=== PATIENT | male | born 1945 | race Caucasian/White ===

== ENCOUNTER → 2019-03-09 10:59 | Outpatient (BNVA) | payer MEDICARE, OTHER, SELFPAY | PROVIDERS: Family Provider Nurse Practitioner Family; PCP Nurse Practitioner Family; Visit Provider Orthopaedic Surgery | DX: M17.12 Unilateral primary osteoarthritis, left knee (principal) | CPT/HCPCS: 73560; 73565 ==

== ENCOUNTER → 2019-03-24 08:28 | Outpatient (BNVA) | payer MEDICARE, OTHER, SELFPAY | PROVIDERS: Family Provider Nurse Practitioner Family; Visit Provider Internal Medicine Cardiovascular Disease | DX: I25.10 Atherosclerotic heart disease of native coronary artery without angina pectoris (principal); I10 Essential (primary) hypertension; Z95.0 Presence of cardiac pacemaker; E78.5 Hyperlipidemia, unspecified; E78.2 Mixed hyperlipidemia | CPT/HCPCS: 80053; 80061; 85025 ==

== ENCOUNTER 2019-04-30 07:52 | Outpatient (CLI) | payer MEDICARE, OTHER, SELFPAY ==
--- NOTE | 2019-04-30 08:15 | CT_ITS ---
WS: [id number] CT scan of the neck. Additional two-dimensional coronal and sagittal reconstruction was performed. Clinical Data: MIXED CONDUCTIVE AND SENSORINEURAL HEARING LOSS, BILAT Comparison: CT cervical spine, 08/29/2015. DLP: 3299.[address] scans at [facility] use at least one of these dose optimization techniques: automat ed exposure control; mA and/or kV adjustment per patient size (includes targeted exams where dose is matched to clinical indication); or iterative reconstruction. Findings: No lymphadenopathy is noted. The salivary glands are unremarkable. There is no prevertebral soft tiss ue swelling. The larynx is symmetric. The thyroid gland shows normal enhancement. The floor of the mo uth and parapharyngeal spaces are normal. The oral cavity is unremarkable. The carotid arteries bifurcate normally. The cervical spine shows mild osteoarthritic change with sylvia cification of the anterior longitudinal ligament at C4-C5.. The lung apices show no abnormalities. Th e pacemaker wires can be seen entering from the left subclavian vein and entering into the superior v domenic cava. The portions of the intracranial circulation which are seen demonstrate no abnormalities. N o erosion of the skull or skull base is seen. There is partial obliteration of the left mastoid regio n. The right mastoid region is normal. The external auditory canals and internal auditory canals show no abnormalities. CT/CT neck w con* [id number] Impression: 1. 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 2. Internal and external auditory canals show no abnormalities.
[2019-04-30] MEDS: iodixanol 320 mg/mL 100mL Btl IV (08:47)
== END 2019-04-30 07:53 | disposition home or self-care (01) ==
LOC: RADWPI 07:57
PROVIDERS: Visit Provider Specialist
DX: H90.6 Mixed conductive and sensorineural hearing loss, bilateral (principal)
CPT/HCPCS: 70491; Q9967

== ENCOUNTER → 2019-07-07 11:51 | Outpatient (BNVA) | payer MEDICARE, OTHER, SELFPAY | PROVIDERS: PCP Family Medicine; Visit Provider Family Medicine | DX: E78.2 Mixed hyperlipidemia (principal); M1A.9XX0 Chronic gout, unspecified, without tophus (tophi); I10 Essential (primary) hypertension | CPT/HCPCS: 80053; 80061; 84550; 85025 ==

== ENCOUNTER → 2019-09-09 09:30 | Outpatient (BNVA) | payer MEDICARE, OTHER, SELFPAY | PROVIDERS: PCP Family Medicine; Visit Provider Family Medicine | DX: M1A.9XX0 Chronic gout, unspecified, without tophus (tophi) (principal) | CPT/HCPCS: 84550 ==

== ENCOUNTER → 2019-11-22 13:15 | Outpatient (BNVA) | payer MEDICARE, OTHER, SELFPAY | PROVIDERS: PCP Family Medicine; Visit Provider Nurse Practitioner Family | DX: Z11.59 Encounter for screening for other viral diseases (principal) | CPT/HCPCS: 87635 ==

== ENCOUNTER 2019-12-01 14:44 | Emergency (ER) | payer MEDICARE, OTHER, SELFPAY ==
[2019-12-01 14:47] VITALS: BP 142/81; PULSE 68; RESP 18; TEMP 36.4; O2SAT 96; BMI 35.6
--- NOTE | 2019-12-01 14:51 | ECG_ITS ---
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 Measurements Intervals [place] Rate: 60 P: 138 GA: 193 QRS: -61 QRSD: 170 T: 135 QT: 432 QTc: 432 Interpretive Statements ELECTRONIC ATRIAL PACEMAKER ELECTRONIC VENTRICULAR PACEMAKER ABNORMAL RHYTHM ECG Compared to ECG 12/28/2018 22:35:15 No significant changes Electronically Signed On 12-01-2019 21:46:51 CDT by Leatha Saldivar M.D. [id number]
--- NOTE | 2019-12-01 15:33 | ECG_ITS ---
[facility] Test Date: 2019-12-01 Pat Name: Miky Hoffman Department: Room: Gender: Male Automatic Chief: : 1945 Requested By: Saul Francisco Order Number: [id number] Irineo MD: Leatha Saldivar M.D. Measurements Intervals [place] Rate: 61 P: 136 NE: 179 QRS: -58 QRSD: 190 T: 136 QT: 439 QTc: 443 Interpretive Statements ELECTRONIC ATRIAL PACEMAKER ELECTRONIC VENTRICULAR PACEMAKER ABNORMAL RHYTHM ECG Compared to ECG 12/28/2018 22:35:15 No significant changes Electronically Signed On 12-01-2019 21:45:24 CDT by Leatha Saldivar M.D. [id number]
--- NOTE | 2019-12-01 15:33 | XRR_ITS ---
PROCEDURE INFORMATION: Exam: XR Chest, 1 View Exam date and time: 12/01/2019 3:57 PM Age: 74 years old Clinical indication: Dyspnea TECHNIQUE: Imaging protocol: XR of the chest Views: 1 view. COMPARISON: CR Chest 1 [place] [id number] 12/28/2018 9:06 PM FINDINGS: Lungs: Unremarkable. No consolidation. Pleural space: Unremarkable. No pleural effusion. No pneumothorax. Heart/Mediastinum: Unremarkable. No cardiomegaly. Bones/joints: Unremarkable. Cardiac pacemaker left anterior chest XR/XR chest 1V portable [id number] IMPRESSION: No acute findings. Cardiac pacemaker left anterior chest
[2019-12-01 15:37] VITALS: BP 122/85; PULSE 60; RESP 18; O2SAT 95
--- NOTE | 2019-12-01 15:42 | ED_ITS ---
Documented by User: Saul Roman DO 12/06/19 13:26 HPI - Chest Pain General: Chief Complaint: Chest Pain Stated Complaint: cp Time Seen by Provider: 12/01/19 15:28 History of Present Illness: HPI narrative: 74-year-old male comes into the emergency room complaining of chest pain and heaviness that began this morning around 10 or 11 AM. Patient reports it radiates into his shoulders and back. He denies any nausea or vomiting he has had some shortness of breath with that he is not noticed anything that exacerbates it or relieves it. He is not having any chest pain now. Patient has a known history of coronary disease previously had PTCA with stents also has a pacemaker. MD complaint: chest heaviness and chest discomfort Pertinent past history: coronary artery disease Onset (ago): hour(s) Timing of current episode: episodic and now resolved Onset: during rest Pain location: left chest Pain radiation: back, left shoulder and right shoulder Severity: moderate Quality: tightness and heaviness Relieving factors: nothing Exacerbating factors: nothing Associated symptoms: Deny abdominal pain, dyspnea, fever(s), nausea or vomiting Review of Systems Const: Denies: fever(s), chills, body aches, change in appetite, fatigue or malaise ENMT: Denies: throat pain, ear or mastoid pain, nasal discharge or nasal congestion Card: Denies: chest pain, edema, dyspnea on exertion or orthopnea Resp: Denies: dyspnea, productive cough or non-productive cough GI: Denies: abdominal pain, nausea, vomiting, hematemesis, coffee ground emesis, diarrhea, constipation, bloating, hematochezia or melena : Denies: flank pain, dysuria, urinary frequency or urinary urgency Skin/Breast: Denies: rash or pruritus PFSH ED PFSH: Medical History (Updated 12/04/19 @ 00:01 by ) Abdominal pain Arteriosclerotic heart disease Atherosclerosis of coronary artery of [place] heart without angina pectoris Blindness of left eye 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 arthritis Cholecystectomy planned Chronic gout Chronic kidney disease, stage 2 (mild) Chronic neck pain Diverticulosis Elevated blood sugar Essential (primary) hypertension Gastro-esophageal reflux disease without esophagitis Hearing loss of both ears Heart murmur Hemorrhoids, internal Hepatomegaly History of colon polyps History of medication noncompliance Hyperuricemia Metatarsalgia of both feet Mixed hyperlipidemia Patel's neuroma of left foot Neuropathy Nicotine dependence, cigarettes, uncomplicated Osteopenia Pacemaker Unspecified osteoarthritis, unspecified site Surgical History (Updated 12/03/19 @ 17:09 by Js Mabry MD) H/O hernia repair History of ankle surgery History of permanent cardiac pacemaker placement For symptomatic bradycardia, 02/25 S/P cardiac catheterization On 07/30/2017 he underwent coronary angiography and was found to have 20% distal left main, minimal intimal irregularities in the LAD, patent stented segment of the first high OM branch patent stent segment of the PDA of the RCA and mild disease in the distal RCA with an EF of 50% and slightly elevated LVEDP of 16 mmHg Status post cholecystectomy Family History Brother CAD (coronary artery disease) Myocardial infarct Cancer Mother Myocardial infarct Father Cancer FROM LUNG CANCER Daughter Cancer Social History (Updated 12/02/19 @ 23:30 by Lino Wren MD) Smoking and tobacco status: former smoker Alcohol intake: current Lives independently: Yes Household members: spouse Marital status: Current occupational status: retired Physical Exam Const: COMMON NORMALS: no acute distress GENERAL APPEARANCE: cooperative and comfortable ORIENTATION/CONSCIOUSNESS: Yes awake, Yes oriented to person, Yes oriented to place and Yes oriented to time HENMT: COMMON NORMALS: normocephalic, atraumatic and external ears normal HEAD & SCALP: normocephalic and atraumatic EXTERNAL EAR: Yes external ears normal Neck/C-Spine: COMMON NORMALS: no JVD Resp: COMMON NORMALS: normal respiratory effort, No retractions, No use of accessory muscles and clear to auscultation bilaterally AUSCULTATION: clear to auscultation bilaterally Cardio: COMMON NORMALS: no JVD, regular rate, regular rhythm and No murmurs present (Cardio) RATE: regular rate RHYTHM: regular rhythm GI: COMMON NORMALS: Soft to palpation and No hepatosplenomegaly present AUSCULTATION: Yes normoactive bowel sounds PALPATION: Yes Soft to palpation, No Tenderness to palpation present (GI), No Guarding due to palpation present (GI) and Yes No hepatosplenomegaly present Extremity: COMMON NORMALS: normal to inspection, capillary refill normal, no clubbing, cyanosis or edema, no calf tenderness and no pedal edema Neuro: SENSORIUM/ORIENTATION: Yes oriented to person, Yes oriented to place and Yes oriented to time Course Vital Signs: Vital signs: Vital Signs Temperature 97.6 F 12/01/19 14:47 Pulse Rate 60 12/01/19 19:27 Respiratory Rate 17 12/01/19 19:27 Blood Pressure 136/87 12/01/19 19:27 Pulse Oximetry 94 12/01/19 19:27 MDM - Chest Pain MDM Narrative: Medical decision making narrative: Turned over to Dr. Jin at change of shift. Lab Data: Labs: Lab Results 12/01/19 12/01/19 12/01/19 Range/Units 15:30 15:30 15:30 WBC 5.8 (4.0-10.0) 10^3/ uL RBC 4.22 (4.1-5.3) 10^6/u L Hgb 13.9 (11.7-16.6) g/dL Hct 42.8 (42.0-52.0) % MCV 101.4 H (80-94) fL MCH 32.9 (28.0-34.0) pg MCHC 32.5 (30.0-36.0) g/dL RDW 11.9 L (12.1-15.1) % Plt Count 172 (130-400) 10^3/c mm MPV 9.5 (7.4-10.4) fL Neut % (Auto) 57.9 % Lymph % (Auto) 30.2 % Piatt % (Auto) 9.0 % Eos % (Auto) 2.1 % Baso % (Auto) 0.5 % Neut # (Auto) 3.36 (1.8-7.7) 10^3/u L Lymph # (Auto) 1.8 (0.8-4.8) 10^3/u L Piatt # (Auto) 0.5 (0.2-0.9) 10^3/u L Eos # (Auto) 0.1 (0.0-0.8) 10^3/u L Baso # (Auto) 0.0 (0.0-0.1) 10^3/u L Nucleated RBC % (a uto) 0 % Nucleated RBCs # 0.0 /100WBC Sodium 139 (136-145) mmol/L Potassium 4.7 (3.5-5.1) mmol/L Chloride 102 (98-107) mmol/L Carbon Dioxide 27 (22-29) mmol/L Anion Gap 14.7 (5-19) BUN 17 (8-23) mg/dL Creatinine 1.3 H (0.7-1.2) mg/dL GFR Calculation Not Reportable Glucose 111 (65-115) mg/dL Calculated Osmolal ity 290 (285-295) mOsm/k g Calcium 10.1 (8.5-10.5) mg/dL Total Bilirubin 0.3 (0.15-1.2) mg/dL AST 51 H (0-40) U/L ALT 79 H (0-41) U/L Alkaline Phosphata se 71 (40-130) IU/L Troponin T Baselin e 9 (0-15) ng/L Troponin T 120 Min [place] (0-15) ng/L Delta Troponin T (0-10) ABS# Total Protein 7.0 (6.6-8.7) g/dL Albumin 4.5 (3.5-5.2) g/dL Globulin 2.5 (1.3-4.6) g/dL 12/01/19 Range/Units 17:39 WBC (4.0-10.0) 10^3/ uL RBC (4.1-5.3) 10^6/u L Hgb (11.7-16.6) g/dL Hct (42.0-52.0) % MCV (80-94) fL MCH (28.0-34.0) pg MCHC (30.0-36.0) g/dL RDW (12.1-15.1) % Plt Count (130-400) 10^3/c mm MPV (7.4-10.4) fL Neut % (Auto) % Lymph % (Auto) % Piatt % (Auto) % Eos % (Auto) % Baso % (Auto) % Neut # (Auto) (1.8-7.7) 10^3/u L Lymph # (Auto) (0.8-4.8) 10^3/u L Piatt # (Auto) (0.2-0.9) 10^3/u L Eos # (Auto) (0.0-0.8) 10^3/u L Baso # (Auto) (0.0-0.1) 10^3/u L Nucleated RBC % (a uto) % Nucleated RBCs # /100WBC Sodium (136-145) mmol/L Potassium (3.5-5.1) mmol/L Chloride (98-107) mmol/L Carbon Dioxide (22-29) mmol/L Anion Gap (5-19) BUN (8-23) mg/dL Creatinine (0.7-1.2) mg/dL GFR Calculation Glucose (65-115) mg/dL Calculated Osmolal ity (285-295) mOsm/k g Calcium (8.5-10.5) mg/dL Total Bilirubin (0.15-1.2) mg/dL AST (0-40) U/L ALT (0-41) U/L Alkaline Phosphata se (40-130) IU/L Troponin T Baselin e (0-15) ng/L Troponin T 120 Min [place] 8 (0-15) ng/L Delta Troponin T -1 L (0-10) ABS# Total Protein (6.6-8.7) g/dL Albumin (3.5-5.2) g/dL Globulin (1.3-4.6) g/dL Discharge Plan Discharge Patient Disposition: Home Clinical Impression: Chest pain Condition: Stable Prescriptions: No Action calcium phosphate-vitamin D3 [Citracal-D3 Gummies] 250 mg calcium- 500 unit tablet,chewable PO BID RF: 0 tramadol 50 mg tablet 50 mg PO Q6H PRNRF: 0 cyanocobalamin (vitamin B-12) 1,000 mcg capsule 1,000 mcg PO ONCE RF: 0 aspirin 81 mg tablet,delayed release (DR/EC) 81 mg PO ONCE RF: 0 multivitamin Tablet 1 tab PO QAM RF: 0 omega-3 fatty acids-vitamin E 1,000 mg capsule 1,000 mg PO DAILY RF: 0 atorvastatin 40 mg tablet 40 mg PO DAILY Qty: 30 RF: 5 clopidogrel 75 mg tablet 75 mg PO DAILY Qty: 30 RF: 4 carvedilol [Coreg] 12.5 mg tablet 12.5 mg PO BID Qty: 60 RF: 5 febuxostat [Uloric] 40 mg tablet 40 mg PO DAILY Qty: 30 RF: 3 nitroglycerin [Nitro-Time] 2.5 mg capsule, extended release 2.5 mg PO BID Qty: 180 RF: 0 tamsulosin [Flomax] 0.4 mg capsule 0.4 mg PO DAILY Qty: 30 RF: 5 colchicine 0.6 mg tablet 0.6 mg PO DAILY Qty: 30 RF: 2 omeprazole 20 mg capsule,delayed release(DR/EC) See Rx Instructions .ROUTE .COMPLEX Qty: 90 RF: 0 cyclobenzaprine 10 mg Tablet 10 mg PO TID PRN (Reason: Muscle Spasms) 15 Days Qty: 30 RF: 0 amlodipine 10 mg Tablet 10 mg PO DAILY 30 Days Qty: 30 RF: 0 Lyrica 25 mg Capsule 25 mg PO BID 30 Days Qty: 60 RF: 0 tramadol 50 mg tablet 25 mg PO Q8H PRN (Reason: pain) 7 Days Qty: 7 RF: 0 Nitrostat 0.4 mg tablet, sublingual 0.4 mg SUBLINGUAL Q5M PRN (Reason: chest pain) 3 Days Qty: 3 RF: 0 Discharge Orders: Discharge Order (Routine); Ordered 12/01/19 Ordered By: Shamar Jin Referrals: Lauren Chin MD [Primary Care Provider] - Discharge Diet: Advance as tolerated Discharge Activity: Resume usual activity Patient Instructions: Chest Pain (ED) Discharge Date/Time: 12/01/19 19:28 Coding Level of Care Code ED Dental Technician Instructor for Chg Fwd Exam Detailed Documented by User: Shamar Jin MD 12/01/19 19:07 HPI - Chest Pain General: Chief Complaint: Chest Pain Stated Complaint: cp Time Seen by Provider: 12/01/19 15:28 PFSH ED PFSH: Medical History (Updated 12/04/19 @ 00:01 by ) Abdominal pain Arteriosclerotic heart disease Atherosclerosis of coronary artery of [place] heart without angina pectoris Blindness of left eye 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 arthritis Cholecystectomy planned Chronic gout Chronic kidney disease, stage 2 (mild) Chronic neck pain Diverticulosis Elevated blood sugar Essential (primary) hypertension Gastro-esophageal reflux disease without esophagitis Hearing loss of both ears Heart murmur Hemorrhoids, internal Hepatomegaly History of colon polyps History of medication noncompliance Hyperuricemia Metatarsalgia of both feet Mixed hyperlipidemia Patel's neuroma of left foot Neuropathy Nicotine dependence, cigarettes, uncomplicated Osteopenia Pacemaker Unspecified osteoarthritis, unspecified site Surgical History (Updated 12/03/19 @ 17:09 by Js Mabry MD) H/O hernia repair History of ankle surgery History of permanent cardiac pacemaker placement For symptomatic bradycardia, 02/25 S/P cardiac catheterization On 07/30/2017 he underwent coronary angiography and was found to have 20% distal left main, minimal intimal irregularities in the LAD, patent stented segment of the first high OM branch patent stent segment of the PDA of the RCA and mild disease in the distal RCA with an EF of 50% and slightly elevated LVEDP of 16 mmHg Status post cholecystectomy Family History Brother CAD (coronary artery disease) Myocardial infarct Cancer Mother Myocardial infarct Father Cancer FROM LUNG CANCER Daughter Cancer Social History (Updated 12/02/19 @ 23:30 by Lino Wren MD) Smoking and tobacco status: former smoker Alcohol intake: current Lives independently: Yes Household members: spouse Marital status: Current occupational status: retired Course Vital Signs: Vital signs: Vital Signs Temperature 97.6 F 12/01/19 14:47 Pulse Rate 60 12/01/19 19:27 Respiratory Rate 17 12/01/19 19:27 Blood Pressure 136/87 12/01/19 19:27 Pulse Oximetry 94 12/01/19 19:27 MDM - Chest Pain MDM Narrative: Medical decision making narrative: Patient presents here with chest pain. Patient's been pain-free here and I took him over from Dr. Silva. Patient's initial and repeat troponins are negative. I went and spoke to patient and did discuss admission he states he feels improved would like to go home. Feel he is stable for discharge informed he needs to set up a stress test outpatient he is return if he has any more pain. He understands agrees to plan. Lab Data: Labs: Lab Results 12/01/19 12/01/19 12/01/19 Range/Units 15:30 15:30 15:30 WBC 5.8 (4.0-10.0) 10^3/ uL RBC 4.22 (4.1-5.3) 10^6/u L Hgb 13.9 (11.7-16.6) g/dL Hct 42.8 (42.0-52.0) % MCV 101.4 H (80-94) fL MCH 32.9 (28.0-34.0) pg MCHC 32.5 (30.0-36.0) g/dL RDW 11.9 L (12.1-15.1) % Plt Count 172 (130-400) 10^3/c mm MPV 9.5 (7.4-10.4) fL Neut % (Auto) 57.9 % Lymph % (Auto) 30.2 % Piatt % (Auto) 9.0 % Eos % (Auto) 2.1 % Baso % (Auto) 0.5 % Neut # (Auto) 3.36 (1.8-7.7) 10^3/u L Lymph # (Auto) 1.8 (0.8-4.8) 10^3/u L Piatt # (Auto) 0.5 (0.2-0.9) 10^3/u L Eos # (Auto) 0.1 (0.0-0.8) 10^3/u L Baso # (Auto) 0.0 (0.0-0.1) 10^3/u L Nucleated RBC % (a uto) 0 % Nucleated RBCs # 0.0 /100WBC Sodium 139 (136-145) mmol/L Potassium 4.7 (3.5-5.1) mmol/L Chloride 102 (98-107) mmol/L Carbon Dioxide 27 (22-29) mmol/L Anion Gap 14.7 (5-19) BUN 17 (8-23) mg/dL Creatinine 1.3 H (0.7-1.2) mg/dL GFR Calculation Not Reportable Glucose 111 (65-115) mg/dL Calculated Osmolal ity 290 (285-295) mOsm/k g Calcium 10.1 (8.5-10.5) mg/dL Total Bilirubin 0.3 (0.15-1.2) mg/dL AST 51 H (0-40) U/L ALT 79 H (0-41) U/L Alkaline Phosphata se 71 (40-130) IU/L Troponin T Baselin e 9 (0-15) ng/L Troponin T 120 Min [place] (0-15) ng/L Delta Troponin T (0-10) ABS# Total Protein 7.0 (6.6-8.7) g/dL Albumin 4.5 (3.5-5.2) g/dL Globulin 2.5 (1.3-4.6) g/dL 12/01/19 Range/Units 17:39 WBC (4.0-10.0) 10^3/ uL RBC (4.1-5.3) 10^6/u L Hgb (11.7-16.6) g/dL Hct (42.0-52.0) % MCV (80-94) fL MCH (28.0-34.0) pg MCHC (30.0-36.0) g/dL RDW (12.1-15.1) % Plt Count (130-400) 10^3/c mm MPV (7.4-10.4) fL Neut % (Auto) % Lymph % (Auto) % Piatt % (Auto) % Eos % (Auto) % Baso % (Auto) % Neut # (Auto) (1.8-7.7) 10^3/u L Lymph # (Auto) (0.8-4.8) 10^3/u L Piatt # (Auto) (0.2-0.9) 10^3/u L Eos # (Auto) (0.0-0.8) 10^3/u L Baso # (Auto) (0.0-0.1) 10^3/u L Nucleated RBC % (a uto) % Nucleated RBCs # /100WBC Sodium (136-145) mmol/L Potassium (3.5-5.1) mmol/L Chloride (98-107) mmol/L Carbon Dioxide (22-29) mmol/L Anion Gap (5-19) BUN (8-23) mg/dL Creatinine (0.7-1.2) mg/dL GFR Calculation Glucose (65-115) mg/dL Calculated Osmolal ity (285-295) mOsm/k g Calcium (8.5-10.5) mg/dL Total Bilirubin (0.15-1.2) mg/dL AST (0-40) U/L ALT (0-41) U/L Alkaline Phosphata se (40-130) IU/L Troponin T Baselin e (0-15) ng/L Troponin T 120 Min [place] 8 (0-15) ng/L Delta Troponin T -1 L (0-10) ABS# Total Protein (6.6-8.7) g/dL Albumin (3.5-5.2) g/dL Globulin (1.3-4.6) g/dL Imaging Data^: CXR: Attestation: I personally reviewed and interpreted this imaging study as follows: Radiologist's impression: [address] [address] XRay Report Signed Patient: Miky Hoffman Unit #: [id number] : 1945 Age/Sex: 74 / M ADM Date: 12/01/19 Loc: ER Room/Bed: Attending Dr: Ordering Provider/Ordering MD: Saul Roman DO Date of Service: 12/01/19 Procedure(s): XR chest 1V portable [id number] Accession Number(s): [id number] Report Number: [id number] PROCEDURE INFORMATION: Exam: XR Chest, 1 View Exam date and time: 12/01/2019 3:57 PM Age: 74 years old Clinical indication: Dyspnea TECHNIQUE: Imaging protocol: XR of the chest Views: 1 view. COMPARISON: CR Chest 1 [place] [id number] 12/28/2018 9:06 PM FINDINGS: Lungs: Unremarkable. No consolidation. Pleural space: Unremarkable. No pleural effusion. No pneumothorax. Heart/Mediastinum: Unremarkable. No cardiomegaly. Bones/joints: Unremarkable. Cardiac pacemaker left anterior chest XR/XR chest 1V portable [id number] IMPRESSION: No acute findings. Cardiac pacemaker left anterior chest EKG Data^: EKG 1: Attestation: I personally reviewed and interpreted this EKG as follows: EKG interpretation date: 12/01/19 EKG interpretation time: 15:57 Interpretation: paced hr [address] or t wave abnormalities qrs 170 qtc 432 EKG 2: Attestation: I personally reviewed and interpreted this EKG as follows: EKG interpretation date: 12/01/19 EKG interpretation time: 18:22 Interpretation: paced rhythm hr [address] or t wave abnormlaites qrs 191 qtc 455 Discharge Plan Discharge Patient Disposition: Home Clinical Impression: Chest pain Condition: Stable Prescriptions: No Action calcium phosphate-vitamin D3 [Citracal-D3 Gummies] 250 mg calcium- 500 unit tablet,chewable PO BID RF: 0 tramadol 50 mg tablet 50 mg PO Q6H PRNRF: 0 cyanocobalamin (vitamin B-12) 1,000 mcg capsule 1,000 mcg PO ONCE RF: 0 aspirin 81 mg tablet,delayed release (DR/EC) 81 mg PO ONCE RF: 0 multivitamin Tablet 1 tab PO QAM RF: 0 omega-3 fatty acids-vitamin E 1,000 mg capsule 1,000 mg PO DAILY RF: 0 atorvastatin 40 mg tablet 40 mg PO DAILY Qty: 30 RF: 5 clopidogrel 75 mg tablet 75 mg PO DAILY Qty: 30 RF: 4 carvedilol [Coreg] 12.5 mg tablet 12.5 mg PO BID Qty: 60 RF: 5 febuxostat [Uloric] 40 mg tablet 40 mg PO DAILY Qty: 30 RF: 3 nitroglycerin [Nitro-Time] 2.5 mg capsule, extended release 2.5 mg PO BID Qty: 180 RF: 0 tamsulosin [Flomax] 0.4 mg capsule 0.4 mg PO DAILY Qty: 30 RF: 5 colchicine 0.6 mg tablet 0.6 mg PO DAILY Qty: 30 RF: 2 omeprazole 20 mg capsule,delayed release(DR/EC) See Rx Instructions .ROUTE .COMPLEX Qty: 90 RF: 0 cyclobenzaprine 10 mg Tablet 10 mg PO TID PRN (Reason: Muscle Spasms) 15 Days Qty: 30 RF: 0 amlodipine 10 mg Tablet 10 mg PO DAILY 30 Days Qty: 30 RF: 0 Lyrica 25 mg Capsule 25 mg PO BID 30 Days Qty: 60 RF: 0 tramadol 50 mg tablet 25 mg PO Q8H PRN (Reason: pain) 7 Days Qty: 7 RF: 0 Nitrostat 0.4 mg tablet, sublingual 0.4 mg SUBLINGUAL Q5M PRN (Reason: chest pain) 3 Days Qty: 3 RF: 0 Discharge Orders: Discharge Order (Routine); Ordered 12/01/19 Ordered By: Shamar Jin Referrals: Lauren Chin MD [Primary Care Provider] - Discharge Diet: Advance as tolerated Discharge Activity: Resume usual activity Patient Instructions: Chest Pain (ED) Discharge Date/Time: 12/01/19 19:28 Coding Level of Care Code ED Dental Technician Instructor for Chg Fwd Exam Detailed
[2019-12-01 15:47] LABS: Basophils % 0.5 %; Eosinophils # 0.1 10^3/uL (0.0-0.8); Eosinophils % 2.1 %; Hematocrit 42.8 % (42.0-52.0); Hemoglobin 13.9 g/dL (11.7-16.6); Lymphocytes # 1.8 10^3/uL (0.8-4.8); Lymphocytes % 30.2 %; Mean Corpuscular HGB Conc 32.5 g/dL (30.0-36.0); Mean Corpuscular Hemoglobin 32.9 pg (28.0-34.0); Mean Corpuscular Volume 101.4 fL (80-94); Mean Platelet Volume 9.5 fL (7.4-10.4); Monocytes # 0.5 10^3/uL (0.2-0.9); Neutrophils # 3.36 10^3/uL (1.8-7.7); Neutrophils % 57.9 %; Nucleated Red Blood Cells % 0 %; Platelet Count 172 10^3/cmm (130-400); Red Blood Count 4.22 10^6/uL (4.1-5.3); Red Cell Distribution Width 11.9 % (12.1-15.1); White Blood Count 5.8 10^3/uL (4.0-10.0)
[2019-12-01 16:09] LABS: Alanine Aminotransferase 79 U/L (0-41); Albumin Level 4.5 g/dL (3.5-5.2); Alkaline Phosphatase 71 IU/L (40-130); Anion Gap 14.7 (5-19); Aspartate Amino Transferase 51 U/L (0-40); Blood Urea Nitrogen 17 mg/dL (8-23); Calcium 10.1 mg/dL (8.5-10.5); Carbon Dioxide 27 mmol/L (22-29); Chloride 102 mmol/L (98-107); Globulin 2.5 g/dL (1.3-4.6); Glucose 111 mg/dL (65-115); Osmolality Calculated 290 mOsm/kg (285-295); Potassium 4.7 mmol/L (3.5-5.1); Sodium 139 mmol/L (136-145); Total Bilirubin 0.3 mg/dL (0.15-1.2)
[2019-12-01 16:12] LABS: Troponin(5th) Baseline 9 ng/L (0-15)
[2019-12-01 17:11] VITALS: PULSE 60; RESP 13; O2SAT 94
--- NOTE | 2019-12-01 17:33 | ECG_ITS ---
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 Measurements Intervals [place] Rate: 61 P: 110 NV: 175 QRS: -60 QRSD: 191 T: 127 QT: 453 QTc: 457 Interpretive Statements ELECTRONIC ATRIAL PACEMAKER ELECTRONIC VENTRICULAR PACEMAKER Compared to ECG 12/01/2019 15:57:13 No significant changes Electronically Signed On 12-02-2019 18:34:03 CDT by Joon Gao M.D. [id number] f
--- NOTE | 2019-12-01 19:13 | PC.NURSE ---
REPORT RECEIVED FROM TICO VELARDE AND CARE TRANSFERRED TO TICO [facility]IL
[2019-12-01 19:18] LABS: Troponin 5 2HR 8 ng/L (0-15); Troponin 5 2HR Delta -1 ABS# (0-10)
[2019-12-01 19:25] VITALS: BP 139/85; PULSE 61; RESP 18; O2SAT 94
[2019-12-01 19:27] VITALS: BP 136/87; PULSE 60; RESP 17; O2SAT 94
== END 2019-12-01 19:28 | disposition home or self-care (01) ==
PROVIDERS: Family Medicine; Emergency Provider Emergency Medicine; PCP Family Medicine
DX: R07.9 Chest pain, unspecified (principal); Z79.82 Long term (current) use of aspirin; Z79.02 Long term (current) use of antithrombotics/antiplatelets; I12.9 Hypertensive chronic kidney disease with stage 1 through stage 4 chronic kidney disease, or unspecified chronic kidney disease; N18.2 Chronic kidney disease, stage 2 (mild); E78.2 Mixed hyperlipidemia; Z95.0 Presence of cardiac pacemaker; Z87.891 Personal history of nicotine dependence
CPT/HCPCS: 12345; 36415; 71045; 80053; 84484; 85025; 93005; 99284

== ENCOUNTER 2019-12-02 18:57 | Observation (INO) | payer MEDICARE, OTHER, SELFPAY ==
[2019-12-02] VITALS (9 sets, daily range): BP systolic 125–168; BP diastolic 78–94; PULSE 60–89; RESP 12–25; TEMP 36.7–36.8; O2SAT 92–99; BMI 35.6
--- NOTE | 2019-12-02 18:58 | XR_ITS ---
WS: [id number] Portable AP upright chest, 12/02/2019 Clinical Data: cp Comparison: Portable chest, 12/01/2019. Findings: No nodules, masses or effusions are seen. The heart is slightly enlarged. The pulmonary vas cularity is not increased. No pneumonia or pneumothorax is seen. There is a 2-lead pacemaker unchange d in position. The aortic arch and descending aorta show calcification of tortuosity. Monitor leads a re on the chest wall. XR/XR chest 1V portable [id number] Impression: Cardiomegaly and atherosclerosis.
--- NOTE | 2019-12-02 18:59 | ECG_ITS ---
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 Measurements Intervals [place] Rate: 62 P: 177 VT: 176 QRS: -59 QRSD: 198 T: 134 QT: 452 QTc: 462 Interpretive Statements ELECTRONIC ATRIAL PACEMAKER ELECTRONIC VENTRICULAR PACEMAKER ABNORMAL RHYTHM ECG Compared to ECG 12/01/2019 18:22:41 No significant changes Electronically Signed On 12-03-2019 20:27:04 CDT by Leatha Saldivar M.D. [email or web address]/[id number]
--- NOTE | 2019-12-02 19:05 | W.ED.CHESTPA ---
HPI - Chest Pain General: Chief Complaint: Extremity Injury, Upper Stated Complaint: SHOULDER PAIN AND FATIGUE Time Seen by Provider: 12/02/19 18:59 Source: patient Mode of arrival: ambulatory Limitations: no limitations History of Present Illness: HPI narrative: 74-year-old male who was seen here yesterday for chest pain had 2 - troponins. States that today has been having worsening shoulder pain along with exertional dyspnea and fatigue. He states he has had increasing concern as it is gotten much worse today. He denies any fever. Denies any cough. Associated symptoms: Reports dyspnea; Deny abdominal pain, nausea or vomiting Review of Systems Const: Reports: fatigue Eyes: Denies: blurry vision or eye discomfort ENMT: Denies: throat pain or dental pain Card: Reports: chest pain Resp: Reports: dyspnea GI: Denies: abdominal pain, nausea, vomiting or diarrhea : Denies: dysuria Musc: Denies: neck pain or back pain Skin/Breast: Denies: rash Neuro: Denies: headache(s) Psych: Denies: depression Randal/Lymph: Denies: easy bruising All/Imm: Denies: urticaria PFSH ED PFSH: Medical History Abdominal pain Arteriosclerotic heart disease Atherosclerosis of coronary artery of [place] heart without angina pectoris Blindness of left eye 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 arthritis Cholecystectomy planned Chronic gout Chronic kidney disease, stage 2 (mild) Chronic neck pain Diverticulosis Elevated blood sugar Essential (primary) hypertension Gastro-esophageal reflux disease without esophagitis Hearing loss of both ears Heart murmur Hemorrhoids, internal Hepatomegaly History of colon polyps History of medication noncompliance Hyperuricemia Metatarsalgia of both feet Mixed hyperlipidemia Patel's neuroma of left foot Neuropathy Nicotine dependence, cigarettes, uncomplicated Osteopenia Pacemaker Unspecified osteoarthritis, unspecified site Surgical History H/O hernia repair History of ankle surgery Family History Brother CAD (coronary artery disease) Myocardial infarct Cancer Mother Myocardial infarct Father Cancer FROM LUNG CANCER Daughter Cancer Social History Smoking and tobacco status: current every day smoker Alcohol intake: current Lives independently: Yes Household members: spouse Marital status: Current occupational status: retired Physical Exam Const: COMMON NORMALS: no acute distress, patient oriented x3 and healthy appearing HENMT: COMMON NORMALS: normocephalic and atraumatic HEAD & SCALP: normocephalic and atraumatic Eye: COMMON NORMALS: Equal, round and reactive pupils present and EOMs intact bilaterally PUPIL: Yes Equal, round and reactive pupils present Neck/C-Spine: COMMON NORMALS: full ROM and supple Chest: COMMONS NORMALS: normal inspection of the chest and normal palpation of entire chest wall Resp: COMMON NORMALS: normal respiratory effort, No retractions, No use of accessory muscles and clear to auscultation bilaterally AUSCULTATION: clear to auscultation bilaterally Cardio: COMMON NORMALS: regular rate, regular rhythm and No murmurs present (Cardio) RATE: regular rate RHYTHM: regular rhythm GI: COMMON NORMALS: Normal to inspection, nondistended, normoactive bowel sounds present, Soft to palpation, non-tender and no masses PALPATION: Yes Soft to palpation Extremity: COMMON NORMALS: normal to inspection and full ROM Neuro: COMMON NORMALS: patient oriented x3, moves all extremities and no focal motor deficits Psych: COMMON NORMALS: mental status grossly normal, Normal thought process present and cooperative THOUGHT PROCESS: Normal thought process present Skin: COMMON NORMALS: no rashes or lesions noted and no wounds GENERAL SKIN EXAM: no rashes or lesions noted Course Vital Signs: Vital signs: Vital Signs Temperature 98.2 F 12/02/19 18:59 Pulse Rate 61 12/02/19 21:28 Respiratory Rate 15 12/02/19 21:28 Blood Pressure 133/79 12/02/19 21:28 Pulse Oximetry 92 12/02/19 21:28 MDM - Chest Pain MDM Narrative: Medical decision making narrative: Miky presents here with chest pain that is resolved here. Patient's initial troponin is negative. Patient's D-dimer is negative as well. He does have multiple risk factors and pain has been going on for 2 days at this time I spoke to hospitalist will admit for observation for ACS rule out. Lab Data: Labs: Lab Results 12/02/19 12/02/19 12/02/19 Range/Units 19:08 19:16 19:16 WBC 5.2 (4.0-10.0) 10^3/ uL RBC 3.99 L (4.1-5.3) 10^6/u L Hgb 13.0 (11.7-16.6) g/dL Hct 39.7 L (42.0-52.0) % MCV 99.5 H (80-94) fL MCH 32.6 (28.0-34.0) pg MCHC 32.7 (30.0-36.0) g/dL RDW 11.8 L (12.1-15.1) % Plt Count 183 (130-400) 10^3/c mm MPV 9.8 (7.4-10.4) fL Neut % (Auto) 49.8 % Lymph % (Auto) 39.3 % [place] % (Auto) 8.6 % Eos % (Auto) 1.3 % Baso % (Auto) 0.8 % Neut # (Auto) 2.61 (1.8-7.7) 10^3/u L Lymph # (Auto) 2.1 (0.8-4.8) 10^3/u L [place] # (Auto) 0.5 (0.2-0.9) 10^3/u L Eos # (Auto) 0.1 (0.0-0.8) 10^3/u L Baso # (Auto) 0.0 (0.0-0.1) 10^3/u L Nucleated RBC % (a uto) 0 % Nucleated RBCs # 0.0 /100WBC PT 12.90 (12.1-14.9) SECO NDS INR 0.95 (0.8-1.2) D-Dimer 0.31 (0-0.59) ug/mIFE U Sodium (136-145) mmol/L Potassium (3.5-5.1) mmol/L Chloride (98-107) mmol/L Carbon Dioxide (22-29) mmol/L Anion Gap (5-19) BUN (8-23) mg/dL Creatinine (0.7-1.2) mg/dL GFR Calculation Glucose (65-115) mg/dL Calculated Osmolal ity (285-295) mOsm/k g Calcium (8.5-10.5) mg/dL Total Bilirubin (0.15-1.2) mg/dL AST (0-40) U/L ALT (0-41) U/L Alkaline Phosphata se (40-130) IU/L Troponin T Baselin e (0-15) ng/L Troponin T 120 Min umm (0-15) ng/L Delta Troponin T (0-10) ABS# Total Protein (6.6-8.7) g/dL Albumin (3.5-5.2) g/dL Globulin (1.3-4.6) g/dL Urine Color Yellow (Yellow) Urine Appearance Clear (CLEAR) Urine pH 6.5 (5-7) Ur Specific Gravit y 1.005 (1.005-1.030) Urine Protein Neg (Negative) Urine Glucose (UA) Norm (Normal) Urine Ketones Negative (Negative) Urine Blood Neg (Negative) Urine Nitrate Negative (Negative) Urine Bilirubin Neg (Negative) Urine Urobilinogen Norm (Negative) mg/dL Ur Leukocyte Cristina ase Negative (Negative) Urine RBC None (0-2) /hpf Urine WBC 0-4 H (0-5) /hpf Ur Squamous Epith Cells None (0-5) /hpf Amorphous Sediment Not Reportable Urine Bacteria Trace (NONE) /hpf 12/02/19 12/02/19 12/02/19 Range/Units 19:16 19:16 21:00 WBC (4.0-10.0) 10^3/ uL RBC (4.1-5.3) 10^6/u L Hgb (11.7-16.6) g/dL Hct (42.0-52.0) % MCV (80-94) fL MCH (28.0-34.0) pg MCHC (30.0-36.0) g/dL RDW (12.1-15.1) % Plt Count (130-400) 10^3/c mm MPV (7.4-10.4) fL Neut % (Auto) % Lymph % (Auto) % [place] % (Auto) % Eos % (Auto) % Baso % (Auto) % Neut # (Auto) (1.8-7.7) 10^3/u L Lymph # (Auto) (0.8-4.8) 10^3/u L [place] # (Auto) (0.2-0.9) 10^3/u L Eos # (Auto) (0.0-0.8) 10^3/u L Baso # (Auto) (0.0-0.1) 10^3/u L Nucleated RBC % (a uto) % Nucleated RBCs # /100WBC PT (12.1-14.9) SECO NDS INR (0.8-1.2) D-Dimer (0-0.59) ug/mIFE U Sodium 139 (136-145) mmol/L Potassium 4.2 (3.5-5.1) mmol/L Chloride 103 (98-107) mmol/L Carbon Dioxide 25 (22-29) mmol/L Anion Gap 15.2 (5-19) BUN 19 (8-23) mg/dL Creatinine 1.3 H (0.7-1.2) mg/dL GFR Calculation Not Reportable Glucose 128 H (65-115) mg/dL Calculated Osmolal ity 292 (285-295) mOsm/k g Calcium 9.5 (8.5-10.5) mg/dL Total Bilirubin 0.3 (0.15-1.2) mg/dL AST 42 H (0-40) U/L ALT 69 H (0-41) U/L Alkaline Phosphata se 83 (40-130) IU/L Troponin T Baselin e 10 (0-15) ng/L Troponin T 120 Min umm 8.62 (0-15) ng/L Delta Troponin T -1.38 L (0-10) ABS# Total Protein 6.7 (6.6-8.7) g/dL Albumin 4.3 (3.5-5.2) g/dL Globulin 2.4 (1.3-4.6) g/dL Urine Color (Yellow) Urine Appearance (CLEAR) Urine pH (5-7) Ur Specific Gravit y (1.005-1.030) Urine Protein (Negative) Urine Glucose (UA) (Normal) Urine Ketones (Negative) Urine Blood (Negative) Urine Nitrate (Negative) Urine Bilirubin (Negative) Urine Urobilinogen (Negative) mg/dL Ur Leukocyte Cristina ase (Negative) Urine RBC (0-2) /hpf Urine WBC (0-5) /hpf Ur Squamous Epith Cells (0-5) /hpf Amorphous Sediment Urine Bacteria (NONE) /hpf Imaging Data^: CXR: Attestation: I personally reviewed and interpreted this imaging study as follows: My impression: no acute abnormality EKG Data^: EKG 1: Attestation: I personally reviewed and interpreted this EKG as follows: EKG interpretation date: 12/02/19 EKG interpretation time: 20:39 Interpretation: paced rhythm hr [address] or twave abnormalities qrs 165 qtc 447 Discharge Plan Discharge Patient Disposition: Admitted As Inpatient Clinical Impression: Chest pain Condition: Stable Referrals: Lauren Chin MD [Primary Care Provider] - Coding Level of Care Code ED Telegraph Dispatcher for Chg Fwd Exam Comprehensive
[2019-12-02 20:12] LABS: Basophils % 0.8 %; Eosinophils # 0.1 10^3/uL (0.0-0.8); Eosinophils % 1.3 %; Hematocrit 39.7 % (42.0-52.0); Lymphocytes # 2.1 10^3/uL (0.8-4.8); Lymphocytes % 39.3 %; Mean Corpuscular HGB Conc 32.7 g/dL (30.0-36.0); Mean Corpuscular Hemoglobin 32.6 pg (28.0-34.0); Mean Corpuscular Volume 99.5 fL (80-94); Mean Platelet Volume 9.8 fL (7.4-10.4); Monocytes # 0.5 10^3/uL (0.2-0.9); Monocytes % 8.6 %; Neutrophils # 2.61 10^3/uL (1.8-7.7); Neutrophils % 49.8 %; Nucleated Red Blood Cells % 0 %; Platelet Count 183 10^3/cmm (130-400); Red Blood Count 3.99 10^6/uL (4.1-5.3); Red Cell Distribution Width 11.8 % (12.1-15.1); White Blood Count 5.2 10^3/uL (4.0-10.0)
[2019-12-02 20:25] LABS: INR 0.95 (0.8-1.2)
[2019-12-02 20:27] LABS: D Dimer 0.31 ug/mIFEU (0-0.59)
[2019-12-02 20:35] LABS: Alanine Aminotransferase 69 U/L (0-41); Albumin Level 4.3 g/dL (3.5-5.2); Alkaline Phosphatase 83 IU/L (40-130); Anion Gap 15.2 (5-19); Aspartate Amino Transferase 42 U/L (0-40); Blood Urea Nitrogen 19 mg/dL (8-23); Calcium 9.5 mg/dL (8.5-10.5); Carbon Dioxide 25 mmol/L (22-29); Chloride 103 mmol/L (98-107); Globulin 2.4 g/dL (1.3-4.6); Glucose 128 mg/dL (65-115); Osmolality Calculated 292 mOsm/kg (285-295); Potassium 4.2 mmol/L (3.5-5.1); Sodium 139 mmol/L (136-145); Total Bilirubin 0.3 mg/dL (0.15-1.2); Total Protein 6.7 g/dL (6.6-8.7)
[2019-12-02 20:51] LABS: Bilirubin Urine Neg (Negative); Blood Urine Neg (Negative); Glucose Urine UA Norm (Normal); Ketones Urine Negative (Negative); Leukocyte Esterase Urine Negative (Negative); Nitrate Urine Negative (Negative); Protein Urine Neg (Negative); Specific Gravity, Urine 1.005 (1.005-1.030); Urine Appearance Clear (CLEAR); Urine Color Yellow (Yellow); Urobilinogen Urine Norm (Negative); pH Urine 6.5 (5-7)
[2019-12-02 20:54] LABS: WBC Urine 0-4 /hpf (0-5)
[2019-12-02 20:55] LABS: Add Urine Culture? No; Bacteria Urine TRACE /hpf
--- NOTE | 2019-12-02 20:59 | ECG_ITS ---
[facility] Test Date: 2019-12-02 Pat Name: Miky Hoffman Department: Room: 104 Gender: Male Sas Clinical Programmer: : 1945 Requested By: Shamar Jin Order Number: [id number] Irineo MD: Leatha Saldivar M.D. Measurements Intervals [place] Rate: 61 P: 203 [place]: 207 QRS: -60 QRSD: 165 T: 142 QT: 445 QTc: 449 Interpretive Statements ELECTRONIC ATRIAL PACEMAKER ELECTRONIC VENTRICULAR PACEMAKER ABNORMAL RHYTHM ECG Compared to ECG 12/01/2019 18:22:41 No significant changes Electronically Signed On 12-03-2019 20:36:09 CDT by Leatha Saldivar M.D. [id number]
[2019-12-02 21:03] LABS: Troponin(5th) Baseline 10 ng/L (0-15)
[2019-12-02 21:27] LABS: Troponin 5 2HR 8.62 ng/L (0-15)
[2019-12-02 21:29] LABS: Troponin 5 2HR Delta -1.38 ABS# (0-10)
--- NOTE | 2019-12-02 21:35 | P.HP_ITS ---
Providers/Chief Complaint Primary Care Provider: Lauren Chin MD Chief Complaint: SHOULDER PAIN AND FATIGUE History of Present Illness Miky Hoffman is a 74 year old male carries history of sinus bradycardia, status post pacemaker placement, congestive heart failure, grade 1 diastolic dysfunction, hypertension, established coronary disease, resented today with chief complaint of chest pain. Patient was evaluated yesterday for similar complaint & was discharged home after 2 negative troponins and unremarkable EKG. He returns today for chief complaint of chest discomfort. Patient is stating that for last few months he has been experiencing neck pain, his arms feel heavy especially after some work, at baseline he is able to carry out his daily activities without any issues but recently he has been experiencing more shortness of breath, today he was picking up sticks, after picking about 4-6 sticks from the yard he started experiencing extreme shortness of breath, he felt heavy in his arms bilaterally, his left shoulder was painful, after a while he noticed some chest discomfort which he described as heaviness in sub sternally. He did not experience any profuse sweating, nausea, vomiting, he would not describe his chest discomfort as squeezing or pressure-like sensation, it only lasted for about few seconds. Diagnostics in the ER revealed normal hemodynamics, normal blood work, D-dimer negative, troponins unremarkable, EKG not significant for ischemic or infarctive changes, paced rhythm, at the time my evaluation no active chest pain, no numbness and tingling of upper extremities, chest x-ray unremarkable Review of previous records revealed C4 vertebral joint disease, Review of Systems Const: Reports: fatigue and malaise; Denies: fever(s) Eyes: Denies: change in vision ENMT: Denies: throat pain Card: Reports: chest pain and dyspnea on exertion; Denies: palpitations, syncope, pre-syncope or orthopnea Resp: Reports: dyspnea and non-productive cough GI: Denies: abdominal pain : Denies: flank pain Musc: Denies: neck pain Skin/Breast: Denies: rash Neuro: Denies: headache(s) Psych: Denies: anxiety Endo: Denies: polyuria Randal/Lymph: Denies: easy bruising All/Imm: Denies: urticaria Medications/Allergies Home Medications Medication Instructions Recorded Confirmed Last Taken Type aspirin 81 mg tablet,delayed 81 mg PO ONCE 02/08/19 11/22/19 Unknown History release calcium phosphate-vitamin D3 250 tab PO BID tab 02/08/19 11/22/19 Unknown History mg calcium-500 unit chewable tablet cyanocobalamin (vitamin B-12) 1,000 mcg PO ONCE 02/08/19 11/22/19 Unknown History 1,000 mcg capsule cyclobenzaprine 5 mg tablet 5 mg PO BID PRN tab 02/08/19 11/22/19 Unknown History multivitamin 1 tab PO QAM 02/08/19 11/22/19 Unknown History nitroglycerin 0.4 mg sublingual 0.4 mg SUBLINGUAL Q5M PRN 02/08/19 11/22/19 Unknown History tablet omega-3 fatty acids-vitamin E 1,000 mg PO DAILY cap 02/08/19 11/22/19 Unknown History 1,000 mg capsule tramadol 50 mg tablet 50 mg PO Q6H PRN 02/08/19 11/22/19 Unknown History atorvastatin 40 mg tablet 40 mg PO DAILY #30 tab 07/13/19 11/22/19 Unknown Rx carvedilol 12.5 mg tablet 12.5 mg PO BID #60 tab 07/13/19 11/22/19 Unknown Rx clopidogrel 75 mg tablet 75 mg PO DAILY #30 tab 07/13/19 11/22/19 Unknown Rx febuxostat 40 mg tablet 40 mg PO DAILY #30 tab 07/13/19 11/22/19 Unknown Rx nitroglycerin 2.5 mg 2.5 mg PO BID #180 cap 07/13/19 11/22/19 Unknown Rx capsule,extended release tamsulosin 0.4 mg capsule 0.4 mg PO DAILY #30 cap 07/13/19 11/22/19 Unknown Rx colchicine 0.6 mg tablet 0.6 mg PO DAILY #30 tab 08/04/19 11/22/19 Unknown Rx omeprazole 20 mg capsule,delayed See Rx Instructions .ROUTE 10/06/19 11/22/19 Unknown Rx release .COMPLEX #90 cap amlodipine 2.5 mg tablet See Rx Instructions .ROUTE 11/10/19 11/22/19 Unknown Rx .COMPLEX #30 unknown measurement unit code: tablet Allergies Allergy/AdvReac Type Severity Reaction Status Date / Time No Known Allergies Allergy Verified 11/22/19 13:32 PFSH Acute PFSH: Medical History Abdominal pain Arteriosclerotic heart disease Atherosclerosis of coronary artery of [place] heart without angina pectoris Blindness of left eye 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 arthritis Cholecystectomy planned Chronic gout Chronic kidney disease, stage 2 (mild) Chronic neck pain Diverticulosis Elevated blood sugar Essential (primary) hypertension Gastro-esophageal reflux disease without esophagitis Hearing loss of both ears Heart murmur Hemorrhoids, internal Hepatomegaly History of colon polyps History of medication noncompliance Hyperuricemia Metatarsalgia of both feet Mixed hyperlipidemia Patel's neuroma of left foot Neuropathy Nicotine dependence, cigarettes, uncomplicated Osteopenia Pacemaker Unspecified osteoarthritis, unspecified site Surgical History H/O hernia repair History of ankle surgery History of permanent cardiac pacemaker placement For symptomatic bradycardia, 02/25 S/P cardiac catheterization On 07/30/2017 he underwent coronary angiography and was found to have 20% distal left main, minimal intimal irregularities in the LAD, patent stented segment of the first high OM branch patent stent segment of the PDA of the RCA and mild disease in the distal RCA with an EF of 50% and slightly elevated LVEDP of 16 mmHg Status post cholecystectomy Family History Brother CAD (coronary artery disease) Myocardial infarct Cancer Mother Myocardial infarct Father Cancer FROM LUNG CANCER Daughter Cancer Social History (Updated 12/02/19 @ 23:30 by Lino Wren MD) Smoking and tobacco status: former smoker Alcohol intake: current Lives independently: Yes Household members: spouse Marital status: Current occupational status: retired Vitals/I&O/Wt Last Vital Signs Temp 98.2 F 12/02/19 18:59 Pulse 61 12/02/19 21:28 Resp 15 12/02/19 21:28 BP 133/79 12/02/19 21:28 Pulse Ox 92 12/02/19 21:28 Weight last 48 hrs Weight 122.47 kg Physical Exam Narrative: EXAM NARRATIVE: Obese male No active/apparent distress Sitting comfortably in his bed watching television Saturating well on room air S1, S2 paced rhythm no active sign of heart failure Abdomen soft, distended bowel sound present Lungs are clear to auscultation Neurologically no focal exam No sensory loss of upper extremities, good wrist flexion, extension, arm flexion extension, abduction EOMI, PERRLA Chronic neck pain Afebrile No confusion alert GCS 15 Lungs are clear to auscultation Low symmetry no edema gangrene ulcer Appropriate mood and affect Data : 12/02/19 19:16 12/02/19 19:16 A&P Assessment and plan (1) Atypical chest pain: Status: Acute (2) Numbness of upper extremity: Status: Acute Additional A&P Information Atypical chest pain Paced rhythm, troponins negative, D-dimer negative, has history of coronary artery disease status post coronary stents I Considering bilateral upper extremity heaviness with neck pain I am suspecting his symptoms to be related to nerve compression as he has cervical spine arthritis especially at the level of C4 which can also compress phrenic nerve I do not appreciate any hemidiaphragm presentation on x-ray, At this point I am not suspecting cardiac etiology for his chest pain Overnight monitoring because of his recurrent symptoms I would only obtain echo in the morning, no need to cardiac stress test, PE ruled out Neck pain with numbness of upper extremities Would recommend outpatient follow-up with spine surgeon No acute exacerbation Dual-chamber pacemaker for bradycardia: No acute exacerbation Mild JOSÉ: Baseline creatinine 1.1, current creatinine 1.3, Patient is not endorsing urine retention, Monitor BMP and urine output Bladder scan as needed Patient endorses to not drinking fluid enough to void urinary frequency because of history of BPH No acute exacerbation of BPH symptoms Anticipate improvement with better p.o. intake DVT prophylaxis: Heparin Cardiac diet Full code Attestations Medical Necessity Statement*: Anticipating discharge in less than 48 hours currently need overnight monitoring because of his atypical chest pain will need echo in the morning to rule out wall motion abnormality, he is admitted because of previous history of coronary disease, stents and dual-chamber pacemaker Time Spent in Patient Care: (>than 50% of time spent in counselling and/or direct pt care on unit) . 50mins Coding Level of Care Code Acute Bliss Press Operator for Lamont Galan Diagnoses Atypical chest pain R07.89 Numbness of upper extremity R20.0
[2019-12-02] MEDS: heparin 5,000 unit/mL INJ 1 mL 5000 UNIT SUBCUT (22:24)
--- NOTE | 2019-12-02 22:28 | PC.NURSE ---
Patient arrived to CSU from ED at 2200. Patient is alert and orientated. Continent. Lung sounds clear. Does have a pacemaker and is paced on telemetry. Denies any pain or chest pain at this time, call light is within reach, continue care.
--- NOTE | 2019-12-02 22:54 | PC.NURSE ---
Doctor Wren at bedside discussing POC. Plans for possible discharge tomorrow if safety concerns are met.
--- NOTE | 2019-12-03 00:59 | ECG_ITS ---
[facility] Test Date: 2019-12-03 Pat Name: Miky Hoffman Department: Room: 104 Gender: Male Project Builder: : 1945 Requested By: Shamar Jin Order Number: [id number] Irineo MD: Leatha Saldivar M.D. Measurements Intervals [place] Rate: 60 P: 213 [place]: 173 QRS: -60 QRSD: 201 T: 127 QT: 468 QTc: 471 Interpretive Statements ELECTRONIC ATRIAL PACEMAKER ELECTRONIC VENTRICULAR PACEMAKER ABNORMAL RHYTHM ECG Compared to ECG 12/02/2019 20:39:05 No significant changes Electronically Signed On 12-03-2019 20:36:37 CDT by Leatha Saldivar M.D. [email or web address] [email or web address]/[id number]
--- NOTE | 2019-12-03 01:05 | PC.NURSE ---
Patient resting in bed in room. Patient denies any complaints of pain. Denies any concerns or complaints. Call light is within reach, continue care.
[2019-12-03 01:12] LABS: Troponin 5 6HR 9.48 ng/L (0-15); Troponin 5 6HR Delta -0.52 ng/L (0-12)
[2019-12-03 03:17] VITALS: BP 172/79; PULSE 60; RESP 17; TEMP 36.6; O2SAT 94
[2019-12-03] MEDS: heparin 5,000 unit/mL INJ 1 mL 5000 UNIT SUBCUT ×2 (05:28→14:07)
[2019-12-03 05:31] LABS: Anion Gap 13.2 (5-19); Blood Urea Nitrogen 18 mg/dL (8-23); Calcium 9.5 mg/dL (8.5-10.5); Carbon Dioxide 27 mmol/L (22-29); Chloride 104 mmol/L (98-107); Glucose 105 mg/dL (65-115); Osmolality Calculated 292 mOsm/kg (285-295); Potassium 4.2 mmol/L (3.5-5.1); Sodium 140 mmol/L (136-145)
--- NOTE | 2019-12-03 06:21 | PC.NURSE ---
SHIFT SUMMARY: Patient rested in bed soundly all night, Dr. Wren was bedside during the beginning of shift discussing POC, all troponin levels were negative. No complaints of chest pain or s/s of distress noted during thus shift. Call light is within reach, continue care.
[2019-12-03 08:00] VITALS: BP 155/83; PULSE 65; RESP 12; TEMP 36.4; O2SAT 98
[2019-12-03 08:43] VITALS: PULSE 69; O2SAT 96
--- NOTE | 2019-12-03 09:10 | PC.CHAP ---
Pastoral Care Encounter/Spiritual Assessment Type of Contact [] Declined marking machine operator visit [] Patient/Family/Request visit [] Outpatient visit [] Follow-up visit [] Physician referral [] Code/Alert [x] Routine visit [] Staff referral [] Actively dying [] Patient sleeping [] Family support [] [] Out of room [] Palliative care [] [] Receiving care in room [] Pre-surgical visit [] Trauma [] Long length of stay [] ICU visit [] Other: Relational/Emotional Strength [] Patient feels connected with others/family/visitors/staff [] Distress [] Loneliness/isolation [] Abandonment Spirituality of Patient [] Person of Latoya [] Attends Congregational of their Latoya [] Believes in Prayer [] Reads Bible or Presybeterian materials [] There are Spiritual issues to be addressed Business Education Teacher Interventions [x] Prayer [x] Active listening [x] Non-anxious presence [x] Spiritual/emotional support [] Crisis/trauma care [] Spiritual counseling [] Bereavement support [] Provided bereavement packet [] Provided Bible/devotional materials [] Provided toy/stuffed animal, coloring book to patient or family member [] Provided Communion [] Anointing/Romney [] Salvation [x] Completed spiritual assessment [] Other: Impact on Illness or Injury [] Angry [] Fearful [] Anxious [] Often cries [] Exhaustion [] Unable to work [] Unable to attend baptism [] Unable to walk/stand [] Unable to read [] Unable to drive [] Unable to eat/drink [] Unable to sleep [] Unable to be with family [] Patient intubated [] Other: Summary patient setting on side of bed... enjoying breakfast Time spent with patient 5 min
[2019-12-03] MEDS: tamsulosin 0.4 mg Capsule PO (09:30)
[2019-12-03] MEDS: pantoprazole DR 40 mg Tablet PO (09:30)
[2019-12-03] MEDS: carvedilol 12.5 mg Tablet PO ×2 (09:30→18:07)
[2019-12-03] MEDS: pregabalin 25 mg Capsule PO ×2 (09:31→18:07)
[2019-12-03] MEDS: atorvastatin 40 mg Tablet PO (09:31)
[2019-12-03] MEDS: colchicine 0.6 mg Tablet PO (09:31)
[2019-12-03] MEDS: clopidogrel 75 mg Tablet PO (09:31)
[2019-12-03 12:00] VITALS: BP 169/98; PULSE 60; RESP 14; O2SAT 94
--- NOTE | 2019-12-03 13:37 | USCV_ITS ---
Miky Hoffman Age: 74 Gender: M : 1945 Exam Date: 12/03/2019 15:59 Ordering Phys: Kathe Agudelo MD ([email or web address]) Technologist: Aretha Tejeda Exam Location: [facility] [place] Indication: CHEST PAIN BP: 169 / 98 HR: Rhythm: Sinus Technical Quality: MEASUREMENTS (Male / Female) Normal Values 2D ECHO LV Ejection Fraction MOD 2C 77.4 % LV Ejection Fraction 2C AL 78.4 % FINDINGS Left Ventricle Normal left ventricular cavity size. Mildly decreased left ventricular systolic function. Left ventricular ejection fraction is estimated at 45 %. There is possible hypokinesis of inferior and septal vee. Abnormal septal motion consistent with conduction abnormality. Right Ventricle Normal right ventricular size and systolic function. Right Atrium Normal right atrial size. Left Atrium Normal left atrial size. Mitral Valve Structurally normal mitral valve. Aortic Valve Aortic valve was not assessed. Tricuspid Valve Structurally normal tricuspid valve. Pulmonic Valve Pulmonic valve not well visualized. Pericardium No pericardial effusion. Aorta Aorta not well visualized. CONCLUSIONS 1. This is a limited study with ultrasound enhancing agent. Optison was used per protocol. 2. Normal left ventricular cavity size. Mildly decreased left ventricular systolic function. Left ventricular ejection fraction is estimated at 45 %. There is possible hypokinesis of inferior and septal vee. Kathe Agudelo MD (Electronically Signed) Final Date: 03 December 2019 17:28 S
[2019-12-03] MEDS: perflutren protein-a microsphr 0.22 mg/mL SDV 3 mL IV (16:14)
[2019-12-03 17:00] VITALS: BP 141/79; PULSE 60; RESP 12; O2SAT 95
--- NOTE | 2019-12-03 17:12 | P.DS_ITS ---
Discharge Providers Date of Admission: 12/02/19 21:29 Date of Discharge: December 03, 2019 Attending Provider at Admission: Lino Wren MD Attending Provider at Discharge: Js Mabry MD Primary Care Provider: Lauren Chin MD Diagnoses at Discharge Discharge Diagnosis (1) Atypical chest pain: Status: Acute (2) Numbness of upper extremity: Status: Acute Reason for Visit Reason for Visit: SHOULDER PAIN AND FATIGUE Hospital Course Discharge Summary: This is a 74-year-old male with a past medical history of sinus bradycardia, status post pacemaker placement, systolic heart failure, grade 1 diastolic dysfunction, hypertension, history of CAD, history of stenting of first high OM branch, recent cardiac catheterization on 07/30/2017, history of cardiac stress test on September 14, 2018 which showed persistent decreased tracer uptake in the inferior wall and septal regions, suggestive of myocardial scarring versus attenuation artifacts, LV wall motion analysis revealing diffuse hypokinesia of the inferior wall and the apex, low probability of CAD. Patient presents [facility] due to complaints of neck pain, and shoulder pain, arm heaviness. Patient was admitted to [facility] for atypical chest pain, patient's troponin series was within normal limits, no significant delta, EKG no acute ST-T wave changes, no repeat episodes of chest pain, telemetry was unremarkable. Given patient cardiovascular history he underwent cardiac echocardiogram which showed an ejection fraction of 40%, abnormal sepal motion due to paced rhythym. After discussion with cardiology, decision was made to pursue outpatient stress testing whichIi have ordered, heart center should call patient on friday to schedule, i have also talked to dr. saldivar to get patient appointment moved up from dec 2011/2019 to an earlier date, patient is to follow up with dr. saldivar for stress test results. patient was advised if he were to have repeat chest pain or shortness of breath come to the emergency room. Patient's neck exam revealed facet joint arthropathy, cervical radiculopathy, spinal stenosis, paracervical muscle spasm, bilateral adhesive capsulitis. Patient's clinical symptoms do seem more musculoskeletal, CT of the neck showed mild osteoarthritic change with calcification of the anterior longitudinal ligament at C4-C5. 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 Started the patient on Flexeril, Ultram, Lyrica. He tolerated this well. I have advised patient to follow-up with primary care for consideration of cervical MRI, referral to pain clinic for consideration for steroid injections and/or nerve ablation. I have provided patient Flexeril, Ultram, Lyrica, with close follow-up with primary care provider, with instructions as below, should continue muscle stretching exercises, conservative measures such as rest, ice compressions, range of motion exercises, advised patient to avoid NSAIDs given his cardiovascular history -Use Flexeril as prescribed, do not operate heavy machinery or drive while taking this medication, if you feel lightheaded or dizzy stop taking this medication -Use Ultram as prescribed, should only be used for severe pain, use sparingly, if you feel lightheaded or dizzy stop taking this medication, do not operate heavy machinery or drive while taking this medication -Use Lyrica as prescribed, if you feel lightheaded or dizzy stop taking this medication, do not operate heavy machinery or drive while taking this medication -advised to not take medication together due to risk of adverse side effects Physical Exam Const: COMMON NORMALS: no acute distress and patient oriented x3 HENMT: COMMON NORMALS: normocephalic HEAD & SCALP: normocephalic Neck/C-Spine: COMMON NORMALS: no JVD GENERAL: Yes normal visual inspection CERVICAL SPINE: Yes cervical ROM normal, Yes Cervical spine tenderness, Yes Paracervical muscle tenderness, Yes Paracervical spasm and Yes Trapezius muscle tenderness OTHER: positive spurling Resp: COMMON NORMALS: normal respiratory effort, No retractions, No use of accessory muscles and clear to auscultation bilaterally AUSCULTATION: clear to auscultation bilaterally Cardio: COMMON NORMALS: no JVD, regular rate, regular rhythm, S1 normal heart sound present and S2 normal heart sound present RATE: regular rate RHYTHM: regular rhythm HEART SOUNDS: S1 normal heart sound present and S2 normal heart sound present GI: COMMON NORMALS: Normal to inspection, nondistended, normoactive bowel sounds present, Soft to palpation, non-tender, No hepatosplenomegaly present, no masses and no bruits PALPATION: Yes Soft to palpation and Yes No hepatosplenomegaly present Extremity: COMMON NORMALS: capillary refill normal, no clubbing, cyanosis or edema, no calf tenderness and no pedal edema Neuro: COMMON NORMALS: patient oriented x3 Psych: COMMON NORMALS: mental status grossly normal Discharge Data Data Completed and Pending: Completed Studies During Hospitalization Category Date Time Status XR chest 1V miranda ble [id number] Stat Exams 12/02/19 18:58 Completed CV echo complete* [id number] Routine Ultrasound 12/03/19 23:44 Completed Pending at discharge Category Date Time Status CV echo lmt wo/w contras [id number] Rout ine Ultrasound 12/03/19 13:37 Taken US/CV paperwork R outine Ultrasound 12/03/19 Taken Labs from last 24 hours 12/03/19 12/03/19 12/02/19 04:48 00:44 21:00 WBC RBC Hgb Hct MCV MCH MCHC RDW Plt Count MPV Neut % (Auto) Lymph % (Auto) [place] % (Auto) Eos % (Auto) Baso % (Auto) Neut # (Auto) Lymph # (Auto) [place] # (Auto) Eos # (Auto) Baso # (Auto) Nucleated RBC % (a uto) Nucleated RBCs # PT INR D-Dimer Sodium 140 Potassium 4.2 Chloride 104 Carbon Dioxide 27 Anion Gap 13.2 BUN 18 Creatinine 1.1 GFR Calculation Not Reportable Glucose 105 Calculated Osmolal ity 292 Calcium 9.5 Total Bilirubin AST ALT Alkaline Phosphata se Troponin T Baselin e Troponin T 120 Min [place] 8.62 Delta Troponin T -1.38 L Troponin T Hi Sens 6Hr 9.48 Troponin T Hi Sens 6Hr Delta -0.52 L Total Protein Albumin Globulin Urine Color Urine Appearance Urine pH Ur Specific Gravit y Urine Protein Urine Glucose (UA) Urine Ketones Urine Blood Urine Nitrate Urine Bilirubin Urine Urobilinogen Ur Leukocyte Cristina ase Urine RBC Urine WBC Ur Squamous Epith Cells Amorphous Sediment Urine Bacteria 12/02/19 12/02/19 12/02/19 19:16 19:16 19:16 WBC RBC Hgb Hct MCV MCH MCHC RDW Plt Count MPV Neut % (Auto) Lymph % (Auto) [place] % (Auto) Eos % (Auto) Baso % (Auto) Neut # (Auto) Lymph # (Auto) [place] # (Auto) Eos # (Auto) Baso # (Auto) Nucleated RBC % (a uto) Nucleated RBCs # PT 12.90 INR 0.95 D-Dimer 0.31 Sodium 139 Potassium 4.2 Chloride 103 Carbon Dioxide 25 Anion Gap 15.2 BUN 19 Creatinine 1.3 H GFR Calculation Not Reportable Glucose 128 H Calculated Osmolal ity 292 Calcium 9.5 Total Bilirubin 0.3 AST 42 H ALT 69 H Alkaline Phosphata se 83 Troponin T Baselin e 10 Troponin T 120 Min [place] Delta Troponin T Troponin T Hi Sens 6Hr Troponin T Hi Sens 6Hr Delta Total Protein 6.7 Albumin 4.3 Globulin 2.4 Urine Color Urine Appearance Urine pH Ur Specific Gravit y Urine Protein Urine Glucose (UA) Urine Ketones Urine Blood Urine Nitrate Urine Bilirubin Urine Urobilinogen Ur Leukocyte Cristina ase Urine RBC Urine WBC Ur Squamous Epith Cells Amorphous Sediment Urine Bacteria 12/02/19 12/02/19 19:16 19:08 WBC 5.2 RBC 3.99 L Hgb 13.0 Hct 39.7 L MCV 99.5 H MCH 32.6 MCHC 32.7 RDW 11.8 L Plt Count 183 MPV 9.8 Neut % (Auto) 49.8 Lymph % (Auto) 39.3 [place] % (Auto) 8.6 Eos % (Auto) 1.3 Baso % (Auto) 0.8 Neut # (Auto) 2.61 Lymph # (Auto) 2.1 [place] # (Auto) 0.5 Eos # (Auto) 0.1 Baso # (Auto) 0.0 Nucleated RBC % (a uto) 0 Nucleated RBCs # 0.0 PT INR D-Dimer Sodium Potassium Chloride Carbon Dioxide Anion Gap BUN Creatinine GFR Calculation Glucose Calculated Osmolal ity Calcium Total Bilirubin AST ALT Alkaline Phosphata se Troponin T Baselin e Troponin T 120 Min [place] Delta Troponin T Troponin T Hi Sens 6Hr Troponin T Hi Sens 6Hr Delta Total Protein Albumin Globulin Urine Color Yellow Urine Appearance Clear Urine pH 6.5 Ur Specific Gravit y 1.005 Urine Protein Neg Urine Glucose (UA) Norm Urine Ketones Negative Urine Blood Neg Urine Nitrate Negative Urine Bilirubin Neg Urine Urobilinogen Norm Ur Leukocyte Cristina ase Negative Urine RBC None Urine WBC 0-4 H Ur Squamous Epith Cells None Amorphous Sediment Not Reportable Urine Bacteria Trace Vitals: Last Vital Signs Temp 97.6 F 12/03/19 08:00 Pulse 60 12/03/19 12:00 Resp 14 12/03/19 12:00 BP 169/98 12/03/19 12:00 Pulse Ox 94 12/03/19 12:00 Discharge Plan Discharge Patient Disposition: Home Condition: Stable Prescriptions: New cyclobenzaprine 10 mg Tablet 10 mg PO TID PRN (Reason: Muscle Spasms) 15 Days Qty: 30 RF: 0 amlodipine 10 mg Tablet 10 mg PO DAILY 30 Days Qty: 30 RF: 0 Lyrica 25 mg Capsule 25 mg PO BID 30 Days Qty: 60 RF: 0 tramadol 50 mg tablet 25 mg PO Q8H PRN (Reason: pain) 7 Days Qty: 7 RF: 0 Continued calcium phosphate-vitamin D3 [Citracal-D3 Gummies] 250 mg calcium- 500 unit tablet,chewable PO BID RF: 0 tramadol 50 mg tablet 50 mg PO Q6H PRNRF: 0 cyanocobalamin (vitamin B-12) 1,000 mcg capsule 1,000 mcg PO ONCE RF: 0 aspirin 81 mg tablet,delayed release (DR/EC) 81 mg PO ONCE RF: 0 multivitamin Tablet 1 tab PO QAM RF: 0 omega-3 fatty acids-vitamin E 1,000 mg capsule 1,000 mg PO DAILY RF: 0 atorvastatin 40 mg tablet 40 mg PO DAILY Qty: 30 RF: 5 clopidogrel 75 mg tablet 75 mg PO DAILY Qty: 30 RF: 4 carvedilol [Coreg] 12.5 mg tablet 12.5 mg PO BID Qty: 60 RF: 5 febuxostat [Uloric] 40 mg tablet 40 mg PO DAILY Qty: 30 RF: 3 nitroglycerin [Nitro-Time] 2.5 mg capsule, extended release 2.5 mg PO BID Qty: 180 RF: 0 tamsulosin [Flomax] 0.4 mg capsule 0.4 mg PO DAILY Qty: 30 RF: 5 colchicine 0.6 mg tablet 0.6 mg PO DAILY Qty: 30 RF: 2 omeprazole 20 mg capsule,delayed release(DR/EC) See Rx Instructions .ROUTE .COMPLEX Qty: 90 RF: 0 Nitrostat 0.4 mg tablet, sublingual 0.4 mg SUBLINGUAL Q5M PRN (Reason: chest pain) 3 Days Qty: 3 RF: 0 Discontinued cyclobenzaprine 5 mg tablet 5 mg PO BID PRNRF: 0 amlodipine 2.5 mg tablet See Rx Instructions .ROUTE .COMPLEX Qty: 30 RF: 2 Discharge Orders: Discharge Order (Routine); Ordered 12/03/19 Ordered By: Js Mabry Other Ambulatory Orders: Sestamsbi Stress Test Request (Routine) Timeframe: 3 Days Facility: [facility] - Location: [facility] Ordered By: Js Mabry Referrals: Leatha Saldivar MD [Physician] - 12/21/19 11:00 am (You have a follow up on Friday, December 20, at 11:00am with Dr. aSldivar. If you have any questions or concerns please call [facility].) Lauren Chin MD [Primary Care Provider] - (Please schedule an appointment with within one week, the office will be calling you with an appointment date and time, if you don't hear from them soon please call the office.) Discharge Diet: Cardiac Discharge Activity: Resume usual activity Patient Instructions: Cyclobenzaprine (By mouth), Amlodipine (By mouth), Tramadol (By mouth), Pregabalin (By mouth), Chest Pain (DC), Chest Pain (GEN) Activity Restrictions/Additional Instructions: -Please if you were to have recurrent chest pain use nitroglycerin go to the emergency room -For your neck pain, please follow-up with primary care for consideration for referral to pain clinic and MRI of cervical spine -Use Flexeril as prescribed, do not operate heavy machinery or drive while jamir ing this medication, if you feel lightheaded or dizzy stop taking this medication -Use Ultram as prescribed, should only be used for severe pain, use sparingly, if you feel lightheaded or dizzy stop taking this medication, do not operate heavy machinery or drive while taking this medication -Use Lyrica as prescribed, if you feel lightheaded or dizzy stop taking this medication, do not operate heavy machinery or drive while taking this medication Discharge Attestations Time Spent in Discharge Care*: less than 30 min Quality Metrics Clinical Quality Measures During this hospital stay, did patient experience: None Coding Level of Care Code Acute Technical Service Engineer for Chg Fwd Exam Comprehensive Diagnoses Atypical chest pain R07.89 Numbness of upper extremity R20.0
[2019-12-03 17:57] VITALS: BP 141/79; PULSE 60; RESP 12; TEMP 36.4; O2SAT 95
[2019-12-03] MEDS: amlodipine 10 mg Tablet PO (18:07)
--- NOTE | 2019-12-03 23:44 | USCV_ITS ---
Miky Hoffman Age: 74 Gender: M : 1945 Exam Date: 12/03/2019 05:35 Ordering Phys: Lino Wren MD Technologist: Aretha Tejeda [place]am Location[place] [facility] [place] Indication: ATYPICAL CHEST PAIN BP: 172 / 79 HR: 53 Rhythm: Sinus Technical Quality: Technically difficult study MEASUREMENTS (Male / Female) Normal Values 2D ECHO LV Diastolic Diameter PLAX 4.4 cm 4.2 - 5.9 / 3.9 - 5.3 cm LV Systolic Diameter PLAX 2.8 cm LV Chamber Size 6.0 cm IVS Diastolic Thickness 2.0 cm 0.6 - 1.0 / 0.6 - 0.9 cm IVS Systolic Thickness 1.9 cm LVPW Diastolic Thickness 1.7 cm 0.6 - 1.0 / 0.6 - 0.9 cm LVPW Systolic Thickness 1.9 cm RV Chamber Size 4.0 cm LVOT Diameter 2.1 cm LV Ejection Fraction 2D Teich 67.3 % LV Ejection Fraction MOD 2C 59.2 % LV Ejection Fraction 2C AL 59.8 % LA Diameter 3.5 cm LA Width 4.8 cm LA Height 5.2 cm RA Width 4.8 cm RA Height 3.9 cm Aorta at Sinotubular Diameter 3.9 cm M-MODE LV Diastolic Diameter MM 6.1 cm 4.2 - 5.9 / 3.9 - 5.3 cm LV Systolic Diameter MM 4.0 cm LV Ejection Fraction MM Teich 62.1 % IVS Diastolic Thickness MM 1.2 cm 0.6 - 1.0 / 0.6 - 0.9 cm IVS Systolic Thickness MM 1.8 cm LVPW Diastolic Thickness MM 1.4 cm 0.6 - 1.0 / 0.6 - 0.9 cm LVPW Systolic Thickness MM 1.9 cm RV Diastolic Diameter MM 1.3 cm Aortic Annulus Diameter 4.0 cm LA Ao Ratio MM 1.0 MV E Point Septal Separation 1.3 cm DOPPLER AV Peak Velocity 156.0 cm/s LVOT Peak Velocity 83.0 cm/s AV Area Cont Eq vti 2.2 cm squared AV Area Cont Eq pk 1.8 cm squared MV Area PHT 3.0 cm squared Mitral E to A Ratio 0.7 MV E' Velocity 39.0 cm/s Mitral E to MV E' Ratio 14.0 Mitral E to LV E' Lateral Ratio 16.9 Mitral E to LV E' Septal Ratio 12.2 TR Peak Velocity 125.8 cm/s TR Peak Gradient 6.3 mmHg TR Mean Velocity 85.4 cm/s TR Mean Gradient 3.3 mmHg TR Velocity Time Integral 37.2 cm TV Peak E Velocity 45.0 cm/s Right Atrial Pressure 5.0 mmHg Pulmonary Artery Systolic Pressu 11.3 mmHg PV Peak Velocity 59.0 cm/s RV Acceleration Time 0.2 s RV Ejection Time 0.5 s RV AcT/ET 0.4 FINDINGS Left Ventricle Possibly moderately decreased left ventricular systolic function. This study is inadequate for estimation of regional wall motion abnormality. Right Ventricle Normal right ventricular size and systolic function. Right Atrium Right atrium not well visualized. Normal right atrial size. Left Atrium Normal left atrial size. Mitral Valve Mildly thickened mitral valve. Aortic Valve Aortic valve not well visualized. No aortic valve stenosis. No aortic valve regurgitation. Tricuspid Valve Tricuspid valve not well visualized. Pulmonic Valve Pulmonic valve not well visualized. Pericardium No pericardial effusion. Aorta Aorta not well visualized. CONCLUSIONS 1. This is a technically very difficult study. 2. Possibly moderately decreased left ventricular systolic function. This study is inadequate for estimation of regional wall motion abnormality. 3. Recommend repeat study with ultrasound enhancing agent. Kathe Agudelo MD (Electronically Signed) Final Date: 03 December 2019 12:54 S
== END 2019-12-03 18:00 | disposition home or self-care (01) ==
LOC: ER 21:09 → CSU 21:43
PROVIDERS: Emergency Medicine; Admitting Provider Internal Medicine; PCP Family Medicine; Visit Provider Family Medicine
DX: R07.89 Other chest pain (principal); R20.0 Anesthesia of skin; Z95.0 Presence of cardiac pacemaker; I13.0 Hypertensive heart and chronic kidney disease with heart failure and stage 1 through stage 4 chronic kidney disease, or unspecified chronic kidney disease; N18.2 Chronic kidney disease, stage 2 (mild); I50.30 Unspecified diastolic (congestive) heart failure; Z79.82 Long term (current) use of aspirin; E78.2 Mixed hyperlipidemia; Z87.891 Personal history of nicotine dependence; I25.10 Atherosclerotic heart disease of native coronary artery without angina pectoris
CPT/HCPCS: 12345; 36415; 71045; 80048; 80053; 81001; 84484; 85025; 85378; 85610; 93005; 93306; 96372; 99284; 99285; C8924; G0378; J1644; Q9956

== ENCOUNTER 2019-12-20 07:39 | Outpatient (CLI) | payer MEDICARE, OTHER, SELFPAY ==
[2019-12-20 07:55] VITALS: BMI 35.6
--- NOTE | 2019-12-20 08:08 | NMCV_ITS ---
NM brandie perf SPECT r/s* [id number] Miky Hoffman Age: 74 Gender: M : 1945 Exam Date: 12/20/2019 08:46 Ordering Phys: Js Mabry MD Technologist: ISADORA Frederick Exam Location: [facility] Indications: Chest pain STRESS TEST [facility] IMAGE PROTOCOL Rest/Stress 1 Lexiscan Day Radiopharmaceutical Dose (mCi) Administration Site Administered by Rest: Tc-99m 10.6 IV ISADORA Frederick Sestamibi Stress:Tc-99m 32.9 IV ISADORA Frederick Sestamibi Rest: 20-Dec-2019 60 Discovery 630 Stress: 20-Dec-2019 30 Discovery 630 0.4mg Lexiscan. Supine position only as patient was unable to lay prone. SPECT RESULTS Technical Quality: Good Raw Data Analysis: Normal Image Corrections: No attenuation or motion correction applied Summed Stress Score: 7 Summed Rest Score: 5 Summed Difference Score: 2 PERFUSION FINDINGS Moderate area of severely decreases uptake in the basal mid and apical inferior, mid inferoseptal, apical septal and LV apex. Significant reversibility was noted in the mid inferior region. FUNCTIONAL RESULTS (calculated via Gated SPECT) Stress Image LV EF (%): 28 Stress EDV (mL):175 TID: 1.08 Stress ESV (mL):126 FUNCTIONAL FINDINGS: Segmental wall motion analysis revealed severe diffuse hypokinesia of the inferior wall, septum and the LV apex IMPRESSIONS 1. Myocardial perfusion imaging revealing a moderate area of severely decreased tracer uptake in the inferior, inferoseptal and apical regions with some reversibility in the mid inferior region, suggestive of myocardial scarring in the distribution of the right coronary artery/left descending artery with some ischemia in the distribution of the right coronary artery. 2. Diminished elevation fraction 28%. 3. Wall motion of normalities as mentioned above. 4. Moderately dilated LV cavity with an end-systolic volume of 126 mL Compared to the previous study from 09/14/2018, the ischemia in the distribution of the right coronary artery appears to be new Dr Leatha Saldivar MD [facility] (Electronically Signed) Final Date: 20 December 2019 14:15 S
[2019-12-20] MEDS: regadenoson 0.4 Mg/5 ml Syringe IVP (09:36)
[2019-12-20 09:37] VITALS: BP 137/103; PULSE 61
--- NOTE | 2019-12-20 10:00 | ECG_ITS ---
[facility] Test Date: 2019-12-20 Pat Name: Miky Hoffman Department: Room: Gender: Male [place] Nurse: Dotty Kurtz : 1945 Requested By: Js Mabry Order Number: [id number] Irineo MD: Leatha Saldivar M.D. Interpretive Statements NAME OF STUDY: LEXISCAN SESTAMIBI STRESS TEST INDICATION: Chest Pressure, PROCEDURE: At the baseline, the EKG revealed AV paced rhythm with occasional supraventricular ectopics. The baseline blood pressure was 178/65 mm Hg with a heart rate of 67 beats/min. Lexiscan was infused over a period of 20 seconds. A total of 0.4 milligrams of Lexiscan was infused. The stress phase was continued for a total of 5 minutes. Heart rate at the end of the stress phase was 61 with a blood pressure 127/70. The EKG at the peak infusion revealed no significant changes. Sestamibi was injected 20 seconds after the Lexiscan infusion. Blood pressure at the end of the recovery phase was 129/76 with a heart rate of 60 per minute. CONCLUSION: 1. The EKG response to Lexiscan infusion is uninterpretable due to the pacing artifacts 2. No LexiScan induced chest pain or cardiac arrhythmia 3. Normal blood pressure and heart rate response 4. Sestamibi/sestamibi perfusion scan pending; see separate report. Electronically Signed On 12-21-2019 18:16:05 MATERIALS SCHEDULER by Leatha Saldivar M.D. [email or web address]
== END 2019-12-20 07:40 | disposition home or self-care (01) ==
LOC: RAD 07:43
PROVIDERS: PCP Family Medicine; Visit Provider Family Medicine
DX: R07.9 Chest pain, unspecified (principal)
CPT/HCPCS: 78452; 93017; A9500; J2785

== ENCOUNTER 2019-12-24 12:58 | Observation (INO) | payer MEDICARE, OTHER, SELFPAY ==
[2019-12-24] VITALS (10 sets, daily range): BP systolic 123–186; BP diastolic 71–97; PULSE 59–67; RESP 16–24; TEMP 36.4–36.7; O2SAT 95–99; BMI 35.7
--- NOTE | 2019-12-24 12:59 | XR_ITS ---
WS: [id number] Portable AP upright chest, 12/24/2019 Clinical Data: cp Comparison: Portable chest, 12/02/2019 Findings: No nodules, masses or effusions are seen. The heart is enlarged. The pulmonary vascularity is not increased. No pneumonia or pneumothorax is seen. The permanent pacemaker remains in good posit ion. The aortic arch and descending aorta show calcification and tortuosity. XR/XR chest 1V portable [id number] Impression: Atherosclerosis and cardiomegaly.
[2019-12-24 14:47] LABS: Basophils % 0.5 %; Eosinophils % 0.2 %; Hematocrit 40.8 % (42.0-52.0); Hemoglobin 13.3 g/dL (11.7-16.6); Lymphocytes # 2.1 10^3/uL (0.8-4.8); Mean Corpuscular HGB Conc 32.6 g/dL (30.0-36.0); Mean Corpuscular Volume 101.2 fL (80-94); Mean Platelet Volume 9.5 fL (7.4-10.4); Monocytes # 0.4 10^3/uL (0.2-0.9); Monocytes % 7.5 %; Neutrophils # 3.32 10^3/uL (1.8-7.7); Neutrophils % 56.6 %; Nucleated Red Blood Cells % 0 %; Platelet Count 174 10^3/cmm (130-400); Red Blood Count 4.03 10^6/uL (4.1-5.3); Red Cell Distribution Width 11.9 % (12.1-15.1); White Blood Count 5.9 10^3/uL (4.0-10.0)
--- NOTE | 2019-12-24 14:51 | ED_ITS ---
HPI - Chest Pain General: Chief Complaint: Chest Pain Stated Complaint: chest pressure Time Seen by Provider: 12/24/19 14:47 Source: patient Mode of arrival: ambulatory Limitations: no limitations History of Present Illness: HPI narrative: 74-year-old male states he has been having chest pain is started last night and worsened today. He states been a pressure type pain that does improve with aspirin and nitro. He had a stress test last week that was concerning for lesions and he saw Dr. Saldivar earlier this week who recommended a catheterization. Patient states pain is currently 2 out of 10. He denies any shortness of breath. Associated symptoms: Deny abdominal pain, dyspnea, fever(s), nausea or vomiting Review of Systems Const: Denies: fever(s), chills, body aches or change in appetite Eyes: Denies: blurry vision or eye discomfort ENMT: Denies: throat pain or dental pain Card: Reports: chest pain Resp: Denies: dyspnea GI: Denies: abdominal pain, nausea, vomiting or diarrhea : Denies: dysuria Musc: Denies: neck pain or back pain Skin/Breast: Denies: rash Neuro: Denies: headache(s) Psych: Denies: depression Randal/Lymph: Denies: easy bruising All/Imm: Denies: urticaria PFSH ED PFSH: Medical History Abdominal pain Abnormal nuclear cardiac imaging test Arteriosclerotic heart disease Atherosclerosis of coronary artery of [place] heart without angina pectoris Blindness of left eye 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 arthritis Cholecystectomy planned Chronic gout Chronic kidney disease, stage 2 (mild) Chronic neck pain Diverticulosis Elevated blood sugar Essential (primary) hypertension Gastro-esophageal reflux disease without esophagitis Hearing loss of both ears Heart murmur Hemorrhoids, internal Hepatomegaly History of colon polyps History of medication noncompliance Hyperuricemia Ischemic cardiomyopathy Metatarsalgia of both feet Mixed hyperlipidemia Patel's neuroma of left foot Neuropathy Nicotine dependence, cigarettes, uncomplicated Osteopenia Pacemaker Unspecified osteoarthritis, unspecified site Surgical History H/O hernia repair History of ankle surgery History of permanent cardiac pacemaker placement For symptomatic bradycardia, 02/25 S/P cardiac catheterization On 07/30/2017 he underwent coronary angiography and was found to have 20% distal left main, minimal intimal irregularities in the LAD, patent stented segment of the first high OM branch patent stent segment of the PDA of the RCA and mild disease in the distal RCA with an EF of 50% and slightly elevated LVEDP of 16 mmHg Status post cholecystectomy Family History Brother CAD (coronary artery disease) Myocardial infarct Cancer Mother Myocardial infarct Father Cancer FROM LUNG CANCER Daughter Cancer Social History Smoking and tobacco status: former smoker Alcohol intake: current Lives independently: Yes Household members: spouse Marital status: Current occupational status: retired Physical Exam Const: COMMON NORMALS: no acute distress, patient oriented x3 and healthy appearing HENMT: COMMON NORMALS: normocephalic and atraumatic HEAD & SCALP: normocephalic and atraumatic Eye: COMMON NORMALS: Equal, round and reactive pupils present and EOMs intact bilaterally PUPIL: Yes Equal, round and reactive pupils present Neck/C-Spine: COMMON NORMALS: full ROM and supple Chest: COMMONS NORMALS: normal inspection of the chest and normal palpation of entire chest wall Resp: COMMON NORMALS: normal respiratory effort, No retractions, No use of accessory muscles and clear to auscultation bilaterally AUSCULTATION: clear to auscultation bilaterally Cardio: COMMON NORMALS: regular rate, regular rhythm and No murmurs present (Cardio) RATE: regular rate RHYTHM: regular rhythm GI: COMMON NORMALS: Normal to inspection, nondistended, normoactive bowel sounds present, Soft to palpation, non-tender and no masses PALPATION: Yes Soft to palpation Extremity: COMMON NORMALS: normal to inspection and full ROM Neuro: COMMON NORMALS: patient oriented x3, moves all extremities and no focal motor deficits Psych: COMMON NORMALS: mental status grossly normal, Normal thought process present and cooperative THOUGHT PROCESS: Normal thought process present Skin: COMMON NORMALS: no rashes or lesions noted and no wounds GENERAL SKIN EXAM: no rashes or lesions noted Course Vital Signs: Vital signs: Vital Signs Temperature 97.8 F 12/24/19 13:13 Pulse Rate 60 12/24/19 16:26 Respiratory Rate 18 12/24/19 16:26 Blood Pressure 146/84 12/24/19 16:26 Pulse Oximetry 96 12/24/19 16:26 MDM - Chest Pain MDM Narrative: Medical decision making narrative: Miky presents here with chest pain. Patient's continue to have pain. His initial and repeat troponin here negative. Will admit as he had a positive stress test recently. Patient's pain is improved here. Lab Data: Labs: Lab Results 12/24/19 12/24/19 12/24/19 Range/Units 14:35 14:35 14:35 WBC 5.9 (4.0-10.0) 10^3/ uL RBC 4.03 L (4.1-5.3) 10^6/u L Hgb 13.3 (11.7-16.6) g/dL Hct 40.8 L (42.0-52.0) % MCV 101.2 H (80-94) fL MCH 33.0 (28.0-34.0) pg MCHC 32.6 (30.0-36.0) g/dL RDW 11.9 L (12.1-15.1) % Plt Count 174 (130-400) 10^3/c mm MPV 9.5 (7.4-10.4) fL Neut % (Auto) 56.6 % Lymph % (Auto) 35.0 % Spencer % (Auto) 7.5 % Eos % (Auto) 0.2 % Baso % (Auto) 0.5 % Neut # (Auto) 3.32 (1.8-7.7) 10^3/u L Lymph # (Auto) 2.1 (0.8-4.8) 10^3/u L Spencer # (Auto) 0.4 (0.2-0.9) 10^3/u L Eos # (Auto) 0.0 (0.0-0.8) 10^3/u L Baso # (Auto) 0.0 (0.0-0.1) 10^3/u L Nucleated RBC % (a uto) 0 % Nucleated RBCs # 0.0 /100WBC PT 12.70 (12.1-14.9) SECO NDS INR 0.93 (0.8-1.2) Sodium 139 (136-145) mmol/L Potassium 4.7 (3.5-5.1) mmol/L Chloride 103 (98-107) mmol/L Carbon Dioxide 28 (22-29) mmol/L Anion Gap 12.7 (5-19) BUN 19 (8-23) mg/dL Creatinine 1.1 (0.7-1.2) mg/dL GFR Calculation Not Reportable Glucose 109 (65-115) mg/dL Calculated Osmolal ity 291 (285-295) mOsm/k g Calcium 9.6 (8.5-10.5) mg/dL Total Bilirubin 0.3 (0.15-1.2) mg/dL AST 58 H (0-40) U/L ALT 73 H (0-41) U/L Alkaline Phosphata se 74 (40-130) IU/L Troponin T Baselin e (0-15) ng/L Troponin T 120 Min [place] (0-15) ng/L Delta Troponin T (0-10) ABS# Total Protein 6.8 (6.6-8.7) g/dL Albumin 4.4 (3.5-5.2) g/dL Globulin 2.4 (1.3-4.6) g/dL 12/24/19 12/24/19 Range/Units 14:35 15:06 WBC (4.0-10.0) 10^3/ uL RBC (4.1-5.3) 10^6/u L Hgb (11.7-16.6) g/dL Hct (42.0-52.0) % MCV (80-94) fL MCH (28.0-34.0) pg MCHC (30.0-36.0) g/dL RDW (12.1-15.1) % Plt Count (130-400) 10^3/c mm MPV (7.4-10.4) fL Neut % (Auto) % Lymph % (Auto) % Spencer % (Auto) % Eos % (Auto) % Baso % (Auto) % Neut # (Auto) (1.8-7.7) 10^3/u L Lymph # (Auto) (0.8-4.8) 10^3/u L Spencer # (Auto) (0.2-0.9) 10^3/u L Eos # (Auto) (0.0-0.8) 10^3/u L Baso # (Auto) (0.0-0.1) 10^3/u L Nucleated RBC % (a uto) % Nucleated RBCs # /100WBC PT (12.1-14.9) SECO NDS INR (0.8-1.2) Sodium (136-145) mmol/L Potassium (3.5-5.1) mmol/L Chloride (98-107) mmol/L Carbon Dioxide (22-29) mmol/L Anion Gap (5-19) BUN (8-23) mg/dL Creatinine (0.7-1.2) mg/dL GFR Calculation Glucose (65-115) mg/dL Calculated Osmolal ity (285-295) mOsm/k g Calcium (8.5-10.5) mg/dL Total Bilirubin (0.15-1.2) mg/dL AST (0-40) U/L ALT (0-41) U/L Alkaline Phosphata se (40-130) IU/L Troponin T Baselin e 9 (0-15) ng/L Troponin T 120 Min [place] 8.24 (0-15) ng/L Delta Troponin T -0.76 L (0-10) ABS# Total Protein (6.6-8.7) g/dL Albumin (3.5-5.2) g/dL Globulin (1.3-4.6) g/dL Imaging Data^: CXR: Attestation: I personally reviewed and interpreted this imaging study as follows: Radiologist's impression: [address] [address] XRay Report Signed Patient: Miky Hoffman Unit #: [id number] : 1945 Age/Sex: 74 / M ADM Date: 12/24/19 Loc: ER Room/Bed: Attending Dr: Ordering Provider/Ordering MD: Shamar Jin MD Date of Service: 12/24/19 Procedure(s): XR chest 1V portable [id number] Accession Number(s): [id number] Report Number: [id number] WS: [id number] Portable AP upright chest, 12/24/2019 Clinical Data: cp Comparison: Portable chest, 12/02/2019 Findings: No nodules, masses or effusions are seen. The heart is enlarged. The pulmonary vascularity is not increased. No pneumonia or pneumothorax is seen. The permanent pacemaker remains in good position. The aortic arch and descending aorta show calcification and tortuosity. XR/XR chest 1V portable [id number] Impression: Atherosclerosis and cardiomegaly. EKG Data^: EKG 1: Attestation: I personally reviewed and interpreted this EKG as follows: EKG interpretation date: 12/24/19 Interpretation: paced hr [address] or t wave abnormalities qrs 162 qtc 432 EKG 2: Attestation: I personally reviewed and interpreted this EKG as follows: EKG interpretation date: 12/24/19 EKG interpretation time: 15:09 Interpretation: paced rhythm hr [address] or t wave abnormalities qrs 202 qtc 482 Discharge Plan Discharge Prescriptions: No Action tamsulosin [Flomax] 0.4 mg capsule 0.4 mg PO DAILY Qty: 30 RF: 5 atorvastatin 40 mg tablet 40 mg PO DAILY Qty: 30 RF: 5 carvedilol [Coreg] 12.5 mg tablet 12.5 mg PO BID Qty: 60 RF: 5 clopidogrel 75 mg tablet 75 mg PO DAILY Qty: 30 RF: 4 amlodipine 2.5 mg tablet 2.5 mg PO DAILY Qty: 30 RF: 4 calcium phosphate-vitamin D3 [Citracal-D3 Gummies] 250 mg calcium- 500 unit tablet,chewable 1 tab PO BID RF: 0 cyanocobalamin (vitamin B-12) 1,000 mcg capsule 1,000 mcg PO DAILY RF: 0 aspirin 81 mg tablet,delayed release (DR/EC) 81 mg PO DAILY RF: 0 multivitamin Tablet 1 tab PO QAM RF: 0 omega-3 fatty acids-vitamin E 1,000 mg capsule 1,000 mg PO BID RF: 0 Nitrostat 0.4 mg tablet, sublingual 0.4 mg SUBLINGUAL Q5M PRN (Reason: chest pain) 3 Days Qty: 3 RF: 0 isosorbide mononitrate 30 mg tablet extended release 24 hr 30 mg PO DAILY 30 Days Qty: 30 RF: 5 cyclobenzaprine 10 mg Tablet 10 mg PO TID PRN (Reason: Pain) RF: 0 tramadol 50 mg Tablet 50 mg PO Q8H PRN (Reason: Pain) RF: 0 Mucinex 600 mg Tablet Extended Release 12hr 600 mg PO Q12H PRN (Reason: Congestion) RF: 0 omeprazole 20 mg capsule,delayed release(DR/EC) 20 mg PO DAILY RF: 0 Coding Level of Care Code ED Rope Coiling Machine Operator for Chg Fwd Exam Comprehensive
--- NOTE | 2019-12-24 14:59 | ECG_ITS ---
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 Measurements Intervals [place] Rate: 60 P: 110 [place]: 167 QRS: -64 QRSD: 202 T: 126 QT: 482 QTc: 482 Interpretive Statements ELECTRONIC ATRIAL PACEMAKER ELECTRONIC VENTRICULAR PACEMAKER ABNORMAL RHYTHM ECG Compared to ECG 12/03/2019 02:05:44 No significant changes Electronically Signed On 12-24-2019 20:17:18 SENIOR WINDOWS SYSTEMS ADMINISTRATOR by Joon Gao M.D. [id number] f
[2019-12-24 15:05] LABS: INR 0.93 (0.8-1.2)
[2019-12-24 15:10] LABS: Alanine Aminotransferase 73 U/L (0-41); Albumin Level 4.4 g/dL (3.5-5.2); Alkaline Phosphatase 74 IU/L (40-130); Anion Gap 12.7 (5-19); Aspartate Amino Transferase 58 U/L (0-40); Blood Urea Nitrogen 19 mg/dL (8-23); Calcium 9.6 mg/dL (8.5-10.5); Carbon Dioxide 28 mmol/L (22-29); Chloride 103 mmol/L (98-107); Globulin 2.4 g/dL (1.3-4.6); Glucose 109 mg/dL (65-115); Osmolality Calculated 291 mOsm/kg (285-295); Potassium 4.7 mmol/L (3.5-5.1); Sodium 139 mmol/L (136-145); Total Bilirubin 0.3 mg/dL (0.15-1.2); Total Protein 6.8 g/dL (6.6-8.7)
[2019-12-24 15:14] LABS: Troponin(5th) Baseline 9 ng/L (0-15)
[2019-12-24] MEDS: aspirin 81 mg Chew Tablet 324 MG PO (15:24)
[2019-12-24] MEDS: ondansetron 2 mg/ML SDV 2 mL 4 MG IVP (15:24)
--- NOTE | 2019-12-24 15:24 | PC.NURSE ---
Pulled Morphine and Zofran per written order. Took to the Room to give to the pt and he refused. Wasted with Reva Mckeon
[2019-12-24 15:34] LABS: Troponin 5 2HR 8.24 ng/L (0-15)
[2019-12-24 15:37] LABS: Troponin 5 2HR Delta -0.76 ABS# (0-10)
--- NOTE | 2019-12-24 16:26 | P.HP_ITS ---
Providers/Chief Complaint Primary Care Provider: Lauren Chin MD Chief Complaint: chest pressure History of Present Illness Miky Hoffman is a 74 year old male with past medical history of sinus bradycardia, status post pacemaker placement, systolic heart failure, grade 1 diastolic dysfunction, hypertension, history of CAD status post stenting to first high OM branch, recent history of positive stress test, who presents to [facility] due to complaints of chest pain. Patient states that yesterday he had an episode of substernal chest pain radiating to both shoulders, associated with lightheadedness, dizziness, shortness of breath, pain lasted a few seconds, but intermittently continued for many hours, not associate with exertion, patient did not seek medical attention, is using aspirin, statin, Plavix, beta-christopher, Imdur as prescribed. This morning, at around 10, he was visiting a friend, with the chest pain came on again, this time is a pressure- like pain, substernal, nonradiating, associate with shortness of breath, lightheadedness, thus patient decided to come to the emergency room. Denies any fevers, chills, cough, exposure to COVID-19. No current chest pain, denies any drug use, former smoker, has extensive family history of CAD, had a positive stress test a few days ago, he was told that his heart function was down to about 26%, and that Dr. Saldivar is planning on doing a cardiac catheterization. Review of Systems Const: Denies: fever(s), chills, fatigue or malaise Eyes: Denies: change in vision or blurry vision ENMT: Denies: nasal congestion Card: Reports: chest pain and lightheadedness Resp: Reports: dyspnea; Denies: productive cough, non-productive cough or wheezing GI: Denies: abdominal pain, nausea, vomiting, hematemesis, diarrhea, constipation, hematochezia or melena : Denies: flank pain, difficulty urinating, dysuria or urinary frequency Musc: Denies: neck pain or back pain Skin/Breast: Denies: rash Neuro: Denies: headache(s), dizziness or vertigo Psych: Denies: anxiety or depression Endo: Denies: polyuria or polydipsia Medications/Allergies Home Medications Medication Instructions Recorded Confirmed Last Taken Type aspirin 81 mg tablet,delayed 81 mg PO DAILY 12/12/24/19 12/24/19 History release calcium phosphate-vitamin D3 250 1 tab PO BID tab 02/08/19 12/24/19 12/24/19 History mg calcium-500 unit chewable tablet cyanocobalamin (vitamin B-12) 1,000 mcg PO DAILY 02/08/19 12/24/19 12/24/19 History 1,000 mcg capsule multivitamin 1 tab PO QAM 02/08/19 12/24/19 12/24/19 History omega-3 fatty acids-vitamin E 1,000 mg PO BID cap 02/08/19 12/24/19 12/24/19 History 1,000 mg capsule amlodipine 2.5 mg tablet 2.5 mg PO DAILY #30 tab 12/08/19 12/24/19 12/24/19 Rx atorvastatin 40 mg tablet 40 mg PO DAILY #30 tab 12/08/19 12/24/19 12/24/19 Rx carvedilol 12.5 mg tablet 12.5 mg PO BID #60 tab 12/08/19 12/24/19 12/24/19 Rx clopidogrel 75 mg tablet 75 mg PO DAILY #30 tab 12/08/19 12/24/19 12/24/19 Rx tamsulosin 0.4 mg capsule 0.4 mg PO DAILY #30 cap 12/08/19 12/24/19 12/24/19 Rx isosorbide mononitrate 30 mg 30 mg PO DAILY 30 Days #30 tab 12/21/19 12/24/19 12/24/19 Rx tablet,extended release 24 hr nitroglycerin 0.4 mg sublingual 0.4 mg SUBLINGUAL Q5M PRN 3 Days 12/21/19 12/24/19 Unknown Rx tablet #3 tab cyclobenzaprine 10 mg PO TID PRN 12/24/19 12/24/19 Unknown History guaifenesin [Mucinex] 600 mg PO Q12H PRN 12/24/19 12/24/19 12/23/19 History omeprazole 20 mg PO DAILY 12/24/19 12/24/19 12/24/19 History tramadol 50 mg PO Q8H PRN 12/24/19 12/24/19 Unknown History Allergies Allergy/AdvReac Type Severity Reaction Status Date / Time No Known Allergies Allergy Verified 11/22/19 13:32 PFSH Acute PFSH: Medical History Abdominal pain Abnormal nuclear cardiac imaging test Arteriosclerotic heart disease Atherosclerosis of coronary artery of [place] heart without angina pectoris Blindness of left eye 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 arthritis Cholecystectomy planned Chronic gout Chronic kidney disease, stage 2 (mild) Chronic neck pain Diverticulosis Elevated blood sugar Essential (primary) hypertension Gastro-esophageal reflux disease without esophagitis Hearing loss of both ears Heart murmur Hemorrhoids, internal Hepatomegaly History of colon polyps History of medication noncompliance Hyperuricemia Ischemic cardiomyopathy Metatarsalgia of both feet Mixed hyperlipidemia Patel's neuroma of left foot Neuropathy Nicotine dependence, cigarettes, uncomplicated Osteopenia Pacemaker Unspecified osteoarthritis, unspecified site Surgical History H/O hernia repair History of ankle surgery History of permanent cardiac pacemaker placement For symptomatic bradycardia, 02/25 S/P cardiac catheterization On 07/30/2017 he underwent coronary angiography and was found to have 20% distal left main, minimal intimal irregularities in the LAD, patent stented segment of the first high OM branch patent stent segment of the PDA of the RCA and mild disease in the distal RCA with an EF of 50% and slightly elevated LVEDP of 16 mmHg Status post cholecystectomy Family History Brother CAD (coronary artery disease) Myocardial infarct Cancer Mother Myocardial infarct Father Cancer FROM LUNG CANCER Daughter Cancer Social History Smoking and tobacco status: former smoker Alcohol intake: current Lives independently: Yes Household members: spouse Marital status: Current occupational status: retired Vitals/I&O/Wt Last Vital Signs Temp 97.8 F 12/24/19 13:13 Pulse 59 L 12/24/19 15:30 Resp 18 12/24/19 15:30 BP 129/80 12/24/19 15:30 Pulse Ox 95 12/24/19 15:30 Weight last 48 hrs Weight 122.924 kg Physical Exam Const: COMMON NORMALS: no acute distress and patient oriented x3 GENERAL APPEARANCE: cooperative and comfortable HENMT: COMMON NORMALS: normocephalic HEAD & SCALP: normocephalic Eye: COMMON NORMALS: Equal, round and reactive pupils present and EOMs intact bilaterally GENERAL EYE: appearance normal, both eyes and all related structures PUPIL: Yes Equal, round and reactive pupils present Neck/C-Spine: COMMON NORMALS: full ROM, no lymphadenopathy, no JVD and Thyroid normal THYROID: Thyroid normal Lymph: LYMPHATIC: no lymphadenopathy noted Resp: COMMON NORMALS: normal respiratory effort, No retractions, No use of accessory muscles and clear to auscultation bilaterally AUSCULTATION: clear to auscultation bilaterally Cardio: COMMON NORMALS: no JVD, regular rate, regular rhythm, S1 normal heart sound present, S2 normal heart sound present, No gallops present (Cardio), No clicks present (Cardio) and No murmurs present (Cardio) RATE: regular rate RHYTHM: regular rhythm HEART SOUNDS: S1 normal heart sound present and S2 normal heart sound present GI: COMMON NORMALS: Normal to inspection, nondistended, normoactive bowel sounds present, Soft to palpation, non-tender and No hepatosplenomegaly present PALPATION: Yes Soft to palpation and Yes No hepatosplenomegaly present Extremity: COMMON NORMALS: normal to inspection, full ROM and no pedal edema Neuro: COMMON NORMALS: patient oriented x3, CN's II-XII intact bilaterally, moves all extremities and no focal motor deficits Psych: COMMON NORMALS: mental status grossly normal, Normal thought process present and cooperative THOUGHT PROCESS: Normal thought process present Data : 12/24/19 14:35 12/24/19 14:35 A&P Assessment and plan (1) Coronary artery disease with unstable angina pectoris: -history of CAD, history of stenting of first high OM branch, recent cardiac catheterization on 07/30/2017 - history of cardiac stress test on September 14, 2018 which showed persistent decreased tracer uptake in the inferior wall and septal regions, suggestive of myocardial scarring versus attenuation artifacts, LV wall motion analysis revealing diffuse hypokinesia of the inferior wall and the apex, low probability of CAD -echo 11/2019 Possibly moderately decreased left ventricular systolic function. This study is inadequate for estimation of regional wall motion abnormality. -stress test 12/2019: 1. Myocardial perfusion imaging revealing a moderate area of severely decreased tracer uptake in the inferior, inferoseptal and apical regions with some reversibility in the mid inferior region, suggestive of myocardial scarring in the distribution of the right coronary artery/left descending artery with some ischemia in the distribution of the right coronary artery. 2. Diminished elevation fraction 28%. 3. Wall motion of normalities as mentioned above. 4. Moderately dilated LV cavity with an end-systolic volume of 126 mL -Patient saw Dr. Saldivar on 12/21/2019, plan was for outpatient coronary angiogram -Recurrent chest pain, sounds cardiac in nature -Baseline troponin 9, 120-minute 8.24, delta is -0.76, -EKG paced rhythm, no acute ST-T wave changes PLAN: -Admit to cardiac stepdown unit -Aspirin, Plavix, statin, beta-christopher -Therapeutic Lovenox -Monitor for chest pain -Nitro as needed -Morphine as needed -Cardiology has been consulted, Dr. Saldivar plans on performing a coronary angiogram tomorrow morning -N.p.o. midnight -Full code -Lovenox for DVT prophylaxis -Protonix for GI prophylaxis Status: Acute (2) Ischemic cardiomyopathy: Status: Acute (3) Abnormal nuclear cardiac imaging test: Status: Acute (4) Mixed hyperlipidemia: Status: Acute (5) Pacemaker: Status: Acute (6) Essential (primary) hypertension: Status: Acute (7) Chronic gout: Status: Acute Attestations Medical Necessity Statement*: Patient requires hospitalization, outpatient with observation, for chest pain Coding Level of Care Code Acute Lead Man Over All Dies In Pattern Shop for Lamont Galan Diagnoses Coronary artery disease with unstable angina pectoris I25.110 Ischemic cardiomyopathy I25.5 Abnormal nuclear cardiac imaging test R93.1 Mixed hyperlipidemia E78.2 Pacemaker Z95.0 Essential (primary) hypertension I10 Chronic gout [id number]
--- NOTE | 2019-12-24 18:59 | ECG_ITS ---
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 Measurements Intervals [place] Rate: 63 P: 134 [place]: 183 QRS: -54 QRSD: 192 T: 101 QT: 472 QTc: 486 Interpretive Statements ELECTRONIC ATRIAL PACEMAKER ELECTRONIC VENTRICULAR PACEMAKER ABNORMAL RHYTHM ECG Compared to ECG 12/24/2019 15:09:02 No significant changes Electronically Signed On 12-24-2019 20:17:07 ICE CREAM DIPPER by Joon Gao M.D. [id number]
--- NOTE | 2019-12-24 19:06 | PC.NURSE ---
EKG done at 1850 and shown to ER doctor
--- NOTE | 2019-12-24 19:23 | PM.CONSULT ---
Providers/Reason For Consult Consulting Physican/Specialty*: TRACEY Saldivar /cardiology Reason for Consult*: Patient with unstable angina, history of ASHD Attending Physician: Js Mabry MD Primary Care Provider: Lauren Chin MD History of Present Illness History of Present Illness Miky Hoffman is a 74 year old male with a history of coronary disease, status post multiple PCI's, is presenting with a recurrent episodes of chest pains with increasing frequencies. Mr. Hoffman apparently has been in his baseline state of health up until yesterday afternoon when he had an episode of chest pain/heaviness associated shortness of breath. The intensity of the pain was moderate. The episode middle lasted for 10 to 15 minutes and then gradually subsided. He had a second episode of chest pain while he was getting ready to go to bed last night. This time the pain was little more severe. He had a tight feeling in the mid substernal area associated shortness of breath and some sweating. This time also the pain made it lasted for 10 to 15 minutes and then gradually subsided. Today he had a third episode of chest pain this afternoon. No definite precipitating factors for these episodes. Patient has a history of chest pain off and on for the last few months. However these episodes are very infrequent. He had a myocardial perfusion imaging on 29 November which revealed areas of fixed defect with some small areas of reversible defects mostly involving the right coronary artery territory. He was seen in the office on the for a follow-up. At that time we discussed the option of optimizing the medical treatment versus doing going ahead with a cardiac catheterization to reevaluate the coronary status and decide on further management. It was decided to optimize medical treatment and consider the angiogram if he has recurrence of chest pains. Because of the increasing episodes of this chest pains, he was advised to come back to the hospital for further evaluation management. Patient had the most recent cardiac cauterization in August 2017. At that time, he was found to have patent stented segments in the obtuse marginal branch of the left circumflex artery and the PDA branch of the right coronary artery. He had a mild to moderate disease in the other vessels including a left main stenosis of around 20%. It was all to treat him medically at that time. He had the most recent PCI in 2013 when he had the intervention of the PDA branch. Patient is known to have high blood pressure, dyslipidemia and symptomatic bradycardia. He has a permanent pacer implantation. His blood pressure has been fairly stable at home. Review of Systems Narrative: CONSTITUTIONAL: No fever or chills. Has some feeling of weakness/dyspnea on exertion EYES: No blurring of vision or other visual disturbances lately. ENT: No hoarseness of voice, auditory disturbances or sore throat. CARDIOVASCULAR: As mentioned above. RESPIRATORY: No significant cough. GASTROINTESTINAL: No hematemesis or melena. GENITOURINARY: No dysuria or hematuria. INTEGUMENTARY: No skin rashes or history of skin cancer. NEURO: No transient ischemic attacks or amaurosis. PSYCHIATRIC: No history of psychosis or major depression. HEMATOLOGIC: No bleeding disorders or significant anemia. ENDOCRINE: No history of polyuria or polydipsia. MUSCULOSKELETAL: No recent joint pain or swelling. ALLERGY/IMMUNOLOGY: As mentioned above. Meds/Allergies Home Medications and Allergies Home Medications Medication Instructions Recorded Confirmed Last Taken Type aspirin 81 mg tablet,delayed 81 mg PO DAILY 02/08/19 12/24/19 12/24/19 History release calcium phosphate 250 mg-vit D3 1 tab PO BID tab 02/08/19 12/24/19 12/24/19 History 12.5 mcg (500 unit) chewable tablet cyanocobalamin (vitamin B-12) 1,000 mcg PO DAILY 02/08/19 12/24/19 12/24/19 History 1,000 mcg capsule multivitamin 1 tab PO QAM 02/08/19 12/24/19 12/24/19 History omega-3 fatty acids-vitamin E 1,000 mg PO BID cap 02/08/19 12/24/19 12/24/19 History 1,000 mg capsule amlodipine 2.5 mg tablet 2.5 mg PO DAILY #30 tab 12/08/19 12/24/19 12/24/19 Rx atorvastatin 40 mg tablet 40 mg PO DAILY #30 tab 12/08/19 12/24/19 12/24/19 Rx carvedilol 12.5 mg tablet 12.5 mg PO BID #60 tab 12/08/19 12/24/19 12/24/19 Rx clopidogrel 75 mg tablet 75 mg PO DAILY #30 tab 12/08/19 12/24/19 12/24/19 Rx tamsulosin 0.4 mg capsule 0.4 mg PO DAILY #30 cap 12/08/19 12/24/19 12/24/19 Rx isosorbide mononitrate 30 mg 30 mg PO DAILY 30 Days #30 tab 12/21/19 12/24/19 12/24/19 Rx tablet,extended release 24 hr nitroglycerin 0.4 mg sublingual 0.4 mg SUBLINGUAL Q5M PRN 3 Days 12/21/19 12/24/19 Unknown Rx tablet #3 tab cyclobenzaprine 10 mg PO TID PRN 12/24/19 12/24/19 Unknown History guaifenesin [Mucinex] 600 mg PO Q12H PRN 12/24/19 12/24/19 12/23/19 History omeprazole 20 mg PO DAILY 12/24/19 12/24/19 12/24/19 History tramadol 50 mg PO Q8H PRN 12/24/19 12/24/19 Unknown History Allergies Allergy/AdvReac Type Severity Reaction Status Date / Time No Known Allergies Allergy Verified 11/22/19 13:32 PFSH Acute PFSH: Medical History (Updated 12/24/19 @ 20:29 by Leatha Saldivar MD) Abdominal pain Abnormal nuclear cardiac imaging test Arteriosclerotic heart disease Atherosclerosis of coronary artery of [place] heart without angina pectoris Blindness of left eye 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 arthritis Cholecystectomy planned Chronic gout Chronic kidney disease, stage 2 (mild) Chronic neck pain Diverticulosis Elevated blood sugar Essential (primary) hypertension Gastro-esophageal reflux disease without esophagitis Hearing loss of both ears Heart murmur Hemorrhoids, internal Hepatomegaly History of colon polyps History of medication noncompliance Hyperuricemia Ischemic cardiomyopathy Metatarsalgia of both feet Mixed hyperlipidemia Patel's neuroma of left foot Neuropathy Nicotine dependence, cigarettes, uncomplicated Osteopenia Pacemaker Unspecified osteoarthritis, unspecified site Surgical History (Updated 12/24/19 @ 20:27 by Leatha Saldivar MD) H/O hernia repair History of ankle surgery History of permanent cardiac pacemaker placement For symptomatic bradycardia, 02/25 S/P cardiac catheterization On 07/30/2017 he underwent coronary angiography and was found to have 20% distal left main, minimal intimal irregularities in the LAD, patent stented segment of the first high OM branch patent stent segment of the PDA of the RCA and mild disease in the distal RCA with an EF of 50% and slightly elevated LVEDP of 16 mmHg Status post cholecystectomy Family History Brother CAD (coronary artery disease) Myocardial infarct Cancer Mother Myocardial infarct Father Cancer FROM LUNG CANCER Daughter Cancer Social History Smoking and tobacco status: former smoker Alcohol intake: current Lives independently: Yes Household members: spouse Marital status: Current occupational status: retired Vitals/I&O/Wt Last Vital Signs Temp 97.6 F 12/24/19 19:11 Pulse 60 12/24/19 19:11 Resp 18 12/24/19 19:11 BP 154/92 12/24/19 19:11 Pulse Ox 99 12/24/19 19:11 Weight last 48 hrs Weight 271 lb Physical Exam Narrative: EXAM NARRATIVE: GENERAL: The patient is alert and oriented times three. Not in any acute distress. HEENT: No significant pallor, icterus or lymphadenopathy. The pupils are reactant to light. Oral cavity: There are no mucous membrane lesions. Funduscopic examination: The fundus is not visualized NECK: Trachea appears to be central. No masses noted. No JVD or thyromegaly appreciated. No carotid bruit. RESPIRATORY: Chest is symmetrical. No intercostals muscle retraction or any accessory muscle activation. There is no chest wall tenderness. Breath sounds are heard bilaterally. No rales or rhonchi heard. No evidence of any consolidation. BREASTS: Deferred. HEART: The PMI is in the 5th left intercostals space just inside the midclavicular line. No palpable precordial events. S1 and S2 are normal. No S3 or S4 heard. No pericardial rub or any click heard. ABDOMEN: No vessel pulsations or distention. No tenderness. No organomegaly appreciated. No abdominal bruit. Bowel sounds are normally heard. : Deferred. RECTAL: Deferred. LYMPHATIC: No lymphadenopathy noted in the neck or groin. EXTREMITIES: No edema or cyanosis. No clubbing. The pulses are symmetrical bilaterally. The radial, femoral, dorsalis pedis and the posterior tibial pulses are palpated and found to be in good volume and amplitude. MUSCULOSKELETAL: Gait is normal. There is no joint deformity or swelling noted. No joint tenderness or any effusion. The shoulder and hip joints appear to have normal range of motion. SKIN: There are no significant scars or skin rash noted. NEUROPSYCHIATRIC: The patient is alert and oriented x3. Appears to be in a good mood. The higher functions are grossly within normal limits. No tremors or rigidity noted. Data Labs: Other Labs: Laboratory Last Values WBC 5.9 10^3/uL (4.0- 10.0) 12/24/19 14:35 RBC 4.03 10^6/uL (4.1 -5.3) L 12/24/19 14:35 Hgb 13.3 g/dL (11.7-1 6.6) 12/24/19 14:35 Hct 40.8 % (42.0-52.0 ) L 12/24/19 14:35 MCV 101.2 fL (80-94) H 12/24/19 14:35 MCH 33.0 pg (28.0-34. 0) 12/24/19 14:35 MCHC 32.6 g/dL (30.0-3 6.0) 12/24/19 14:35 RDW 11.9 % (12.1-15.1 ) L 12/24/19 14:35 Plt Count 174 10^3/cmm (130 -400) 12/24/19 14:35 MPV 9.5 fL (7.4-10.4) 12/24/19 14:35 Neut % (Auto) 56.6 % 12/24/19 14:35 Lymph % (Auto) 35.0 % 12/24/19 14:35 [place] % (Auto) 7.5 % 12/24/19 14:35 Eos % (Auto) 0.2 % 12/24/19 14:35 Baso % (Auto) 0.5 % 12/24/19 14:35 Neut # (Auto) 3.32 10^3/uL (1.8 -7.7) 12/24/19 14:35 Lymph # (Auto) 2.1 10^3/uL (0.8- 4.8) 12/24/19 14:35 [place] # (Auto) 0.4 10^3/uL (0.2- 0.9) 12/24/19 14:35 Eos # (Auto) 0.0 10^3/uL (0.0- 0.8) 12/24/19 14:35 Baso # (Auto) 0.0 10^3/uL (0.0- 0.1) 12/24/19 14:35 Nucleated RBC % (a uto) 0 % 12/24/19 14:35 Nucleated RBCs # 0.0 /100WBC 12/24/19 14:35 PT 12.70 SECONDS (12 .1-14.9) 12/24/19 14:35 INR 0.93 (0.8-1.2) 12/24/19 14:35 Sodium 139 mmol/L (136-1 45) 12/24/19 14:35 Potassium 4.7 mmol/L (3.5-5 .1) 12/24/19 14:35 Chloride 103 mmol/L (98-10 7) 12/24/19 14:35 Carbon Dioxide 28 mmol/L (22-29) 12/24/19 14:35 Anion Gap 12.7 (5-19) 12/24/19 14:35 BUN 19 mg/dL (8-23) 12/24/19 14:35 Creatinine 1.1 mg/dL (0.7-1. 2) 12/24/19 14:35 GFR Calculation Not Reportable 12/24/19 14:35 Glucose 109 mg/dL (65-115 ) 12/24/19 14:35 Calculated Osmolal ity 291 mOsm/kg (285- 295) 12/24/19 14:35 Calcium 9.6 mg/dL (8.5-10 .5) 12/24/19 14:35 Total Bilirubin 0.3 mg/dL (0.15-1 .2) 12/24/19 14:35 AST 58 U/L (0-40) H 12/24/19 14:35 ALT 73 U/L (0-41) H 12/24/19 14:35 Alkaline Phosphata se 74 IU/L (40-130) 12/24/19 14:35 Troponin T Baselin e 9 ng/L (0-15) 12/24/19 14:35 Troponin T 120 Min [place] 8.24 ng/L (0-15) 12/24/19 15:06 Delta Troponin T -0.76 ABS# (0-10) L 12/24/19 15:06 Total Protein 6.8 g/dL (6.6-8.7 ) 12/24/19 14:35 Albumin 4.4 g/dL (3.5-5.2 ) 12/24/19 14:35 Globulin 2.4 g/dL (1.3-4.6 ) 12/24/19 14:35 the EKG from today revealed 100% AV paced rhythm. Further interpretation is not possible ECHOCARDIOGRAPHY, COMPLETE ([id number]) Date: 11/2019 2. Possibly moderately decreased left ventricular systolic function. This study is inadequate for estimation of regional wall motion abnormality. 3. Recommend repeat study with ultrasound enhancing agent. LMM STRESS ([id number]) 11/2019 . Myocardial perfusion imaging revealing a moderate area of severely decreased tracer uptake in the inferior, inferoseptal and apical regions with some reversibility in the mid inferior region, suggestive of myocardial scarring in the distribution of the right coronary artery/left descending artery with some ischemia in the distribution of the right coronary artery. 2. Diminished elevation fraction 28%. 3. Wall motion of normalities as mentioned above. 4. Moderately dilated LV cavity with an end-systolic volume of 126 mL Compared to the previous study from 09/14/2018, the ischemia in the distribution of the right coronary artery appears to be new The most recent cardiac catheterization was seen July of 2017. On 07/30/2017 he underwent coronary angiography and was found to have 20% distal left main, minimal intimal irregularities in the LAD, patent stented segment of the first high OM branch patent stent segment of the PDA of the RCA and mild disease in the distal RCA with an EF of 50% and slightly elevated LVEDP of 16 mmHg. No additional interventions were performed. Based on the angiographic findings, it was decided to optimize the medical treatment. Last PCI was to the PDA branch in 2013(Successful PCI to mid PDA.Lesion was prepared with 2.0x8mm Emerge balloon,followed by deployment of Promus Premier 2.5x12mm stent posted at high ATMof 15mm to ensure proper approximation .Excellent angiographic result withTIMI-3 flow was achieved) A&P Assessment and plan (1) Coronary artery disease with unstable angina pectoris: Patient symptoms are suggestive of an unstable angina. So far he has no evidence of myocardial infarction. We may start him on subcu Lovenox. Current medications may be continued. Serial cardiac enzymes would be appropriate, as per protocol Status: Acute Qualifiers: Coronary Disease-Associated Artery/Lesion type: [place] artery [place] vs. transplanted heart: [place] heart Qualified Code(s): I25.110 - Atherosclerotic heart disease of [place] coronary artery with unstable angina pectoris (2) Ischemic cardiomyopathy: Since there is no evidence of any cardiac decompensation, may continue on the current medications. Status: Acute (3) Abnormal nuclear cardiac imaging test: The myocardial perfusion imaging is suggestive of ischemia in the distribution of the right coronary artery. Because of the recurrent episodes of chest pain, it may be appropriate to go ahead and do a cardiac catheterization, to further evaluate the coronary status and decide on further management. Perfusion Status: Acute (4) Pacemaker: Pacemaker function was found to be appropriate. May continue on the current measures. Status: Acute (5) Mixed hyperlipidemia: Status: Acute (6) Elevated liver enzymes: Etiology is not clear. It could be related to the statin drug. This needs to be closely monitored. Status: Acute Additional A&P Information Based on the patient's clinical progress and the results of the above, further recommendations will be made. 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 transplanted heart: [place] heart Ischemic cardiomyopathy I25.5 Abnormal nuclear cardiac imaging test R93.1 Pacemaker Z95.0 Mixed hyperlipidemia E78.2 Elevated liver enzymes R74.8
[2019-12-24 19:31] LABS: Troponin 5 6HR 8.65 ng/L (0-15)
[2019-12-24 19:38] LABS: Troponin 5 6HR Delta -0.35 ng/L (0-12)
[2019-12-24] MEDS: atorvastatin 40 mg Tablet PO (20:46)
[2019-12-24] MEDS: carvedilol 12.5 mg Tablet PO (20:46)
[2019-12-24] MEDS: omega-3 fatty acids 1,000 mg Capsule 1000 MG PO (20:47)
[2019-12-24] MEDS: nitroglycerin 1 gm/inch oint Pkt 2 INCH TOPICAL (20:47)
[2019-12-24] MEDS: enoxaparin 120 mg/0.8 mL Syringe SUBCUT (20:48)
[2019-12-24] MEDS: sodium chloride 0.9% 1,000 ML 50 ML IV (20:48)
[2019-12-25] VITALS (32 sets, daily range): BP systolic 112–160; BP diastolic 64–86; PULSE 55–66; RESP 12–26; TEMP 36.4–36.6; O2SAT 95–98
[2019-12-25] MEDS: nitroglycerin 1 gm/inch oint Pkt 2 INCH TOPICAL ×2 (02:57→07:34)
[2019-12-25] MEDS: TRAMadol 50 mg Tablet PO (03:43)
--- NOTE | 2019-12-25 06:00 | ECG_ITS ---
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 Measurements Intervals [place] Rate: 61 P: 229 SD: 205 QRS: -59 QRSD: 172 T: 133 QT: 449 QTc: 453 Interpretive Statements ELECTRONIC ATRIAL PACEMAKER ELECTRONIC VENTRICULAR PACEMAKER ABNORMAL RHYTHM ECG Compared to ECG 12/24/2019 18:54:47 No significant changes Electronically Signed On 12-25-2019 18:59:15 STATE TESTED NURSING ASSISTANT by Leatha Saldivar M.D. [id number]
[2019-12-25 06:01] LABS: Basophils % 0.7 %; Eosinophils # 0.1 10^3/uL (0.0-0.8); Eosinophils % 1.5 %; Hematocrit 39.7 % (42.0-52.0); Hemoglobin 13.1 g/dL (11.7-16.6); Lymphocytes # 1.9 10^3/uL (0.8-4.8); Lymphocytes % 35.4 %; Mean Corpuscular Hemoglobin 32.8 pg (28.0-34.0); Mean Corpuscular Volume 99.5 fL (80-94); Mean Platelet Volume 9.8 fL (7.4-10.4); Monocytes # 0.4 10^3/uL (0.2-0.9); Monocytes % 7.5 %; Neutrophils # 2.91 10^3/uL (1.8-7.7); Neutrophils % 54.5 %; Nucleated Red Blood Cells % 0 %; Platelet Count 168 10^3/cmm (130-400); Red Blood Count 3.99 10^6/uL (4.1-5.3); Red Cell Distribution Width 11.8 % (12.1-15.1); White Blood Count 5.3 10^3/uL (4.0-10.0)
[2019-12-25 06:37] LABS: INR 1.02 (0.8-1.2)
[2019-12-25 06:57] LABS: Alanine Aminotransferase 65 U/L (0-41); Albumin Level 4.2 g/dL (3.5-5.2); Alkaline Phosphatase 66 IU/L (40-130); Aspartate Amino Transferase 46 U/L (0-40); Blood Urea Nitrogen 19 mg/dL (8-23); Calcium 9.4 mg/dL (8.5-10.5); Carbon Dioxide 25 mmol/L (22-29); Chloride 104 mmol/L (98-107); Globulin 2.5 g/dL (1.3-4.6); Glucose 105 mg/dL (65-115); Magnesium 1.9 mg/dL (1.7-2.3); Osmolality Calculated 295 mOsm/kg (285-295); Phosphorus 3.1 mg/dL (2.5-4.5); Sodium 141 mmol/L (136-145); Total Bilirubin 0.4 mg/dL (0.15-1.2); Total Protein 6.7 g/dL (6.6-8.7)
[2019-12-25] MEDS: carvedilol 12.5 mg Tablet PO (07:34)
[2019-12-25] MEDS: aspirin 81 mg EC Tablet PO (07:34)
[2019-12-25] MEDS: isosorbide mononitrate ER 30 mg Tablet PO (07:34)
[2019-12-25] MEDS: tamsulosin 0.4 mg Capsule PO (07:34)
[2019-12-25] MEDS: amlodipine 5 mg Tablet 2.5 MG PO (07:35)
[2019-12-25] MEDS: clopidogrel 75 mg Tablet PO (07:35)
--- NOTE | 2019-12-25 08:19 | USR_ITS ---
PROCEDURE INFORMATION: Exam: US Abdomen, Limited; Right Upper Quadrant Exam date and time: 12/25/2019 11:50 AM Age: 74 years old Clinical indication: Abnormal findings; Abnormal lab test; Other: Transaminit; Prior surgery; Surgery date: 6+ months; Surgery type: Cholecystiectomy, hernia TECHNIQUE: Imaging protocol: US abdomen. Real time ultrasound with image documentation. Limited exam focused on the right upper quadrant. COMPARISON: US abdomen limited [id number] 06/22/2018 8:35 AM FINDINGS: Liver: Diffuse increased echogenicity of the liver indicating fatty liver. No obvious liver masses. Gallbladder: Cholecystectomy.. Common bile duct: Bile ducts are not dilated. Pancreas: The pancreas was obscured by bowel gas Right kidney: There is a 2.4 cm benign simple cyst in the right kidney. There is no hydronephrosis or obvious renal stone. Aorta: . The aorta was obscured by bowel gas. US/US liver [id number] IMPRESSION: 1. Fatty liver. 2. Cholecystectomy. Normal bile ducts. 3. No acute abnormality. COMMENTS: Consistent with the [employer]'s Incidental Findings Committee white paper (J Am Ana Radiol 2018): Any incidental renal lesion less than 1 cm or classified as too small to characterize, or any incidental cystic renal lesion characterized as simple-appearing, is likely benign. No follow-up imaging is recommended for these lesions per consensus recommendations based on imaging criteria.
[2019-12-25] MEDS: diphenhydrAMINE 50 mg Capsule PO (08:52)
[2019-12-25 09:30] LABS: Ferritin 598 ng/mL (30-400)
--- NOTE | 2019-12-25 10:31 | XACV_ITS ---
Exam Room: [facility] Ht: 185 cm Wt: 123 kg BSA: 2.56 m2 Gender: Male : 1945 Any Known Allergies: No known allergies Exam Priority: Routine Procedure(s): Procedure Description: Diagnostic procedure Procedure Description: Left ventriculography Procedure Description: Coronary Angiography Diagnostic Cath Status: Elective Diagnostic Findings * No significant disease noted in the Left Main, LAD, Circumflex, or RCA coronary arteries. * Coronary angiography shows right dominance. * The left main is a medium to large caliber vessel which has a 20% segmental narrowing distally. No other significant stenotic lesions. * The left anterior descending artery is a medium caliber vessel which appears to wrap around the LV apex minimally. The artery was found to have mild diffuse intimal irregularities in the proximal and in the mid segment. No significant stenotic lesions. It gives off multiple small to medium caliber diagonal branches which are found to have minimal ostial narrowing.. * The left circumflex artery is a medium caliber vessel which gives of a high obtuse marginal branch, intermedius artery. The stented segment of the artery was found to be widely patent. Just proximal to the stented area, there was around 50% tubular narrowing, involving the ostium. The proximal segment of the circumflex artery was found to have mild diffuse disease. The second obtuse marginal branch was found to have minimal ostial narrowing. No other significant stenotic lesions were noted.. * The right coronary artery is a medium to large caliber vessel which was found to have mild diffuse disease in the proximal and the distal segment. The distal artery appears to trifurcate. The PDA branch was found to have a stented segment which appears to be patent with minimal in-stent narrowing. The distal artery was found to have mild diffuse intimal irregularities. No other significant stenotic lesions were noted. Conclusions 1. This is a 74-year-old white male with history of coronary artery disease, status post PCI's, presents with recurrent episodes of chest tightness/pain and shortness of breath. He had a recent myocardial perfusion imaging which was found to be abnormal, suggesting ischemia in the distribution of the right coronary artery. His LV ejection fraction, based on the perfusion scan was 28%. The echocardiogram was a suboptimal quality. In view of the patient's ongoing increasing episodes of chest pains and the abnormal myocardial perfusion imaging, in order to further evaluate his coronary status, a repeat cardiac catheterization was recommended. Patient underwent left heart catheterization with a left and right coronary angiogram and LV angiogram today. The findings are as follows. 2. The stented segments of the high obtuse marginal branch(intermedius artery) was found to be patent. The stented segment of the posterior descending artery of the right coronary artery also was found to be patent. Mild to moderate diffuse disease where noted in the other vessels. The LVEDP was around 21 mmHg. LV ejection fraction was 35 to 40%. 3. Based on the above angiogram findings and also patient's clinical presentation, we will try to optimize the medical treatment. Recommendations * Continue current medical management and risk factor modification. Diagnostic RX Recommendation: medical therapy and/or counseling LV EDP: 21 mmHg Ventriculography Ejection Fraction: 36.0 % Left Ventriculography Findings: * The LV gram was performed in the [place] projection. The LV Cavity appears to be dilated. There is diffuse hypokinesia of the left ventricle. Ejection fraction was around 35 to 40%. There was no significant mitral valve prolapse or mitral irritation. The LV gram was a suboptimal quality.. Pressures Phase:Rest AO : 102 / 61 ( 80 ) @ 5:16:00 AM 104 / 59 ( 78 ) @ 5:16:00 AM 99 / 64 ( 79 ) @ 5:22:00 AM 110 / 47 ( 76 ) @ 5:34:00 AM 100 / 57 ( 74 ) @ 5:34:00 AM LV : 101 / 10 / @ 5:16:00 AM 101 / 6 / @ 5:16:00 AM 107 / 6 / @ 5:34:00 AM Valves Phase:DefaultPhase AV : 0.0 @ 11:47:05 AM AV Mean Gradient: 0.0 @ 11:47:05 AM Clinical Evaluation EBL: 5mL-10mL Procedural Details Procedure Consent Obtained. Pre-Procedure Time Out. Identified patient by full name and date of as verbalized by the patient/guarantor. Does the consent match the physician's order: Yes. Accurate & Complete Informed Consent: Yes. Inpatient/Outpatient History & Physical on Chart: Yes. If H&P is completed, is and addenduem needed: No; If yes, is the addendum complete: N/A. Visualize and Verify Site with Patient/Guarantor: N/A. Relevant Radiology Images available: Yes. Pre-op teaching completed and patient verbalized understanding. The risks, benefits, and alternatives of sedation and/or procedure were discussed by physician. The patient agrees to continue. Procedure started. [facility] Clinical Fraility Score: 4: Vulnerable. Project Lead Indications: Stable Known CAD. Chest Pain Symptom Assessment: Typical Angina Symptoms. Cardiovascular Instability: No. Correct patient, site and procedure confirmed by cath team. Current diagnosis: Chest Pain. PERRLA. Strong, equal hand assistant teacher primary bilaterally. Lungs clear x 5 lobes. IV Site on Arrival: 18 gauge in the right anticubital. IV Fluids: 0.9% NaCl at KVO. 0 mL infused prior to research laboratory technician. Pre Procedural Pulses: bilateral dorsalis pedis was 2+. Pre Procedural Pulses: bilateral posterior tibial was 2+. Pre Procedural Pulses: bilateral radial was 2+. Oxygen started at 2liters/min via nasal canula. bilateral groins was prepped with chloroprep then draped in the usual sterile fashion. right radial was prepped with chloroprep then draped in the usual sterile fashion. Physician notified. Baseline sample Acquired. HR: 61 BPM. Equipment: 5F - Radial. Heparinized Saline (2 units/mL), 1000 mL bag. ACIST Manifold Kit Model BT 2000. Cardiac Cath Pack. Physician arrived. Physician scrubbed in. Immediate Pre-Procedure Time Out. Correct Patient: Yes; Correct Procedure: Yes; Correct Site: Yes; Correct Patient Position: Yes; Correct Supplies: Yes; Dried Flammable Prep: Yes; Blood Products Available: No;. Lidocaine 1% infiltrated to the right radial. Arterial access obtained. A 5 omani Geraldo catheter in over wire. EDP Sample taken: LV 101/10,21; HR: 60 BPM; SpO2: 97%. Pullback taken: LV 101/6,18; AO 102/61(80); Mean: 0mmHg, Peak to Peak: 0mmHg, SEP: 5sec/min; HR: 60 BPM; SpO2: 97%. Multiple views taken of left coronary artery. Catheter redirected to the RCA. Multiple views taken of right coronary artery. Catheter out. A 5 omani Angled Pig catheter in over wire. LV gram performed in [place] @ 10 mL/second for a total of 30 mL. Pullback taken: LV 107/6,17; AO 110/47(76); Mean: 0mmHg, Peak to Peak: 0mmHg, SEP: 17sec/min; HR: 60 BPM; SpO2: 99%. Catheter out. TR band placed. Hemostasis obtained. Post Procedure: Pulses reassessed and unchanged. PERRLA. Strong, equal hand assistant teacher primary bilaterally. No VTE prophylaxis required. Medication's Wasted: Lidocaine 1% = 18 mL. Medication's Wasted: Heparin = 1000 units. Medication's Wasted: Nitro = 49.8 mg. Medication's Wasted: Other = Fentanyl 50mcg. Total IV fluids: mL. Total IV fluids: 275 mL. Contrast type used: Omnipaque 300 mgI/mL, 500 mL bottle. [id number]. Post-op diagnosis: CAD. Complications: None. Estimated blood loss: 5mL-10mL. Vital chart was stopped. Procedure completed. Patient transferred by bed to ICU. Access Site Site: Right Radial artery Sheath Size: 5 Fr Hemostasis Success: Unsuccessful Procedure Medications Start: 11:01 AM Stop: 11:01 AM Medication: Versed Amount: 2 mg Route: I.V. Start: 11:01 AM Stop: 11:01 AM Medication: Fentanyl Amount: 50 mcg Route: I.V. Start: 11:11 AM Stop: 11:11 AM Medication: Verapamil Amount: 5 mg Route: I.A. Start: 11:12 AM Stop: 11:12 AM Medication: Nitrogylcerin Amount: 200 mcg Route: I.A. Start: 11:12 AM Stop: 11:12 AM Medication: 0.9% Saline Amount: 250 ml Route: I.V. bolus Start: 11:15 AM Stop: 11:15 AM Medication: Heparin Amount: 5000 units Route: I.V. I, the attending physician, have reviewed and verified all procedure medications. Yes, all medications given per verbal order History/Risk Factors Hypertension: No Dyslipidemia: No Peripheral Arterial Disease (PAD): No Myocardial Infarction (MS): No Obesity: No Renal Disease: No Prior Interventions PCI: No CABG: No Valve Surgery: No Report Signatures Finalized by Dr Leatha Saldivar MD [facility] on 12/25/2019 03:21 PM
--- NOTE | 2019-12-25 10:33 | PM.PN ---
Subjective Subjective: Interval history: Patient is feeling okay. He had some right shoulder pain last night. No chest pain or shortness of breath. Vitals are remaining stable. Troponin T is negative for myocardial injury. Medications: Reviewed: Yes Medication Review Details: Current Medications Acetaminophen (Acetaminophen 325 Mg Tablet) 650 mg PO Q6H PRN PRN Reason: Mild/Mod Pain Or Temp >/= 101 Amlodipine Besylate (Amlodipine 5 Mg Tablet) 2.5 mg PO DAILY [facility] Last Admin: 12/25/19 07:35 Dose: 2.5 mg Documented by: Aspirin (Aspirin 81 Mg Ec Tablet) 81 mg PO DAILY [facility] Last Admin: 12/25/19 07:34 Dose: 81 mg Documented by: Atorvastatin Calcium (Atorvastatin 40 Mg Tablet) 40 mg PO Q24H [facility] Last Admin: 12/24/19 20:46 Dose: 40 mg Documented by: Carvedilol (Carvedilol 12.5 Mg Tablet) 12.5 mg PO BID [facility] Last Admin: 12/25/19 07:34 Dose: 12.5 mg Documented by: Clopidogrel Bisulfate (Clopidogrel 75 Mg Tablet) 75 mg PO DAILY [facility] Last Admin: 12/25/19 07:35 Dose: 75 mg Documented by: Cyanocobalamin (Cyanocobalamin 1,000 Mcg Tablet) 1,000 mcg PO DAILY [facility] Last Admin: 12/25/19 07:41 Dose: Not Given Documented by: Cyclobenzaprine HCl (Cyclobenzaprine 10 Mg Tablet) 10 mg PO TID PRN PRN Reason: Pain Enoxaparin Sodium (Enoxaparin 120 Mg/0.8 Ml Syringe) 120 mg SUBCUT Q12H [facility] Last Admin: 12/25/19 07:27 Dose: Not Given Documented by: Guaifenesin (Guaifenesin 600 Mg Tablet) 600 mg PO Q12H PRN PRN Reason: Congestion Sodium Chloride (Sodium Chloride 0.9%) 1,000 mls @ 50 mls/hr IV .Q20H ONE Stop: 12/25/19 16:30 Last Admin: 12/24/19 20:48 Dose: 50 mls/hr Documented by: Isosorbide Mononitrate (Isosorbide Mononitrate Er 30 Mg Tablet) 30 mg PO DAILY [facility] Last Admin: 12/25/19 07:34 Dose: 30 mg Documented by: Morphine Sulfate (Morphine 4 Mg/Ml Sdv 1 Ml) 1 mg IVP Q4H PRN PRN Reason: SEVERE PAIN Multivitamins Therapeutic (Multivitamin Therapeutic Tablet) 1 tab PO QAM [facility] Last Admin: 12/25/19 07:12 Dose: Not Given Documented by: Nitroglycerin (Nitroglycerin 0.4 Mg Sublingual Tablet) 0.4 mg SUBLINGUAL Q5M PRN PRN Reason: chest pain Nitroglycerin (Nitroglycerin 1 Gm/Inch Oint Pkt) 2 inch TOPICAL Q6H [facility] Last Admin: 12/25/19 07:34 Dose: 2 inch Documented by: Non-Formulary Medication (Calcium Phosphate-Vitamin D3 [Citracal-D3 Gummies]) 1 tab PO BID [facility] Last Admin: 12/25/19 07:41 Dose: Not Given Documented by: [id number] Ethyl Esters ([place]-3 Fatty Acids 1,000 Mg Capsule) 1,000 mg PO BID [facility] Last Admin: 12/25/19 07:41 Dose: Not Given Documented by: Ondansetron HCl (Ondansetron 2 Mg/Ml Sdv 2 Ml) 4 mg IVP Q8H PRN PRN Reason: vomiting, or N/V if npo Pantoprazole Sodium (Pantoprazole Dr 40 Mg Tablet) 40 mg PO DAILY [facility] Last Admin: 12/25/19 07:42 Dose: Not Given Documented by: Tamsulosin HCl (Tamsulosin 0.4 Mg Capsule) 0.4 mg PO DAILY [facility] Last Admin: 12/25/19 07:34 Dose: 0.4 mg Documented by: Tramadol HCl (Tramadol 50 Mg Tablet) 50 mg PO Q8H PRN PRN Reason: Pain Last Admin: 12/25/19 03:43 Dose: 50 mg Documented by: Vitals/I&O/Wt Last Vital Signs Temp 97.8 F 12/25/19 07:43 Pulse 55 L 12/25/19 07:43 Resp 18 12/25/19 07:43 BP 160/83 12/25/19 07:43 Pulse Ox 95 12/25/19 07:43 12/24/19 12/25/19 12/25/19 22:59 06:59 14:59 Output Total 325 / 325 500 / 825 Balance -325 / -325 -500 / -825 Weight last 48 hrs Weight 271 lb Physical Exam Narrative: EXAM NARRATIVE: GENERAL: The patient is alert and oriented times three. Not in any acute distress. HEENT: No significant pallor, icterus or lymphadenopathy. The pupils are reactant to light. Oral cavity: There are no mucous membrane lesions. NECK: Trachea appears to be central. No masses noted. No JVD or thyromegaly appreciated. No carotid bruit. RESPIRATORY: Chest is symmetrical. No intercostals muscle retraction or any accessory muscle activation. There is no chest wall tenderness. Breath sounds are heard bilaterally. No rales or rhonchi heard. No evidence of any consolidation. BREASTS: Deferred. HEART: The PMI is in the 5th left intercostals space just inside the midclavicular line. No palpable precordial events. S1 and S2 are normal. No S3 or S4 heard. No pericardial rub or any click heard. ABDOMEN: No vessel pulsations or distention. No tenderness. No organomegaly appreciated. No abdominal bruit. Bowel sounds are normally heard. : Deferred. RECTAL: Deferred. LYMPHATIC: No lymphadenopathy noted in the neck or groin. EXTREMITIES: No edema or cyanosis. No clubbing. The pulses are symmetrical bilaterally. The radial, femoral, dorsalis pedis and the posterior tibial pulses are palpated and found to be in good volume and amplitude. MUSCULOSKELETAL: No acute joint deformities or swelling SKIN: There are no significant scars or skin rash noted. NEUROPSYCHIATRIC: The patient is alert and oriented x3. Appears to be in a good mood. The higher functions are grossly within normal limits. No tremors or rigidity noted. Data : 12/25/19 05:08 12/25/19 05:08 Other Labs: Laboratory Last Values WBC 5.3 10^3/uL (4.0-10.0) 12/25/19 05:08 RBC 3.99 10^6/uL (4.1-5.3) L 12/25/19 05:08 Hgb 13.1 g/dL (11.7-16.6) 12/25/19 05:08 Hct 39.7 % (42.0-52.0) L 12/25/19 05:08 MCV 99.5 fL (80-94) H 12/25/19 05:08 MCH 32.8 pg (28.0-34.0) 12/25/19 05:08 MCHC 33.0 g/dL (30.0-36.0) 12/25/19 05:08 RDW 11.8 % (12.1-15.1) L 12/25/19 05:08 Plt Count 168 10^3/cmm (130-400) 12/25/19 05:08 MPV 9.8 fL (7.4-10.4) 12/25/19 05:08 Neut % (Auto) 54.5 % 12/25/19 05:08 Lymph % (Auto) 35.4 % 12/25/19 05:08 [place] % (Auto) 7.5 % 12/25/19 05:08 Eos % (Auto) 1.5 % 12/25/19 05:08 Baso % (Auto) 0.7 % 12/25/19 05:08 Neut # (Auto) 2.91 10^3/uL (1.8-7.7) 12/25/19 05:08 Lymph # (Auto) 1.9 10^3/uL (0.8-4.8) 12/25/19 05:08 Crawford # (Auto) 0.4 10^3/uL (0.2-0.9) 12/25/19 05:08 Eos # (Auto) 0.1 10^3/uL (0.0-0.8) 12/25/19 05:08 Baso # (Auto) 0.0 10^3/uL (0.0-0.1) 12/25/19 05:08 Nucleated RBC % (auto) 0 % 12/25/19 05:08 Nucleated RBCs # 0.0 /100WBC 12/25/19 05:08 PT 13.70 SECONDS (12.1-14.9) 12/25/19 05:08 INR 1.02 (0.8-1.2) 12/25/19 05:08 Sodium 141 mmol/L (136-145) 12/25/19 05:08 Potassium 4.0 mmol/L (3.5-5.1) 12/25/19 05:08 Chloride 104 mmol/L (98-107) 12/25/19 05:08 Carbon Dioxide 25 mmol/L (22-29) 12/25/19 05:08 Anion Gap 16.0 (5-19) 12/25/19 05:08 BUN 19 mg/dL (8-23) 12/25/19 05:08 Creatinine 0.9 mg/dL (0.7-1.2) 12/25/19 05:08 GFR Calculation Not Reportable 12/25/19 05:08 Glucose 105 mg/dL (65-115) 12/25/19 05:08 Calculated Osmolality 295 mOsm/kg (285-295) 12/25/19 05:08 Calcium 9.4 mg/dL (8.5-10.5) 12/25/19 05:08 Phosphorus 3.1 mg/dL (2.5-4.5) 12/25/19 05:08 Magnesium 1.9 mg/dL (1.7-2.3) 12/25/19 05:08 Ferritin 598 ng/mL (30-400) H 12/25/19 05:08 Total Bilirubin 0.4 mg/dL (0.15-1.2) 12/25/19 05:08 AST 46 U/L (0-40) H 12/25/19 05:08 ALT 65 U/L (0-41) H 12/25/19 05:08 Alkaline Phosphatase 66 IU/L (40-130) 12/25/19 05:08 Troponin T Baseline 9 ng/L (0-15) 12/24/19 14:35 Troponin T 120 Minute 8.24 ng/L (0-15) 12/24/19 15:06 Delta Troponin T -0.76 ABS# (0-10) L 12/24/19 15:06 Troponin T Hi Sens 6Hr 8.65 ng/L (0-15) 12/24/19 18:58 Troponin T Hi Sens 6Hr Delta -0.35 ng/L (0-12) L 12/24/19 18:58 Total Protein 6.7 g/dL (6.6-8.7) 12/25/19 05:08 Albumin 4.2 g/dL (3.5-5.2) 12/25/19 05:08 Globulin 2.5 g/dL (1.3-4.6) 12/25/19 05:08 A&P Assessment and plan (1) Coronary artery disease with unstable angina pectoris: Patient symptoms are suggestive of an unstable angina. So far he has no evidence of myocardial infarction. In view of the patient's recurrent episodes of chest pains, in order to further evaluate his coronary status, he requires a cardiac catheterization. This was discussed with the patient in detail. The risk of bleeding, hematoma, vascular injury, myocardial infarction, CVA, renal failure and other concomitant complications were explained. Patient understood this well and consented to proceed Status: Acute Qualifiers: Coronary Disease-Associated Artery/Lesion type: [place] artery [place] vs. transplanted heart: [place] heart Qualified Code(s): I25.110 - Atherosclerotic heart disease of [place] coronary artery with unstable angina pectoris (2) Ischemic cardiomyopathy: Since there is no evidence of any cardiac decompensation, may continue on the current medications. Status: Acute (3) Abnormal nuclear cardiac imaging test: The myocardial perfusion imaging is suggestive of ischemia in the distribution of the right coronary artery. Because of the recurrent episodes of chest pain, it may be appropriate to go ahead and do a cardiac catheterization, to further evaluate the coronary status and decide on further management. Perfusion Status: Acute (4) Pacemaker: Pacemaker function was found to be appropriate. May continue on the current measures. Status: Acute (5) Mixed hyperlipidemia: May continue on the current medications. Status: Acute (6) Elevated liver enzymes: The liver enzymes are trending down. May continue on the current measures. Status: Acute Additional A&P Information Based on the results of the cardiac catheterization data, further recommendations will be made. Attestations Medical Necessity Statement*: Patient requires continued hospital stay for close monitoring and further management Coding Level of Care Code Acute Tobacco Hanger for Lamont Galan Diagnoses Coronary artery disease with unstable angina pectoris I25.110 Coronary Disease-Associated Artery/Lesion type: [place] artery [place] vs. transplanted heart: [place] heart Ischemic cardiomyopathy I25.5 Abnormal nuclear cardiac imaging test R93.1 Pacemaker Z95.0 Mixed hyperlipidemia E78.2 Elevated liver enzymes R74.8
--- NOTE | 2019-12-25 11:02 | W.PM.OPSUD ---
Surgery/Procedure H&P Update DATE OF PROCEDURE: December 25, 2019 DATE H&P PERFORMED: 12/24/19 H&P UPDATE INFORMATION: I have reviewed H&P completed within last 30 days, I have examined patient prior to procedure and No changes to prior documentation PREOP DIAGNOSIS: Unstable angina PLANNED PROCEDURE: Left heart catheterization with coronary angiogram and possible PCI PATIENT REASSESSED PRIOR TO SEDATION, WITH NO CHANGE NOTED: Yes PHYSICAL EXAM: alert, oriented x 3, clear to auscultation bilaterally and regular rate & rhythm AIRWAY EVAL/ANESTHESIA PLAN: normal airway, ASA III, Monitored Anesthesia, Local Anesthesia, Risks, benefits & alternatives of sedation and/or procedure discussed and Patient agrees to continue as planned
--- NOTE | 2019-12-25 12:33 | PC.NURSE ---
1215 right wrist tr band in place. encouraged to not use it. lunch in. cap refil slow, right hand pale. pulse palpable in right wrist.
[2019-12-25 12:52] LABS: Hepatitis A Antibody IgM Non-Reactive (Nonreactive); Hepatitis B Core IgM Non-Reactive (Nonreactive); Hepatitis B Surface Antigen Non-Reactive (Nonreactive); Hepatitis C Virus Antibody Non-Reactive (Nonreactive)
[2019-12-25] MEDS: sodium chloride 0.9% 1,000 ML 125 ML IV (12:55)
--- NOTE | 2019-12-25 12:58 | PC.NURSE ---
no change in cath site.
--- NOTE | 2019-12-25 13:30 | PC.NURSE ---
ambulated to bathroom. wayne. up well
--- NOTE | 2019-12-25 13:39 | PC.NURSE ---
no changes in right wrist cath site.
--- NOTE | 2019-12-25 13:42 | PC.NURSE ---
1350 3 ml air removed after back to bed.
--- NOTE | 2019-12-25 14:08 | PC.NURSE ---
3 cc from tr band. site w/o bruising or hematoma.
--- NOTE | 2019-12-25 14:22 | PM.DCS ---
Discharge Providers Date of Admission: 12/24/19 16:22 Date of Discharge: December 25, 2019 Attending Provider at Admission: Js Mabry MD Attending Provider at Discharge: Js Mabry MD Primary Care Provider: Lauren Chin MD Diagnoses at Discharge Discharge Diagnosis (1) Coronary artery disease with unstable angina pectoris: Status: Acute Qualifiers: Coronary Disease-Associated Artery/Lesion type: ken[place]ze artery [place] vs. transplanted heart: ken[place]ze heart Qualified Code(s): I25.110 - Atherosclerotic heart disease of [place] coronary artery with unstable angina pectoris (2) Ischemic cardiomyopathy: Status: Acute (3) Abnormal nuclear cardiac imaging test: Status: Acute (4) Pacemaker: Status: Acute (5) Mixed hyperlipidemia: Status: Acute (6) Elevated liver enzymes: Status: Acute Reason for Visit Reason for Visit: chest pressure Hospital Course Hospital Course Miky Hoffman is a 74 year old male with past medical history of sinus bradycardia, status post pacemaker placement, systolic heart failure, grade 1 diastolic dysfunction, hypertension, history of CAD status post stenting to first high OM branch, recent history of positive stress test, who presents to [facility] due to complaints of chest pain. Patient was admitted to [facility], start cardiac stepdown unit, coronary artery disease with unstable angina pectoris: -history of CAD, history of stenting of first high OM branch, recent cardiac catheterization on 07/30/2017 - history of cardiac stress test on September 14, 2018 which showed persistent decreased tracer uptake in the inferior wall and septal regions, suggestive of myocardial scarring versus attenuation artifacts, LV wall motion analysis revealing diffuse hypokinesia of the inferior wall and the apex, low probability of CAD -echo 11/2019 Possibly moderately decreased left ventricular systolic function. This study is inadequate for estimation of regional wall motion abnormality. -stress test 12/2019: 1. Myocardial perfusion imaging revealing a moderate area of severely decreased tracer uptake in the inferior, inferoseptal and apical regions with some reversibility in the mid inferior region, suggestive of myocardial scarring in the distribution of the right coronary artery/left descending artery with some ischemia in the distribution of the right coronary artery. 2. Diminished elevation fraction 28%. 3. Wall motion of normalities as mentioned above. 4. Moderately dilated LV cavity with an end-systolic volume of 126 mL -Patient saw Dr. Saldivar on 12/21/2019, plan was for outpatient coronary angiogram -Recurrent chest pain, sounds cardiac in nature -Baseline troponin 9, 120-minute 8.24, delta is -0.76, 6-hour troponin 8.65, delta 0.35 -EKG paced rhythm, no acute ST-T wave changes -Patient had a cardiac catheterization, by Dr. Saldivar, and had small vessel disease, no significant obstructive CAD -Patient's pain complaints primarily are in the neck, shoulder, mid thorax, likely cervical radiculopathy, with facet joint arthropathy, with clinical suspicion for spinal stenosis -I have advised patient to follow-up with primary care provider for consideration of a neck MRI, and referral to pain clinic and or trying neuropathic medications such as gabapentin or Lyrica Physical Exam Const: COMMON NORMALS: no acute distress and patient oriented x3 HENMT: COMMON NORMALS: normocephalic HEAD & SCALP: normocephalic Neck/C-Spine: COMMON NORMALS: no JVD Resp: COMMON NORMALS: normal respiratory effort, No retractions, No use of accessory muscles and clear to auscultation bilaterally AUSCULTATION: clear to auscultation bilaterally Cardio: COMMON NORMALS: no JVD, regular rate, regular rhythm, S1 normal heart sound present and S2 normal heart sound present RATE: regular rate RHYTHM: regular rhythm HEART SOUNDS: S1 normal heart sound present and S2 normal heart sound present GI: COMMON NORMALS: Normal to inspection, nondistended, normoactive bowel sounds present, Soft to palpation, non-tender, No hepatosplenomegaly present, no masses and no bruits PALPATION: Yes Soft to palpation and Yes No hepatosplenomegaly present Extremity: COMMON NORMALS: capillary refill normal, no clubbing, cyanosis or edema, no calf tenderness and no pedal edema Neuro: COMMON NORMALS: patient oriented x3 Psych: COMMON NORMALS: mental status grossly normal Discharge Data Data Completed and Pending: Completed Studies During Hospitalization Category Date Time Status XR chest 1V miranda ble [id number] Stat Exams 12/24/19 12:59 Completed US liver [id number] Ro utine Ultrasound 12/25/19 08:19 Completed Pending at discharge Category Date Time 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 Routin e Exams 12/25/19 10:31 Stop Req Labs from last 24 hours 12/25/19 12/25/19 12/25/19 05:35 05:08 05:08 WBC RBC Hgb Hct MCV MCH MCHC RDW Plt Count MPV Neut % (Auto) Lymph % (Auto) Trinity % (Auto) Eos % (Auto) Baso % (Auto) Neut # (Auto) Lymph # (Auto) Trinity # (Auto) Eos # (Auto) Baso # (Auto) Nucleated RBC % (a uto) Nucleated RBCs # PT 13.70 INR 1.02 Sodium Potassium Chloride Carbon Dioxide Anion Gap BUN Creatinine GFR Calculation Glucose Calculated Osmolal ity Calcium Phosphorus Magnesium Ferritin 598 H Total Bilirubin AST ALT Alkaline Phosphata se Troponin T Baselin e Troponin T 120 Min [place] lions Delta Troponin T Troponin T Hi Sens 6Hr Troponin T Hi Sens 6Hr Delta Total Protein Albumin Globulin Hepatitis A IgM Ab Non-reactive Hep Bs Antigen Non-reactive Hep B Core IgM Ab Non-reactive Hepatitis C Antibo dy Non-reactive 12/25/19 12/25/19 12/24/19 05:08 05:08 18:58 WBC 5.3 RBC 3.99 L Hgb 13.1 Hct 39.7 L MCV 99.5 H MCH 32.8 MCHC 33.0 RDW 11.8 L Plt Count 168 MPV 9.8 Neut % (Auto) 54.5 Lymph % (Auto) 35.4 Trinity % (Auto) 7.5 Eos % (Auto) 1.5 Baso % (Auto) 0.7 Neut # (Auto) 2.91 Lymph # (Auto) 1.9 Trinity # (Auto) 0.4 Eos # (Auto) 0.1 Baso # (Auto) 0.0 Nucleated RBC % (a uto) 0 Nucleated RBCs # 0.0 PT INR Sodium 141 Potassium 4.0 Chloride 104 Carbon Dioxide 25 Anion Gap 16.0 BUN 19 Creatinine 0.9 GFR Calculation Not Reportable Glucose 105 Calculated Osmolal ity 295 Calcium 9.4 Phosphorus 3.1 Magnesium 1.9 Ferritin Total Bilirubin 0.4 AST 46 H ALT 65 H Alkaline Phosphata se 66 Troponin T Baselin e Troponin T 120 Min [place] lions Delta Troponin T Troponin T Hi Sens 6Hr 8.65 Troponin T Hi Sens 6Hr Delta -0.35 L Total Protein 6.7 Albumin 4.2 Globulin 2.5 Hepatitis A IgM Ab Hep Bs Antigen Hep B Core IgM Ab Hepatitis C Antibo dy 12/24/19 12/24/19 12/24/19 15:06 14:35 14:35 WBC RBC Hgb Hct MCV MCH MCHC RDW Plt Count MPV Neut % (Auto) Lymph % (Auto) Trinity % (Auto) Eos % (Auto) Baso % (Auto) Neut # (Auto) Lymph # (Auto) Trinity # (Auto) Eos # (Auto) Baso # (Auto) Nucleated RBC % (a uto) Nucleated RBCs # PT INR Sodium 139 Potassium 4.7 Chloride 103 Carbon Dioxide 28 Anion Gap 12.7 BUN 19 Creatinine 1.1 GFR Calculation Not Reportable Glucose 109 Calculated Osmolal ity 291 Calcium 9.6 Phosphorus Magnesium Ferritin Total Bilirubin 0.3 AST 58 H ALT 73 H Alkaline Phosphata se 74 Troponin T Baselin e 9 Troponin T 120 Min [place] 8.24 Delta Troponin T -0.76 L Troponin T Hi Sens 6Hr Troponin T Hi Sens 6Hr Delta Total Protein 6.8 Albumin 4.4 Globulin 2.4 Hepatitis A IgM Ab Hep Bs Antigen Hep B Core IgM Ab Hepatitis C Antibo dy 12/24/19 12/24/19 14:35 14:35 WBC 5.9 RBC 4.03 L Hgb 13.3 Hct 40.8 L MCV 101.2 H MCH 33.0 MCHC 32.6 RDW 11.9 L Plt Count 174 MPV 9.5 Neut % (Auto) 56.6 Lymph % (Auto) 35.0 Trinity % (Auto) 7.5 Eos % (Auto) 0.2 Baso % (Auto) 0.5 Neut # (Auto) 3.32 Lymph # (Auto) 2.1 Trinity # (Auto) 0.4 Eos # (Auto) 0.0 Baso # (Auto) 0.0 Nucleated RBC % (a uto) 0 Nucleated RBCs # 0.0 PT 12.70 INR 0.93 Sodium Potassium Chloride Carbon Dioxide Anion Gap BUN Creatinine GFR Calculation Glucose Calculated Osmolal ity Calcium Phosphorus Magnesium Ferritin Total Bilirubin AST ALT Alkaline Phosphata se Troponin T Baselin e Troponin T 120 Min [place] Delta Troponin T Troponin T Hi Sens 6Hr Troponin T Hi Sens 6Hr Delta Total Protein Albumin Globulin Hepatitis A IgM Ab Hep Bs Antigen Hep B Core IgM Ab Hepatitis C Antibo dy Vitals: Last Vital Signs Temp 97.8 F 12/25/19 07:43 Pulse 60 12/25/19 14:00 Resp 17 12/25/19 14:00 BP 131/75 12/25/19 14:00 Pulse Ox 95 12/25/19 12:47 Discharge Plan Discharge Patient Disposition: Home Condition: Stable Prescriptions: Continued tamsulosin [Flomax] 0.4 mg capsule 0.4 mg PO DAILY Qty: 30 RF: 5 atorvastatin 40 mg tablet 40 mg PO DAILY Qty: 30 RF: 5 carvedilol [Coreg] 12.5 mg tablet 12.5 mg PO BID Qty: 60 RF: 5 clopidogrel 75 mg tablet 75 mg PO DAILY Qty: 30 RF: 4 amlodipine 2.5 mg tablet 2.5 mg PO DAILY Qty: 30 RF: 4 calcium phosphate-vitamin D3 [Citracal-D3 Gummies] 250 mg calcium- 500 unit tablet,chewable 1 tab PO BID RF: 0 cyanocobalamin (vitamin B-12) 1,000 mcg capsule 1,000 mcg PO DAILY RF: 0 aspirin 81 mg tablet,delayed release (DR/EC) 81 mg PO DAILY RF: 0 multivitamin Tablet 1 tab PO QAM RF: 0 omega-3 fatty acids-vitamin E 1,000 mg capsule 1,000 mg PO BID RF: 0 Nitrostat 0.4 mg tablet, sublingual 0.4 mg SUBLINGUAL Q5M PRN (Reason: chest pain) 3 Days Qty: 3 RF: 0 isosorbide mononitrate 30 mg tablet extended release 24 hr 30 mg PO DAILY 30 Days Qty: 30 RF: 5 cyclobenzaprine 10 mg Tablet 10 mg PO TID PRN (Reason: Pain) RF: 0 tramadol 50 mg Tablet 50 mg PO Q8H PRN (Reason: Pain) RF: 0 Mucinex 600 mg Tablet Extended Release 12hr 600 mg PO Q12H PRN (Reason: Congestion) RF: 0 omeprazole 20 mg capsule,delayed release(DR/EC) 20 mg PO DAILY RF: 0 Discharge Orders: Discharge Order (Routine); Ordered 12/25/19 Ordered By: Js Mabry Discharge Diet: Cardiac Discharge Activity: Resume usual activity Activity Restrictions/Additional Instructions: -Please follow-up with primary care on Friday for consideration of cervical MRI, and referral to pain clinic Discharge Attestations Time Spent in Discharge Care*: less than 30 min Quality Metrics Clinical Quality Measures During this hospital stay, did patient experience: None Coding Level of Care Code Acute Radiology Services Manager for Lamont Galan Diagnoses Coronary artery disease with unstable angina pectoris I25.110 Coronary Disease-Associated Artery/Lesion type: kenaitze artery [place] vs. transplanted heart: kenaitze heart Ischemic cardiomyopathy I25.5 Abnormal nuclear cardiac imaging test R93.1 Pacemaker Z95.0 Mixed hyperlipidemia E78.2 Elevated liver enzymes R74.8
--- NOTE | 2019-12-25 14:27 | PC.NURSE ---
3cc removed from tr band
--- NOTE | 2019-12-25 14:46 | PC.NURSE ---
another3 ml released. pt. sleeping
--- NOTE | 2019-12-25 15:01 | PC.NURSE ---
tr band off. minimal bruising beneath band. no oozing. encouraed to rest arm quietly on bed.
--- NOTE | 2019-12-25 15:37 | PC.NURSE ---
bandaide to right wrist site. no oozing or hematoma. slight bruising noted.
--- NOTE | 2019-12-25 16:19 | PC.NURSE ---
d/c home with , with instructions for appointments and care of left wrist.
--- NOTE | 2019-12-25 16:36 | PC.NURSE ---
pt. to continue same home meds. no scripts given. instructed to call pcp and dr. mcclure on friday to set up appts.
== END 2019-12-25 16:15 | disposition home or self-care (01) ==
LOC: ER 14:47 → MEDSURG 18:52 → ICU 12-25 11:49
PROVIDERS: Internal Medicine Cardiovascular Disease; Admitting Provider Family Medicine; Emergency Provider Emergency Medicine; PCP Family Medicine; Visit Provider Family Medicine
DX: I25.110 Atherosclerotic heart disease of native coronary artery with unstable angina pectoris (principal); Z95.5 Presence of coronary angioplasty implant and graft; H54.40 Blindness, one eye, unspecified eye; M50.00 Cervical disc disorder with myelopathy, unspecified cervical region; M1A.9XX0 Chronic gout, unspecified, without tophus (tophi); I13.0 Hypertensive heart and chronic kidney disease with heart failure and stage 1 through stage 4 chronic kidney disease, or unspecified chronic kidney disease; N18.2 Chronic kidney disease, stage 2 (mild); I50.20 Unspecified systolic (congestive) heart failure; G89.29 Other chronic pain; K57.90 Diverticulosis of intestine, part unspecified, without perforation or abscess without bleeding; H91.93 Unspecified hearing loss, bilateral; K64.8 Other hemorrhoids; I25.5 Ischemic cardiomyopathy; M77.42 Metatarsalgia, left foot; M77.41 Metatarsalgia, right foot; E78.2 Mixed hyperlipidemia; F17.210 Nicotine dependence, cigarettes, uncomplicated; Z79.02 Long term (current) use of antithrombotics/antiplatelets; Z79.82 Long term (current) use of aspirin; Z95.0 Presence of cardiac pacemaker; R74.01 Elevation of levels of liver transaminase levels
CPT/HCPCS: 12345; 36415; 71045; 76705; 80053; 80074; 82728; 83735; 84100; 84484; 85025; 85610; 93005; 93452; 94664; 96372; 96374; 96375; 99282; 99285; C1769; C1887; C1894; G0378; J1644; J1650; J2250; J2405; J3010; J3490; J7030; Q0163; Q9967

== ENCOUNTER 2019-12-28 14:30 | Outpatient (CLI) | payer MEDICARE, OTHER, SELFPAY ==
--- NOTE | 2019-12-28 14:39 | XRR_ITS ---
PROCEDURE INFORMATION: Exam: XR Cervical Spine, 2 or 3 Views Exam date and time: 12/28/2019 2:39 PM Age: 74 years old Clinical indication: Neck pain; Additional info: M50.00 - cervical disc disorder with myelopathy, unspecified cervical region TECHNIQUE: Imaging protocol: XR of the cervical spine, 3 views. Other technique: AP, lateral and AP open mouth odontoid views and a swimmer's lateral view of the cervical spine are submitted. COMPARISON: CR Cervical Spine Flex/Ext [id number] 10/23/2015 11:47 AM FINDINGS: Bones/joints: Right C4-C5 primary facet osteoarthritis. Anterior vertebral body marginal osteophytes at C5-C7. Soft tissues: Unremarkable. XR/XR cervical spine 3V* [id number] IMPRESSION: 1. Degenerative changes as above. 2. No acute cervical spinal bony abnormality identified.
== END 2019-12-28 14:31 | disposition home or self-care (01) ==
LOC: RADWPI 14:37
PROVIDERS: PCP Family Medicine; Visit Provider Family Medicine
DX: M50.00 Cervical disc disorder with myelopathy, unspecified cervical region (principal)
CPT/HCPCS: 72040

== ENCOUNTER 2019-12-31 07:25 | Outpatient (CLI) | payer MEDICARE, OTHER, SELFPAY ==
--- NOTE | 2019-12-31 07:40 | NMCV_ITS ---
NM card bld pool r or s*[id number] Miky Hoffman Age: 74 Gender: M : 1945 Exam Date: 12/31/2019 07:40 Ordering Phys: Leatha Saldivar MD ([email or web address]) Technologist: ISADORA Cruz Exam Location: [facility] Indications: ISCHEMIA Camera Used: wumo Imaging Protocol: three view gated blood pool study Technical Image Quality: Good Dose: Admin Site: Administered By: [id number] Tagged RBCs: 26.4 IV - Right ISADORA Cruz Antecubital PYP: EJECTION FRACTION: Automatic LV EF: 40 Rest RV EF: Manual LV EF: FINDINGS The study was performed in standard fashion. The gated images were obtained with standard views. The ejection fraction was estimated to be 40% Segmental wall motion analysis revealed diffuse hypokinesia of the anterior wall and the LV apex CONCLUSIONS LV ejection fraction estimated to be 40%. Wall motion of normalities as mentioned above. Dr Leatha Saldivar MD FACC (Electronically Signed) Final Date: 31 December 2019 17:38 S
== END 2019-12-31 07:26 | disposition home or self-care (01) ==
LOC: RAD 07:37
PROVIDERS: PCP Family Medicine; Visit Provider Internal Medicine Cardiovascular Disease
DX: I25.5 Ischemic cardiomyopathy (principal)
CPT/HCPCS: 78472; 80048; A9560

== ENCOUNTER → 2020-01-12 13:34 | Outpatient (BNVA) | payer MEDICARE, OTHER, SELFPAY | PROVIDERS: PCP Family Medicine; Visit Provider Nurse Practitioner Family | DX: Z20.828 Contact with and (suspected) exposure to other viral communicable diseases (principal) | CPT/HCPCS: 87635 ==

== ENCOUNTER → 2020-04-03 09:10 | Outpatient (BNVA) | payer MEDICARE, OTHER, SELFPAY | PROVIDERS: PCP Family Medicine; Visit Provider Internal Medicine Cardiovascular Disease | DX: R06.02 Shortness of breath (principal); I50.33 Acute on chronic diastolic (congestive) heart failure; E78.5 Hyperlipidemia, unspecified; I25.10 Atherosclerotic heart disease of native coronary artery without angina pectoris | CPT/HCPCS: 80048; 80061; 83880 ==

== ENCOUNTER → 2020-06-13 08:38 | Outpatient (BNVA) | payer MEDICARE, OTHER, BC, SELFPAY | PROVIDERS: PCP Family Medicine; Visit Provider Internal Medicine Cardiovascular Disease | DX: E78.5 Hyperlipidemia, unspecified (principal) | CPT/HCPCS: 80061 ==

== ENCOUNTER → 2020-07-20 10:46 | Outpatient (BNVA) | payer MEDICARE, OTHER, SELFPAY | PROVIDERS: PCP Family Medicine; Visit Provider Family Medicine | DX: E78.2 Mixed hyperlipidemia (principal); I10 Essential (primary) hypertension; K21.9 Gastro-esophageal reflux disease without esophagitis; N40.0 Benign prostatic hyperplasia without lower urinary tract symptoms; I25.89 Other forms of chronic ischemic heart disease; I25.10 Atherosclerotic heart disease of native coronary artery without angina pectoris | CPT/HCPCS: 80053; 80061; 84443 ==

== ENCOUNTER → 2020-08-28 10:09 | Outpatient (BNVA) | payer MEDICARE, OTHER, SELFPAY | PROVIDERS: PCP Family Medicine; Visit Provider Internal Medicine Cardiovascular Disease | DX: I25.10 Atherosclerotic heart disease of native coronary artery without angina pectoris (principal); I50.22 Chronic systolic (congestive) heart failure; E78.5 Hyperlipidemia, unspecified; Z95.0 Presence of cardiac pacemaker | CPT/HCPCS: 80048; 83880 ==

== ENCOUNTER → 2020-11-28 11:12 | Outpatient (BNVA) | payer MEDICARE, OTHER, SELFPAY | PROVIDERS: PCP Family Medicine; Visit Provider Internal Medicine Cardiovascular Disease | DX: I50.22 Chronic systolic (congestive) heart failure (principal); I50.33 Acute on chronic diastolic (congestive) heart failure; R06.02 Shortness of breath; I25.10 Atherosclerotic heart disease of native coronary artery without angina pectoris | CPT/HCPCS: 80048; 83880 ==

== ENCOUNTER → 2020-12-04 11:40 | Outpatient (BNVA) | payer MEDICARE, OTHER, SELFPAY | PROVIDERS: PCP Family Medicine; Visit Provider Family Medicine | DX: M10.9 Gout, unspecified (principal); E78.2 Mixed hyperlipidemia; I10 Essential (primary) hypertension | CPT/HCPCS: 80053; 80061; 82607; 84550; 85025 ==

== ENCOUNTER → 2021-04-13 11:22 | Outpatient (BNVA) | payer MEDICARE, SELFPAY | PROVIDERS: PCP Family Medicine; Visit Provider Internal Medicine Cardiovascular Disease | DX: Z95.0 Presence of cardiac pacemaker (principal) ==

== ENCOUNTER → 2021-05-30 14:14 | Outpatient (BNVA) | payer MEDICARE, OTHER, SELFPAY | PROVIDERS: PCP Family Medicine; Visit Provider Internal Medicine Cardiovascular Disease | DX: I25.10 Atherosclerotic heart disease of native coronary artery without angina pectoris (principal); Z95.0 Presence of cardiac pacemaker; I13.0 Hypertensive heart and chronic kidney disease with heart failure and stage 1 through stage 4 chronic kidney disease, or unspecified chronic kidney disease; N18.2 Chronic kidney disease, stage 2 (mild); I50.22 Chronic systolic (congestive) heart failure; E78.2 Mixed hyperlipidemia; Z79.82 Long term (current) use of aspirin | CPT/HCPCS: 99214 ==

== ENCOUNTER → 2021-06-12 08:19 | Outpatient (BNVA) | payer MEDICARE, OTHER, SELFPAY | PROVIDERS: PCP Family Medicine; Visit Provider Family Medicine | DX: E78.2 Mixed hyperlipidemia (principal); I10 Essential (primary) hypertension; M10.9 Gout, unspecified | CPT/HCPCS: 80053; 80061; 84443; 84550; 85025; G0103 ==

== ENCOUNTER → 2021-08-10 11:06 | Outpatient (BNVA) | payer MEDICARE, OTHER, SELFPAY | PROVIDERS: PCP Family Medicine | DX: Z45.010 Encounter for checking and testing of cardiac pacemaker pulse generator [battery] (principal) | CPT/HCPCS: 93280 ==

== ENCOUNTER 2021-10-20 10:59 | Observation (INO) | payer MEDICARE, OTHER, SELFPAY ==
[2021-10-20] VITALS (11 sets, daily range): BP systolic 127–161; BP diastolic 74–90; PULSE 59–78; RESP 14–19; TEMP 36.5–36.8; O2SAT 95–97; BMI 35.6
--- NOTE | 2021-10-20 11:11 | ECG_ITS ---
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 Measurements Intervals [place] Rate: 60 P: 185 NE: 178 QRS: -55 QRSD: 200 T: 131 QT: 446 QTc: 446 Interpretive Statements ELECTRONIC ATRIAL PACEMAKER ELECTRONIC VENTRICULAR PACEMAKER Compared to ECG 12/25/2019 04:53:55 No significant changes Electronically Signed On 10-21-2021 13:20:18 CDT by Joon Gao M.D. [email or web address] Medicalsimpson [facility] hospitalBastille Networksfostoria city hospitalIntegra Health Management/store/[id number]
--- NOTE | 2021-10-20 11:16 | XRR_ITS ---
PROCEDURE INFORMATION: Exam: XR Chest Exam date and time: 10/20/2021 11:18 AM Age: 76 years old Clinical indication: Pain; Chest pressure; Prior surgery; Surgery type: Pacemaker; Additional info: Chest pain TECHNIQUE: Imaging protocol: Radiologic exam of the chest. Views: 1 view. Total images: 1 COMPARISON: CR XR chest 1V portable [id number] 12/24/2019 1:01 PM FINDINGS: Tubes, catheters and devices: A pacemaker device is present, its leads in appropriate position. Lungs: Unremarkable. No consolidation. Pleural spaces: Unremarkable. No pleural effusion. No pneumothorax. Heart/Mediastinum: Unremarkable. No cardiomegaly. Bones/joints: Unremarkable. XR/XR chest 1V portable [id number] IMPRESSION: No acute cardiopulmonary process.
--- NOTE | 2021-10-20 11:24 | ED_ITS ---
HPI - General Adult General: Chief complaint: Chest Pain Stated complaint: chest heaviness; shoulder pain; dizziness Time Seen by Provider: 10/20/21 11:15 History of Present Illness: Patient is a 76-year-old male with history of pacemaker dependence, CAD with stent x4, systolic heart failure followed by Dr. Saldivar who presents the emergency room for evaluation of chest pain. Patient had a stress test most recently on 03/21/2020. Since then, patient has been followed by Dr. Saldivar. Last visit with Dr. Saldivar was on 05/2021. Since then, patient has been doing well up until yesterday. Patient has had multiple episodes of chest pressure throughout the day yesterday. Earlier today, patient also had multiple chest muscles of chest pain lasting for few minutes at a time associated with diaphoresis nausea and arm pain. Patient then decided to come to the emergency room for further evaluation. Onset:yesterday Duration:ongoing intermittent Location:home Severity:moderate Associated symptoms: Reports chest pain; Deny dyspnea, nausea, rash, palpitations or vomiting Review of Systems Const: Reports: fatigue and other (+diaphoresis); Denies: fever(s) or chills Eyes: Denies: change in vision ENMT: Denies: mouth pain Card: Reports: chest pain; Denies: palpitations Resp: Denies: dyspnea or non-productive cough GI: Denies: abdominal pain, nausea, vomiting or diarrhea : Denies: dysuria Musc: Denies: extremity pain Skin/Breast: Denies: rash or new lesions Neuro: Denies: weakness in extremities Psych: Reports: other (Normal mood) Randal/Lymph: Denies: easy bruising PFS ED PFSH: Medical History Abdominal pain Abnormal nuclear cardiac imaging test Arteriosclerotic heart disease Atherosclerosis of coronary artery of [place] heart without angina pectoris Blindness of left eye Cardiac ischemia 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 arthritis Cholecystectomy planned Chronic gout Chronic kidney disease, stage 2 (mild) Chronic neck pain Diverticulosis Elevated blood sugar Essential (primary) hypertension Gastro-esophageal reflux disease without esophagitis Hearing loss of both ears Heart murmur Hemorrhoids, internal Hepatomegaly History of colon polyps History of medication noncompliance Hx of cardiomyopathy Hyperuricemia Ischemic cardiomyopathy LVEF <40% Metatarsalgia of both feet Mixed hyperlipidemia Patel's neuroma of left foot Neuropathy Nicotine dependence, cigarettes, uncomplicated Osteopenia Pacemaker Unspecified osteoarthritis, unspecified site Surgical History H/O hernia repair History of ankle surgery History of permanent cardiac pacemaker placement For symptomatic bradycardia, 02/25 S/P cardiac catheterization On 07/30/2017 he underwent coronary angiography and was found to have 20% distal left main, minimal intimal irregularities in the LAD, patent stented segment of the first high OM branch patent stent segment of the PDA of the RCA and mild disease in the distal RCA with an EF of 50% and slightly elevated LVEDP of 16 mmHg Status post cholecystectomy Family History Brother CAD (coronary artery disease) Myocardial infarct Cancer Mother Myocardial infarct Father Cancer FROM LUNG CANCER Daughter Cancer Social History Smoking and tobacco status: former smoker Alcohol intake: current Lives independently: Yes Household members: spouse Marital status: Current occupational status: retired Physical Exam Const: COMMON NORMALS: alert HENMT: COMMON NORMALS: atraumatic HEAD & SCALP: atraumatic MOUTH: moist mucous membranes not abnormal Eye: COMMON NORMALS: EOMs intact bilaterally and conjunctivae normal CONJUNCTIVA: Yes conjunctivae normal Neck/C-Spine: COMMON NORMALS: full ROM and supple Resp: COMMON NORMALS: normal respiratory effort and clear to auscultation bilaterally AUSCULTATION: clear to auscultation bilaterally Cardio: COMMON NORMALS: regular rate RATE: regular rate OTHER: 2+ radial pulses b/l GI: COMMON NORMALS: Soft to palpation and non-tender PALPATION: Yes Soft to palpation OTHER: No focal TTP. NO guarding rebound, guarding, rigidity. No CVA tenderness to percussion. Neg Luna/Neg McBurney's point tenderness, no suprabupic tenderness to palpation. Extremity: COMMON NORMALS: full ROM Neuro: SENSORIUM/ORIENTATION: Yes alert MOTOR EXAM: No Abnormal motor strength present and Other motor observations present (no focal motor deficits) Psych: COMMON NORMALS: speech normal SPEECH: Yes normal speech MOOD & AFFECT: Yes euthymic mood Course Vital Signs: Vital signs: Vital Signs Temperature 97.7 F 10/20/21 13:06 Pulse Rate 60 10/20/21 13:06 Respiratory Rate 19 H 10/20/21 13:06 Blood Pressure 156/86 10/20/21 13:06 Pulse Oximetry 96 10/20/21 13:06 Oxygen Delivery Me thod 10/20/21 13:06 MDM - General Adult Medical Decision Making Patient is a 76-year-old male with history of pacemaker dependence, CAD with stent x4, systolic heart failure followed by Dr. Saldivar who presents the emergency room for evaluation of chest pain. Patient had a stress test most recently on 03/21/2020. Hemodynamically stable no focal complaints. EKG is not ischemic does not meet Sgarbossa criteria. Troponin x2 with delta less than 5. Given significant chest pain and cardiac risk factors with story of chest pain at rest with diaphoresis, patient admitted to the hospital for high risk chest pain work-up. Disposition: admission Lab Data : 10/20/21 11:33 10/20/21 11:33 Radiology Impressions Chest X-Ray 10/20/21 11:16 IMPRESSION: No acute cardiopulmonary process. Laboratory Results WBC 5.1 10^3/uL (4.0-10.0) 10/20/21 11:33 RBC 4.06 10^6/uL (4.1-5.3) L 10/20/21 11:33 Hgb 13.3 g/dL (11.7-16.6) 10/20/21 11:33 Hct 39.9 % (42.0-52.0) L 10/20/21 11:33 MCV 98.3 fl (80-94) H 10/20/21 11:33 MCH 32.8 pg (28.0-34.0) 10/20/21 11:33 MCHC 33.3 g/dL (30.0-36.0) 10/20/21 11:33 RDW 11.9 % (12.1-15.1) L 10/20/21 11:33 Plt Count 175 10^3/cmm (130-400) 10/20/21 11:33 MPV 9.3 fL (7.4-10.4) 10/20/21 11:33 Neut % (Auto) 60.9 % 10/20/21 11:33 Lymph % (Auto) 31.2 % 10/20/21 11:33 Valencia % (Auto) 6.9 % 10/20/21 11:33 Eos % (Auto) 0.0 % 10/20/21 11:33 Baso % (Auto) 0.6 % 10/20/21 11:33 Neut # (Auto) 3.11 10^3/uL (1.8-7.7) 10/20/21 11:33 Lymph # (Auto) 1.6 10^3/uL (0.8-4.8) 10/20/21 11:33 Valencia # (Auto) 0.4 10^3/uL (0.2-0.9) 10/20/21 11:33 Eos # (Auto) 0.0 10^3/uL (0.0-0.8) 10/20/21 11:33 Baso # (Auto) 0.0 10^3/uL (0.0-0.1) 10/20/21 11:33 Nucleated RBC % (auto) 0 % 10/20/21 11:33 Nucleated RBCs # 0.0 /100WBC 10/20/21 11:33 Sodium 141 mmol/L (136-145) 10/20/21 11:33 Potassium 4.1 mmol/L (3.5-5.1) 10/20/21 11:33 Chloride 105 mmol/L (98-107) 10/20/21 11:33 Carbon Dioxide 25 mmol/L (22-29) 10/20/21 11:33 Anion Gap 15.1 (5-19) 10/20/21 11:33 BUN 17 mg/dL (8-23) 10/20/21 11:33 Creatinine 1.0 mg/dL (0.7-1.2) 10/20/21 11:33 GFR Calculation Not Reportable 10/20/21 11:33 Glucose 118 mg/dL (65-115) H 10/20/21 11:33 Calculated Osmolality 295 mOsm/kg (285-295) 10/20/21 11:33 Calcium 9.8 mg/dL (8.5-10.5) 10/20/21 11:33 Troponin T Baseline 9 ng/L (0-15) 10/20/21 11:33 Troponin T 120 Minute 8.20 ng/L (0-15) 10/20/21 13:43 Imaging Data Other Imaging: Radiologist's impression: [facility] [address] [address] XRay Report Signed Patient: Miky Hoffman Unit #: [id number] : 1945 Age/Sex: 76 / M ADM Date: 10/20/21 Loc: ER Room/Bed: Attending Dr: Ordering Provider/Ordering MD: Wilberto Xiong MD Date of Service: 10/20/21 Procedure(s): XR chest 1V portable [id number] Accession Number(s): [id number] Report Number: [id number] PROCEDURE INFORMATION: Exam: XR Chest Exam date and time: 10/20/2021 11:18 AM Age: 76 years old Clinical indication: Pain; Chest pressure; Prior surgery; Surgery type: Pacemaker; Additional info: Chest pain TECHNIQUE: Imaging protocol: Radiologic exam of the chest. Views: 1 view. Total images: 1 COMPARISON: CR XR chest 1V portable [id number] 12/24/2019 1:01 PM FINDINGS: Tubes, catheters and devices: A pacemaker device is present, its leads in appropriate position. Lungs: Unremarkable. No consolidation. Pleural spaces: Unremarkable. No pleural effusion. No pneumothorax. Heart/Mediastinum: Unremarkable. No cardiomegaly. Bones/joints: Unremarkable. XR/XR chest 1V portable [id number] IMPRESSION: No acute cardiopulmonary process. ? Dictated By: Rikki Chandler MD Signed By: Rikki Chandler MD Signed Date/Time: 10/20/21 1210 DD/ 1118 Discharge Plan Discharge Patient Disposition: Admitted As Inpatient Clinical Impression: Chest pain, Diaphoresis Condition: Stable Coding Level of Care Code ED Block Mason for Chg Fwd Exam Comprehensive
[2021-10-20 11:42] LABS: Basophils % 0.6 %; Hematocrit 39.9 % (42.0-52.0); Hemoglobin 13.3 g/dL (11.7-16.6); Lymphocytes # 1.6 10^3/uL (0.8-4.8); Lymphocytes % 31.2 %; Mean Corpuscular HGB Conc 33.3 g/dL (30.0-36.0); Mean Corpuscular Hemoglobin 32.8 pg (28.0-34.0); Mean Corpuscular Volume 98.3 fl (80-94); Mean Platelet Volume 9.3 fL (7.4-10.4); Monocytes # 0.4 10^3/uL (0.2-0.9); Monocytes % 6.9 %; Neutrophils # 3.11 10^3/uL (1.8-7.7); Neutrophils % 60.9 %; Nucleated Red Blood Cells % 0 %; Platelet Count 175 10^3/cmm (130-400); Red Blood Count 4.06 10^6/uL (4.1-5.3); Red Cell Distribution Width 11.9 % (12.1-15.1); White Blood Count 5.1 10^3/uL (4.0-10.0)
[2021-10-20 12:06] LABS: Troponin(5th) Baseline 9 ng/L (0-15)
[2021-10-20 12:10] LABS: Anion Gap 15.1 (5-19); Blood Urea Nitrogen 17 mg/dL (8-23); Calcium 9.8 mg/dL (8.5-10.5); Carbon Dioxide 25 mmol/L (22-29); Chloride 105 mmol/L (98-107); Glucose 118 mg/dL (65-115); Osmolality Calculated 295 mOsm/kg (285-295); Potassium 4.1 mmol/L (3.5-5.1); Sodium 141 mmol/L (136-145)
--- NOTE | 2021-10-20 13:12 | PC.NURSE ---
[employer] called and spoke to this nurse - his interrogation showed that patient's pacemaker is working appropriately, leads are placed correctly, and that patient has not had any arrhythmias or runs of tach. Patient and Dr. Xiong updated on this. Patient states his pain is about resolved - Dr. Xiong aware.
--- NOTE | 2021-10-20 13:16 | ECG_ITS ---
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 Measurements Intervals [place] Rate: 61 P: 242 PA: 181 QRS: -56 QRSD: 193 T: 126 QT: 442 QTc: 446 Interpretive Statements ELECTRONIC ATRIAL PACEMAKER ELECTRONIC VENTRICULAR PACEMAKER Compared to ECG 10/20/2021 11:11:13 No significant changes Electronically Signed On 10-21-2021 13:27:30 CDT by Joon Gao M.D. [id number]
[2021-10-20] MEDS: morphine 4 mg/mL SDV 1 mL 2 MG IVP (14:50)
[2021-10-20] MEDS: aspirin 325 mg Tablet PO (14:50)
[2021-10-20 15:30] LABS: Troponin 5 2HR Delta -0.8 ABS# (0-10)
--- NOTE | 2021-10-20 17:16 | ECG_ITS ---
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 Measurements Intervals [place] Rate: 61 P: 132 NC: 175 QRS: -54 QRSD: 198 T: 127 QT: 457 QTc: 461 Interpretive Statements ELECTRONIC ATRIAL PACEMAKER ELECTRONIC VENTRICULAR PACEMAKER Compared to ECG 10/20/2021 12:58:33 No significant changes Electronically Signed On 10-21-2021 13:27:14 CDT by Joon Gao M.D. [id number]
--- NOTE | 2021-10-20 19:29 | P.HP_ITS ---
Providers/Chief Complaint Admitting Physician: Thompson Brito MD Primary Care Provider: Lauren Chin MD Chief Complaint: chest heaviness; shoulder pain; dizziness History of Present Illness Miky Hoffman is a 76 year old male with history of coronary artery disease and for cardiac stents in the past he also has atrial ventricular pacemaker with history of ischemic cardiomyopathy with EF around 40%. Last echo was 2 years ago. Yesterday and today he had multiple episodes of chest pain lasting several minutes with associated diaphoresis nausea and bilateral arm pain decided to come to the emergency department. Dr. Xiong checked EKG and troponin which were AV paced and troponin did not have at delta change. Due to the diaphoresis and radiation to the arm Dr. Xiong recommended that the patient be admitted and undergo stress testing on Friday Review of Systems Narrative: General no fevers chills weight gain weight loss Cardiovascular positive for chest pain as described above Lungs no coughing wheezing shortness of breath GI no nausea vomiting diarrhea no dysuria hematuria incontinence Neuro no dysarthria or seizure no limb weakness Medications/Allergies Home Medications Medication Instructions Recorded Confirmed Last Taken Type aspirin 81 mg tablet,delayed 81 mg PO DAILY 02/08/19 10/20/21 10/20/21 History release calcium phosphate 250 mg-vit D3 1 tab PO BID 02/08/19 10/20/21 10/20/21 History 12.5 mcg (500 unit) chewable tablet (Citracal-D3 Gummies) cyanocobalamin (vitamin B-12) 1,000 mcg PO DAILY 02/08/19 10/20/21 10/19/21 History 1,000 mcg capsule multivitamin 1 tab PO QAM 02/08/19 10/20/21 10/20/21 History omega-3 fatty acids-vitamin E 1,000 mg PO BID 02/08/19 10/20/21 10/20/21 History 1,000 mg capsule guaifenesin 600 mg tablet, 600 mg PO Q12H PRN Congestion 12/24/19 10/20/21 12/23/19 History extended release 12 hr (Mucinex) ascorbate calcium (vitamin C) 500 500 mg PO DAILY 05/24/20 10/20/21 10/20/21 History mg tablet cholecalciferol (vitamin D3) 25 25 mcg PO DAILY 05/24/20 10/20/21 10/20/21 History mcg (1,000 unit) capsule zinc 50 mg tablet 50 mg PO DAILY 05/24/20 10/20/21 10/20/21 History cyclobenzaprine 10 mg tablet 10 mg PO TID PRN Pain #30 tabs 11/09/20 10/20/21 Unknown Rx sacubitril 97 mg-valsartan 103 mg 1 tab PO BID #180 tabs 02/15/21 10/20/21 10/20/21 Rx tablet (Entresto) omeprazole 20 mg capsule,delayed 20 mg PO DAILY #90 caps 06/25/21 10/20/21 10/20/21 Rx release pregabalin 50 mg capsule 50 mg PO DAILY 30 days #30 caps 06/25/21 10/20/21 10/17/21 Rx nitroglycerin 0.4 mg sublingual See Rx Instructions .Route 07/10/21 10/20/21 10/19/21 Rx tablet .COMPLEX #30 tabs amlodipine 2.5 mg tablet 2.5 mg PO DAILY 10/20/21 10/20/21 10/20/21 History atorvastatin 40 mg tablet 40 mg PO DAILY 10/20/21 10/20/21 10/19/21 History carvedilol 12.5 mg tablet 12.5 mg PO BID 10/20/21 10/20/21 10/20/21 History clopidogrel 75 mg tablet 75 mg PO DAILY 10/20/21 10/20/21 10/20/21 History colchicine 0.6 mg tablet 0.6 mg PO DAILY PRN gout 10/20/21 10/20/21 Unknown History isosorbide mononitrate 30 mg 30 mg PO DAILY 10/20/21 10/20/21 10/19/21 History tablet,extended release 24 hr tamsulosin 0.4 mg capsule 0.4 mg PO DAILY 10/20/21 10/20/21 10/20/21 History Allergies Allergy/AdvReac Type Severity Reaction Status Date / Time dutasteride [From Avodart] AdvReac Unknown Verified 06/25/21 10:19 PFSH Acute PFSH: Medical History Abdominal pain Abnormal nuclear cardiac imaging test Arteriosclerotic heart disease Atherosclerosis of coronary artery of [place] heart without angina pectoris Blindness of left eye Cardiac ischemia 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 arthritis Cholecystectomy planned Chronic gout Chronic kidney disease, stage 2 (mild) Chronic neck pain Diverticulosis Elevated blood sugar Essential (primary) hypertension Gastro-esophageal reflux disease without esophagitis Hearing loss of both ears Heart murmur Hemorrhoids, internal Hepatomegaly History of colon polyps History of medication noncompliance Hx of cardiomyopathy Hyperuricemia Ischemic cardiomyopathy LVEF <40% Metatarsalgia of both feet Mixed hyperlipidemia Patel's neuroma of left foot Neuropathy Nicotine dependence, cigarettes, uncomplicated Osteopenia Pacemaker Unspecified osteoarthritis, unspecified site Surgical History H/O hernia repair History of ankle surgery History of permanent cardiac pacemaker placement For symptomatic bradycardia, 02/25 S/P cardiac catheterization On 07/30/2017 he underwent coronary angiography and was found to have 20% distal left main, minimal intimal irregularities in the LAD, patent stented segment of the first high OM branch patent stent segment of the PDA of the RCA and mild disease in the distal RCA with an EF of 50% and slightly elevated LVEDP of 16 mmHg Status post cholecystectomy Family History Brother CAD (coronary artery disease) Myocardial infarct Cancer Mother Myocardial infarct Father Cancer FROM LUNG CANCER Daughter Cancer Social History Smoking and tobacco status: former smoker Alcohol intake: current Lives independently: Yes Household members: spouse Marital status: Current occupational status: retired Vitals/I&O/Wt Last Vital Signs Temp 97.7 F 10/20/21 17:27 Pulse 61 10/20/21 17:27 Resp 16 10/20/21 17:27 BP 145/90 10/20/21 17:27 Pulse Ox 97 10/20/21 17:27 O2 Del Method 10/20/21 17:54 Weight last 48 hrs Weight 122.47 kg Weight 122.47 kg Physical Exam Narrative: General well-developed well-nourished male tall stature muscular appears well-preserved for his age CV regular rate and rhythm Lungs clear to auscultation bilaterally Abdomen positive bowel sounds soft nontender Calves no tenderness cords pedal edema Mood and affect appropriate Data : 10/20/21 11:33 10/20/21 11:33 A&P Assessment and plan (1) Chest pain: Patient will have antianginals started. He was not started on anticoagulation in the emergency department and currently is not having chest pain. Status: Acute (2) Chronic systolic (congestive) heart failure: Repeat cardiac echo. Status: Acute (3) Gastro-esophageal reflux disease without esophagitis: Start Protonix Status: Acute (4) Arteriosclerotic heart disease: Known coronary artery disease. Neck step will be echo and nuclear testing Status: Acute Attestations Medical Necessity Statement*: Patient admitted the hospital on observation. Anticipate blood pressure control and monitor for further angina. If no further episodes potentially could have test on Friday or at a later date outpatient Time Spent in Patient Care: 45 minutes spent evaluation and coordination of care for this patient today Coding Level of Care Code Acute It Account Manager for Lamont Galan Diagnoses Chest pain R07.9 Chronic systolic (congestive) heart failure I50.22 Gastro-esophageal reflux disease without esophagitis K21.9 Arteriosclerotic heart disease I25.10
[2021-10-20 19:40] LABS: Troponin 5 6HR 10.86 ng/L (0-15)
[2021-10-20 19:50] LABS: Troponin 5 6HR Delta 1.86 ng/L (0-12)
[2021-10-20 20:14] LABS: D Dimer 0.45 ug/mIFEU (0-0.59)
[2021-10-20] MEDS: amlodipine 5 mg Tablet 2.5 MG PO (20:27)
[2021-10-20] MEDS: carvedilol 12.5 mg Tablet PO (20:27)
[2021-10-20] MEDS: enoxaparin 40 mg/0.4 mL Syringe SUBCUT (20:27)
[2021-10-20] MEDS: pantoprazole DR 40 mg Tablet PO (20:27)
[2021-10-20] MEDS: acetaminophen 325 mg Tablet 650 MG PO (23:00)
[2021-10-21] VITALS (9 sets, daily range): BP systolic 136–172; BP diastolic 74–81; PULSE 59–65; RESP 16–18; TEMP 36.4–36.8; O2SAT 94–98
--- NOTE | 2021-10-21 08:20 | PC.NURSE ---
Patient refused his ordered Rapid COVIID-19 test. Patient states, I don't have that. I have not been around anyone that has.
[2021-10-21] MEDS: isosorbide mononitrate ER 30 mg Tablet PO (08:39)
[2021-10-21] MEDS: carvedilol 12.5 mg Tablet PO ×2 (08:39→18:02)
[2021-10-21] MEDS: amlodipine 5 mg Tablet 2.5 MG PO (08:39)
[2021-10-21] MEDS: pantoprazole DR 40 mg Tablet PO (08:39)
[2021-10-21] MEDS: clopidogrel 75 mg Tablet PO (08:40)
[2021-10-21] MEDS: aspirin 81 mg EC Tablet 162 MG PO (08:40)
--- NOTE | 2021-10-21 14:51 | P.PN_ITS ---
Subjective Subjective: 76-year-old man tells me he has not had any chest pain since admission tells me that the admission was primarily due to pressure but also clamminess in both arms. He asked about his Entresto which was not continued yesterday. I missed that medication. He has not had chest pain Vitals/I&O/Wt Last Vital Signs Temp 97.7 F 10/21/21 11:51 Pulse 60 10/21/21 11:51 Resp 16 10/21/21 11:51 BP 137/77 10/21/21 11:51 Pulse Ox 94 10/21/21 11:51 O2 Del Method 10/21/21 11:51 10/20/21 10/21/21 10/21/21 22:59 06:59 14:59 Intake Total 240 / 240 300 / 300 Output Total 825 / 825 Balance 240 / 240 -825 / -585 300 / 300 Weight last 48 hrs Weight 122.47 kg Weight 122.47 kg Physical Exam Narrative: General well-developed male muscular CV regular rate and rhythm Lungs clear to auscultation bilaterally Abdomen positive bowel sounds soft nontender Calves no tenderness or pretibial edema Data : 10/20/21 11:33 10/20/21 11:33 A&P Assessment and plan (1) Chest pain: Restart Entresto at home dose Stress nuclear test in the morning Status: Acute (2) Chronic systolic (congestive) heart failure: Repeat cardiac echo. As last one was 11/2019 Status: Acute (3) Gastro-esophageal reflux disease without esophagitis: Start Protonix Status: Acute (4) Arteriosclerotic heart disease: Known coronary artery disease. Neck step will be echo and nuclear testing Status: Acute Attestations Medical Necessity Statement*: Patient monitored in the hospital with stress testing planned in the morning. Telemetry thus far reassuring Time Spent in Patient Care: 25 minutes spent in the evaluation and coordination of care for this patient today Coding Level of Care Code Acute Sales Service Representative for Lamont Galan Diagnoses Chest pain R07.9 Chronic systolic (congestive) heart failure I50.22 Gastro-esophageal reflux disease without esophagitis K21.9 Arteriosclerotic heart disease I25.10
[2021-10-21] MEDS: sacubitril/valsartan 24-26 mg Tablet 4 EACH PO (18:02)
[2021-10-21] MEDS: enoxaparin 40 mg/0.4 mL Syringe SUBCUT (20:34)
[2021-10-21] MEDS: acetaminophen 325 mg Tablet 650 MG PO (22:06)
--- NOTE | 2021-10-22 | ECG_ITS ---
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 Interpretive Statements NAME OF STUDY: LEXISCAN SESTAMIBI STRESS TEST INDICATION: Chest Pain, Central; History of CAD PROCEDURE: At the baseline, the blood pressure was 143/83 mmHg, oxygen saturation 93% with a heart rate of 61 bpm. The electrocardiogram showed V paced rhythm. The Lexiscan was infused over a period of 20 seconds. A total of 0.4 milligrams of Lexiscan was infused. The stress phase was continued for a total of 5 minutes. Heart rate at the end of the stress phase was 60 bpm, oxygen saturation 96% with a blood pressure of 117/61 mmHg. The EKG at the peak infusion revealed V paced rhythm. Sestamibi was injected 20 seconds after the Lexiscan infusion. Blood pressure at the end of the recovery phase was 113/65 mmHg, oxygen saturation 93% with a heart rate of 60 beats per minute. CONCLUSION: 1. Nondiagnostic EKG changes with the LexiScan infusion due to baseline paced rhythm. 2. No LexiScan induced chest pain or cardiac arrhythmia. 3. Normal blood pressure and heart rate response. 4. Sestamibi/sestamibi perfusion scan pending; see separate report. Electronically Signed On 10-22-2021 12:14:04 CDT by Kathe Agudelo M.D. [id number]
[2021-10-22 04:00] VITALS: BP 137/83; PULSE 61; RESP 16; TEMP 36.2; O2SAT 97
[2021-10-22 06:00] VITALS: PULSE 60
[2021-10-22] MEDS: regadenoson 0.4 Mg/5 ml Syringe IVP (08:06)
[2021-10-22 08:24] VITALS: BP 113/65; PULSE 60
[2021-10-22] MEDS: sacubitril/valsartan 24-26 mg Tablet 4 EACH PO (09:56)
[2021-10-22] MEDS: clopidogrel 75 mg Tablet PO (09:56)
[2021-10-22] MEDS: aspirin 81 mg EC Tablet 162 MG PO (09:56)
[2021-10-22] MEDS: carvedilol 12.5 mg Tablet PO (09:56)
[2021-10-22] MEDS: isosorbide mononitrate ER 30 mg Tablet PO (09:56)
[2021-10-22] MEDS: pantoprazole DR 40 mg Tablet PO (09:56)
[2021-10-22] MEDS: amlodipine 5 mg Tablet 2.5 MG PO (09:57)
[2021-10-22] MEDS: ondansetron 2 mg/ML SDV 2 mL 4 MG IVP (09:57)
[2021-10-22 10:00] VITALS: PULSE 60; O2SAT 97
[2021-10-22] MEDS: perflutren protein-a microsphr 0.22 mg/mL SDV 3 mL IV (11:18)
[2021-10-22 12:00] VITALS: BP 154/86; PULSE 64; RESP 16; TEMP 36.6; O2SAT 95
--- NOTE | 2021-10-22 12:05 | PC.CHAP ---
Pastoral Care Encounter/Spiritual Assessment Type of Contact [] Declined fur buyer visit [] Patient/Family/Request visit [] Outpatient visit [] Follow-up visit [] Physician referral [] Code/Alert [x] Routine visit [] Staff referral [] Actively dying [] Patient sleeping [] Family support [] [] Out of room [] Palliative care [] [] Receiving care in room [] Pre-surgical visit [] Trauma [] Long length of stay [] ICU visit [] Other: Relational/Emotional Strength [x] Patient feels connected with others/family/visitors/staff [] Distress [] Loneliness/isolation [] Abandonment Spirituality of Patient [x] Person of Latoya [] Attends Nondenominational of their Latoya [x] Believes in Prayer [] Reads Bible or Adventist materials [] There are Spiritual issues to be addressed Addictions Counselor Interventions [x] Prayer [x] Active listening [x] Non-anxious presence [] Spiritual/emotional support [] Crisis/trauma care [] Spiritual counseling [] Bereavement support [] Provided bereavement packet [] Provided Bible/devotional materials [] Provided toy/stuffed animal, coloring book to patient or family member [] Provided Communion [] Anointing/[place] [] Salvation []x Completed spiritual assessment [] Other: Impact on Illness or Injury [] Angry [] Fearful [] Anxious [] Often cries [] Exhaustion [] Unable to work [] Unable to attend temple [] Unable to walk/stand [] Unable to read [] Unable to drive [] Unable to eat/drink [] Unable to sleep [] Unable to be with family [] Patient intubated [] Other: Summary Time spent with patient 10 min
--- NOTE | 2021-10-22 13:45 | P.DS_ITS ---
Discharge Providers Date of Admission: 10/20/21 14:45 Date of Discharge: October 22, 2021 Attending Provider at Admission: Thompson Brito MD Attending Provider at Discharge: Ramon Harper MD Primary Care Provider: Lauren Chin MD Diagnoses at Discharge Discharge Diagnosis (1) Chest pain: Status: Acute (2) Chronic systolic (congestive) heart failure: Status: Acute (3) Gastro-esophageal reflux disease without esophagitis: Status: Acute (4) Arteriosclerotic heart disease: Status: Acute Reason for Visit Reason for Visit: chest heaviness; shoulder pain; dizziness Hospital Course Hospital Course HPI: Thompson Brito MD 76 year old male with history of coronary artery disease and for cardiac stents in the past he also has atrial ventricular pacemaker with history of ischemic cardiomyopathy with EF around 40%.? Last echo was 2 years ago.? Yesterday and today he had multiple episodes of chest pain lasting several minutes with associated diaphoresis nausea and bilateral arm pain decided to come to the emergency department.? Dr. Xiong checked EKG and troponin which were AV paced and troponin did not have at delta change. Due to the diaphoresis and radiation to the arm Dr. Xiong recommended that the patient be admitted and undergo stress testing on Friday. Hospital course: Patient was admitted for the chest pain evaluation and management: During the hospital stay he underwent 2D echo as well as nuclear stress test: Nuclear stress test showed: Medium sized perfusion abnormality of moderate severity of mid to apical inferior, mid to apical inferoseptal vee with improved tracer uptake in ?apical septal wall on stress images. This may represent attenuation artifact or old myocardial infarction in ?right coronary artery territory.CV. echo wo/w contrast?: Normal left ventricular cavity size.? Mildly decreased left ?ventricular systolic function. Left ventricular ejection fraction is estimated at 50-55%.? Although no diagnostic regional wall motion abnormality could be identified, this possibility cannot be completely excluded.? Abnormal septal motion consistent with pacemaker. During hospital stay patient denied any similar chest pain. Chest pain is likely noncardiac, patient has been continued on his home medications. At the time of discharge he was hemodynamically stable, he has been discharged home to follow-up with cardiology as outpatient. Physical Exam Resp: COMMON NORMALS: normal respiratory effort, No retractions, No use of accessory muscles and clear to auscultation bilaterally EFFORT & INSPECTION: Yes symmetric chest movement AUSCULTATION: clear to auscultation bilaterally Cardio: COMMON NORMALS: regular rate, regular rhythm, S1 normal heart sound present, S2 normal heart sound present, No gallops present (Cardio), No murmurs present (Cardio), No rub (Cardio) and Peripheral pulses 2+ throughout RATE: regular rate RHYTHM: regular rhythm HEART SOUNDS: S1 normal heart sound present and S2 normal heart sound present PERIPHERAL PULSES: Peripheral pulses 2+ throughout GI: COMMON NORMALS: Normal to inspection, nondistended, normoactive bowel sounds present, Soft to palpation, non-tender, No hepatosplenomegaly present and no masses AUSCULTATION: Yes normoactive bowel sounds PALPATION: Yes Soft to palpation and Yes No hepatosplenomegaly present RECTAL EXAM: Yes deferred Extremity: COMMON NORMALS: no clubbing, cyanosis or edema and no pedal edema Discharge Data Studies Completed and Pending Completed Studies During Hospitalization Category Date Time Status Cardiac Stress Test MIBI [Sestamibi Stress Test Request Exams 10/22/21 06:30 Completed ] Routine XR chest 1V portable [id number] Stat Exams 10/20/21 11:16 Completed NM brandie perf SPECT r/s* [id number] Routine Nuc Med 10/22/21 16:34 Completed CV. echo wo/w contrast [id number] Routine Ultrasound 10/22/21 16:35 Completed Pending at discharge Category Date Time Status Cardiac Stress Test MIBI [Sestamibi Stress Test Request Exams 10/21/21 16:34 Stop Req ] Routine COVID [SARS Covid-2 Antigen] Routine Lab 10/20/21 19:21 Uncollected Radiology Impressions Chest X-Ray 10/20/21 11:16 IMPRESSION: No acute cardiopulmonary process. Laboratory Results WBC 5.1 10^3/uL (4.0-10.0) 10/20/21 11:33 RBC 4.06 10^6/uL (4.1-5.3) L 10/20/21 11:33 Hgb 13.3 g/dL (11.7-16.6) 10/20/21 11:33 Hct 39.9 % (42.0-52.0) L 10/20/21 11:33 MCV 98.3 fl (80-94) H 10/20/21 11:33 MCH 32.8 pg (28.0-34.0) 10/20/21 11:33 MCHC 33.3 g/dL (30.0-36.0) 10/20/21 11:33 RDW 11.9 % (12.1-15.1) L 10/20/21 11:33 Plt Count 175 10^3/cmm (130-400) 10/20/21 11:33 MPV 9.3 fL (7.4-10.4) 10/20/21 11:33 Neut % (Auto) 60.9 % 10/20/21 11:33 Lymph % (Auto) 31.2 % 10/20/21 11:33 [place] % (Auto) 6.9 % 10/20/21 11:33 Eos % (Auto) 0.0 % 10/20/21 11:33 Baso % (Auto) 0.6 % 10/20/21 11:33 Neut # (Auto) 3.11 10^3/uL (1.8-7.7) 10/20/21 11:33 Lymph # (Auto) 1.6 10^3/uL (0.8-4.8) 10/20/21 11:33 [place] # (Auto) 0.4 10^3/uL (0.2-0.9) 10/20/21 11:33 Eos # (Auto) 0.0 10^3/uL (0.0-0.8) 10/20/21 11:33 Baso # (Auto) 0.0 10^3/uL (0.0-0.1) 10/20/21 11:33 Nucleated RBC % (auto) 0 % 10/20/21 11:33 Nucleated RBCs # 0.0 /100WBC 10/20/21 11:33 D-Dimer 0.45 ug/mIFEU (0-0.59) 10/20/21 19:54 Sodium 141 mmol/L (136-145) 10/20/21 11:33 Potassium 4.1 mmol/L (3.5-5.1) 10/20/21 11:33 Chloride 105 mmol/L (98-107) 10/20/21 11:33 Carbon Dioxide 25 mmol/L (22-29) 10/20/21 11:33 Anion Gap 15.1 (5-19) 10/20/21 11:33 BUN 17 mg/dL (8-23) 10/20/21 11:33 Creatinine 1.0 mg/dL (0.7-1.2) 10/20/21 11:33 GFR Calculation Not Reportable 10/20/21 11:33 Glucose 118 mg/dL (65-115) H 10/20/21 11:33 Calculated Osmolality 295 mOsm/kg (285-295) 10/20/21 11:33 Calcium 9.8 mg/dL (8.5-10.5) 10/20/21 11:33 Troponin T Baseline 9 ng/L (0-15) 10/20/21 11:33 Troponin T 120 Minute 8.20 ng/L (0-15) 10/20/21 13:43 Delta Troponin T -0.8 ABS# (0-10) L 10/20/21 13:43 Troponin T Hi Sens 6Hr 10.86 ng/L (0-15) 10/20/21 18:40 Troponin T Hi Sens 6Hr Delta 1.86 ng/L (0-12) 10/20/21 18:40 Vitals Last Vital Signs Temp 97.8 F 10/22/21 12:00 Pulse 64 10/22/21 12:00 Resp 16 10/22/21 12:00 BP 154/86 10/22/21 12:00 Pulse Ox 95 10/22/21 12:00 O2 Del Method 10/22/21 12:00 Discharge Plan Discharge Patient Disposition: Home Condition: Stable Prescriptions: Continued ascorbate calcium (vitamin C) 500 mg tablet 500 mg PO DAILY cholecalciferol (vitamin D3) 25 mcg (1,000 unit) capsule 25 mcg PO DAILY zinc 50 mg tablet 50 mg PO DAILY calcium phosphate-vitamin D3 [Citracal-D3 Gummies] 250 mg calcium- 500 unit tablet,chewable 1 tab PO BID cyanocobalamin (vitamin B-12) 1,000 mcg capsule 1,000 mcg PO DAILY aspirin 81 mg tablet,delayed release (DR/EC) 81 mg PO DAILY multivitamin Tablet 1 tab PO QAM omega-3 fatty acids-vitamin E 1,000 mg capsule 1,000 mg PO BID cyclobenzaprine 10 mg tablet 10 mg PO TID PRN (Reason: Pain) Qty: 30 3RF pregabalin 50 mg capsule 50 mg PO DAILY 30 Days Qty: 30 3RF omeprazole 20 mg capsule,delayed release(DR/EC) 20 mg PO DAILY Qty: 90 3RF Entresto 97-103 mg tablet 1 tab PO BID Qty: 180 3RF nitroglycerin 0.4 mg tablet, sublingual See Rx Instructions .ROUTE .COMPLEX Qty: 30 1RF Dose Instruction: DISSOLVE ONE TABLET UNDER THE TONGUE EVERY 5 MINUTES NEEDED CHEST PAIN Rx Instructions: DISSOLVE ONE TABLET UNDER THE TONGUE EVERY 5 MINUTES NEEDED CHEST PAIN guaifenesin [Mucinex] 600 mg Tablet Extended Release 12hr 600 mg PO Q12H PRN (Reason: Congestion) atorvastatin 40 mg tablet 40 mg PO DAILY carvedilol 12.5 mg tablet 12.5 mg PO BID isosorbide mononitrate 30 mg tablet extended release 24 hr 30 mg PO DAILY amlodipine 2.5 mg tablet 2.5 mg PO DAILY clopidogrel 75 mg tablet 75 mg PO DAILY tamsulosin 0.4 mg capsule 0.4 mg PO DAILY colchicine 0.6 mg tablet 0.6 mg PO DAILY PRN (Reason: gout) Discharge Orders: Discharge Order (Routine); Ordered 10/22/21 Ordered By: Ramon Harper Referrals: Leatha Saldivar MD [Physician] - 11/20/21 3:15 pm Elodia Montgomery FNP [Nurse Practitioner] - 10/29/21 1:00 pm Lauren Chin MD [Primary Care Provider] - 10/29/21 2:00 pm Patient Instructions: Angina (GEN), Enlarged Prostate (BPH) (GEN), Opioid Safety Discharge Attestations Time Spent in Discharge Care*: less than 30 min Quality Metrics Clinical Quality Measures [ No reported AMI, CVA or VTE this stay] Coding Level of Care Code Acute g [facility] note Diagnoses Chest pain R07.9 Chronic systolic (congestive) heart failure I50.22 Gastro-esophageal reflux disease without esophagitis K21.9 Arteriosclerotic heart disease I25.10
[2021-10-22 14:08] VITALS: BP 154/86; PULSE 64; RESP 16; TEMP 36.6; O2SAT 95
--- NOTE | 2021-10-22 16:34 | NMCV_ITS ---
NM brandie perf SPECT r/s* [id number] Miky Hoffman Age: 76 Gender: M : 1945 Exam Date: 10/22/2021 07:11 Ordering Phys: Thompson Brito MD Technologist: ISADOAR Cruz Exam Location: [facility] Indications: CHEST PAIN STRESS TEST Please see separate stress test report in [facility] for full findings IMAGE PROTOCOL Rest/Stress 1 Lexiscan Day Radiopharmaceutical Dose (mCi) Administration Site Administered by Rest: Tc-99m 10.9 IV ISADORA Frederick Sestamibi Stress:Tc-99m 33.0 IV ISADORA Frederick Sestamibi Rest: 22-Oct-2021 60 Discovery 630 Stress: 22-Oct-2021 30 Discovery 630 0.4mg Lexiscan. Supine position only as patient was unable to lay prone. SPECT RESULTS Technical Quality: Excellent Raw Data Analysis: Normal Image Corrections: No attenuation or motion correction applied Summed Stress Score: 6 Summed Rest Score: 10 Summed Difference Score: 1 PERFUSION FINDINGS Medium sized perfusion abnormality of moderate severity of mid to apical inferior, mid to apical inferoseptal vee on rest images with improved tracer uptake in apical septal wall on stress images. FUNCTIONAL RESULTS (calculated via Gated SPECT) Stress Image LV EF (%): 51 Stress EDV (mL):148 TID: 0.72 Stress ESV (mL):72 FUNCTIONAL FINDINGS: The left ventricle is normal in size. Transient Ischemia Dilatation of 0.72. The left ventricular ejection fraction is mildly reduced with a value of 51%. There is mildly decreased wall thickening of mid to apical inferior vee. IMPRESSIONS 1. Medium sized perfusion abnormality of moderate severity of mid to apical inferior, mid to apical inferoseptal vee with improved tracer uptake in apical septal wall on stress images. 2. This may represent attenuation artifact or old myocardial infarction in right coronary artery territory. 3. The left ventricular ejection fraction is mildly reduced with a value of 51%. 4. There is mildly decreased wall thickening of mid to apical inferior vee. 5. EKG portion of the study will be reported separately. Kathe Agudelo MD (Electronically Signed) Final Date: 22 October 2021 12:10 S
--- NOTE | 2021-10-22 16:35 | USCV_ITS ---
Miky Hoffman Age: 76 Gender: M : 1945 Exam Date: 10/22/2021 10:40 Ordering Phys: Thompson Brito MD Technologist: Raphael Schafer Exam Location: [facility] [place] Indication: chest pain BP: 137 / 83 HR: Rhythm: Sinus Technical Quality: Technically difficult study MEASUREMENTS (Male / Female) Normal Values 2D ECHO LVOT Diameter 2.4 cm LV Ejection Fraction MOD 2C 70.0 % LV Ejection Fraction 2C AL 70.4 % LA Diameter 4.7 cm DOPPLER AV Peak Velocity 139.0 cm/s LVOT Peak Velocity 86.0 cm/s AV Area Cont Eq vti 2.7 cm squared AV Area Cont Eq pk 2.8 cm squared MV Area PHT 5.0 cm squared Mitral E to A Ratio 0.9 MV E' Velocity 67.0 cm/s Mitral E to LV E' Septal Ratio 12.0 TR Peak Velocity 172.0 cm/s TR Peak Gradient 11.8 mmHg TV Peak E Velocity 72.0 cm/s Right Atrial Pressure 3.0 mmHg Pulmonary Artery Systolic Pressu 14.8 mmHg FINDINGS Left Ventricle Normal left ventricular cavity size. Normal left ventricular systolic function. Left ventricular ejection fraction is estimated at 50-55%. Although no diagnostic regional wall motion abnormality could be identified, this possibility cannot be completely excluded. Abnormal septal motion consistent with pacemaker. Right Ventricle Right ventricle not well visualized. Right Atrium Right atrium not well visualized. Left Atrium Left atrium not well visualized. Mitral Valve Mitral valve not well visualized. Aortic Valve Aortic valve not well visualized. No aortic valve stenosis. Tricuspid Valve Tricuspid valve not well visualized. Pulmonic Valve Pulmonic valve not well visualized. Pericardium No pericardial effusion. Aorta Aorta not well visualized. IVC Inferior vena cava not visualized. CONCLUSIONS 1. This is a technically difficult. Optison was used per protocol. 2. Normal left ventricular cavity size. Mildly decreased left ventricular systolic function. Left ventricular ejection fraction is estimated at 50-55%. Although no diagnostic regional wall motion abnormality could be identified, this possibility cannot be completely excluded. Abnormal septal motion consistent with pacemaker. 3. Direct comparison to previous study dated 12/03/2019, is not possible due to the difficult study. Kathe Agudelo MD (Electronically Signed) Final Date: 22 October 2021 12:21 S
== END 2021-10-22 14:29 | disposition home or self-care (01) ==
LOC: ER 14:50 → MEDSURG 16:52
PROVIDERS: Admitting Provider Internal Medicine; Emergency Provider Emergency Medicine; PCP Family Medicine; Visit Provider Internal Medicine
DX: R07.9 Chest pain, unspecified (principal); R61 Generalized hyperhidrosis; I25.10 Atherosclerotic heart disease of native coronary artery without angina pectoris; I13.0 Hypertensive heart and chronic kidney disease with heart failure and stage 1 through stage 4 chronic kidney disease, or unspecified chronic kidney disease; I50.22 Chronic systolic (congestive) heart failure; N18.2 Chronic kidney disease, stage 2 (mild); K21.9 Gastro-esophageal reflux disease without esophagitis; E78.2 Mixed hyperlipidemia; I25.5 Ischemic cardiomyopathy; Z79.82 Long term (current) use of aspirin; Z87.891 Personal history of nicotine dependence; Z95.0 Presence of cardiac pacemaker; Z95.5 Presence of coronary angioplasty implant and graft; Z82.49 Family history of ischemic heart disease and other diseases of the circulatory system
CPT/HCPCS: 36415; 71045; 78452; 80048; 84484; 85025; 85378; 93005; 93017; 96372; 96374; 96375; 99285; A9500; C8929; G0378; J1650; J2270; J2405; J2785; Q9956

== ENCOUNTER → 2021-11-20 15:01 | Outpatient (BNVA) | payer MEDICARE, OTHER, SELFPAY | PROVIDERS: PCP Family Medicine; Visit Provider Internal Medicine Cardiovascular Disease | DX: I13.0 Hypertensive heart and chronic kidney disease with heart failure and stage 1 through stage 4 chronic kidney disease, or unspecified chronic kidney disease (principal); N18.2 Chronic kidney disease, stage 2 (mild); I50.22 Chronic systolic (congestive) heart failure; Z87.891 Personal history of nicotine dependence; Z95.0 Presence of cardiac pacemaker; E78.5 Hyperlipidemia, unspecified; I25.118 Atherosclerotic heart disease of native coronary artery with other forms of angina pectoris | CPT/HCPCS: 99214 ==

== ENCOUNTER → 2021-11-30 11:15 | Outpatient (BNVA) | payer MEDICARE, OTHER, SELFPAY | PROVIDERS: PCP Family Medicine; Visit Provider Internal Medicine Cardiovascular Disease | DX: Z45.010 Encounter for checking and testing of cardiac pacemaker pulse generator [battery] (principal) | CPT/HCPCS: 93280 ==

== ENCOUNTER 2022-02-07 10:23 | Emergency (ER) | payer MEDICARE, OTHER, SELFPAY ==
--- NOTE | 2022-02-07 10:38 | ECG_ITS ---
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 Measurements Intervals [place] Rate: 61 P: 140 MI: 208 QRS: -55 QRSD: 156 T: 134 QT: 433 QTc: 439 Interpretive Statements ELECTRONIC ATRIAL PACEMAKER ELECTRONIC VENTRICULAR PACEMAKER ABNORMAL RHYTHM ECG Compared to ECG 10/20/2021 17:02:37 No significant changes Electronically Signed On 02-07-2022 21:09:42 ASPHALT MACHINE OPERATOR by Leatha Saldivar M.D. [email or web address] Me [id number]
[2022-02-07 10:44] VITALS: BP 127/82; PULSE 60; RESP 18; TEMP 36.8; O2SAT 95; BMI 35.6
--- NOTE | 2022-02-07 10:49 | XR_ITS ---
WS: [id number] Portable AP upright chest, 02/07/2022 Clinical Data: chest pain Comparison: Portable chest, 10/20/2021 Findings: No nodules, masses or effusions are seen. The heart is normal. The pulmonary vascularity is not increased. No pneumothorax is seen. There is faint patchy bilateral pulmonary basilar opacities which could represent minimal pneumonia and/or atelectasis. The aortic arch shows minimal calcificati on. There is a 2-lead pacemaker in unchanged position. XR/XR chest 1V portable [id number] Impression: 1. Minimal patchy bilateral basilar pulmonary opacities which could represent p neumonia and/or atelectasis. 2. Cardiac pacemaker and atherosclerosis.
[2022-02-07] MEDS: aspirin 81 mg Chew Tablet 324 MG PO (11:09)
--- NOTE | 2022-02-07 11:47 | W.ED.CHESTPA ---
HPI - Chest Pain General: Chief Complaint: Chest Pain Stated Complaint: Chest pain since friday Time Seen by Provider: 02/07/22 11:30 History of Present Illness: Patient comes in with chest pain. States that 5 days ago he started having midsternal chest pressure that radiates into his arms and his neck. States that it has been off and on. He currently has no chest pressure, but still feels a little bit of heaviness in his arms. Denies any cold symptoms including fever, cough, congestion, vomiting, or diarrhea. Associated symptoms: Deny abdominal pain, dyspnea, fever(s), nausea, palpitations or vomiting Review of Systems Const: Denies: fever(s) or body aches Eyes: Denies: change in vision or blurry vision ENMT: Denies: throat pain or odynophagia Card: Reports: chest pain; Denies: palpitations Resp: Denies: dyspnea or productive cough GI: Denies: abdominal pain, nausea or vomiting : Denies: flank pain or dysuria Musc: Denies: neck pain or back pain Skin/Breast: Denies: rash or pruritus Neuro: Denies: headache(s) or numbness in extremities Psych: Denies: anxiety or change in appetite Endo: Denies: polyuria or excessive sweating PFSH ED PFSH: Medical History Abdominal pain Abnormal nuclear cardiac imaging test Arteriosclerotic heart disease Atherosclerosis of coronary artery of [place] heart without angina pectoris Blindness of left eye Cardiac ischemia 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 arthritis Chest pain Cholecystectomy planned Chronic gout Chronic kidney disease, stage 2 (mild) Chronic neck pain Chronic systolic (congestive) heart failure Diaphoresis Diverticulosis Elevated blood sugar Essential (primary) hypertension Gastro-esophageal reflux disease without esophagitis Hearing loss of both ears Heart murmur Hemorrhoids, internal Hepatomegaly History of colon polyps History of medication noncompliance Hx of cardiomyopathy Hyperuricemia Ischemic cardiomyopathy LVEF <40% Metatarsalgia of both feet Mixed hyperlipidemia Patel's neuroma of left foot Neuropathy Nicotine dependence, cigarettes, uncomplicated Osteopenia Pacemaker Unspecified osteoarthritis, unspecified site Surgical History H/O hernia repair History of ankle surgery History of permanent cardiac pacemaker placement For symptomatic bradycardia, 1/16 S/P cardiac catheterization On 07/30/2017 he underwent coronary angiography and was found to have 20% distal left main, minimal intimal irregularities in the LAD, patent stented segment of the first high OM branch patent stent segment of the PDA of the RCA and mild disease in the distal RCA with an EF of 50% and slightly elevated LVEDP of 16 mmHg Status post cholecystectomy Family History Brother CAD (coronary artery disease) Myocardial infarct Cancer Mother Myocardial infarct Father Cancer FROM LUNG CANCER Daughter Cancer Social History Smoking and tobacco status: former smoker (Quit 5 years ago) Quit status (tobacco): has quit using tobacco Year quit tobacco: 2016, smoked 50years Former quit date comment: 1/2- 1 packs per day Second hand smoke exposure: No Alcohol intake: current Lives independently: Yes Household members: spouse Marital status: Current occupational status: retired Physical Exam Const: COMMON NORMALS: no acute distress, patient oriented x3, healthy appearing and alert HENMT: COMMON NORMALS: normocephalic and atraumatic HEAD & SCALP: normocephalic and atraumatic Eye: COMMON NORMALS: Equal, round and reactive pupils present and EOMs intact bilaterally PUPIL: Yes Equal, round and reactive pupils present Neck/C-Spine: COMMON NORMALS: full ROM and supple Resp: COMMON NORMALS: normal respiratory effort, No retractions and No use of accessory muscles Cardio: COMMON NORMALS: regular rate and regular rhythm RATE: regular rate RHYTHM: regular rhythm GI: COMMON NORMALS: Normal to inspection, nondistended, normoactive bowel sounds present, Soft to palpation and non-tender PALPATION: Yes Soft to palpation Back/Pelvis: COMMON NORMALS: thoracic and lumbar spine normal to inspection and no thoracic nor lumbar tenderness Extremity: COMMON NORMALS: normal to inspection and full ROM Neuro: COMMON NORMALS: patient oriented x3 SENSORIUM/ORIENTATION: Yes alert Psych: COMMON NORMALS: mental status grossly normal and cooperative Skin: COMMON NORMALS: no rashes or lesions noted and no wounds GENERAL SKIN EXAM: no rashes or lesions noted Course Vital Signs: Vital signs: Vital Signs Temperature 98.2 F 02/07/22 10:44 Pulse Rate 61 02/07/22 13:16 Respiratory Rate 18 02/07/22 10:44 Blood Pressure 124/79 02/07/22 13:16 Pulse Oximetry 93 02/07/22 13:16 Oxygen Delivery Me thod 02/07/22 10:44 MDM - Chest Pain Medical Decision Making Patient comes in with chest pain. States that 5 days ago he started having midsternal chest pressure that radiates into his arms and his neck. States that it has been off and on. He currently has no chest pressure, but still feels a little bit of heaviness in his arms. Denies any cold symptoms including fever, cough, congestion, vomiting, or diarrhea. Physical exam is unremarkable. Patient does have a history of heart coronary artery disease with previous stent placement and a pacemaker. Will check labs, EKG, and reassess. On reassessment I talked to the patient about the test results. Will discharge home at this time with precautions return for worsening or changing symptoms. Lab Data 02/07/22 12:17 02/07/22 12:17 Radiology Impressions Chest X-Ray 02/07/22 10:49 Impression: 1. Minimal patchy bilateral basilar pulmonary opacities which could represent pneumonia and/or atelectasis. 2. Cardiac pacemaker and atherosclerosis. Laboratory Results WBC 5.7 10^3/uL (4.0-10.0) 02/07/22 12:17 RBC 4.32 10^6/uL (4.1-5.3) 02/07/22 12:17 Hgb 14.3 g/dL (11.7-16.6) 02/07/22 12:17 Hct 42.7 % (42.0-52.0) 02/07/22 12:17 MCV 98.8 fl (80-94) H 02/07/22 12:17 MCH 33.1 pg (28.0-34.0) 02/07/22 12:17 MCHC 33.5 g/dL (30.0-36.0) 02/07/22 12:17 RDW 11.8 % (12.1-15.1) L 02/07/22 12:17 Plt Count 195 10^3/cmm (130-400) 02/07/22 12:17 MPV 9.4 fL (7.4-10.4) 02/07/22 12:17 Neut % (Auto) 57.9 % 02/07/22 12:17 Lymph % (Auto) 32.1 % 02/07/22 12:17 [place] % (Auto) 6.1 % 02/07/22 12:17 Eos % (Auto) 2.6 % 02/07/22 12:17 Baso % (Auto) 1.0 % 02/07/22 12:17 Neut # (Auto) 3.32 10^3/uL (1.8-7.7) 02/07/22 12:17 Lymph # (Auto) 1.8 10^3/uL (0.8-4.8) 02/07/22 12:17 [place] # (Auto) 0.4 10^3/uL (0.2-0.9) 02/07/22 12:17 Eos # (Auto) 0.2 10^3/uL (0.0-0.8) 02/07/22 12:17 Baso # (Auto) 0.1 10^3/uL (0.0-0.1) 02/07/22 12:17 Nucleated RBC % (auto) 0 % 02/07/22 12:17 Nucleated RBCs # 0.0 /100WBC 02/07/22 12:17 Sodium 137 mmol/L (136-145) 02/07/22 12:17 Potassium 4.1 mmol/L (3.5-5.1) 02/07/22 12:17 Chloride 100 mmol/L (98-107) 02/07/22 12:17 Carbon Dioxide 26 mmol/L (22-29) 02/07/22 12:17 Anion Gap 15.1 (5-19) 02/07/22 12:17 BUN 16 mg/dL (8-23) 02/07/22 12:17 Creatinine 0.9 mg/dL (0.7-1.2) 02/07/22 12:17 GFR Calculation Not Reportable 02/07/22 12:17 Glucose 113 mg/dL (65-115) 02/07/22 12:17 Calculated Osmolality 286 mOsm/kg (285-295) 02/07/22 12:17 Calcium 9.5 mg/dL (8.5-10.5) 02/07/22 12:17 Total Bilirubin 0.5 mg/dL (0.15-1.2) 02/07/22 12:17 AST 27 U/L (0-40) 02/07/22 12:17 ALT 43 U/L (0-41) H 02/07/22 12:17 Alkaline Phosphatase 62 U/L (40-130) 02/07/22 12:17 Troponin T Baseline 10 ng/L (0-15) 02/07/22 12:17 Troponin T 120 Minute 9.20 ng/L (0-15) 02/07/22 14:58 Delta Troponin T -0.8 ABS# (0-10) L 02/07/22 14:58 Total Protein 7.4 g/dL (6.6-8.7) 02/07/22 12:17 Albumin 4.5 g/dL (3.5-5.2) 02/07/22 12:17 Globulin 2.9 g/dL (1.3-4.6) 02/07/22 12:17 Discharge Plan Discharge Patient Disposition: Home Clinical Impression: Nonspecific chest pain Condition: Stable Prescriptions: No Action ascorbate calcium (vitamin C) 500 mg tablet 500 mg PO DAILY cholecalciferol (vitamin D3) 25 mcg (1,000 unit) capsule 25 mcg PO DAILY calcium phosphate-vitamin D3 [Citracal-D3 Gummies] 250 mg calcium- 500 unit tablet,chewable 1 tab PO BID cyanocobalamin (vitamin B-12) 1,000 mcg capsule 1,000 mcg PO DAILY aspirin 81 mg tablet,delayed release (DR/EC) 81 mg PO DAILY multivitamin Tablet 1 tab PO QAM cyclobenzaprine 10 mg tablet 10 mg PO TID PRN (Reason: Pain) Qty: 30 3RF omeprazole 20 mg capsule,delayed release(DR/EC) 20 mg PO DAILY Qty: 90 3RF nitroglycerin 0.4 mg tablet, sublingual See Rx Instructions .ROUTE .COMPLEX Qty: 30 1RF Dose Instruction: DISSOLVE ONE TABLET UNDER THE TONGUE EVERY 5 MINUTES NEEDED CHEST PAIN Rx Instructions: DISSOLVE ONE TABLET UNDER THE TONGUE EVERY 5 MINUTES NEEDED CHEST PAIN Entresto 97-103 mg tablet 1 tab PO BID Qty: 180 3RF guaifenesin [Mucinex] 600 mg Tablet Extended Release 12hr 600 mg PO Q12H PRN (Reason: Congestion) colchicine 0.6 mg tablet 0.6 mg PO DAILY PRN (Reason: gout) zinc acetate 50 mg (zinc) Capsule 50 mg PO DAILY Fish Oil 300-1,000 mg Capsule 1 cap PO BID atorvastatin 40 mg tablet 40 mg PO QPM carvedilol 12.5 mg tablet 12.5 mg PO BID isosorbide mononitrate 30 mg tablet extended release 24 hr 30 mg PO DAILY amlodipine 2.5 mg tablet 2.5 mg PO DAILY clopidogrel 75 mg tablet 75 mg PO DAILY tamsulosin 0.4 mg capsule 0.4 mg PO DAILY Lunesta 3 mg tablet 3 mg PO BEDTIME PRN (Reason: Sleep) Discharge Orders: Discharge ED (Routine); Ordered 02/07/22 Ordered By: Thomas Dunlap Referrals: Lauren Chin MD [Primary Care Provider] - Patient Instructions: Chest Pain (ED) Coding Level of Care Code ED Cost Control Specialist for Rikag Fwd Exam Comprehensive
[2022-02-07 12:23] LABS: Basophils # 0.1 10^3/uL (0.0-0.1); Eosinophils # 0.2 10^3/uL (0.0-0.8); Eosinophils % 2.6 %; Hematocrit 42.7 % (42.0-52.0); Hemoglobin 14.3 g/dL (11.7-16.6); Lymphocytes # 1.8 10^3/uL (0.8-4.8); Lymphocytes % 32.1 %; Mean Corpuscular HGB Conc 33.5 g/dL (30.0-36.0); Mean Corpuscular Hemoglobin 33.1 pg (28.0-34.0); Mean Corpuscular Volume 98.8 fl (80-94); Mean Platelet Volume 9.4 fL (7.4-10.4); Monocytes # 0.4 10^3/uL (0.2-0.9); Monocytes % 6.1 %; Neutrophils # 3.32 10^3/uL (1.8-7.7); Neutrophils % 57.9 %; Nucleated Red Blood Cells % 0 %; Platelet Count 195 10^3/cmm (130-400); Red Blood Count 4.32 10^6/uL (4.1-5.3); Red Cell Distribution Width 11.8 % (12.1-15.1); White Blood Count 5.7 10^3/uL (4.0-10.0)
--- NOTE | 2022-02-07 12:55 | ECG_ITS ---
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 Measurements Intervals [place] Rate: 60 P: 125 HI: 206 QRS: -57 QRSD: 161 T: 137 QT: 423 QTc: 425 Interpretive Statements ELECTRONIC ATRIAL PACEMAKER ELECTRONIC VENTRICULAR PACEMAKER ABNORMAL RHYTHM ECG Compared to ECG 02/07/2022 10:42:54 No significant changes Electronically Signed On 02-08-2022 20:40:10 ASSESSMENT CLINICIAN by Kathe Agudelo M.D. [id number]
[2022-02-07 13:03] LABS: Troponin(5th) Baseline 10 ng/L (0-15)
[2022-02-07 13:04] LABS: Alanine Aminotransferase 43 U/L (0-41); Albumin Level 4.5 g/dL (3.5-5.2); Alkaline Phosphatase 62 U/L (40-130); Anion Gap 15.1 (5-19); Aspartate Amino Transferase 27 U/L (0-40); Blood Urea Nitrogen 16 mg/dL (8-23); Calcium 9.5 mg/dL (8.5-10.5); Carbon Dioxide 26 mmol/L (22-29); Chloride 100 mmol/L (98-107); Creatinine Clr Calc Pharmacy 95.7314; Globulin 2.9 g/dL (1.3-4.6); Glucose 113 mg/dL (65-115); Osmolality Calculated 286 mOsm/kg (285-295); Potassium 4.1 mmol/L (3.5-5.1); Sodium 137 mmol/L (136-145); Total Bilirubin 0.5 mg/dL (0.15-1.2); Total Protein 7.4 g/dL (6.6-8.7)
[2022-02-07 13:16] VITALS: BP 124/79; PULSE 61; O2SAT 93
[2022-02-07 15:00] VITALS: BP 154/98; PULSE 61; RESP 16; O2SAT 95
[2022-02-07 15:36] LABS: Troponin 5 2HR Delta -0.8 ABS# (0-10)
[2022-02-07 16:08] VITALS: BP 151/95; PULSE 62; RESP 16; O2SAT 95
== END 2022-02-07 16:17 | disposition home or self-care (01) ==
PROVIDERS: Family Medicine; Emergency Provider Emergency Medicine; PCP Family Medicine
DX: R07.89 Other chest pain (principal); Z79.82 Long term (current) use of aspirin; Z79.02 Long term (current) use of antithrombotics/antiplatelets; Z87.891 Personal history of nicotine dependence; Z95.0 Presence of cardiac pacemaker; I25.10 Atherosclerotic heart disease of native coronary artery without angina pectoris; I13.0 Hypertensive heart and chronic kidney disease with heart failure and stage 1 through stage 4 chronic kidney disease, or unspecified chronic kidney disease; N18.2 Chronic kidney disease, stage 2 (mild); I50.22 Chronic systolic (congestive) heart failure; E78.2 Mixed hyperlipidemia
CPT/HCPCS: 71045; 80053; 84484; 85025; 93005; 99285

== ENCOUNTER 2022-02-09 11:31 | Inpatient (IN) | payer MEDICARE, OTHER, SELFPAY ==
[2022-02-09] VITALS (9 sets, daily range): BP systolic 101–127; BP diastolic 64–83; PULSE 60–63; RESP 14–18; TEMP 36.4; O2SAT 95–98; BMI 34.2
--- NOTE | 2022-02-09 11:46 | ECG_ITS ---
[facility] Test Date: 2022-02-09 Pat Name: Miky Hoffman Department: Room: Gender: Male [place]: : 1945 Requested By: Saul Francisco Order Number: [id number] Irineo MD: Leatha Saldivar M.D. Measurements Intervals [place] Rate: 60 P: 0 MS: 0 QRS: -23 QRSD: 181 T: 73 QT: 468 QTc: 470 Interpretive Statements ELECTRONIC VENTRICULAR PACEMAKER ABNORMAL RHYTHM ECG Compared to ECG 02/07/2022 12:55:04 Atrial-paced complex(es) or rhythm no longer present Electronically Signed On 02-10-2022 20:07:20 SUPERVISOR TOY PARTS FORMER by Leatha Saldivar M.D. [id number]
--- NOTE | 2022-02-09 11:49 | ED_ITS ---
HPI - Chest Pain General: Chief Complaint: Chest Pain Stated Complaint: chest pain Time Seen by Provider: 02/09/22 11:39 Source: patient Mode of arrival: ambulatory History of Present Illness: 76-year-old male presents emergency room with complaint of chest pain. He was seen 2 days ago for similar type complaint his pain had resolved. He had a stress test and October of this year. Report states there was improved tracer uptake in the apical septal wall with stress images. There is no mention of ischemia on the report although the test was compromised somewhat by fact patient cannot lay supine. He is getting pain with exertion this morning with just mild exertion walking outside to do his morning chores to feed his animals. It resolved after he took a nitro which took about 15 to 20 minutes. When he gets the pain he gets radiation into his left arm. On a couple of occasions its been severe and radiated into both arms. Last night he had an episode while at rest that resolved spontaneously. Earlier in the week he states he lost vision for a time in his left eye when he had an episode of chest pain he never had a difficulty speech swallowing or balance however. Patient has a known history of coronary disease has several previous stents. He is not diabetic he is a former smoker having quit 4 to 5 years ago. MD complaint: chest pain Pertinent past history: coronary artery disease Onset (ago): day(s) Timing of current episode: episodic Prior episodes: Yes Onset: during rest and during exertion Pain location: substernal Pain radiation: right arm, left arm and abdomen Quality: tightness, aching and heaviness Relieving factors: nitroglycerin and rest Exacerbating factors: exertion Associated symptoms: Reports abdominal pain, diaphoresis, dyspnea, nausea and vomiting; Deny fever(s), leg edema, palpitations, sense of impending doom or syncope Treatment prior to arrival: nitroglycerin Review of Systems Const: Reports: diaphoresis; Denies: fever(s), chills, fatigue or malaise Eyes: Reports: change in vision ENMT: Denies: throat pain, ear or mastoid pain, nasal discharge or nasal congestion Card: Reports: chest pain and edema; Denies: palpitations, irregular heart rhythm or syncope Resp: Reports: dyspnea GI: Reports: abdominal pain, nausea and vomiting : Denies: flank pain, dysuria, urinary frequency or urinary urgency Skin/Breast: Denies: rash or pruritus PFSH ED PFSH: Medical History Abdominal pain Abnormal nuclear cardiac imaging test Arteriosclerotic heart disease Atherosclerosis of coronary artery of [place] heart without angina pectoris Blindness of left eye Cardiac ischemia 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 arthritis Chest pain Cholecystectomy planned Chronic gout Chronic kidney disease, stage 2 (mild) Chronic neck pain Chronic systolic (congestive) heart failure Diaphoresis Diverticulosis Elevated blood sugar Essential (primary) hypertension Gastro-esophageal reflux disease without esophagitis Hearing loss of both ears Heart murmur Hemorrhoids, internal Hepatomegaly History of colon polyps History of medication noncompliance Hx of cardiomyopathy Hyperuricemia Ischemic cardiomyopathy LVEF <40% Metatarsalgia of both feet Mixed hyperlipidemia Patel's neuroma of left foot Neuropathy Nicotine dependence, cigarettes, uncomplicated Osteopenia Pacemaker Unspecified osteoarthritis, unspecified site Surgical History H/O hernia repair History of ankle surgery History of permanent cardiac pacemaker placement For symptomatic bradycardia, 02/25 S/P cardiac catheterization On 07/30/2017 he underwent coronary angiography and was found to have 20% distal left main, minimal intimal irregularities in the LAD, patent stented segment of the first high OM branch patent stent segment of the PDA of the RCA and mild disease in the distal RCA with an EF of 50% and slightly elevated LVEDP of 16 mmHg Status post cholecystectomy Family History Brother CAD (coronary artery disease) Myocardial infarct Cancer Mother Myocardial infarct Father Cancer FROM LUNG CANCER Daughter Cancer Social History Smoking and tobacco status: former smoker (Quit 5 years ago) Quit status (tobacco): has quit using tobacco Year quit tobacco: 2017, smoked 50years Former quit date comment: 1/2- 1 packs per day Second hand smoke exposure: No Alcohol intake: current Lives independently: Yes Household members: spouse Marital status: Current occupational status: retired Physical Exam Const: GENERAL APPEARANCE: cooperative and comfortable ORIEN TATION/CONSCIOUSNESS: Yes awake, Yes oriented to person, Yes oriented to place and Yes oriented to time HENMT: COMMON NORMALS: normocephalic, atraumatic and hearing grossly normal bilaterally HEAD & SCALP: normocephalic and atraumatic Eye: COMMON NORMALS: Equal, round and reactive pupils present, EOMs intact bilaterally, conjunctivae normal and no scleral icterus CONJUNCTIVA: Yes conjunctivae normal PUPIL: Yes Equal, round and reactive pupils present Neck/C-Spine: COMMON NORMALS: full ROM, no lymphadenopathy, supple and no JVD Lymph: LYMPHATIC: no lymphadenopathy noted and no lymphedema noted Resp: COMMON NORMALS: normal respiratory effort, No retractions, No use of accessory muscles and clear to auscultation bilaterally AUSCULTATION: clear to auscultation bilaterally Cardio: COMMON NORMALS: no JVD, regular rate, regular rhythm and No murmurs p resent (Cardio) RATE: regular rate RHYTHM: regular rhythm GI: COMMON NORMALS: Soft to palpation and No hepatosplenomegaly present AUSCULTATION: Yes normoactive bowel sounds PALPATION: Yes Soft to palpation, No Tenderness to palpation present (GI), No Guarding due to palpation present (GI) and Yes No hepatosplenomegaly present Extremity: COMMON NORMALS: normal to inspection, capillary refill normal, no clubbing, cyanosis or edema, no calf tenderness and no pedal edema Neuro: SENSORIUM/ORIENTATION: Yes oriented to person, Yes oriented to place and Yes oriented to time Skin: COMMON NORMALS: no rashes or lesions noted GENERAL SKIN EXAM: no rashes or lesions noted Course Vital Signs: Vital signs: Vital Signs Temperature 97.5 F L 02/09/22 11:43 Pulse Rate 62 02/09/22 13:29 Respiratory Rate 15 02/09/22 13:29 Blood Pressure 105/72 02/09/22 13:29 Pulse Oximetry 97 02/09/22 13:29 Oxygen Delivery Me thod 02/09/22 13:29 MDM - Chest Pain Medical Decision Making Troponins negative EKG shows paced rhythm no ST elevation. History is concerning for escalating anginal pain relieved by rest and nitro. Earlier this year 3 months ago he had a essentially normal stress test I called and talked to Dr. Saldivar he felt the patient should be kept here in the hospital in [facility] for further evaluation including probable cardiac catheterization. Medical Records I reviewed the patient's medical records. Lab Data I reviewed the patient's lab results. 02/09/22 12:13 02/09/22 12:13 Radiology Impressions Chest X-Ray 02/09/22 11:50 IMPRESSION: No acute abnormality. Head CT 02/09/22 12:04 IMPRESSION: No acute intracranial abnormality. Laboratory Results WBC 6.3 10^3/uL (4.0-10.0) 02/09/22 12:13 RBC 4.42 10^6/uL (4.1-5.3) 02/09/22 12:13 Hgb 14.5 g/dL (11.7-16.6) 02/09/22 12:13 Hct 43.8 % (42.0-52.0) 02/09/22 12:13 MCV 99.1 fl (80-94) H 02/09/22 12:13 MCH 32.8 pg (28.0-34.0) 02/09/22 12:13 MCHC 33.1 g/dL (30.0-36.0) 02/09/22 12:13 RDW 11.9 % (12.1-15.1) L 02/09/22 12:13 Plt Count 211 10^3/cmm (130-400) 02/09/22 12:13 MPV 10.2 fL (7.4-10.4) 02/09/22 12:13 Neut % (Auto) 55.5 % 02/09/22 12:13 Lymph % (Auto) 32.6 % 02/09/22 12:13 [place] % (Auto) 8.8 % 02/09/22 12:13 Eos % (Auto) 1.9 % 02/09/22 12:13 Baso % (Auto) 0.9 % 02/09/22 12:13 Neut # (Auto) 3.51 10^3/uL (1.8-7.7) 02/09/22 12:13 Lymph # (Auto) 2.1 10^3/uL (0.8-4.8) 02/09/22 12:13 [place] # (Auto) 0.6 10^3/uL (0.2-0.9) 02/09/22 12:13 Eos # (Auto) 0.1 10^3/uL (0.0-0.8) 02/09/22 12:13 Baso # (Auto) 0.1 10^3/uL (0.0-0.1) 02/09/22 12:13 Nucleated RBC % (auto) 0 % 02/09/22 12:13 Nucleated RBCs # 0.0 /100WBC 02/09/22 12:13 Sodium 141 mmol/L (136-145) 02/09/22 12:13 Potassium 4.2 mmol/L (3.5-5.1) 02/09/22 12:13 Chloride 106 mmol/L (98-107) 02/09/22 12:13 Carbon Dioxide 25 mmol/L (22-29) 02/09/22 12:13 Anion Gap 14.2 (5-19) 02/09/22 12:13 BUN 21 mg/dL (8-23) 02/09/22 12:13 Creatinine 1.1 mg/dL (0.7-1.2) 02/09/22 12:13 GFR Calculation Not Reportable 02/09/22 12:13 Glucose 114 mg/dL (65-115) 02/09/22 12:13 Calculated Osmolality 296 mOsm/kg (285-295) H 02/09/22 12:13 Calcium 9.1 mg/dL (8.5-10.5) 02/09/22 12:13 Total Bilirubin 0.3 mg/dL (0.15-1.2) 02/09/22 12:13 AST 26 U/L (0-40) 02/09/22 12:13 ALT 38 U/L (0-41) 02/09/22 12:13 Alkaline Phosphatase 64 U/L (40-130) 02/09/22 12:13 Troponin T Baseline 12 ng/L (0-15) 02/09/22 12:13 Troponin T 120 Minute 14.88 ng/L (0-15) 02/09/22 13:58 Delta Troponin T 2.88 ABS# (0-10) 02/09/22 13:58 Total Protein 6.8 g/dL (6.6-8.7) 02/09/22 12:13 Albumin 4.2 g/dL (3.5-5.2) 02/09/22 12:13 Globulin 2.6 g/dL (1.3-4.6) 02/09/22 12:13 Discharge Plan Discharge Patient Disposition: Placed in Observation Clinical Impression: Stable angina, History of permanent cardiac pacemaker placement, Atherosclerotic heart disease of [place] coronary artery with other forms of angina pectoris, Essential (primary) hypertension, Transient visual loss Coding Level of Care Code ED Zone Supervisor Firearms for [place] Fwd Exam Comprehensive
--- NOTE | 2022-02-09 11:50 | XRR_ITS ---
PROCEDURE INFORMATION: Exam: XR Chest Exam date and time: 02/09/2022 11:55 AM Age: 76 years old Clinical indication: Pain; Chest pressure; Prior surgery; Additional info: Chest pain TECHNIQUE: Imaging protocol: Radiologic exam of the chest. Views: 1 view. COMPARISON: CR XR chest 1V portable [id number] 02/07/2022 10:59 AM FINDINGS: Tubes, catheters and devices: A permanent sequential pacemaker is intact. Lungs: Unremarkable. No consolidation. Pleural spaces: Unremarkable. No pleural effusion. No pneumothorax. Heart/Mediastinum: Unremarkable. No cardiomegaly. Bones/joints: Unremarkable. XR/XR chest 1V portable [id number] IMPRESSION: No acute abnormality.
--- NOTE | 2022-02-09 12:04 | CTR_ITS ---
PROCEDURE INFORMATION: Exam: CT Head Without Contrast Exam date and time: 02/09/2022 12:38 PM Age: 76 years old Clinical indication: Visual disturbance; Additional info: Vision loss TECHNIQUE: Imaging protocol: Computed tomography of the head without contrast. Radiation optimization: All CT scans at this facility use at least one of these dose optimization techniques: automated exposure control; mA and/or kV adjustment per patient size (includes targeted exams where dose is matched to clinical indication); or iterative reconstruction. COMPARISON: CT temporal bone wo con* [id number] 08/29/2015 9:17 AM RADIATION DOSE METRICS: Total DLP (mGy-cm): 1032.84 FINDINGS: Brain: Normal. No hemorrhage. Unremarkable white matter. No mass effect. Cerebral ventricles: No ventriculomegaly. Paranasal sinuses: Visualized sinuses are unremarkable. No fluid levels. Mastoid air cells: Visualized mastoid air cells are well aerated. Bones/joints: Unremarkable. No acute fracture. Soft tissues: Unremarkable. CT/CT head wo con* [id number] IMPRESSION: No acute intracranial abnormality.
[2022-02-09] MEDS: aspirin 81 mg Chew Tablet 324 MG PO (12:06)
[2022-02-09] MEDS: sodium chloride 0.9% 500 ML 999 ML IV (12:22)
[2022-02-09] MEDS: nitroglycerin 1 gm/inch oint Pkt 0.5 INCH TOPICAL (12:23)
[2022-02-09 13:50] LABS: Basophils # 0.1 10^3/uL (0.0-0.1); Basophils % 0.9 %; Eosinophils # 0.1 10^3/uL (0.0-0.8); Eosinophils % 1.9 %; Hematocrit 43.8 % (42.0-52.0); Hemoglobin 14.5 g/dL (11.7-16.6); Lymphocytes # 2.1 10^3/uL (0.8-4.8); Lymphocytes % 32.6 %; Mean Corpuscular HGB Conc 33.1 g/dL (30.0-36.0); Mean Corpuscular Hemoglobin 32.8 pg (28.0-34.0); Mean Corpuscular Volume 99.1 fl (80-94); Mean Platelet Volume 10.2 fL (7.4-10.4); Monocytes # 0.6 10^3/uL (0.2-0.9); Monocytes % 8.8 %; Neutrophils # 3.51 10^3/uL (1.8-7.7); Neutrophils % 55.5 %; Nucleated Red Blood Cells % 0 %; Platelet Count 211 10^3/cmm (130-400); Red Blood Count 4.42 10^6/uL (4.1-5.3); Red Cell Distribution Width 11.9 % (12.1-15.1); White Blood Count 6.3 10^3/uL (4.0-10.0)
--- NOTE | 2022-02-09 13:51 | ECG_ITS ---
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 Measurements Intervals [place] Rate: 60 P: 0 TN: 0 QRS: -54 QRSD: 189 T: 125 QT: 490 QTc: 492 Interpretive Statements ELECTRONIC VENTRICULAR PACEMAKER ABNORMAL RHYTHM ECG Compared to ECG 02/07/2022 12:55:04 Atrial-paced complex(es) or rhythm no longer present Electronically Signed On 02-10-2022 20:22:26 GERIATRIC NURSE PRACTITIONER by Leatha Saldivar M.D. [email or web address] specialty [email or web address] lady of mercy hospital.[employer]/store/OM/[id number]
[2022-02-09 14:08] LABS: Alanine Aminotransferase 38 U/L (0-41); Albumin Level 4.2 g/dL (3.5-5.2); Alkaline Phosphatase 64 U/L (40-130); Anion Gap 14.2 (5-19); Aspartate Amino Transferase 26 U/L (0-40); Blood Urea Nitrogen 21 mg/dL (8-23); Calcium 9.1 mg/dL (8.5-10.5); Carbon Dioxide 25 mmol/L (22-29); Chloride 106 mmol/L (98-107); Globulin 2.6 g/dL (1.3-4.6); Glucose 114 mg/dL (65-115); Osmolality Calculated 296 mOsm/kg (285-295); Potassium 4.2 mmol/L (3.5-5.1); Sodium 141 mmol/L (136-145); Total Bilirubin 0.3 mg/dL (0.15-1.2); Total Protein 6.8 g/dL (6.6-8.7)
[2022-02-09 14:12] LABS: Troponin(5th) Baseline 12 ng/L (0-15)
[2022-02-09 14:46] LABS: Troponin 5 2HR 14.88 ng/L (0-15)
[2022-02-09 15:20] LABS: Troponin 5 2HR Delta 2.88 ABS# (0-10)
--- NOTE | 2022-02-09 16:36 | P.HP_ITS ---
Providers/Chief Complaint Primary Care Provider: Lauren Chin MD Chief Complaint: chest pain History of Present Illness Miky Hoffman is a 76 year old male with past medical for CAD, post multiple PCI, ischemic cardiomyopathy with EF of less than 40%, pacemaker implantation for sick sinus syndrome presents to the ER today because of worsening chest pain on exertion and at rest for last 4 to 5 days. As per patient he has been having chest pain on exertion since October but for last 5 days pain has been getting worse even on rest being relieved by oral nitrates. Few days ago patient symptoms were associated with transient loss of vision for around 10 seconds. Patient denies of having any shortness of breath more than baseline. Denies changes in his medications. States he is compliant with his medications. Review of Systems General: Reports: 10 or more systems reviewed and unremarkable except in HPI and below Const: Denies: fever(s), chills, body aches, change in appetite, change in weight, malaise, night sweats, diaphoresis, change in sleep pattern, daytime sleepiness or snoring Eyes: Denies: change in vision, blurry vision, photophobia, eye discomfort or eye discharge ENMT: Denies: throat pain, enlarged tonsils, hoarseness, mouth pain, oral sores, dry mouth, tinnitus, nasal congestion or post nasal drip Card: Denies: chest pain, palpitations, irregular heart rhythm, edema, swelling of feet/ankles, lightheadedness, syncope, pre-syncope, dyspnea on exertion, orthopnea, leg pain with exertion or acrocyanosis Resp: Denies: dyspnea, productive cough, non-productive cough, wheezing, stridor, pain on inspiration, change in phlegm color, hemoptysis or chest congestion GI: Denies: abdominal pain, nausea, vomiting, hematemesis, coffee ground emes is, dysphagia, heartburn, diarrhea, constipation, bloating, GI cramping, change in bowel habits, pain on defecation, hematochezia or melena : Denies: flank pain, difficulty urinating, dysuria, urinary frequency, urinary urgency, urinary hesitancy, urinary dribbling, difficulty starting urination, change in urine stream, nocturia or hematuria Musc: Denies: neck pain, back pain, extremity pain, joint pain, joint swelling, joint redness, joint stiffness or limited range of motion Neuro: Denies: headache(s), numbness in extremities, weakness in extremities, sensory changes, lack of coordination, difficulty walking, frequent falls, dizziness, vertigo, confusion, Slurred speech present, difficulty communicating thoughts or seizure-like activity Psych: Denies: anxiety, depression, mood swings, panic attacks, hopelessness or irritability Endo: Denies: polyuria, polydipsia, tired all the time, cold intolerance, excessive sweating, flushing or heat intolerance Randal/Lymph: Denies: easy bruising or easy bleeding All/Imm: Denies: tongue swelling, facial swelling or acute wheezing Medications/Allergies Home Medications Medication Instructions Recorded Confirmed Last Taken Type aspirin 81 mg tablet,delayed 81 mg PO DAILY 02/08/19 02/09/22 02/09/22 History release calcium phosphate 250 mg-vit D3 1 tab PO BID 02/08/19 02/09/22 02/09/22 History 12.5 mcg (500 unit) chewable tablet (Citracal-D3 Gummies) cyanocobalamin (vitamin B-12) 1,000 mcg PO DAILY 02/08/19 02/09/22 02/09/22 History 1,000 mcg capsule multivitamin 1 tab PO QAM 02/08/19 02/07/22 02/07/22 History guaifenesin 600 mg tablet, 600 mg PO Q12H PRN Congestion 12/24/19 02/09/22 12/23/19 History extended release 12 hr (Mucinex) ascorbate calcium (vitamin C) 500 500 mg PO DAILY 05/24/20 02/09/22 02/09/22 History mg tablet cholecalciferol (vitamin D3) 25 25 mcg PO DAILY 05/24/20 02/09/22 02/09/22 History mcg (1,000 unit) capsule cyclobenzaprine 10 mg tablet 10 mg PO TID PRN Pain #30 tabs 11/09/20 02/09/22 Unknown Rx omeprazole 20 mg capsule,delayed 20 mg PO DAILY #90 caps 06/25/21 02/07/22 02/07/22 Rx release nitroglycerin 0.4 mg sublingual See Rx Instructions .Route 07/10/21 02/07/22 10/19/21 Rx tablet .COMPLEX #30 tabs colchicine 0.6 mg tablet 0.6 mg PO DAILY PRN gout 10/20/21 02/09/22 Unknown History sacubitril 97 mg-valsartan 103 mg 1 tab PO BID #180 tabs 12/10/21 02/07/22 02/07/22 Rx tablet (Entresto) amlodipine 2.5 mg tablet 2.5 mg PO DAILY 02/07/22 02/09/22 02/09/22 History atorvastatin 40 mg tablet 40 mg PO QPM 02/07/22 02/09/22 02/09/22 History carvedilol 12.5 mg tablet 12.5 mg PO BID 02/07/22 02/09/22 02/09/22 History clopidogrel 75 mg tablet 75 mg PO DAILY 02/07/22 02/09/22 02/09/22 History eszopiclone 3 mg tablet (Lunesta) 3 mg PO BEDTIME PRN Sleep 02/07/22 02/07/22 Unknown History isosorbide mononitrate 30 mg 30 mg PO DAILY 02/07/22 02/09/22 02/09/22 History tablet,extended release 24 hr omega 9-uuk-bmz-fish oil 300 1 cap PO BID 02/07/22 02/07/22 02/07/22 History mg-1,000 mg capsule (Fish Oil) tamsulosin 0.4 mg capsule 0.4 mg PO DAILY 02/07/22 02/07/22 02/07/22 History zinc acetate 50 mg (zinc) capsule 50 mg PO DAILY 02/07/22 02/07/22 02/07/22 History Allergies Allergy/AdvReac Type Severity Reaction Status Date / Time dutasteride [From Avodart] AdvReac Unknown Verified 02/09/22 11:56 PFSH Acute PFSH: Medical History (Updated 02/09/22 @ 16:38 by Andrzej Chanel MD) Abdominal pain Abnormal nuclear cardiac imaging test Arteriosclerotic heart disease Atherosclerosis of coronary artery of [place] heart without angina pectoris Blindness of left eye Cardiac ischemia 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 arthritis Chest pain Cholecystectomy planned Chronic gout Chronic kidney disease, stage 2 (mild) Chronic neck pain Chronic systolic (congestive) heart failure Diaphoresis Diverticulosis Elevated blood sugar Essential (primary) hypertension Gastro-esophageal reflux disease without esophagitis Hearing loss of both ears Heart murmur Hemorrhoids, internal Hepatomegaly History of colon polyps History of medication noncompliance Hx of cardiomyopathy Hyperuricemia Ischemic cardiomyopathy LVEF <40% Metatarsalgia of both feet Mixed hyperlipidemia Patel's neuroma of left foot Neuropathy Nicotine dependence, cigarettes, uncomplicated Osteopenia Pacemaker Unspecified osteoarthritis, unspecified site Surgical History (Updated 02/09/22 @ 15:31 by Saul Roman DO) H/O hernia repair History of ankle surgery History of permanent cardiac pacemaker placement For symptomatic bradycardia, 02/25 S/P cardiac catheterization On 07/30/2017 he underwent coronary angiography and was found to have 20% distal left main, minimal intimal irregularities in the LAD, patent stented segment of the first high OM branch patent stent segment of the PDA of the RCA and mild disease in the distal RCA with an EF of 50% and slightly elevated LVEDP of 16 mmHg Status post cholecystectomy Family History Brother CAD (coronary artery disease) Myocardial infarct Cancer Mother Myocardial infarct Father Cancer FROM LUNG CANCER Daughter Cancer Social History Smoking and tobacco status: former smoker (Quit 5 years ago) Quit status (tobacco): has quit using tobacco Year quit tobacco: 2016, smoked 50years Former quit date comment: 1/2- 1 packs per day Second hand smoke exposure: No Alcohol intake: current Lives independently: Yes Household members: spouse Marital status: Current occupational status: retired Vitals/I&O/Wt Last Vital Signs Temp 97.5 F L 02/09/22 11:43 Pulse 60 02/09/22 15:52 Resp 16 02/09/22 15:52 BP 118/81 02/09/22 15:52 Pulse Ox 98 02/09/22 15:52 O2 Del Method 02/09/22 15:52 02/09/22 02/09/22 02/09/22 06:59 14:59 22:59 Intake Total 500 / 500 Balance 500 / 500 Weight last 48 hrs Weight 117.934 kg Physical Exam Narrative: EXAM NARRATIVE: General: No acute distress, AO x3, on room air HEENT: PERRLA, pupils bilaterally equal and reactive Chest: Bilateral bronchial breath sounds with occasional rhonchi all over the lung [place] CVS: S1-S2 regular, soft ejection systolic murmur at aortic area, no tachycardia, no gallops, no rubs Abdomen: Soft, nontender, no organomegaly, bowel sounds present, morbidly obese Neuro: No focal deficits, no facial deformity, AO x3, power 5/5 in all limbs Data 02/09/22 12:13 02/09/22 12:13 A&P Assessment and plan (1) Stable angina: Currently unstable angina. History of CAD with multiple PCI in the past. Last stress test from 11/01 showed medium size perfusion abnormality of moderate severity of mid to apical inferior, mid to apical inferior septal vee with improved tracer uptake in apical septal vee on stress images. Last cardiac angiogram from 2019 showed patent stents in OM, patent stent in PDA. Last echocardiogram from 11/01 showed EF of 50 to 55%. Cardiology has been consulted from the ER. Plan for possible cardiac angiogram. Check echocardiogram, A1c, lipid panel. Continue with home dose of aspirin, Plavix, statin, Imdur, beta-christopher. Nitrate as needed. N.p.o. after midnight (2) Atherosclerotic heart disease of [place] coronary artery with other forms of angina pectoris: (3) Pacemaker: (4) Systolic CHF: Fairly compensated. Continue with home dose of beta-christopher, Entresto. Continue to monitor fluid status. Qualifiers: Heart failure chronicity: chronic Qualified Code(s): I50.22 - Chronic systolic (congestive) heart failure (5) Ischemic cardiomyopathy: (6) Chronic kidney disease, stage 2 (mild): Plan Full code. Cardiac diet. Heparin 5000 every 12 for DVT prophylaxis Protonix for PUD prophylaxis. Attestations Medical Necessity Statement*: Admission under observation for further management and evaluation of unstable angina in a patient with history of CAD and multiple PCI in the past Time Spent in Patient Care: Greater than 35 minutes Coding Level of Care Code Acute State Archivist for [facility] Fwd Diagnoses Stable angina I20.8 Atherosclerotic heart disease of [place] coronary artery with other forms of angina pectoris I25.118 Pacemaker Z95.0 Systolic CHF I50.22 Heart failure chronicity: chronic Ischemic cardiomyopathy I25.5 Chronic kidney disease, stage 2 (mild) N18.2
[2022-02-09 16:52] LABS: D Dimer 1.97 ug/mIFEU (0-0.59)
[2022-02-09 17:06] LABS: Thyroid Stimulating Hormone 2.27 uIU/mL (0.27-4.20)
[2022-02-09 17:16] LABS: NT Pro B Type Natriuretic Pept 379 pg/mL (0-450); Procalcitonin 0.03 ng/mL (0-0.5); Vitamin B12 1122 pg/mL (232-1245)
[2022-02-09 17:27] LABS: Iron 87 ug/dL (59-158); Percent Saturation 42.4 % (20-50); Total Iron Binding Capacity 205 mcg/dl; Unsaturated Iron Binding 118 ug/dL (112-347)
[2022-02-09 18:04] LABS: Folate Level > 20.0 ng/mL (4.5-32.2)
[2022-02-09] MEDS: heparin 5,000 unit/mL INJ 1 mL 5000 UNIT SUBCUT (18:16)
[2022-02-09] MEDS: sacubitril/valsartan 24-26 mg Tablet 4 EACH PO (18:16)
--- NOTE | 2022-02-09 18:17 | ECG_ITS ---
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 Measurements Intervals [place] Rate: 60 P: 0 NM: 0 QRS: -62 QRSD: 197 T: 117 QT: 487 QTc: 489 Interpretive Statements ELECTRONIC VENTRICULAR PACEMAKER ABNORMAL RHYTHM ECG Compared to ECG 02/09/2022 13:47:25 No significant changes Electronically Signed On 02-10-2022 20:22:52 NETBACKUP ENGINEER by Leatha Saldivar M.D. [email or web address] [email or web address] medical [email or web address]/[id number]
[2022-02-09 18:33] LABS: Troponin 5 6HR 11.18 ng/L (0-15)
[2022-02-09 18:35] LABS: Troponin 5 6HR Delta -0.82 ng/L (0-12)
--- NOTE | 2022-02-09 18:55 | P.CONIM_ITS ---
Providers/Reason For Consult Consulting Physician/Specialty*: TRACEY Saldivar MD/cardiology Reason for Consult*: PresentingPatient with history of coronary disease, status post multiple PCI's, increasing episodes of chest pains. Requesting Physician: Dr. Chanel Attending Physician: Andrzej Chanel MD Primary Care Provider: Lauren Chin MD History of Present Illness History of Present Illness Miky Hoffman is a 76 year old male with a history of coronary artery disease, status post multiple PCI's now is presenting with increasing episodes of chest pain for the last 1 week. This patient has a history of ASHD, myocardial infarction and multiple PCI's. His most recent cardiac catheterization was in 2019. At that time he was found to have patent stented segments in the right coronary artery and obtuse marginal artery. Mild to moderate diffuse disease was noted to the other vessels. Based on the angiogram findings, it was opted to treat her medically. Most recently had a Myocardial perfusion imaging in October 2021. He was found to have no significant coronary ischemia based on that study. According to the patient, he has been having episodes of chest pain/tightness intermittently, almost every day for the last 1 week. The intensity of the pain was awaiting review from 3-7. He separately may last for few minutes to 7 days few hours. He described as a heavy/tight feeling in the mid substernal region. It was radiating across the chest, to the neck and to both shoulders. At times the pain may radiate to the back between the shoulder blades. He had associated shortness of breath and fatigue. His functional status has been slowly deteriorating over the last few weeks. Denies any fever or chills. No cough. No palpitation, dizziness or syncopal episodes. He has been compliant with medications. No recent medication changes. He had another episode of prolonged chest pain this afternoon while he was outside the house doing something. The pain was radiating across the chest and to his neck. He had associated shortness of breath. Intensity of the pain was 6-7 over 10. For that reason, he decided to come inside the house. He tried sublingual nitro. The symptoms currently somewhat better. He continued to have the uneasy feeling in the chest. For that reason, he decided to come to the hospital. Apparently he was seen in the emergency room 3 days ago with similar symptoms. The intensity of the pain was less severe. The work-up was negative. He was discharged home from the emergency room. He has a history of hypertension, dyslipidemia, cardiomyopathy, permanent pacer implantation for symptomatic bradycardia, recurrent TIAs, chronic kidney disease, congestive heart failure and many other conditions. He has been fairly stable up until recently. Review of Systems Narrative: CONSTITUTIONAL: No fever or chills. Easy fatigability and shortness of breath with exertion EYES: No blurring of vision or other visual disturbances lately. Has some transient blurring in the right eye 3 days ago, lasted for 10 minutes or so and then gradually subsided ENT: No hoarseness of voice, auditory disturbances or sore throat. CARDIOVASCULAR: As mentioned above. RESPIRATORY: No significant cough. GASTROINTESTINAL: No hematemesis or melena. GENITOURINARY: No dysuria or hematuria. INTEGUMENTARY: No skin rashes or history of skin cancer. NEURO: No transient ischemic attacks or amaurosis. PSYCHIATRIC: No history of psychosis or major depression. HEMATOLOGIC: No bleeding disorders or significant anemia. ENDOCRINE: No history of polyuria or polydipsia. MUSCULOSKELETAL: No recent joint pain or swelling. ALLERGY/IMMUNOLOGY: As mentioned above. Medications/Allergies Home Medications Medication Instructions Recorded Confirmed Last Taken Type aspirin 81 mg tablet,delayed 81 mg PO DAILY 02/08/19 02/09/22 02/09/22 History release calcium phosphate 250 mg-vit D3 1 tab PO BID 02/08/19 02/09/22 02/09/22 History 12.5 mcg (500 unit) chewable tablet (Citracal-D3 Gummies) cyanocobalamin (vitamin B-12) 1,000 mcg PO DAILY 02/08/19 02/09/22 02/09/22 History 1,000 mcg capsule multivitamin 1 tab PO QAM 02/08/19 02/09/22 02/09/22 History guaifenesin 600 mg tablet, 600 mg PO Q12H PRN Congestion 12/24/19 02/09/22 12/23/19 History extended release 12 hr (Mucinex) ascorbate calcium (vitamin C) 500 500 mg PO DAILY 05/24/20 02/09/22 02/09/22 History mg tablet cholecalciferol (vitamin D3) 25 25 mcg PO DAILY 05/24/20 02/09/22 02/09/22 History mcg (1,000 unit) capsule cyclobenzaprine 10 mg tablet 10 mg PO TID PRN Pain #30 tabs 11/09/20 02/09/22 Unknown Rx omeprazole 20 mg capsule,delayed 20 mg PO DAILY #90 caps 06/25/21 02/09/22 02/09/22 Rx release nitroglycerin 0.4 mg sublingual See Rx Instructions .Route 07/10/21 02/09/22 10/19/21 Rx tablet .COMPLEX #30 tabs colchicine 0.6 mg tablet 0.6 mg PO DAILY PRN gout 10/20/21 02/09/22 Unknown History sacubitril 97 mg-valsartan 103 mg 1 tab PO BID #180 tabs 12/10/21 02/09/22 02/09/22 Rx tablet (Entresto) amlodipine 2.5 mg tablet 2.5 mg PO DAILY 02/07/22 02/09/22 02/09/22 History atorvastatin 40 mg tablet 40 mg PO QPM 02/07/22 02/09/22 02/09/22 History carvedilol 12.5 mg tablet 12.5 mg PO BID 02/07/22 02/09/22 02/09/22 History clopidogrel 75 mg tablet 75 mg PO DAILY 02/07/22 02/09/22 02/09/22 History eszopiclone 3 mg tablet (Lunesta) 3 mg PO BEDTIME PRN Sleep 02/07/22 02/09/22 Unknown History isosorbide mononitrate 30 mg 30 mg PO DAILY 02/07/22 02/09/22 02/09/22 History tablet,extended release 24 hr omega 4-dtg-osn-fish oil 300 1 cap PO BID 02/07/22 02/09/22 02/09/22 History mg-1,000 mg capsule (Fish Oil) tamsulosin 0.4 mg capsule 0.4 mg PO DAILY 02/07/22 02/09/22 02/09/22 History zinc acetate 50 mg (zinc) capsule 50 mg PO DAILY 02/07/22 02/09/22 02/09/22 History Allergies Allergy/AdvReac Type Severity Reaction Status Date / Time dutasteride [From Avodart] AdvReac Unknown Verified 02/09/22 11:56 Current Medications Generic Name Dose Route Start Last Admin Trade Name Freq PRN Reason Stop Dose Admin Heparin Sodium (Porcine) 5,000 unit 02/09/22 18:30 02/09/22 18:16 Heparin 5,000 Unit/Ml Inj 1 Ml SUBCUT 5,000 unit Q12H CEDRIC Administration Sacubitril/Valsartan 4 each 02/09/22 18:00 02/09/22 18:16 Sacubitril/Valsartan 24-26 Mg Tablet PO 4 each BID CEDRIC Administration PFSH Acute PFSH: Medical History Abdominal pain Abnormal nuclear cardiac imaging test Arteriosclerotic heart disease Atherosclerosis of coronary artery of [place] heart without angina pectoris Blindness of left eye Cardiac ischemia 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 arthritis Chest pain Cholecystectomy planned Chronic gout Chronic kidney disease, stage 2 (mild) Chronic neck pain Chronic systolic (congestive) heart failure Diaphoresis Diverticulosis Elevated blood sugar Essential (primary) hypertension Gastro-esophageal reflux disease without esophagitis Hearing loss of both ears Heart murmur Hemorrhoids, internal Hepatomegaly History of colon polyps History of medication noncompliance Hx of cardiomyopathy Hyperuricemia Ischemic cardiomyopathy LVEF <40% Metatarsalgia of both feet Mixed hyperlipidemia Patel's neuroma of left foot Neuropathy Nicotine dependence, cigarettes, uncomplicated Osteopenia Pacemaker Unspecified osteoarthritis, unspecified site Surgical History H/O hernia repair History of ankle surgery History of permanent cardiac pacemaker placement For symptomatic bradycardia, 02/25 S/P cardiac catheterization Status post cholecystectomy Family History Brother CAD (coronary artery disease) Myocardial infarct Cancer Mother Myocardial infarct Father Cancer FROM LUNG CANCER Daughter Cancer Social History Smoking and tobacco status: former smoker (Quit 5 years ago) Quit status (tobacco): has quit using tobacco Year quit tobacco: 2017, smoked 50years Former quit date comment: 1/2- 1 packs per day Second hand smoke exposure: No Alcohol intake: current Lives independently: Yes Household members: spouse Marital status: Current occupational status: retired Vitals/I&O/Wt Last Vital Signs Temp 97.5 F L 02/09/22 11:43 Pulse 61 02/09/22 17:42 Resp 18 02/09/22 17:42 BP 127/81 02/09/22 17:42 Pulse Ox 97 02/09/22 17:16 O2 Del Method 02/09/22 18:20 02/09/22 02/09/22 02/09/22 06:59 14:59 22:59 Intake Total 500 / 500 Balance 500 / 500 Weight last 48 hrs Weight 260 lb Physical Exam Narrative: GENERAL: The patient is alert and oriented times three. Not in any acute distress. HEENT: No significant pallor, icterus or lymphadenopathy.Oral cavity: There are no mucous membrane lesions. NECK: Trachea appears to be central. No masses noted. No JVD or thyromegaly appreciated. RESPIRATORY: Chest is symmetrical. No intercostals muscle retraction or any accessory muscle activation. There is no chest wall tenderness. Breath sounds are heard bilaterally. No rales or rhonchi heard. No evidence of any consolidation. BREASTS: Deferred. HEART: The heart sounds are normal. No S3 or S4. Short systolic murmur in the left sternal border. No diastolic murmurs. No pericardial rub ABDOMEN: No vessel pulsations or distention. No tenderness. No organomegaly appreciated. Bowel sounds are normally heard. : Deferred. RECTAL: Deferred. LYMPHATIC: No lymphadenopathy noted in the neck. EXTREMITIES: No edema or cyanosis. No clubbing. MUSCULOSKELETAL: No acute joint deformities or swelling SKIN: There are no significant rashes or ecchymosis NEUROPSYCHIATRIC: The patient is alert and oriented x3. Appears to be in a good mood. No tremors or rigidity noted. Data 02/09/22 12:13 02/09/22 12:13 Other Labs: Laboratory Last Values WBC 6.3 10^3/uL (4.0-10.0) 02/09/22 12:13 RBC 4.42 10^6/uL (4.1-5.3) 02/09/22 12:13 Hgb 14.5 g/dL (11.7-16.6) 02/09/22 12:13 Hct 43.8 % (42.0-52.0) 02/09/22 12:13 MCV 99.1 fl (80-94) H 02/09/22 12:13 MCH 32.8 pg (28.0-34.0) 02/09/22 12:13 MCHC 33.1 g/dL (30.0-36.0) 02/09/22 12:13 RDW 11.9 % (12.1-15.1) L 02/09/22 12:13 Plt Count 211 10^3/cmm (130-400) 02/09/22 12:13 MPV 10.2 fL (7.4-10.4) 02/09/22 12:13 Neut % (Auto) 55.5 % 02/09/22 12:13 Lymph % (Auto) 32.6 % 02/09/22 12:13 Traverse % (Auto) 8.8 % 02/09/22 12:13 Eos % (Auto) 1.9 % 02/09/22 12:13 Baso % (Auto) 0.9 % 02/09/22 12:13 Neut # (Auto) 3.51 10^3/uL (1.8-7.7) 02/09/22 12:13 Lymph # (Auto) 2.1 10^3/uL (0.8-4.8) 02/09/22 12:13 Traverse # (Auto) 0.6 10^3/uL (0.2-0.9) 02/09/22 12:13 Eos # (Auto) 0.1 10^3/uL (0.0-0.8) 02/09/22 12:13 Baso # (Auto) 0.1 10^3/uL (0.0-0.1) 02/09/22 12:13 Nucleated RBC % (auto) 0 % 02/09/22 12:13 Nucleated RBCs # 0.0 /100WBC 02/09/22 12:13 D-Dimer 1.97 ug/mIFEU (0-0.59) H 02/09/22 12:13 Sodium 141 mmol/L (136-145) 02/09/22 12:13 Potassium 4.2 mmol/L (3.5-5.1) 02/09/22 12:13 Chloride 106 mmol/L (98-107) 02/09/22 12:13 Carbon Dioxide 25 mmol/L (22-29) 02/09/22 12:13 Anion Gap 14.2 (5-19) 02/09/22 12:13 BUN 21 mg/dL (8-23) 02/09/22 12:13 Creatinine 1.1 mg/dL (0.7-1.2) 02/09/22 12:13 GFR Calculation Not Reportable 02/09/22 12:13 Glucose 114 mg/dL (65-115) 02/09/22 12:13 Calculated Osmolality 296 mOsm/kg (285-295) H 02/09/22 12:13 Calcium 9.1 mg/dL (8.5-10.5) 02/09/22 12:13 Iron 87 ug/dL (59-158) 02/09/22 12:13 TIBC 205 mcg/dl 02/09/22 12:13 % Saturation 42.4 % (20-50) 02/09/22 12:13 Unsat Iron Binding 118 ug/dL (112-347) 02/09/22 12:13 Total Bilirubin 0.3 mg/dL (0.15-1.2) 02/09/22 12:13 AST 26 U/L (0-40) 02/09/22 12:13 ALT 38 U/L (0-41) 02/09/22 12:13 Alkaline Phosphatase 64 U/L (40-130) 02/09/22 12:13 Troponin T Baseline 12 ng/L (0-15) 02/09/22 12:13 Troponin T 120 Minute 14.88 ng/L (0-15) 02/09/22 13:58 Delta Troponin T 2.88 ABS# (0-10) 02/09/22 13:58 Troponin T Hi Sens 6Hr 11.18 ng/L (0-15) 02/09/22 18:06 Troponin T Hi Sens 6Hr Delta -0.82 ng/L (0-12) L 02/09/22 18:06 NT-Pro-B Natriuret Pep 379 pg/mL (0-450) 02/09/22 12:13 Total Protein 6.8 g/dL (6.6-8.7) 02/09/22 12:13 Albumin 4.2 g/dL (3.5-5.2) 02/09/22 12:13 Globulin 2.6 g/dL (1.3-4.6) 02/09/22 12:13 Vitamin B12 1122 pg/mL (232-1245) 02/09/22 12:13 Folate > 20.0 ng/mL (4.5-32.2) 02/09/22 12:13 Procalcitonin 0.03 ng/mL (0-0.5) 02/09/22 12:13 TSH 2.27 uIU/mL (0.27-4.20) 02/09/22 12:13 Other data: ECHO 10/22/21 1. This is a technically difficult. Optison was used per ?protocol. ?2. Normal left ventricular cavity size.? Mildly decreased left ?ventricular systolic function. Left ventricular ejection ?fraction is estimated at 50-55%.? Although no diagnostic ?regional wall motion abnormality could be identified, this ?possibility cannot be completely excluded.? Abnormal septal ?motion consistent with pacemaker. ?3.? Direct comparison? to previous study dated 12/03/2019,? is ?not possible due to the difficult study. 100% V paced rhythm 10/20/21 Stress Test 1. Medium sized perfusion abnormality of moderate severity of mid to apical ?inferior, mid to apical inferoseptal vee with improved tracer uptake in ?apical septal wall on stress images. ?2.? This may represent attenuation artifact or old myocardial infarction in ?right coronary artery territory. ?3. The left ventricular ejection fraction is mildly reduced with a value of ?51%. ?4. There is mildly decreased wall thickening of mid to apical inferior vee. ?5.? EKG portion of the study will be reported separately. 1. Nondiagnostic EKG changes with the LexiScan infusion due to baseline paced rhythm. 2. No LexiScan induced chest pain or cardiac arrhythmia. 3. Normal blood pressure and heart rate response. 12/31/19 MUGA LV ejection fraction estimated to be 40%. ?Wall motion of normalities as mentioned above. 12/25/19 [facility] ? ? Patient underwent left heart catheterization with a left and right coronary angiogram and LV angiogram today.? The findings are as follows. ? 2. The stented segments of the high obtuse marginal branch(intermedius artery)? was found to be patent.? The stented segment of the posterior descending artery of the right coronary artery also was found to be patent. Mild to moderate diffuse disease where noted in the other vessels.? The LVEDP was around 21 mmHg.? LV ejection fraction was 35 to 40%. ? 3. Based on the above angiogram findings and also patient's clinical presentation, we will try to optimize the medical treatment. ? A&P Assessment and plan (1) Atherosclerotic heart disease of [place] coronary artery with unstable angina pectoris: Patient's symptoms are suggestive of an unstable angina. No evidence of myocardial injury so far. No significant EKG changes. No evidence of myocardial injury. At this point, the patient may be continued on the current medications. I also may start him on subcu Lovenox on a therapeutic dose. Serial cardiac enzymes would be appropriate to rule out myocardial infarction. He has been taking Plavix and aspirin at home. This may be continued. (2) Ischemic cardiomyopathy: Patient is known to have LV ejection fraction around 40%. He is on Entresto. This may be continued. (3) Essential (primary) hypertension: Currently normotensive. May continue on the current medications. (4) Mixed hyperlipidemia: Continue on the current medications. (5) Pacemaker: The pacemaker function was found to be appropriate with most recent interrogation report. We will continue the current monitoring schedule. Plan Other problems are Chronic kidney disease of stage II Recurrent TIAs/visual disturbances GERD Bruit GERD abnormal cardiac enzymes rule out myocardial infarction. Patient be started on Lovenox therapeutic dose. In view of his ongoing worsening of symptoms, in order to further evaluate the coronary status, a cardiac relative would be appropriate. The risk of bleeding, hematoma, vascular injury, myocardial infarction, myocardial perforation, malignant cardiac arrhythmias ,CVA, renal failure and other concomitant complications were explained in detail. Patient understood this well and consented to proceed. We may go ahead and schedule for a cardiac catheterization tomorrow afternoon. Based on the results of the above tests and the patient's clinical progress, further recommendations will be made. Thank you for the opportunity to evaluate this patient and make these recommendations Consult Attestations Medical Necessity Statement: Patient requires continued hospital stay for close monitoring and further management Coding Level of Care Code Acute Success Coach for [place] Fwd History Expanded Problem Focused Exam Detailed Medical Decision Making High Complexity Diagnoses Atherosclerotic heart disease of [place] coronary artery with unstable angina pectoris I25.110 Ischemic cardiomyopathy I25.5 Essential (primary) hypertension I10 Mixed hyperlipidemia E78.2 Pacemaker Z95.0
[2022-02-09] MEDS: carvedilol 12.5 mg Tablet PO (20:45)
[2022-02-09] MEDS: atorvastatin 40 mg Tablet PO (20:46)
[2022-02-09] MEDS: enoxaparin 100 mg/mL Syringe SUBCUT (22:09)
[2022-02-10] VITALS (15 sets, daily range): BP systolic 115–146; BP diastolic 66–84; PULSE 60–81; RESP 12–21; TEMP 36.7–36.8; O2SAT 94–98
[2022-02-10 04:25] LABS: Basophils % 0.7 %; Hematocrit 39.5 % (42.0-52.0); Hemoglobin 12.8 g/dL (11.7-16.6); Lymphocytes # 2.5 10^3/uL (0.8-4.8); Lymphocytes % 41.1 %; Mean Corpuscular HGB Conc 32.4 g/dL (30.0-36.0); Mean Corpuscular Hemoglobin 32.5 pg (28.0-34.0); Mean Corpuscular Volume 100.3 fl (80-94); Mean Platelet Volume 10.1 fL (7.4-10.4); Monocytes # 0.4 10^3/uL (0.2-0.9); Monocytes % 6.9 %; Neutrophils % 51.1 %; Nucleated Red Blood Cells % 0 %; Platelet Count 179 10^3/cmm (130-400); Red Blood Count 3.94 10^6/uL (4.1-5.3); White Blood Count 6.1 10^3/uL (4.0-10.0)
[2022-02-10 04:35] LABS: Estmated Average Glucose 117; Hemoglobin A1C 5.7 % (4.0-6.0)
[2022-02-10 04:42] LABS: Alanine Aminotransferase 34 U/L (0-41); Albumin Level 3.8 g/dL (3.5-5.2); Alkaline Phosphatase 51 U/L (40-130); Aspartate Amino Transferase 22 U/L (0-40); Blood Urea Nitrogen 22 mg/dL (8-23); Calcium 8.7 mg/dL (8.5-10.5); Carbon Dioxide 26 mmol/L (22-29); Chol HDL Ratio 4.07 mg/dL (1.0-5.00); Cholesterol 110 mg/dL (0-200); Globulin 2.5 g/dL (1.3-4.6); Glucose 107 mg/dL (65-115); HDL Cholesterol 27 mg/dL (60-100); LDL Cholesterol Calculated 50 mg/dL (50-129); Magnesium 1.5 mg/dL (1.7-2.3); Phosphorus 3.2 mg/dL (2.5-4.5); Total Bilirubin 0.3 mg/dL (0.15-1.2); Total Protein 6.3 g/dL (6.6-8.7); Triglycerides 165 mg/dL (0-150); VLDL Cholestrol Calculation 33 mg/dL (0-30)
--- NOTE | 2022-02-10 06:00 | USCV_ITS ---
Miky Hoffman Age: 76 Gender: M : 1945 Exam Date: 02/10/2022 06:56 Ordering Phys: Andrzej Chanel MD Technologist: LAUREL Exam Location: [facility] [place] Indication: CAD, CHF BP: 142 / 84 HR: Rhythm: Sinus Technical Quality: Suboptimal MEASUREMENTS (Male / Female) Normal Values 2D ECHO LVOT Diameter 2.0 cm LV Ejection Fraction MOD 2C 39.5 % LV Ejection Fraction 2C AL 38.4 % LA Diameter 2.8 cm LA Width 3.6 cm LA Height 5.4 cm RA Width 3.5 cm RA Height 5.1 cm Aorta at Sinotubular Diameter 3.0 cm M-MODE Aortic Annulus Diameter 3.3 cm LA Ao Ratio MM 0.8 MV E Point Septal Separation 0.7 cm DOPPLER AV Peak Velocity 125.0 cm/s LVOT Peak Velocity 99.0 cm/s AV Area Cont Eq vti 2.7 cm squared AV Area Cont Eq pk 2.5 cm squared MV Peak Velocity 80.0 cm/s MV Area PHT 3.0 cm squared Mitral E to A Ratio 1.5 MV E' Velocity 57.5 cm/s Mitral E to MV E' Ratio 15.9 Mitral E to LV E' Lateral Ratio 16.1 Mitral E to LV E' Septal Ratio 15.7 TR Peak Velocity 133.1 cm/s TR Peak Gradient 7.1 mmHg TR Mean Velocity 175.7 cm/s TR Mean Gradient 13.4 mmHg TR Velocity Time Integral 73.2 cm Right Atrial Pressure 8.0 mmHg Pulmonary Artery Systolic Pressu 15.1 mmHg PV Peak Velocity 77.0 cm/s RV Acceleration Time 0.1 s RV Ejection Time 0.3 s RV AcT/ET 0.6 FINDINGS Left Ventricle Normal LV size with diminished ejection fraction of 39.5%. Diffuse hypokinesis of the septum, anteroseptum and LV apex. Right Ventricle The right ventricle is normal in size and function. Right Atrium The right atrium is normal in size. Left Atrium Mildly increased left atrial size. Mitral Valve No gross abnormalities noted Aortic Valve Thickened aortic valve. Tricuspid Valve Tricuspid valve not well visualized. Pulmonic Valve Pulmonic valve not well visualized. Pericardium Normal pericardium without effusion. Aorta Normal ascending aorta dimension. IVC Inferior vena cava not visualized. CONCLUSIONS Normal LV size with diminished ejection fraction of 39.5%. Diffuse hypokinesis of the septum, anteroseptum and LV apex. Mildly increased left atrial size. Thickened aortic valve. There is no pericardial effusion. There are no intracardiac masses. Technically difficult study because of the poor ultrasonic window. Echo contrast-Optison was used for endocardial delineation and ejection fraction estimation Dr Leatha Saldivar MD [facility] (Electronically Signed) Final Date: 10 February 2022 16:51 S
[2022-02-10 06:38] LABS: Anion Gap 12.7 (5-19); Chloride 106 mmol/L (98-107); Osmolality Calculated 296 mOsm/kg (285-295); Potassium 3.7 mmol/L (3.5-5.1); Sodium 141 mmol/L (136-145)
[2022-02-10] MEDS: perflutren protein-a microsphr 0.22 mg/mL SDV 3 mL IV (07:30)
[2022-02-10] MEDS: enoxaparin 100 mg/mL Syringe SUBCUT (09:45)
[2022-02-10] MEDS: sacubitril/valsartan 24-26 mg Tablet 4 EACH PO ×2 (09:46→17:28)
[2022-02-10] MEDS: cyanocobalamin 1,000 mcg Tablet 1000 MCG PO (09:47)
[2022-02-10] MEDS: isosorbide mononitrate ER 30 mg Tablet PO (09:47)
[2022-02-10] MEDS: aspirin 81 mg EC Tablet PO (09:48)
[2022-02-10] MEDS: clopidogrel 75 mg Tablet PO (09:49)
[2022-02-10] MEDS: pantoprazole DR 40 mg Tablet PO (09:50)
--- NOTE | 2022-02-10 10:40 | PM.PN ---
Subjective Subjective: Patient is feeling okay. Has not had any significant chest pains, since the last night. No fever or chills. No cough. No evidence of any medical injury so far. Medications: Medication Review Details: Current Medications Acetaminophen (Acetaminophen 325 Mg Tablet) 650 mg PO Q6H PRN PRN Reason: Mild/Mod Pain Or Temp >/= 101 Aspirin (Aspirin 81 Mg Ec Tablet) 81 mg PO DAILY [facility] Last Admin: 02/10/22 09:48 Dose: 81 mg Atorvastatin Calcium (Atorvastatin 40 Mg Tablet) 40 mg PO BEDTIME [facility] Last Admin: 02/09/22 20:46 Dose: 40 mg Carvedilol (Carvedilol 12.5 Mg Tablet) 12.5 mg PO BID@0900,2100 [facility] Last Admin: 02/09/22 20:45 Dose: 12.5 mg Clopidogrel Bisulfate (Clopidogrel 75 Mg Tablet) 75 mg PO DAILY [facility] Last Admin: 02/10/22 09:49 Dose: 75 mg Colchicine (Colchicine 0.6 Mg Tablet) 0.6 mg PO DAILY PRN PRN Reason: gout Cyanocobalamin (Cyanocobalamin 1,000 Mcg Tablet) 1,000 mcg PO DAILY [facility] Last Admin: 02/10/22 09:47 Dose: 1,000 mcg Diphenhydramine HCl (Diphenhydramine 50 Mg Capsule) 50 mg PO ONCE ONE Stop: 02/10/22 10:37 Enoxaparin Sodium (Enoxaparin 120 Mg/0.8 Ml Syringe) 120 mg SUBCUT Q12H [facility] Sodium Chloride (Sodium Chloride 0.9%) 1,000 mls @ 50 mls/hr IV .Q20H ONE Stop: 02/11/22 06:35 Isosorbide Mononitrate (Isosorbide Mononitrate Er 30 Mg Tablet) 30 mg PO DAILY [facility] Last Admin: 02/10/22 09:47 Dose: 30 mg Magnesium Hydroxide (Magnesium Hydroxide 30 Ml Udc) 30 ml PO DAILY PRN; Protocol PRN Reason: Constipation (see protocol) Ondansetron HCl (Ondansetron 2 Mg/Ml Sdv 2 Ml) 4 mg IVP Q6H PRN PRN Reason: NAUSEA AND VOMITING Pantoprazole Sodium (Pantoprazole Dr 40 Mg Tablet) 40 mg PO DAILY [facility] Last Admin: 02/10/22 09:50 Dose: 40 mg Sacubitril/Valsartan (Sacubitril/Valsartan 24-26 Mg Tablet) 4 each PO BID [facility] Last Admin: 02/10/22 09:46 Dose: 4 each Vitals/I&O/Wt Last Vital Signs Temp 97.6 F 02/09/22 20:00 Pulse 61 02/10/22 07:08 Resp 14 02/10/22 07:08 BP 142/84 02/10/22 07:08 Pulse Ox 98 02/10/22 07:08 O2 Del Method 02/09/22 20:00 02/09/22 02/10/22 02/10/22 22:59 06:59 14:59 Intake Total 100 / 600 0 / 600 Balance 100 / 600 0 / 600 Weight last 48 hrs Weight 260 lb Weight 260 lb Physical Exam Narrative: GENERAL: The patient is alert and oriented times three. Not in any acute distress. HEENT: No significant pallor, icterus or lymphadenopathy.Oral cavity: There are no mucous membrane lesions. NECK: Trachea appears to be central. No masses noted. No JVD or thyromegaly appreciated. RESPIRATORY: Chest is symmetrical. No intercostals muscle retraction or any accessory muscle activation. There is no chest wall tenderness. Breath sounds are heard bilaterally. No rales or rhonchi heard. No evidence of any consolidation. BREASTS: Deferred. HEART: The heart sounds are normal. No S3 or S4. Short systolic murmur in the left sternal border. No diastolic murmurs. No pericardial rub ABDOMEN: No vessel pulsations or distention. No tenderness. No organomegaly appreciated. Bowel sounds are normally heard. : Deferred. RECTAL: Deferred. LYMPHATIC: No lymphadenopathy noted in the neck. EXTREMITIES: No edema or cyanosis. No clubbing. MUSCULOSKELETAL: No acute joint deformities or swelling SKIN: There are no significant rashes or ecchymosis NEUROPSYCHIATRIC: The patient is alert and oriented x3. Appears to be in a good mood. No tremors or rigidity noted. Data 02/10/22 03:26 02/10/22 03:26 Other Labs: Laboratory Last Values WBC 6.1 10^3/uL (4.0-10.0) 02/10/22 03:26 RBC 3.94 10^6/uL (4.1-5.3) L 02/10/22 03:26 Hgb 12.8 g/dL (11.7-16.6) 02/10/22 03:26 Hct 39.5 % (42.0-52.0) L 02/10/22 03:26 MCV 100.3 fl (80-94) H 02/10/22 03:26 MCH 32.5 pg (28.0-34.0) 02/10/22 03:26 MCHC 32.4 g/dL (30.0-36.0) 02/10/22 03:26 RDW 12.0 % (12.1-15.1) L 02/10/22 03:26 Plt Count 179 10^3/cmm (130-400) 02/10/22 03:26 MPV 10.1 fL (7.4-10.4) 02/10/22 03:26 Neut % (Auto) 51.1 % 02/10/22 03:26 Lymph % (Auto) 41.1 % 02/10/22 03:26 [place] % (Auto) 6.9 % 02/10/22 03:26 Eos % (Auto) 0.0 % 02/10/22 03:26 Baso % (Auto) 0.7 % 02/10/22 03:26 Neut # (Auto) 3.10 10^3/uL (1.8-7.7) 02/10/22 03:26 Lymph # (Auto) 2.5 10^3/uL (0.8-4.8) 02/10/22 03:26 [place] # (Auto) 0.4 10^3/uL (0.2-0.9) 02/10/22 03:26 Eos # (Auto) 0.0 10^3/uL (0.0-0.8) 02/10/22 03:26 Baso # (Auto) 0.0 10^3/uL (0.0-0.1) 02/10/22 03:26 Nucleated RBC % (auto) 0 % 02/10/22 03:26 Nucleated RBCs # 0.0 /100WBC 02/10/22 03:26 D-Dimer 1.97 ug/mIFEU (0-0.59) H 02/09/22 12:13 Sodium 141 mmol/L (136-145) 02/10/22 03:26 Potassium 3.7 mmol/L (3.5-5.1) 02/10/22 03:26 Chloride 106 mmol/L (98-107) 02/10/22 03:26 Carbon Dioxide 26 mmol/L (22-29) 02/10/22 03:26 Anion Gap 12.7 (5-19) 02/10/22 03:26 BUN 22 mg/dL (8-23) 02/10/22 03:26 Creatinine 1.0 mg/dL (0.7-1.2) 02/10/22 03:26 GFR Calculation Not Reportable 02/10/22 03:26 Glucose 107 mg/dL (65-115) 02/10/22 03:26 Estimat Average Glucose 117 02/10/22 03:26 Hemoglobin A1c 5.7 % (4.0-6.0) 02/10/22 03:26 Calculated Osmolality 296 mOsm/kg (285-295) H 02/10/22 03:26 Calcium 8.7 mg/dL (8.5-10.5) 02/10/22 03:26 Phosphorus 3.2 mg/dL (2.5-4.5) 02/10/22 03:26 Magnesium 1.5 mg/dL (1.7-2.3) L 02/10/22 03:26 Iron 87 ug/dL (59-158) 02/09/22 12:13 TIBC 205 mcg/dl 02/09/22 12:13 % Saturation 42.4 % (20-50) 02/09/22 12:13 Unsat Iron Binding 118 ug/dL (112-347) 02/09/22 12:13 Total Bilirubin 0.3 mg/dL (0.15-1.2) 02/10/22 03:26 AST 22 U/L (0-40) 02/10/22 03:26 ALT 34 U/L (0-41) 02/10/22 03:26 Alkaline Phosphatase 51 U/L (40-130) 02/10/22 03:26 Troponin T Baseline 12 ng/L (0-15) 02/09/22 12:13 Troponin T 120 Minute 14.88 ng/L (0-15) 02/09/22 13:58 Delta Troponin T 2.88 ABS# (0-10) 02/09/22 13:58 Troponin T Hi Sens 6Hr 11.18 ng/L (0-15) 02/09/22 18:06 Troponin T Hi Sens 6Hr Delta -0.82 ng/L (0-12) L 02/09/22 18:06 NT-Pro-B Natriuret Pep 379 pg/mL (0-450) 02/09/22 12:13 Total Protein 6.3 g/dL (6.6-8.7) L 02/10/22 03:26 Albumin 3.8 g/dL (3.5-5.2) 02/10/22 03:26 Globulin 2.5 g/dL (1.3-4.6) 02/10/22 03:26 Triglycerides 165 mg/dL (0-150) H 02/10/22 03:26 Cholesterol 110 mg/dL (0-200) 02/10/22 03:26 LDL Cholesterol, Calc 50 mg/dL (50-129) 02/10/22 03:26 Total VLDL Cholesterol 33 mg/dL (0-30) H 02/10/22 03:26 HDL Cholesterol 27 mg/dL (60-100) L 02/10/22 03:26 Cholesterol/HDL Ratio 4.07 mg/dL (1.0-5.00) 02/10/22 03:26 Vitamin B12 1122 pg/mL (232-1245) 02/09/22 12:13 Folate > 20.0 ng/mL (4.5-32.2) 02/09/22 12:13 Procalcitonin 0.03 ng/mL (0-0.5) 02/09/22 12:13 TSH 2.27 uIU/mL (0.27-4.20) 02/09/22 12:13 A&P Assessment and plan (1) Atherosclerotic heart disease of [place] coronary artery with unstable angina pectoris: Patient's symptoms are suggestive of an unstable angina. No evidence of myocardial injury so far. The EKG is uninterpretable due to 100% V pacing. In view of his unstable anginal symptoms, we may go ahead and do the cardiac catheterization today based on the results, further recommendations will be made. We will continue on the current medications. (2) Ischemic cardiomyopathy: Patient is known to have LV ejection fraction around 40%. He is on Entresto. This may be continued. (3) Essential (primary) hypertension: Currently normotensive. May continue on the current medications. (4) Mixed hyperlipidemia: Continue on the current medications. (5) Pacemaker: The pacemaker function was found to be appropriate with most recent interrogation report. We will continue the current monitoring schedule. 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 The risk of bleeding, hematoma, vascular injury, myocardial infarction, myocardial perforation, malignant cardiac arrhythmias ,CVA, renal failure and other concomitant complications were once again explained in detail. Patient understood this well and consented to proceed. Attestations Medical Necessity Statement*: Patient requires continued hospital stay for close monitoring and further management Coding Level of Care Code Acute Emergency Veterinarian for Chg Fwd History Expanded Problem Focused Exam Expanded Problem Focused Medical Decision Making Moderate Complexity Diagnoses Atherosclerotic heart disease of [place] coronary artery with unstable angina pectoris I25.110 Ischemic cardiomyopathy I25.5 Essential (primary) hypertension I10 Mixed hyperlipidemia E78.2 Pacemaker Z95.0
[2022-02-10] MEDS: sodium chloride 0.9% 1,000 ML 50 ML IV (11:20)
[2022-02-10] MEDS: diphenhydrAMINE 50 mg Capsule PO (11:21)
[2022-02-10] MEDS: carvedilol 12.5 mg Tablet PO ×2 (11:23→20:32)
--- NOTE | 2022-02-10 14:05 | W.PM.OPSUD ---
Surgery/Procedure H&P Update DATE OF PROCEDURE: February 10, 2022 DATE H&P PERFORMED: 02/09/22 H&P UPDATE INFORMATION: I have reviewed H&P completed within last 30 days, I have examined patient prior to procedure and No changes to prior documentation PREOP DIAGNOSIS: Unstable angina PRIMARY INDICATION FOR PROCEDURE: Unstable angina/coronary artery disease/status post PCI PLANNED PROCEDURE: Left heart catheterization with left and right coronary angiogram and possible PCI PATIENT REASSESSED PRIOR TO SEDATION, WITH NO CHANGE NOTED: Yes PHYSICAL EXAM: alert, oriented x 3, clear to auscultation bilaterally and regular rate & rhythm AIRWAY EVAL/ANESTHESIA PLAN: normal airway, see other exam findings, ASA III, Monitored Anesthesia, Local Anesthesia, Risks, benefits & alternatives of sedation and/or procedure discussed and Patient agrees to continue as planned
--- NOTE | 2022-02-10 14:30 | XACV_ITS ---
Exam Room: [facility] Ht: 185 cm Wt: 118 kg BSA: 2.50 m2 Gender: Male : 1945 Any Known Allergies: No known allergies Exam Priority: Routine Procedure(s): Procedure Description: Diagnostic procedure Procedure Description: Left Heart Catheterization Procedure Description: Left ventriculography Procedure Description: Coronary Angiography Yariel CHRISTINE; Diagnostic Cath Status: Urgent Diagnostic Findings * The left main is a medium to large caliber vessel with no significant stenotic lesions. * The left anterior descending artery is a medium caliber vessel which was found to have mild diffuse disease in the proximal and mid segment. The artery appears to be wrapping around the LV apex minimally. No significant external lesions were noted. It gives off multiple diagonal branches of relatively smaller caliber . No significant stenotic lesions were noted in these vessels. * The left circumflex artery is a medium caliber vessel which gives off a high obtuse marginal branch which has a long stented segment proximally. The stented segment was found to have around 20 to 30% diffuse in-stent narrowing. The proximal circumflex artery was found to have around 50% tubular narrowing, involving the ostium. No other significant stenotic lesions were noted. The second and third obtuse marginal branches are found to have no significant stenotic lesions.. * The right coronary artery is a relatively large caliber vessel which was found to have 20 to 30% diffuse irregular narrowing in the distal segment. The stented segment of the PDA branch was found to be widely patent. PLV branch was found to have minimal intimal irregularities. No significant stenotic lesions were noted.. Conclusions 1. 76-year-old white male with history of coronary disease, status post multiple PCI, presenting with unstable anginal symptoms. He had an unremarkable Myocardial perfusion imaging 3 months ago. In view of his worsening episodes of chest painds, in order to further evaluate the coronary status, a cardiac catheterization was recommended. Patient underwent left heart catheterization with the left and right coronary angiogram and LV angiogram today. The findings were as follows.. 2. The stented segment of the obtuse marginal branch of the circumflex artery and PDA branch of the right coronary artery were found to be patent. There was 20 to 30% diffuse in-stent narrowing in the obtuse marginal branch. Mild diffuse disease was noted in the other vessels. The proximal circumflex artery was found to have around 50% narrowing, involving the ostium. LV ejection fraction of 40%. LVEDP of 19 mmHg. 3. Patient angiographic findings, it was opted to treat him medically. Diagnostic RX Recommendation: medical therapy and/or counseling LV EDP: 19 mmHg Ventriculography Ejection Fraction: 40.0 % Left Ventriculography Findings: * The LV gram was performed in the [place] view. LV cavity was found to be dilated. There was mild diffuse hypokinesia of the left ventricle. The overall LV ejection fraction was around 40%. The LV opacification was of suboptimal quality. Pressures Phase:Rest AO : 84 / 63 ( 74 ) @ 3:21:00 PM 89 / 66 ( 79 ) @ 3:27:00 PM 128 / 64 ( 88 ) @ 3:32:00 PM 126 / 64 ( 87 ) @ 3:32:00 PM LV : 126 / 0 / 19 @ 3:31:00 PM 128 / 2 / 26 @ 3:32:00 PM 127 / 1 / 25 @ 3:32:00 PM Valves Phase:DefaultPhase AV : 0.0 @ 3:41:01 PM AV Mean Gradient: 0.0 @ 3:41:01 PM Clinical Evaluation EBL: 5mL-10mL Procedural Details Procedure Consent Obtained. Admit Source: In Patient. Pre-Procedure Time Out. Identified patient by full name and date of as verbalized by the patient/guarantor. Does the consent match the physician's order: Yes. Accurate & Complete Informed Consent: Yes. Inpatient/Outpatient History & Physical on Chart: Yes. If H&P is completed, is and addenduem needed: No; If yes, is the addendum complete: N/A. Visualize and Verify Site with Patient/Guarantor: N/A. Relevant Radiology Images available: N/A. Pre-op teaching completed and patient verbalized understanding. The risks, benefits, and alternatives of sedation and/or procedure were discussed by physician. The patient agrees to continue. Procedure started. [facility] Clinical Fraility Score: 3: Managing Well. 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 Chest Pain Symptom Assessment: Typical Angina Symptoms. Correct patient, site and procedure confirmed by cath team. Current diagnosis: Unstable angina. PERRLA. Strong, equal hand tax form preparer bilaterally. Lungs clear x 5 lobes. IV Site on Arrival: 18 gauge in the right anticubital. IV Fluids: 0.9% NaCl at KVO. 200 mL infused prior to catheter builder. Pre Procedural Pulses: bilateral radial was 1+. Pre Procedural Pulses: bilateral dorsalis pedis was 2+. Oxygen started at 2liters/min via nasal canula. right groin was prepped with chloroprep then draped in the usual sterile fashion. right radial was prepped with chloroprep then draped in the usual sterile fashion. Physician notified. Baseline sample Acquired. HR: 60 BPM. Physician arrived. Physician scrubbed in. Immediate Pre-Procedure Time Out. Correct Patient: Yes; Correct Procedure: Yes; Correct Site: Yes; Correct Patient Position: Yes; Correct Supplies: Yes; Dried Flammable Prep: Yes; Blood Products Available: N/A;. Lidocaine 1% infiltrated to the right radial. Arterial access obtained. Needle out. Manual pressure held. Arterial access obtained. A 5 beninese TIG catheter in over wire. Multiple views taken of left coronary artery. Catheter removed over the exchange wire. A 5 beninese JR4 catheter in over wire. Multiple views taken of right coronary artery. Catheter removed over the exchange wire. A 5 beninese Angled Pig catheter in over wire. EDP Sample taken: LV 126/-1,19; HR: 60 BPM; SpO2: 98%. Pullback taken: LV Off; AO Off; Mean: , Peak to Peak: , SEP: ; HR: 60 BPM; SpO2: 97%. LV gram performed in [place] @ 10 mL/second for a total of 30 mL. EDP Sample taken: LV 128/2,26; HR: 60 BPM; SpO2: 97%. Pullback taken: LV 127/1,25; AO 128/64(88); Mean: 0mmHg, Peak to Peak: 0mmHg, SEP: 19sec/min; HR: 61 BPM; SpO2: 97%. A TR Band was successful obtaining hemostatsis at the Right Radial artery insertion site. Catheter out. Physician review of cine films. Patient's family updated. Post Procedure: Pulses reassessed and unchanged. PERRLA. Strong, equal hand tax form preparer bilaterally. No VTE prophylaxis required. Medication's Wasted: Nitro = 49.7 mg. Medication's Wasted: Other = Versed 1 mg. Medication's Wasted: Heparin = 3000 u. Medication's Wasted: Lidocaine 1% = 2 mL. Total IV fluids: 278 mL. Post-op diagnosis: Non obstructive CAD. Complications: none. Estimated blood loss: 5mL-10mL. Estimated blood loss: 5mL-10mL. Responsiveness - Normal response to verbal stimuli; alert and oriented, PERRLA. Airway - Unaffected, no intervention required; spontaneous ventilation. Circulation: W/N/L, pulses unchanged. Nausea/Vomiting: No. Procedure completed. Patient transferred by bed to 1st floor. Vital chart was stopped. Access Site Site: Right Radial artery Sheath Size: 6 Fr Hemostasis Method: TR Band Hemostasis Success: Successful Procedure Medications Start: 3:03 PM Stop: 3:03 PM Medication: Versed Amount: 1 mg Route: I.V. Start: 3:03 PM Stop: 3:03 PM Medication: Fentanyl Amount: 50 mcg Route: I.V. Start: 3:13 PM Stop: 3:13 PM Medication: Nitrogylcerin Amount: 200 mcg Route: I.A. Start: 3:16 PM Stop: 3:16 PM Medication: Verapamil Amount: 5 mg Route: I.A. Start: 3:17 PM Stop: 3:17 PM Medication: 0.9% Saline Amount: 250 ml Route: I.V. bolus Start: 3:17 PM Stop: 3:17 PM Medication: Nitrogylcerin Amount: 100 mcg Route: I.A. Start: 3:19 PM Stop: 3:19 PM Medication: Heparin Amount: 3000 units Route: I.V. I, the attending physician, have reviewed and verified all procedure medications. Yes, all medications given per verbal order History/Risk Factors Hypertension: Yes Dyslipidemia: Yes Peripheral Arterial Disease (PAD): No Myocardial Infarction (SD): No Obesity: Yes Renal Disease: No Tobacco Use: Former Prior Interventions PCI: Yes CABG: No Valve Surgery: No Date of PCI: 11/08/2013 Report Signatures Finalized by Dr Leatha Saldivar MD [facility] on 02/10/2022 04:26 PM
--- NOTE | 2022-02-10 15:58 | P.PN_ITS ---
Subjective Subjective: No acute events overnight. Denies any chest pains overnight. Seen by cardiology. Seen with at bedside. Has remained hemodynamically stable and afebrile. Awaiting cardiac angiogram today. Vitals/I&O/Wt Last Vital Signs Temp 98.2 F 02/10/22 11:24 Pulse 81 02/10/22 15:57 Resp 16 02/10/22 15:55 BP 146/82 02/10/22 15:55 Pulse Ox 94 02/10/22 11:24 O2 Del Method 02/10/22 15:55 02/10/22 02/10/22 02/10/22 06:59 14:59 22:59 Intake Total 0 / 600 Balance 0 / 600 Weight last 48 hrs Weight 117.934 kg Weight 117.934 kg Physical Exam Narrative: EXAM NARRATIVE: General: No acute distress, AO x3, on room air HEENT: PERRLA, pupils bilaterally equal and reactive Chest: Bilateral bronchial breath sounds with occasional rhonchi all over the anjali ng [place] CVS: S1-S2 regular, soft ejection systolic murmur at aortic area, no tachycardia, no gallops, no rubs Abdomen: Soft, nontender, no organomegaly, bowel sounds present, morbidly obese Neuro: No focal deficits, no facial deformity, AO x3, power 5/5 in all limbs Data 02/10/22 03:26 02/10/22 03:26 A&P Assessment and plan (1) Stable angina: Currently unstable angina. History of CAD with multiple PCI in the past. Last stress test from 11/01 showed medium size perfusion abnormality of moderate severity of mid to apical inferior, mid to apical inferior septal vee with improved tracer uptake in apical septal vee on stress images. Last cardiac angiogram from 2019 showed patent stents in OM, patent stent in PDA. Last echocardiogram from 11/01 showed EF of 50 to 55%. Plan for possible cardiac angiogram. Check echocardiogram. A1c 5.7, lipid panel appreciated. Continue with home dose of aspirin, Plavix, statin, Imdur, beta-christopher. Nitrate as needed. Restart cardiac diet post angiogram. (2) Atherosclerotic heart disease of [place] coronary artery with other forms of angina pectoris: (3) Pacemaker: (4) Systolic CHF: Fairly compensated. Continue with home dose of beta-christopher, Entresto. Continue to monitor fluid status. Qualifiers: Heart failure chronicity: chronic Qualified Code(s): I50.22 - Chronic systolic (congestive) heart failure (5) Ischemic cardiomyopathy: (6) Chronic kidney disease, stage 2 (mild): Plan Full code. Cardiac diet. Heparin 5000 every 12 for DVT prophylaxis Protonix for PUD prophylaxis. Attestations Medical Necessity Statement*: Miky Hoffman is being changed to inpatient status as stay will now exceed 2 midnights. Ongoing hospital care is necessary for management of unstable angina in a patient with history of CAD post PCI, ischemic cardiomyopathy Time Spent in Patient Care: Greater than 35 minutes Coding Level of Care Code Acute [place] Flaker for [facility] Fwd Diagnoses Stable angina I20.8 Atherosclerotic heart disease of [place] coronary artery with other forms of angina pectoris I25.118 Pacemaker Z95.0 Systolic CHF I50.22 Heart failure chronicity: chronic Ischemic cardiomyopathy I25.5 Chronic kidney disease, stage 2 (mild) N18.2
--- NOTE | 2022-02-10 16:09 | PC.NURSE ---
Patient returned from cardiac label fuser tender at 1550 with a right radial TR band, 16cc of air in place. Report received from cardiac label fuser tender nurse. Patient ding well, no complaints.
[2022-02-10] MEDS: temazepam 15 mg Capsule PO (20:32)
[2022-02-10] MEDS: atorvastatin 40 mg Tablet PO (20:32)
[2022-02-10] MEDS: enoxaparin 120 mg/0.8 mL Syringe SUBCUT (20:32)
[2022-02-11 05:06] VITALS: BP 108/61; PULSE 61; RESP 0; TEMP 36.4; O2SAT 93
[2022-02-11 05:13] LABS: Basophils % 0.8 %; Eosinophils % 0.6 %; Hematocrit 40.5 % (42.0-52.0); Hemoglobin 13.1 g/dL (11.7-16.6); Lymphocytes # 1.9 10^3/uL (0.8-4.8); Lymphocytes % 38.5 %; Mean Corpuscular HGB Conc 32.3 g/dL (30.0-36.0); Mean Corpuscular Hemoglobin 32.8 pg (28.0-34.0); Mean Corpuscular Volume 101.5 fl (80-94); Mean Platelet Volume 9.5 fL (7.4-10.4); Monocytes # 0.4 10^3/uL (0.2-0.9); Monocytes % 7.3 %; Neutrophils # 2.59 10^3/uL (1.8-7.7); Neutrophils % 52.6 %; Nucleated Red Blood Cells % 0 %; Platelet Count 178 10^3/cmm (130-400); Red Blood Count 3.99 10^6/uL (4.1-5.3); Red Cell Distribution Width 11.9 % (12.1-15.1); White Blood Count 4.9 10^3/uL (4.0-10.0)
[2022-02-11 05:37] LABS: Alanine Aminotransferase 35 U/L (0-41); Albumin Level 3.7 g/dL (3.5-5.2); Alkaline Phosphatase 59 U/L (40-130); Anion Gap 12.6 (5-19); Aspartate Amino Transferase 26 U/L (0-40); Blood Urea Nitrogen 14 mg/dL (8-23); Calcium 8.5 mg/dL (8.5-10.5); Carbon Dioxide 25 mmol/L (22-29); Chloride 107 mmol/L (98-107); Globulin 2.3 g/dL (1.3-4.6); Glucose 126 mg/dL (65-115); Osmolality Calculated 294 mOsm/kg (285-295); Potassium 3.6 mmol/L (3.5-5.1); Sodium 141 mmol/L (136-145); Total Bilirubin 0.2 mg/dL (0.15-1.2)
[2022-02-11 06:00] VITALS: PULSE 61
[2022-02-11 07:08] VITALS: BP 128/78; PULSE 63; RESP 16; TEMP 36.8
[2022-02-11] MEDS: sacubitril/valsartan 24-26 mg Tablet 4 EACH PO (08:33)
[2022-02-11] MEDS: aspirin 81 mg EC Tablet PO (08:34)
[2022-02-11] MEDS: cyanocobalamin 1,000 mcg Tablet 1000 MCG PO (08:34)
[2022-02-11] MEDS: isosorbide mononitrate ER 30 mg Tablet PO (08:34)
[2022-02-11] MEDS: pantoprazole DR 40 mg Tablet PO (08:34)
[2022-02-11] MEDS: clopidogrel 75 mg Tablet PO (08:35)
[2022-02-11] MEDS: carvedilol 12.5 mg Tablet PO (10:03)
--- NOTE | 2022-02-11 10:16 | PM.PN ---
Subjective Subjective: Patient is feeling okay. Has no chest pain. He has a history of hiatal hernia. He has some epigastric discomfort off and on. He is wondering whether the stomach may be the issue. He has an appointment to see Dr. Chin primary care provider tomorrow. Going to discuss with her about further evaluation of his stomach problems. Vital signs remained stable. Medications: Medication Review Details: Current Medications Acetaminophen (Acetaminophen 325 Mg Tablet) 650 mg PO Q6H PRN PRN Reason: Mild/Mod Pain Or Temp >/= 101 Al Hydrox/Mg Hydrox/Simethicone (Evzw-Cjz-Eccrsphdn-Cesar 30 Ml Udc) 30 ml PO Q15M PRN PRN Reason: INDIGESTION Alprazolam (Alprazolam 0.5 Mg Tablet) 0.25 mg PO TID PRN PRN Reason: ANXIETY Aspirin (Aspirin 81 Mg Ec Tablet) 81 mg PO DAILY [facility] Last Admin: 02/11/22 08:34 Dose: 81 mg Atorvastatin Calcium (Atorvastatin 40 Mg Tablet) 40 mg PO BEDTIME [facility] Last Admin: 02/10/22 20:32 Dose: 40 mg Atropine Sulfate (Atropine 1 Mg/Ml Sdv 1 Ml) 0.5 mg IVP PRN PRN PRN Reason: Symptomatic bradycardia Carvedilol (Carvedilol 12.5 Mg Tablet) 12.5 mg PO BID@0900,2100 [facility] Last Admin: 02/11/22 10:03 Dose: 12.5 mg Clopidogrel Bisulfate (Clopidogrel 75 Mg Tablet) 75 mg PO DAILY [facility] Last Admin: 02/11/22 08:35 Dose: 75 mg Colchicine (Colchicine 0.6 Mg Tablet) 0.6 mg PO DAILY PRN PRN Reason: gout Cyanocobalamin (Cyanocobalamin 1,000 Mcg Tablet) 1,000 mcg PO DAILY [facility] Last Admin: 02/11/22 08:34 Dose: 1,000 mcg Enoxaparin Sodium (Enoxaparin 120 Mg/0.8 Ml Syringe) 120 mg SUBCUT Q12H [facility] Last Admin: 02/10/22 20:32 Dose: 120 mg Isosorbide Mononitrate (Isosorbide Mononitrate Er 30 Mg Tablet) 30 mg PO DAILY [facility] Last Admin: 02/11/22 08:34 Dose: 30 mg Magnesium Hydroxide (Magnesium Hydroxide 30 Ml Udc) 30 ml PO DAILY PRN; Protocol PRN Reason: Constipation (see protocol) Magnesium Hydroxide (Magnesium Hydroxide 30 Ml Udc) 30 ml PO DAILY PRN PRN Reason: CONSTIPATION Naloxone HCl (Naloxone 0.4 Mg/Ml Sdv) 0.1 mg IVP Q2M PRN PRN Reason: RESPIRATORY RATE < 8/MIN Nitroglycerin (Nitroglycerin 0.4 Mg Sublingual Tablet) 0.4 mg SUBLINGUAL Q5M PRN PRN Reason: CHEST PAIN Ondansetron HCl (Ondansetron 2 Mg/Ml Sdv 2 Ml) 4 mg IVP Q6H PRN PRN Reason: NAUSEA AND VOMITING Pantoprazole Sodium (Pantoprazole Dr 40 Mg Tablet) 40 mg PO DAILY [facility] Last Admin: 02/11/22 08:34 Dose: 40 mg Ranolazine (Ranolazine (12hr) 500 Mg Tablet) 500 mg PO BID [facility] Sacubitril/Valsartan (Sacubitril/Valsartan 24-26 Mg Tablet) 4 each PO BID [facility] Last Admin: 02/11/22 08:33 Dose: 4 each Temazepam (Temazepam 15 Mg Capsule) 15 mg PO BEDTIME PRN PRN Reason: INSOMNIA Last Admin: 02/10/22 20:32 Dose: 15 mg Vitals/I&O/Wt Last Vital Signs Temp 98.2 F 02/11/22 07:08 Pulse 63 02/11/22 07:08 Resp 16 02/11/22 07:08 BP 128/78 02/11/22 07:08 Pulse Ox 93 02/11/22 05:06 O2 Del Method 02/11/22 05:06 02/10/22 02/11/22 02/11/22 22:59 06:59 14:59 Intake Total 1480 / 1480 360 / 1840 480 / 480 Balance 1480 / 1480 360 / 1840 480 / 480 Weight last 48 hrs Weight 259 lb 14.4 oz Weight 260 lb Weight 260 lb Physical Exam Narrative: GENERAL: The patient is alert and oriented times three. Not in any acute distress. HEENT: No significant pallor, icterus or lymphadenopathy.Oral cavity: There are no mucous membrane lesions. NECK: Trachea appears to be central. No masses noted. No JVD or thyromegaly appreciated. RESPIRATORY: Chest is symmetrical. No intercostals muscle retraction or any accessory muscle activation. There is no chest wall tenderness. Breath sounds are heard bilaterally. No rales or rhonchi heard. No evidence of any consolidation. BREASTS: Deferred. HEART: The heart sounds are normal. No S3 or S4. No significant murmurs. No pericardial rub ABDOMEN: No vessel pulsations or distention. No tenderness. No organomegaly appreciated. Bowel sounds are normally heard. : Deferred. RECTAL: Deferred. LYMPHATIC: No lymphadenopathy noted in the neck. EXTREMITIES: No hematoma bleeding at the right radial arterial fungicide MUSCULOSKELETAL: No acute joint deformities or swelling SKIN: There are no significant rashes or ecchymosis NEUROPSYCHIATRIC: The patient is alert and oriented x3. Appears to be in a good mood. No tremors or rigidity noted. Data 02/11/22 04:40 02/11/22 04:40 A&P Assessment and plan (1) Atherosclerotic heart disease of [place] coronary artery with unstable angina pectoris: S/p cardiac catheterization. Patent stents in the high obtuse marginal artery and the PDA branch of the right coronary artery. Mild to moderate diffuse disease in the other vessels. Based on the angiogram findings, it was decided to optimize medical treatment. Patient is started on Ranexa today. May continue other medications as of these. (2) Ischemic cardiomyopathy: Patient is known to have LV ejection fraction around 40%. He is on Entresto. This may be continued. (3) Essential (primary) hypertension: Currently normotensive. May continue on the current medications. (4) Mixed hyperlipidemia: Continue on the current medications. (5) Pacemaker: The pacemaker function was found to be appropriate with most recent interrogation report. We will continue the current monitoring schedule. Plan Other problems are Chronic kidney disease of stage II-the kidney function looking good Recurrent TIAs/visual distbances GERD If the patient continues remain stable, may be discharged home today. Appointment with the [facility] to be seen by the nurse practitioner next week Appointment with me in the office in 2 months May continue on the Ranexa 500 mg p.o. twice daily Attestations Medical Necessity Statement*: Possible discharge home today Coding Level of Care Code Acute Real Estate Intern for Chg Fwd History Expanded Problem Focused Exam Expanded Problem Focused Medical Decision Making Moderate Complexity Diagnoses Atherosclerotic heart disease of [place] coronary artery with unstable angina pectoris I25.110 Ischemic cardiomyopathy I25.5 Essential (primary) hypertension I10 Mixed hyperlipidemia E78.2 Pacemaker Z95.0
[2022-02-11] MEDS: ranolazine (12HR) 500 mg Tablet PO (10:34)
[2022-02-11] MEDS: enoxaparin 120 mg/0.8 mL Syringe SUBCUT (10:35)
--- NOTE | 2022-02-11 12:03 | PM.DCS ---
Discharge Providers Date of Admission: 02/10/22 16:00 Date of Discharge: February 11, 2022 Attending Provider at Admission: Andrzej Chanel MD Attending Provider at Discharge: Nash Del Cid Primary Care Provider: Lauren Chin MD Diagnoses at Discharge Discharge Diagnosis (1) Atherosclerotic heart disease of [place] coronary artery with unstable angina pectoris: Status: Acute (2) Ischemic cardiomyopathy: Status: Acute (3) Essential (primary) hypertension: Status: Acute (4) Mixed hyperlipidemia: Status: Acute (5) Pacemaker: Status: Acute Reason for Visit Reason for Visit: chest pain Hospital Course Hospital Course Pleasant 76-year-old gentleman with history of ischemic cardiomyopathy, CAD, prior PCI and stenting, HTN, HLD, PPM, presented due to episodes of chest pain/tightness, intermittently, almost every day over the last week, lasting a few minutes. With his arms feeling heavy at the same time, heaviness tightness and substernal region radiating to the neck, both shoulders. During that time he feels short of breath as well. He has tried sublingual nitroglycerin. Recently he has also been having heartburn. He was assessed with troponin series on presentation which was normal. Additionally assessed with cardiogram which showed ejection fraction 39.5%, diffuse hypokinesis of the septum, anterior septum and LV apex. Mildly increased left atrial size. Thickened aortic valve. No pericardial effusion. No intracardiac masses. Echo was performed with contrast. Study technically difficult. It was assessed by cardiology and also underwent coronary angiogram which showed patent stents in high OM and PDA branch of RCA. Multiple diffuse disease in other vessels. Based on angiogram findings decision was made to optimize medical treatment. He was started on Ranexa 500 mg twice daily which he so far has tolerated well. He is currently pain or pressure free. Ambulating in the hospital. Feels ready to return home. Continue optimization of cardiovascular risk factors for possible small vessel disease. Possible vasospastic angina. Continue amlodipine as well. Please follow-up regarding GERD. Continues on PPI. Physical Exam Narrative: Accompanied by spouse. Const: COMMON NORMALS: patient oriented x3 and alert GENERAL APPEARANCE: cooperative ORIENTATION/CONSCIOUSNESS: Yes awake HENMT: COMMON NORMALS: oropharynx normal Neck/C-Spine: COMMON NORMALS: no JVD Resp: COMMON NORMALS: normal respiratory effort and clear to auscultation bilaterally AUSCULTATION: clear to auscultation bilaterally Cardio: COMMON NORMALS: no JVD, regular rhythm, S1 normal heart sound present, S2 normal heart sound present and No murmurs present (Cardio) RHYTHM: regular rhythm HEART SOUNDS: S1 normal heart sound present and S2 normal heart sound present GI: COMMON NORMALS: Normal to inspection, nondistended, normoactive bowel sounds present, Soft to palpation and non-tender PALPATION: Yes Soft to palpation Extremity: COMMON NORMALS: no joint enlargement and no pedal edema Neuro: COMMON NORMALS: patient oriented x3 and moves all extremities SENSORIUM/ORIENTATION: Yes alert Skin: COMMON NORMALS: no rashes or lesions noted GENERAL SKIN EXAM: no rashes or lesions noted Discharge Data Studies Completed and Pending Completed Studies During Hospitalization Category Date Time Status CT head wo con* [id number] Stat Cat Scan 02/09/22 12:04 Completed [employer] request for service Routine Exams 02/10/22 14:30 Completed XR chest 1V portable [id number] Stat Exams 02/09/22 11:50 Completed CV. echo wo/w contrast [id number] Routine Ultrasound 02/10/22 06:00 Completed Radiology Impressions Chest X-Ray 02/09/22 11:50 IMPRESSION: No acute abnormality. Head CT 02/09/22 12:04 IMPRESSION: No acute intracranial abnormality. Laboratory Results WBC 4.9 10^3/uL (4.0-10.0) 02/11/22 04:40 RBC 3.99 10^6/uL (4.1-5.3) L 02/11/22 04:40 Hgb 13.1 g/dL (11.7-16.6) 02/11/22 04:40 Hct 40.5 % (42.0-52.0) L 02/11/22 04:40 MCV 101.5 fl (80-94) H 02/11/22 04:40 MCH 32.8 pg (28.0-34.0) 02/11/22 04:40 MCHC 32.3 g/dL (30.0-36.0) 02/11/22 04:40 RDW 11.9 % (12.1-15.1) L 02/11/22 04:40 Plt Count 178 10^3/cmm (130-400) 02/11/22 04:40 MPV 9.5 fL (7.4-10.4) 02/11/22 04:40 Neut % (Auto) 52.6 % 02/11/22 04:40 Lymph % (Auto) 38.5 % 02/11/22 04:40 [place] % (Auto) 7.3 % 02/11/22 04:40 Eos % (Auto) 0.6 % 02/11/22 04:40 Baso % (Auto) 0.8 % 02/11/22 04:40 Neut # (Auto) 2.59 10^3/uL (1.8-7.7) 02/11/22 04:40 Lymph # (Auto) 1.9 10^3/uL (0.8-4.8) 02/11/22 04:40 [place] # (Auto) 0.4 10^3/uL (0.2-0.9) 02/11/22 04:40 Eos # (Auto) 0.0 10^3/uL (0.0-0.8) 02/11/22 04:40 Baso # (Auto) 0.0 10^3/uL (0.0-0.1) 02/11/22 04:40 Nucleated RBC % (auto) 0 % 02/11/22 04:40 Nucleated RBCs # 0.0 /100WBC 02/11/22 04:40 D-Dimer 1.97 ug/mIFEU (0-0.59) H 02/09/22 12:13 Sodium 141 mmol/L (136-145) 02/11/22 04:40 Potassium 3.6 mmol/L (3.5-5.1) 02/11/22 04:40 Chloride 107 mmol/L (98-107) 02/11/22 04:40 Carbon Dioxide 25 mmol/L (22-29) 02/11/22 04:40 Anion Gap 12.6 (5-19) 02/11/22 04:40 BUN 14 mg/dL (8-23) 02/11/22 04:40 Creatinine 0.9 mg/dL (0.7-1.2) 02/11/22 04:40 GFR Calculation Not Reportable 02/11/22 04:40 Glucose 126 mg/dL (65-115) H 02/11/22 04:40 Estimat Average Glucose 117 02/10/22 03:26 Hemoglobin A1c 5.7 % (4.0-6.0) 02/10/22 03:26 Calculated Osmolality 294 mOsm/kg (285-295) 02/11/22 04:40 Calcium 8.5 mg/dL (8.5-10.5) 02/11/22 04:40 Phosphorus 3.2 mg/dL (2.5-4.5) 02/10/22 03:26 Magnesium 1.5 mg/dL (1.7-2.3) L 02/10/22 03:26 Iron 87 ug/dL (59-158) 02/09/22 12:13 TIBC 205 mcg/dl 02/09/22 12:13 % Saturation 42.4 % (20-50) 02/09/22 12:13 Unsat Iron Binding 118 ug/dL (112-347) 02/09/22 12:13 Total Bilirubin 0.2 mg/dL (0.15-1.2) 02/11/22 04:40 AST 26 U/L (0-40) 02/11/22 04:40 ALT 35 U/L (0-41) 02/11/22 04:40 Alkaline Phosphatase 59 U/L (40-130) 02/11/22 04:40 Troponin T Baseline 12 ng/L (0-15) 02/09/22 12:13 Troponin T 120 Minute 14.88 ng/L (0-15) 02/09/22 13:58 Delta Troponin T 2.88 ABS# (0-10) 02/09/22 13:58 Troponin T Hi Sens 6Hr 11.18 ng/L (0-15) 02/09/22 18:06 Troponin T Hi Sens 6Hr Delta -0.82 ng/L (0-12) L 02/09/22 18:06 NT-Pro-B Natriuret Pep 379 pg/mL (0-450) 02/09/22 12:13 Total Protein 6.0 g/dL (6.6-8.7) L 02/11/22 04:40 Albumin 3.7 g/dL (3.5-5.2) 02/11/22 04:40 Globulin 2.3 g/dL (1.3-4.6) 02/11/22 04:40 Triglycerides 165 mg/dL (0-150) H 02/10/22 03:26 Cholesterol 110 mg/dL (0-200) 02/10/22 03:26 LDL Cholesterol, Calc 50 mg/dL (50-129) 02/10/22 03:26 Total VLDL Cholesterol 33 mg/dL (0-30) H 02/10/22 03:26 HDL Cholesterol 27 mg/dL (60-100) L 02/10/22 03:26 Cholesterol/HDL Ratio 4.07 mg/dL (1.0-5.00) 02/10/22 03:26 Vitamin B12 1122 pg/mL (232-1245) 02/09/22 12:13 Folate > 20.0 ng/mL (4.5-32.2) 02/09/22 12:13 Procalcitonin 0.03 ng/mL (0-0.5) 02/09/22 12:13 TSH 2.27 uIU/mL (0.27-4.20) 02/09/22 12:13 Vitals Last Vital Signs Temp 98.2 F 02/11/22 07:08 Pulse 63 02/11/22 07:08 Resp 16 02/11/22 07:08 BP 128/78 02/11/22 07:08 Pulse Ox 93 02/11/22 05:06 O2 Del Method 02/11/22 05:06 Discharge Plan Discharge Patient Disposition: Home Condition: Stable Prescriptions: New ranolazine 500 mg Tablet Extended Release 12 Hr 500 mg PO BID Qty: 180 0RF Continued ascorbate calcium (vitamin C) 500 mg tablet 500 mg PO DAILY cholecalciferol (vitamin D3) 25 mcg (1,000 unit) capsule 25 mcg PO DAILY calcium phosphate-vitamin D3 [Citracal-D3 Gummies] 250 mg calcium- 500 unit tablet,chewable 1 tab PO BID cyanocobalamin (vitamin B-12) 1,000 mcg capsule 1,000 mcg PO DAILY aspirin 81 mg tablet,delayed release (DR/EC) 81 mg PO DAILY multivitamin Tablet 1 tab PO QAM cyclobenzaprine 10 mg tablet 10 mg PO TID PRN (Reason: Pain) Qty: 30 3RF omeprazole 20 mg capsule,delayed release(DR/EC) 20 mg PO DAILY Qty: 90 3RF nitroglycerin 0.4 mg tablet, sublingual See Rx Instructions .ROUTE .COMPLEX Qty: 30 1RF Dose Instruction: DISSOLVE ONE TABLET UNDER THE TONGUE EVERY 5 MINUTES NEEDED CHEST PAIN Rx Instructions: DISSOLVE ONE TABLET UNDER THE TONGUE EVERY 5 MINUTES NEEDED CHEST PAIN Entresto 97-103 mg tablet 1 tab PO BID Qty: 180 3RF guaifenesin [Mucinex] 600 mg Tablet Extended Release 12hr 600 mg PO Q12H PRN (Reason: Congestion) colchicine 0.6 mg tablet 0.6 mg PO DAILY PRN (Reason: gout) zinc acetate 50 mg (zinc) Capsule 50 mg PO DAILY omega 0-gjg-zwd-fish oil [Fish Oil] 300-1,000 mg Capsule 1 cap PO BID atorvastatin 40 mg tablet 40 mg PO QPM carvedilol 12.5 mg tablet 12.5 mg PO BID isosorbide mononitrate 30 mg tablet extended release 24 hr 30 mg PO DAILY amlodipine 2.5 mg tablet 2.5 mg PO DAILY clopidogrel 75 mg tablet 75 mg PO DAILY tamsulosin 0.4 mg capsule 0.4 mg PO DAILY eszopiclone [Lunesta] 3 mg tablet 3 mg PO BEDTIME PRN (Reason: Sleep) Discharge Orders: Discharge Order (Routine); Ordered 02/11/22 Ordered By: Nash Del Cid Referrals: Leatha Saldivar MD [Physician] - 2 months Elodia Schaefer FNP [Nurse Practitioner] - 1 week ([facility] to schedule a follow up to be seen by Elodia Schaefer in 1 week.) Lauren Chin MD [Primary Care Provider] - 4-7 days (Please call [facility]/ [facility] to schedule an appointment to be seen by Dr. Chin in one week.) Patient Instructions: Stress (GEN), Prevent Cardiovascular Disease (GEN), Pain Management Discharge Attestations Time Spent in Discharge Care*: greater than 30 min Quality Metrics Clinical Quality Measures [ No reported AMI, CVA or VTE this stay] Coding Level of Care Code Acute Chg [facility] note Diagnoses Atherosclerotic heart disease of [place] coronary artery with unstable angina pectoris I25.110 Ischemic cardiomyopathy I25.5 Essential (primary) hypertension I10 Mixed hyperlipidemia E78.2 Pacemaker Z95.0
[2022-02-11 12:15] VITALS: BP 128/78; PULSE 63; RESP 16; TEMP 36.8
== END 2022-02-11 12:16 | disposition home or self-care (01) | DRG 287 ==
LOC: ER 15:31 → CSU 16:41
PROVIDERS: Internal Medicine Cardiovascular Disease; Admitting Provider Student in an Organized Health Care Education/Training Program; Emergency Provider Family Medicine; PCP Family Medicine; Visit Provider Internal Medicine
PROC: 4A023N7 Measurement of Cardiac Sampling and Pressure, Left Heart, Percutaneous Approach (ICD-10-PCS; principal; 2022-02-10 15:00)
DX: I25.110 Atherosclerotic heart disease of native coronary artery with unstable angina pectoris (principal); I13.0 Hypertensive heart and chronic kidney disease with heart failure and stage 1 through stage 4 chronic kidney disease, or unspecified chronic kidney disease; I50.22 Chronic systolic (congestive) heart failure; Z95.5 Presence of coronary angioplasty implant and graft; I25.5 Ischemic cardiomyopathy; N18.2 Chronic kidney disease, stage 2 (mild); E78.2 Mixed hyperlipidemia; Z95.0 Presence of cardiac pacemaker; Z79.82 Long term (current) use of aspirin; Z79.02 Long term (current) use of antithrombotics/antiplatelets; I49.5 Sick sinus syndrome; Z87.891 Personal history of nicotine dependence; I25.2 Old myocardial infarction; Z86.73 Personal history of transient ischemic attack (TIA), and cerebral infarction without residual deficits; K44.9 Diaphragmatic hernia without obstruction or gangrene; K21.9 Gastro-esophageal reflux disease without esophagitis; M1A.9XX0 Chronic gout, unspecified, without tophus (tophi)
CPT/HCPCS: 36415; 70450; 71045; 80053; 80061; 82607; 82746; 83036; 83540; 83550; 83735; 83880; 84100; 84145; 84443; 84484; 85025; 85378; 93005; 93458; 94664; 96372; 99152; 99153; 99285; C1769; C1887; C1894; C8929; G0378; J1644; J1650; J2250; J3010; J3490; J7030; J7040; Q0163; Q9956; Q9967

== ENCOUNTER → 2022-02-18 08:25 | Outpatient (BNVA) | payer MEDICARE, OTHER, SELFPAY | PROVIDERS: PCP Family Medicine; Visit Provider Nurse Practitioner Family | DX: I25.110 Atherosclerotic heart disease of native coronary artery with unstable angina pectoris (principal); I25.5 Ischemic cardiomyopathy; Z95.0 Presence of cardiac pacemaker; I13.0 Hypertensive heart and chronic kidney disease with heart failure and stage 1 through stage 4 chronic kidney disease, or unspecified chronic kidney disease; N18.2 Chronic kidney disease, stage 2 (mild); I50.22 Chronic systolic (congestive) heart failure; Z87.891 Personal history of nicotine dependence | CPT/HCPCS: 36415; 80048; 99214 ==

== ENCOUNTER → 2022-03-15 09:41 | Outpatient (BNVA) | payer MEDICARE, OTHER, SELFPAY | PROVIDERS: PCP Family Medicine; Visit Provider Internal Medicine Cardiovascular Disease | DX: Z45.010 Encounter for checking and testing of cardiac pacemaker pulse generator [battery] (principal) | CPT/HCPCS: 93280 ==

== ENCOUNTER → 2022-06-04 13:45 | Outpatient (BNVA) | payer MEDICARE, OTHER, SELFPAY | PROVIDERS: PCP Family Medicine; Visit Provider Internal Medicine Cardiovascular Disease | DX: Z45.018 Encounter for adjustment and management of other part of cardiac pacemaker (principal); R42 Dizziness and giddiness; K57.90 Diverticulosis of intestine, part unspecified, without perforation or abscess without bleeding; I25.110 Atherosclerotic heart disease of native coronary artery with unstable angina pectoris; I25.5 Ischemic cardiomyopathy; E78.2 Mixed hyperlipidemia; I13.0 Hypertensive heart and chronic kidney disease with heart failure and stage 1 through stage 4 chronic kidney disease, or unspecified chronic kidney disease; N18.2 Chronic kidney disease, stage 2 (mild); I50.22 Chronic systolic (congestive) heart failure; Z87.891 Personal history of nicotine dependence | CPT/HCPCS: 99215 ==

== ENCOUNTER 2022-06-06 10:28 | Outpatient (CLI) | payer MEDICARE, OTHER, SELFPAY ==
[2022-06-06 11:16] LABS: Basophils # 0.1 10^3/uL (0.0-0.1); Eosinophils % 0.6 %; Hematocrit 39.4 % (42.0-52.0); Hemoglobin 13.2 g/dL (11.7-16.6); Lymphocytes # 1.8 10^3/uL (0.8-4.8); Lymphocytes % 35.2 %; Mean Corpuscular HGB Conc 33.5 g/dL (30.0-36.0); Mean Corpuscular Hemoglobin 32.6 pg (28.0-34.0); Mean Corpuscular Volume 97.3 fl (80-94); Mean Platelet Volume 9.3 fL (7.4-10.4); Monocytes # 0.3 10^3/uL (0.2-0.9); Monocytes % 5.7 %; Neutrophils # 2.89 10^3/uL (1.8-7.7); Neutrophils % 57.1 %; Nucleated Red Blood Cells % 0 %; Platelet Count 183 10^3/cmm (130-400); Red Blood Count 4.05 10^6/uL (4.1-5.3); Red Cell Distribution Width 11.9 % (12.1-15.1); White Blood Count 5.1 10^3/uL (4.0-10.0)
[2022-06-06 11:27] LABS: INR 0.97 (0.83-1.21); Prothrombin Time (Patient) 13.1 Seconds (12.0-15.1)
== END 2022-06-06 10:29 | disposition home or self-care (01) ==
PROVIDERS: PCP Family Medicine; Visit Provider Internal Medicine Cardiovascular Disease
DX: Z45.018 Encounter for adjustment and management of other part of cardiac pacemaker (principal); K57.90 Diverticulosis of intestine, part unspecified, without perforation or abscess without bleeding
CPT/HCPCS: 36415; 85025; 85610; 86850; 86900

== ENCOUNTER 2022-06-07 14:12 | Observation (INO) | payer MEDICARE, OTHER, SELFPAY ==
[2022-06-07] VITALS (14 sets, daily range): BP systolic 109–144; BP diastolic 65–80; PULSE 60–67; RESP 12–21; TEMP 36.6–36.7; O2SAT 95–97; BMI 33.9
--- NOTE | 2022-06-07 12:51 | W.PM.OPSUD ---
Surgery/Procedure H&P Update DATE OF PROCEDURE: June 07, 2022 DATE H&P PERFORMED: 06/04/22 H&P UPDATE INFORMATION: I have reviewed H&P completed within last 30 days, I have examined patient prior to procedure and No changes to prior documentation PREOP DIAGNOSIS: PPM/ SHAISTA PRIMARY INDICATION FOR PROCEDURE: Patient with symptomatic bradycardia, status post PPM, elective replacement indication PLANNED PROCEDURE: Operation Date: 06/07/22 13:00 Proposed Procedures p Pacemaker Generator Change 14712,Z45.018(Not Applicable) - Leatha Saldivar MD PATIENT REASSESSED PRIOR TO SEDATION, WITH NO CHANGE NOTED: Yes PHYSICAL EXAM: alert, oriented x 3, clear to auscultation bilaterally and regular rate & rhythm AIRWAY EVAL/ANESTHESIA PLAN: normal airway, see other exam findings, ASA III, Monitored Anesthesia, Local Anesthesia, Risks, benefits & alternatives of sedation and/or procedure discussed and Patient agrees to continue as planned
--- NOTE | 2022-06-07 14:30 | PM.OP ---
Operative Report Date of procedure: June 07, 2022 Pre-op diagnosis: Preop Diagnosis PPM/ SHAISTA Procedure: PROCEDURE: PACEMAKER REVISION PREOPERATIVE DIAGNOSIS: Pacemaker elective replacement indication. POSTOPERATIVE DIAGNOSIS: Pacemaker elective replacement indication. ESTIMATED BLOOD LOSS: Around 5 milliliters. COMPLICATIONS: None. BRIEF HISTORY: The patient is 76-year-old white male who had a permanent pacemaker implantation for symptomatic bradycardia/sinus regina dysfunction. The patient was found to have elective replacement indication, during routine office followup evaluation. For further management of patient's condition for the symptomatic bradycardia, the patient required a pacemaker revision. Patient required a dual-chamber pacemaker for symptom relief and the need for AV synchrony The procedure was explained to the patient and his (patient has some hearing impairment) in detail with the risks and benefits. The risks of bleeding, hematoma, vascular injury, infection and other concomitant complications were explained in detail, which the patient understood well and consented to proceed. PROCEDURES PERFORMED: 1. Explantation of the old pacemaker generator. 2. Implantation of the new generator. The patient brought to the Cardiac Plow Shaker. The left side of the neck and the subclavian area were cleaned and draped in a sterile fashion. 1% Xylocaine was used for local anesthetic agent. A 2 inch long incision was made just below the previous pacemaker scar. By sharp and blunt dissection, the pacemaker pocket was accessed. The old generator was delivered from the pocket. The generator was detached from the lead. The new Medtronic generator was attached to the lead. The pacemaker pocket was copiously irrigated with vancomycin solution. Complete hemostasis was achieved. The lead was positioned behind the generator and the generator was attached to the pectoralis fascia by suturing with 0 Surgilon. Sponge counts were confirmed. The pacemaker pocket was closed in layers. Skin was approximated using 4-0 Vicryl. EXPLANTED DEVICE: Pacemaker Generator: Brand: Fiorella CARBAJAL Model number: [id number]. Serial number: [id number]. Date of implant: 02/21/2015 IMPLANTED DEVICES: Ventricular Lead: Date of implantation: 02/21/2015 Model number: [id number] Serial number: [id number] Make: Medtronic. Atrial lead Date of implantation: 02/21/2015 Model number: [id number] Serial number: [id number] Make: Medtronic. Implanted Generator: Date of implantation : 06/07/2022 Brand: Carolina Conley. Model number: W1 DR 01 Serial number: [id number] Make: Medtronic Stimulation Threshold: The ventricular sensing was noted obtained because of the pacemaker dependency. Ventricular lead impedance was 456 ohms and the pacing threshold was 1.15 volts at 0.4 milliseconds. The atrial sensing was not obtained because of the 100% paced rhythm. Millivolts. Atrial lead impedance was 494 ohms and the pacing threshold was 0.75 volts at 0.4 milliseconds. The pacemaker was set for DDDR mode with an upper rate of 130 and a lower rate of 60. A pressure dressing was applied over the pacemaker site. The patient was transferred back to medical floor in stable condition. Sponge counts were correct.
--- NOTE | 2022-06-07 15:06 | PC.NURSE ---
received from cardiac cath at 1415 via bed.report received.pt is alert and awake and oriented x 4.left upper chest bulky drsg dry and intact.v paced on monitor.arm sling on.pt instructed in activity restrictions s/p pm battery change.also instructed to notify staff for any pain,sob,bleeding,or for any concerns at all.pt verb understanding of instructions
[2022-06-07] MEDS: pantoprazole DR 40 mg Tablet PO (17:53)
[2022-06-07] MEDS: atorvastatin 40 mg Tablet PO (17:53)
[2022-06-07] MEDS: sacubitril/valsartan 24-26 mg Tablet 4 EACH PO (17:54)
[2022-06-07] MEDS: ranolazine (12HR) 500 mg Tablet PO (17:54)
[2022-06-07] MEDS: carvedilol 12.5 mg Tablet PO (17:55)
[2022-06-07] MEDS: ceFAZolin 2,000 MG in sodium chloride 0.9% (plus) 50 ML 100 MG IV (21:19)
--- NOTE | 2022-06-07 21:29 | PC.NURSE ---
Spoke with Dr Saldivar regarding patients trazadone order. Trazadone is ordered for 9am, but patient take at HS for sleep. ordered to change order to take at bedtime. Also patient has no order for tylenol and is requesting it for shoulder pain, gave PRN order for tylenol.
[2022-06-08] VITALS: BP 155/89; PULSE 60; RESP 17; TEMP 36.7; O2SAT 96
[2022-06-08] MEDS: acetaminophen 325 mg Tablet 650 MG PO (00:23)
[2022-06-08] MEDS: trazodone 100 mg Tablet PO (00:23)
[2022-06-08] MEDS: sodium chloride 0.9% 1,000 ML 75 ML IV (00:25)
[2022-06-08 04:53] VITALS: BP 173/88; PULSE 61; RESP 19; TEMP 36.5; O2SAT 97
[2022-06-08] MEDS: multivitamin therapeutic Tablet 1 TAB PO (05:06)
[2022-06-08] MEDS: ceFAZolin 2,000 MG in sodium chloride 0.9% (plus) 50 ML 100 MG IV ×2 (05:07→12:27)
--- NOTE | 2022-06-08 05:20 | PC.NURSE ---
Pressure dressing removed from left chest pacer site, underlying dressing is intact, and pacemaker check completed.
[2022-06-08 06:00] VITALS: PULSE 60
--- NOTE | 2022-06-08 06:00 | ECG_ITS ---
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 Measurements Intervals [place] Rate: 59 P: 180 MS: 177 QRS: -18 QRSD: 193 T: 165 QT: 485 QTc: 484 Interpretive Statements ELECTRONIC ATRIAL PACEMAKER ELECTRONIC VENTRICULAR PACEMAKER ABNORMAL RHYTHM ECG Compared to ECG 02/09/2022 18:17:55 No significant changes Electronically Signed On 06-08-2022 16:59:13 CDT by Leatha Saldivar M.D. [email or web address]
[2022-06-08] MEDS: tamsulosin 0.4 mg Capsule PO (09:36)
[2022-06-08] MEDS: aspirin 81 mg EC Tablet PO (09:36)
[2022-06-08] MEDS: sacubitril/valsartan 24-26 mg Tablet 4 EACH PO (09:36)
[2022-06-08] MEDS: cyanocobalamin 1,000 mcg Tablet 1000 MCG PO (09:36)
[2022-06-08] MEDS: zinc gluconate 50 mg Tablet PO (09:36)
[2022-06-08] MEDS: pantoprazole DR 40 mg Tablet PO (09:36)
[2022-06-08] MEDS: carvedilol 12.5 mg Tablet PO (09:36)
[2022-06-08] MEDS: ascorbic acid 500 mg Tablet PO (09:36)
[2022-06-08] MEDS: ranolazine (12HR) 500 mg Tablet PO (09:36)
[2022-06-08] MEDS: isosorbide mononitrate ER 30 mg Tablet PO (09:36)
[2022-06-08 11:42] VITALS: BP 165/92; PULSE 60; RESP 15; O2SAT 96
--- NOTE | 2022-06-08 12:19 | P.PN_ITS ---
Vitals/I&O/Wt Last Vital Signs Temp 97.7 F 06/08/22 04:53 Pulse 60 06/08/22 11:42 Resp 15 06/08/22 11:42 BP 165/92 06/08/22 11:42 Pulse Ox 96 06/08/22 11:42 O2 Del Method Room Air 06/08/22 11:42 06/07/22 06/08/22 06/08/22 22:59 06:59 14:59 Intake Total 1070 / 1070 350 / 1420 480 / 480 Output Total 400 / 400 Balance 670 / 670 350 / 1020 480 / 480 Weight last 48 hrs Weight 257 lb Physical Exam Narrative: GENERAL: The patient is alert and oriented times three. Not in any acute distress. HEENT: No significant pallor, icterus or lymphadenopathy.Oral cavity: There are no mucous membrane lesions. NECK: Trachea appears to be central. No masses noted. No JVD or thyromegaly appreciated. RESPIRATORY: Chest is symmetrical. No intercostals muscle retraction or any accessory muscle activation. The pacemaker site appears to have no bleeding or hematoma. Breath sounds are heard bilaterally. No rales or rhonchi heard. No evidence of any consolidation. BREASTS: Deferred. HEART: The heart sounds are normal. No S3 or S4. No significant murmurs. No pericardial rub ABDOMEN: No vessel pulsations or distention. No tenderness. No organomegaly appreciated. Bowel sounds are normally heard. : Deferred. RECTAL: Deferred. LYMPHATIC: No lymphadenopathy noted in the neck. EXTREMITIES: No edema or cyanosis. No clubbing. MUSCULOSKELETAL: No acute joint deformities or swelling SKIN: There are no significant rashes or ecchymosis NEUROPSYCHIATRIC: The patient is alert and oriented x3. Appears to be in a good mood. No tremors or rigidity noted. A&P Assessment and plan (1) Elective replacement indicated for pacemaker: Patient had a pacemaker revision yesterday. Currently remaining stable. (2) Atherosclerotic heart disease of [place] coronary artery without angina pectoris: Nonspecific symptoms of coronary insufficiency. May continue on the current medications. Qualifiers: [place] vs. transplanted heart: [place] heart Qualified Code(s): I25.10 - Atherosclerotic heart disease of [place] coronary artery without angina pectoris (3) Essential (primary) hypertension: Since the blood pressure is in the normal range, patient may not require any medication changes at this time. Advised to continue on the current measures. (4) Mixed hyperlipidemia: Continue on the current management. Follow-up evaluation as scheduled. Plan Since the patient remained stable with no specific symptoms, may be discharged home today. Discharge instructions were given. Attestations Medical Necessity Statement*: Discharge home today. Coding Level of Care Code Acute Code for Chg Fwd Diagnoses Elective replacement indicated for pacemaker Z45.018 Atherosclerotic heart disease of [place] coronary artery without angina pectoris I25.10 [place] vs. transplanted heart: [place] heart Essential (primary) hypertension I10 Mixed hyperlipidemia E78.2
[2022-06-08 13:01] VITALS: BP 165/92; PULSE 60; RESP 15; O2SAT 96
--- NOTE | 2022-06-08 13:31 | PM.PN ---
Subjective Subjective: The pacemaker revision yesterday. He is admitted to hospital for IV antibiotics. He did not have any hematoma bleeding at the pacemaker insertion site. Vital signs remained stable. He is afebrile. Pacemaker interrogation revealed appropriate pacing functions. Medications: Medication Review Details: Current Medications Acetaminophen (Acetaminophen 325 Mg Tablet) 650 mg PO Q6H PRN PRN Reason: MILD PAIN Last Admin: 06/08/22 00:23 Dose: 650 mg Ascorbic Acid (Ascorbic Acid 500 Mg Tablet) 500 mg PO DAILY [facility] Last Admin: 06/08/22 09:36 Dose: 500 mg Aspirin (Aspirin 81 Mg Ec Tablet) 81 mg PO DAILY [facility] Last Admin: 06/08/22 09:36 Dose: 81 mg Atorvastatin Calcium (Atorvastatin 40 Mg Tablet) 40 mg PO QPM [facility] Last Admin: 06/07/22 17:53 Dose: 40 mg Carvedilol (Carvedilol 12.5 Mg Tablet) 12.5 mg PO BID [facility] Last Admin: 06/08/22 09:36 Dose: 12.5 mg Colchicine (Colchicine 0.6 Mg Tablet) 0.6 mg PO DAILY PRN PRN Reason: gout Cyanocobalamin (Cyanocobalamin 1,000 Mcg Tablet) 1,000 mcg PO DAILY [facility] Last Admin: 06/08/22 09:36 Dose: 1,000 mcg Cyclobenzaprine HCl (Cyclobenzaprine 10 Mg Tablet) 10 mg PO TID PRN PRN Reason: Pain Guaifenesin (Guaifenesin 600 Mg Tablet) 600 mg PO Q12H PRN PRN Reason: Congestion Sodium Chloride (Sodium Chloride 0.9%) 1,000 mls @ 75 mls/hr IV .[id number] [facility] Last Admin: 06/08/22 00:25 Dose: 75 mls/hr Isosorbide Mononitrate (Isosorbide Mononitrate Er 30 Mg Tablet) 30 mg PO DAILY [facility] Last Admin: 06/08/22 09:36 Dose: 30 mg Multivitamins Therapeutic (Multivitamin Therapeutic Tablet) 1 tab PO QAM [facility] Last Admin: 06/08/22 05:06 Dose: 1 tab Nitroglycerin (Nitroglycerin 0.4 Mg Sublingual Tablet) 0.4 mg SUBLINGUAL Q5MIN PRN PRN Reason: CHEST PAIN Non-Formulary Medication (Calcium Phosphate-Vitamin D3 [Citracal-D3 Gummies]) 1 tab PO BID [facility] Last Admin: 06/08/22 09:37 Dose: Not Given Non-Formulary Medication ([place] 5-Ima-Upu-Fish Oil [Fish Oil]) 1 cap PO BID [facility] Last Admin: 06/08/22 09:37 Dose: Not Given Pantoprazole Sodium (Pantoprazole Dr 40 Mg Tablet) 40 mg PO BID [facility] Last Admin: 06/08/22 09:36 Dose: 40 mg Ranolazine (Ranolazine (12hr) 500 Mg Tablet) 500 mg PO BID [facility] Last Admin: 06/08/22 09:36 Dose: 500 mg Sacubitril/Valsartan (Sacubitril/Valsartan 24-26 Mg Tablet) 4 each PO BID [facility] Last Admin: 06/08/22 09:36 Dose: 4 each Tamsulosin HCl (Tamsulosin 0.4 Mg Capsule) 0.4 mg PO DAILY [facility] Last Admin: 06/08/22 09:36 Dose: 0.4 mg Trazodone HCl (Trazodone 100 Mg Tablet) 100 mg PO BEDTIME PRN PRN Reason: SLEEP Last Admin: 06/08/22 00:23 Dose: 100 mg Zinc Gluconate (Zinc Gluconate 50 Mg Tablet) 50 mg PO DAILY [facility] Last Admin: 06/08/22 09:36 Dose: 50 mg Vitals/I&O/Wt Last Vital Signs Temp 97.7 F 06/08/22 04:53 Pulse 60 06/08/22 13:01 Resp 15 06/08/22 13:01 BP 165/92 06/08/22 13:01 Pulse Ox 96 06/08/22 13:01 O2 Del Method Room Air 06/08/22 11:42 06/07/22 06/08/22 06/08/22 22:59 06:59 14:59 Intake Total 1070 / 1070 350 / 1420 840 / 840 Output Total 400 / 400 Balance 670 / 670 350 / 1020 840 / 840 Weight last 48 hrs Weight 257 lb Physical Exam Narrative: GENERAL: The patient is alert and oriented times three. Not in any acute distress. HEENT: No significant pallor, icterus or lymphadenopathy.Oral cavity: There are no mucous membrane lesions. NECK: Trachea appears to be central. No masses noted. No JVD or thyromegaly appreciated. RESPIRATORY: Chest is symmetrical. No intercostals muscle retraction or any accessory muscle activation. The pacemaker site appears to have no hematoma bleeding. Breath sounds are heard bilaterally. No rales or rhonchi heard. No evidence of any consolidation. BREASTS: Deferred. HEART: The heart sounds are normal. No S3 or S4. No significant murmurs. No pericardial rub ABDOMEN: No vessel pulsations or distention. No tenderness. No organomegaly appreciated. Bowel sounds are normally heard. : Deferred. RECTAL: Deferred. LYMPHATIC: No lymphadenopathy noted in the neck. EXTREMITIES: No edema or cyanosis. No clubbing. MUSCULOSKELETAL: No acute joint deformities or swelling SKIN: There are no significant rashes or ecchymosis NEUROPSYCHIATRIC: The patient is alert and oriented x3. Appears to be in a good mood. No tremors or rigidity noted. A&P Assessment and plan (1) Elective replacement indicated for pacemaker: Patient had a pacemaker revision yesterday. He did not have any hematoma or any other complications. (2) Atherosclerotic heart disease of [place] coronary artery without angina pectoris: Nonspecific symptoms of coronary insufficiency. May continue on the current medications. Qualifiers: [place] vs. transplanted heart: [place] heart Qualified Code(s): I25.10 - Atherosclerotic heart disease of [place] coronary artery without angina pectoris (3) Essential (primary) hypertension: Since the blood pressure is in the normal range, patient may not require any medication changes at this time. Advised to continue on the current measures. (4) Mixed hyperlipidemia: Continue on the current management. Follow-up evaluation as scheduled. Plan Since the patient remained stable with no specific symptoms, may be discharged home today. Discharge instructions were given. Coding Level of Care Code Acute Code for Chg Fwd Diagnoses Elective replacement indicated for pacemaker Z45.018 Atherosclerotic heart disease of [place] coronary artery without angina pectoris I25.10 [place] vs. transplanted heart: [place] heart Essential (primary) hypertension I10 Mixed hyperlipidemia E78.2
--- NOTE | 2022-06-08 13:43 | PC.NURSE ---
discharge instructions given and explained.pt and spouse verb understanding of instructions.discharged via w/c to exit at this time.spouse to drive pt home
== END 2022-06-08 13:44 | disposition home or self-care (01) ==
LOC: CSU 14:12
PROVIDERS: Admitting Provider Internal Medicine Cardiovascular Disease; PCP Family Medicine; Visit Provider Internal Medicine Cardiovascular Disease
DX: Z45.018 Encounter for adjustment and management of other part of cardiac pacemaker (principal); R00.1 Bradycardia, unspecified; E78.2 Mixed hyperlipidemia; I11.0 Hypertensive heart disease with heart failure; N18.2 Chronic kidney disease, stage 2 (mild); I50.22 Chronic systolic (congestive) heart failure; I25.10 Atherosclerotic heart disease of native coronary artery without angina pectoris; I25.5 Ischemic cardiomyopathy; Z79.82 Long term (current) use of aspirin; Z79.899 Other long term (current) drug therapy; Z87.891 Personal history of nicotine dependence; Z82.49 Family history of ischemic heart disease and other diseases of the circulatory system
CPT/HCPCS: 33213; 36415; 93005; 96365; 97110; 97165; 99152; 99153; A4216; C1769; C1786; G0378; J0690; J2250; J3010; J3370; J7030; J7050

== ENCOUNTER → 2022-06-20 09:12 | Outpatient (BNVA) | payer MEDICARE, OTHER, SELFPAY | PROVIDERS: PCP Family Medicine; Visit Provider Nurse Practitioner Family | DX: Z95.0 Presence of cardiac pacemaker (principal) | CPT/HCPCS: 99213 ==

== ENCOUNTER → 2022-07-02 11:07 | Outpatient (BNVA) | payer MEDICARE, OTHER, SELFPAY | PROVIDERS: PCP Family Medicine; Visit Provider Family Medicine | DX: R53.83 Other fatigue (principal); E78.2 Mixed hyperlipidemia; I11.0 Hypertensive heart disease with heart failure; I50.22 Chronic systolic (congestive) heart failure; Z98.890 Other specified postprocedural states; M79.10 Myalgia, unspecified site | CPT/HCPCS: 80053; 80061; 82306; 82607; 83540; 84403; 84443; 85025 ==

== ENCOUNTER → 2022-11-14 09:20 | Outpatient (BNVA) | payer MEDICARE, OTHER, SELFPAY | PROVIDERS: PCP Family Medicine; Visit Provider Family Medicine | DX: E78.2 Mixed hyperlipidemia (principal); I10 Essential (primary) hypertension; N40.0 Benign prostatic hyperplasia without lower urinary tract symptoms; I25.10 Atherosclerotic heart disease of native coronary artery without angina pectoris; I50.22 Chronic systolic (congestive) heart failure; K57.90 Diverticulosis of intestine, part unspecified, without perforation or abscess without bleeding; G47.00 Insomnia, unspecified | CPT/HCPCS: 80053; 80061; 84443; G0103 ==

== ENCOUNTER 2022-12-09 12:37 | Emergency (ER) | payer MEDICARE, SELFPAY ==
--- NOTE | 2022-12-09 12:43 | ECG_ITS ---
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 Measurements Intervals [place] Rate: 65 P: 162 DC: 172 QRS: -52 QRSD: 193 T: 121 QT: 453 QTc: 472 Interpretive Statements ELECTRONIC ATRIAL PACEMAKER ELECTRONIC VENTRICULAR PACEMAKER Compared to ECG 06/08/2022 06:18:00 No significant changes Electronically Signed On 12-09-2022 15:14:40 CDT by Joon Gao M.D. [id number]
[2022-12-09 12:45] VITALS: BP 147/87; PULSE 62; RESP 16; TEMP 36.7; O2SAT 98; BMI 34.2
--- NOTE | 2022-12-09 12:49 | XRR_ITS ---
PROCEDURE INFORMATION: Exam: XR Chest Exam date and time: 12/09/2022 1:05 PM Age: 77 years old Clinical indication: Pain; Chest pressure; Prior surgery; Surgery date: 6+ months; Surgery type: Pacemaker; Additional info: Chest pain TECHNIQUE: Imaging protocol: Radiologic exam of the chest. Views: 1 view. COMPARISON: 1. CR XR chest 1V portable [id number] 02/09/2022 11:55 AM 2. CR XR chest 1V portable [id number] 02/07/2022 10:59 AM 3. CR XR chest 1V portable [id number] 10/20/2021 11:18 AM FINDINGS: Tubes, catheters and devices: Stable dual lead pacemaker with left chest generator. Lungs: Unremarkable. No consolidation. Pleural spaces: Unremarkable. No pleural effusion. No pneumothorax. Heart/Mediastinum: Unremarkable. No cardiomegaly. Vasculature: Aortic arch atherosclerotic calcification. Bones/joints: Unremarkable. XR/XR chest 1V portable [id number] IMPRESSION: No acute findings.
[2022-12-09 13:09] LABS: Basophils # 0.1 10^3/uL (0.0-0.1); Basophils % 0.9 %; Eosinophils # 0.1 10^3/uL (0.0-0.8); Eosinophils % 1.4 %; Hematocrit 41.4 % (37-53); Lymphocytes # 1.5 10^3/uL (0.8-4.8); Mean Corpuscular HGB Conc 33.1 g/dL (30-55); Mean Corpuscular Hemoglobin 33.2 pg (27-33); Mean Corpuscular Volume 100.2 fl (82-101); Mean Platelet Volume 9.4 fL (7.4-10.4); Monocytes # 0.4 10^3/uL (0.2-0.9); Monocytes % 6.3 %; Neutrophils # 3.58 10^3/uL (1.8-7.7); Neutrophils % 63.9 %; Nucleated Red Blood Cells % 0 %; Platelet Count 194 10^3/cmm (157-399); Red Blood Count 4.13 10^6/uL (3.85-5.65); Red Cell Distribution Width 12.2 % (12.1-15.1)
[2022-12-09 13:14] LABS: INR 0.95 (0.8-1.2)
[2022-12-09 13:20] LABS: Alanine Aminotransferase 27 U/L (0-41); Albumin Level 4.5 g/dL (3.5-5.2); Alkaline Phosphatase 68 U/L (40-130); Anion Gap 13.3 (5-19); Aspartate Amino Transferase 21 U/L (0-40); Blood Urea Nitrogen 13 mg/dL (8-23); Calcium 9.4 mg/dL (8.5-10.5); Carbon Dioxide 27 mmol/L (22-29); Chloride 105 mmol/L (98-107); Globulin 2.8 g/dL (1.3-4.6); Glucose 126 mg/dL (65-115); Lipase 19 U/L (13-60); Osmolality Calculated 294 mOsm/kg (285-295); Potassium 4.3 mmol/L (3.5-5.1); Sodium 141 mmol/L (136-145); Total Bilirubin 0.5 mg/dL (0.15-1.2); Total Protein 7.3 g/dL (6.6-8.7)
[2022-12-09 13:21] LABS: Troponin(5th) Baseline 9 ng/L (0-15)
--- NOTE | 2022-12-09 13:44 | W.ED.CHESTPA ---
HPI - Chest Pain General: Chief Complaint: Chest Pain Stated Complaint: chest pressure, new batteries in pacemaker Time Seen by Provider: 12/09/22 12:49 History of Present Illness: Patient presents to the ER with complaints of heaviness on the upper part of the stomach chest into his upper back and neck. Patient states this been going on since Friday or for about 3 days. Patient says this is exact same feeling when his pacemaker battery malfunction the last time. Patient had a new battery put in his pacemaker approximately [address] Patient sees Dr[address] Saldivar. Patient denies any overt chest pain, shortness of breath, diaphoresis, Review of Systems General: Reports: 10 or more systems reviewed and unremarkable except in HPI and below PFSH ED PFSH: Medical History Abdominal pain Abnormal nuclear cardiac imaging test Arteriosclerotic heart disease Atherosclerosis of coronary artery of [place] heart without angina pectoris Blindness of left eye Cardiac ischemia 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 arthritis Chest pain Cholecystectomy planned Chronic gout Chronic kidney disease, stage 2 (mild) Chronic neck pain Chronic systolic (congestive) heart failure Diaphoresis Diverticulosis Elevated blood sugar Essential (primary) hypertension Gastro-esophageal reflux disease without esophagitis Hearing loss of both ears Heart murmur Hemorrhoids, internal Hepatomegaly History of colon polyps History of medication noncompliance Hx of cardiomyopathy Hyperuricemia Ischemic cardiomyopathy LVEF <40% Metatarsalgia of both feet Mixed hyperlipidemia Patel's neuroma of left foot Neuropathy Nicotine dependence, cigarettes, uncomplicated Osteopenia Pacemaker Unspecified osteoarthritis, unspecified site Surgical History H/O hernia repair History of ankle surgery History of permanent cardiac pacemaker placement For symptomatic bradycardia, 02/25 S/P cardiac catheterization Status post cholecystectomy Family History Brother CAD (coronary artery disease) Myocardial infarct Cancer Mother Myocardial infarct Father Cancer FROM LUNG CANCER Daughter Cancer Social History Smoking and tobacco/nicotine status: former use of tobacco/nicotine (Quit 5 years ago) Quit status (tobacco/nicotine): has quit using Year quit tobacco: 2017, smoked 50years Former quit date comment: 1/2- 1 packs per day Second hand smoke exposure: No Alcohol intake: current Substance/Drug Use: never Lives independently: Yes Household members: spouse Marital status: Current occupational status: retired Physical Exam Const: COMMON NORMALS: no acute distress, average body habitus, patient oriented x3, no limitations, healthy appearing, alert and well nourished HENMT: COMMON NORMALS: normocephalic, atraumatic, hearing grossly normal bilaterally, external ears normal, Normal external nose present, moist oral mucous membranes and oropharynx normal HEAD & SCALP: normocephalic and atraumatic NOSE: Normal external nose present EXTERNAL EAR: Yes external ears normal Neck/C-Spine: COMMON NORMALS: no JVD Chest: COMMONS NORMALS: normal inspection of the chest and normal palpation of entire chest wall Resp: COMMON NORMALS: normal respiratory effort, No retractions, No use of accessory muscles and clear to auscultation bilaterally AUSCULTATION: clear to auscultation bilaterally Cardio: COMMON NORMALS: no JVD, regular rate, regular rhythm, S1 normal heart sound present, S2 normal heart sound present, No gallops present (Cardio), No clicks present (Cardio), No murmurs present (Cardio) and No rub (Cardio) RATE: regular rate RHYTHM: regular rhythm HEART SOUNDS: S1 normal heart sound present and S2 normal heart sound present GI: COMMON NORMALS: Normal to inspection, nondistended, normoactive bowel sounds present, Soft to palpation, non-tender, No hepatosplenomegaly present and no masses PALPATION: Yes Soft to palpation and Yes No hepatosplenomegaly present Neuro: COMMON NORMALS: patient oriented x3 SENSORIUM/ORIENTATION: Yes alert Course Vital Signs: Vital signs: Vital Signs Temperature 98.0 F 12/09/22 12:45 Pulse Rate 62 12/09/22 12:45 Respiratory Rate 16 12/09/22 12:45 Blood Pressure 147/87 12/09/22 12:45 Pulse Oximetry 98 12/09/22 12:45 Oxygen Delivery Me thod Room Air 12/09/22 12:45 MDM - Chest Pain Medical Decision Making Patient presents to the ER with complaints of heaviness in his stomach area, chest and neck. Patient had serial lab work EKGs and had a interrogation of his pacemaker. All of which was negative. I feel this is noncardiac in nature and patient be discharged home to keep his appointment next week to follow-up with his family doc and Dr. Saldivar in 3 weeks. Differential Diagnosis Unlikely acute massive pulmonary embolism, acute respiratory failure, acute myocardial infarction, cardiac arrest or sudden cardiac Medical Records I reviewed the patient's medical records. Lab Data I reviewed the patient's lab results. 12/09/22 12:58 12/09/22 12:58 Radiology Impressions Chest X-Ray 12/09/22 12:49 IMPRESSION: No acute findings. Laboratory Results WBC 5.60 10^3/uL (3.29-11.43) 12/09/22 12:58 RBC 4.13 10^6/uL (3.85-5.65) 12/09/22 12:58 Hgb 13.70 g/dL (11.27-16.99) 12/09/22 12:58 Hct 41.4 % (37-53) 12/09/22 12:58 MCV 100.2 fl (82-101) 12/09/22 12:58 MCH 33.2 pg (27-33) H 12/09/22 12:58 MCHC 33.1 g/dL (30-55) 12/09/22 12:58 RDW 12.2 % (12.1-15.1) 12/09/22 12:58 Plt Count 194 10^3/cmm (157-399) 12/09/22 12:58 MPV 9.4 fL (7.4-10.4) 12/09/22 12:58 Neut % (Auto) 63.9 % 12/09/22 12:58 Lymph % (Auto) 27.0 % 12/09/22 12:58 [place] % (Auto) 6.3 % 12/09/22 12:58 Eos % (Auto) 1.4 % 12/09/22 12:58 Baso % (Auto) 0.9 % 12/09/22 12:58 Neut # (Auto) 3.58 10^3/uL (1.8-7.7) 12/09/22 12:58 Lymph # (Auto) 1.5 10^3/uL (0.8-4.8) 12/09/22 12:58 [place] # (Auto) 0.4 10^3/uL (0.2-0.9) 12/09/22 12:58 Eos # (Auto) 0.1 10^3/uL (0.0-0.8) 12/09/22 12:58 Baso # (Auto) 0.1 10^3/uL (0.0-0.1) 12/09/22 12:58 Nucleated RBC % (auto) 0 % 12/09/22 12:58 Nucleated RBCs # 0.0 /100WBC 12/09/22 12:58 PT 12.90 SECONDS (12.1-14.9) 12/09/22 12:58 INR 0.95 (0.8-1.2) 12/09/22 12:58 Sodium 141 mmol/L (136-145) 12/09/22 12:58 Potassium 4.3 mmol/L (3.5-5.1) 12/09/22 12:58 Chloride 105 mmol/L (98-107) 12/09/22 12:58 Carbon Dioxide 27 mmol/L (22-29) 12/09/22 12:58 Anion Gap 13.3 (5-19) 12/09/22 12:58 BUN 13 mg/dL (8-23) 12/09/22 12:58 Creatinine 1.1 mg/dL (0.7-1.2) 12/09/22 12:58 GFR Calculation Not Reportable 12/09/22 12:58 Glucose 126 mg/dL (65-115) H 12/09/22 12:58 Calculated Osmolality 294 mOsm/kg (285-295) 12/09/22 12:58 Calcium 9.4 mg/dL (8.5-10.5) 12/09/22 12:58 Total Bilirubin 0.5 mg/dL (0.15-1.2) 12/09/22 12:58 AST 21 U/L (0-40) 12/09/22 12:58 ALT 27 U/L (0-41) 12/09/22 12:58 Alkaline Phosphatase 68 U/L (40-130) 12/09/22 12:58 Troponin T Baseline 9 ng/L (0-15) 12/09/22 12:58 Troponin T 120 Minute 8.49 ng/L (0-15) 12/09/22 14:28 Delta Troponin T -0.51 ABS# (0-10) L 12/09/22 14:28 Total Protein 7.3 g/dL (6.6-8.7) 12/09/22 12:58 Albumin 4.5 g/dL (3.5-5.2) 12/09/22 12:58 Globulin 2.8 g/dL (1.3-4.6) 12/09/22 12:58 Lipase 19 U/L (13-60) 12/09/22 12:58 All radiology interpretation(s) finalized by discharge Discharge Plan Discharge Patient Disposition: Home Clinical Impression: Atypical chest pain Condition: Stable Prescriptions: No Action ascorbate calcium (vitamin C) 500 mg tablet 500 mg PO DAILY cholecalciferol (vitamin D3) 25 mcg (1,000 unit) capsule 25 mcg PO DAILY cyanocobalamin (vitamin B-12) 1,000 mcg capsule 1,000 mcg PO DAILY aspirin 81 mg tablet,delayed release (DR/EC) 81 mg PO DAILY multivitamin Tablet 1 tab PO QAM cyclobenzaprine 10 mg tablet 10 mg PO TID PRN (Reason: Pain) Qty: 30 3RF nitroglycerin 0.4 mg tablet, sublingual See Rx Instructions .ROUTE .COMPLEX Qty: 30 1RF Dose Instruction: DISSOLVE ONE TABLET UNDER THE TONGUE EVERY 5 MINUTES NEEDED CHEST PAIN Rx Instructions: DISSOLVE ONE TABLET UNDER THE TONGUE EVERY 5 MINUTES NEEDED CHEST PAIN Entresto 97-103 mg tablet 1 tab PO BID Qty: 180 3RF colchicine (gout) 0.6 mg tablet 0.6 mg PO DAILY PRN (Reason: gout) Calcium 500 500 mg calcium (1,250 mg) Tablet 500 mg PO BID atorvastatin 40 mg tablet 40 mg PO DAILY carvedilol 12.5 mg tablet 12.5 mg PO BID isosorbide mononitrate 30 mg tablet extended release 24 hr 30 mg PO DAILY amlodipine 2.5 mg tablet 2.5 mg PO DAILY clopidogrel 75 mg tablet 75 mg PO DAILY omeprazole 40 mg capsule,delayed release(DR/EC) 40 mg PO BID tamsulosin 0.4 mg capsule 0.4 mg PO DAILY Ambien 10 mg tablet 10 mg PO BEDTIME ranolazine 500 mg tablet extended release 12 hr 500 mg PO BID diclofenac sodium 1 % gel 2 g topical QID PRN (Reason: Pain) zinc acetate 50 mg (zinc) Capsule 50 mg PO DAILY omega 7-sqn-kkf-fish oil [Fish Oil] 300-1,000 mg Capsule 1 cap PO BID Discharge Orders: Discharge ED (Routine); Ordered 12/09/22 Ordered By: Jae Denise Referrals: Lauren Chin MD [Primary Care Provider] - 7-10 days Patient Instructions: Chest Pain (ED) Activity Restrictions/Additional Instructions: Please keep your appointment already scheduled for your family practice doctor and 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 If you have any more chest pain or your chest pain worsens please feel free to return to the ER for further evaluation. Coding Level of Care Code ED Local Driver for Lamont Galan
[2022-12-09 13:48] VITALS: BP 143/82; RESP 18; O2SAT 98
[2022-12-09 15:05] LABS: Troponin 5 2HR 8.49 ng/L (0-15); Troponin 5 2HR Delta -0.51 ABS# (0-10)
[2022-12-09 15:38] VITALS: BP 138/76; PULSE 78; RESP 18; TEMP 36.6; O2SAT 98
== END 2022-12-09 15:45 | disposition home or self-care (01) ==
PROVIDERS: Emergency Provider Emergency Medicine; PCP Family Medicine
DX: R07.89 Other chest pain (principal); Z79.02 Long term (current) use of antithrombotics/antiplatelets; Z79.82 Long term (current) use of aspirin; Z87.891 Personal history of nicotine dependence; Z95.0 Presence of cardiac pacemaker; I25.10 Atherosclerotic heart disease of native coronary artery without angina pectoris; I13.0 Hypertensive heart and chronic kidney disease with heart failure and stage 1 through stage 4 chronic kidney disease, or unspecified chronic kidney disease; N18.2 Chronic kidney disease, stage 2 (mild); I50.9 Heart failure, unspecified; E78.2 Mixed hyperlipidemia
CPT/HCPCS: 36415; 71045; 80053; 83690; 84484; 85025; 85610; 93005; 99285

== ENCOUNTER → 2022-12-17 10:24 | Outpatient (BNVA) | payer MEDICARE, SELFPAY | PROVIDERS: PCP Family Medicine; Visit Provider Family Medicine | DX: N18.2 Chronic kidney disease, stage 2 (mild) (principal) | CPT/HCPCS: 80048 ==

== ENCOUNTER → 2022-12-23 13:23 | Outpatient (BNVA) | payer MEDICARE, SELFPAY | PROVIDERS: PCP Family Medicine; Visit Provider Internal Medicine Cardiovascular Disease | DX: I25.110 Atherosclerotic heart disease of native coronary artery with unstable angina pectoris (principal); I25.5 Ischemic cardiomyopathy; E78.2 Mixed hyperlipidemia; Z95.0 Presence of cardiac pacemaker; I13.0 Hypertensive heart and chronic kidney disease with heart failure and stage 1 through stage 4 chronic kidney disease, or unspecified chronic kidney disease; N18.2 Chronic kidney disease, stage 2 (mild); I50.22 Chronic systolic (congestive) heart failure; Z87.891 Personal history of nicotine dependence | CPT/HCPCS: 99214 ==

== ENCOUNTER 2023-01-12 13:30 | Emergency (ER) | payer MEDICARE, SELFPAY ==
[2023-01-12] VITALS (26 sets, daily range): BP systolic 133–184; BP diastolic 81–119; PULSE 60–61; RESP 10–24; TEMP 36.5; O2SAT 94–98; BMI 34.9
--- NOTE | 2023-01-12 14:41 | XRR_ITS ---
PROCEDURE INFORMATION: Exam: XR Chest Exam date and time: 01/12/2023 2:45 PM Age: 77 years old Clinical indication: Chest wall pain; Prior surgery; Surgery date: 6+ months; Surgery type: Pacemaker; Additional info: Chest pain TECHNIQUE: Imaging protocol: Radiologic exam of the chest. Views: 1 view. COMPARISON: CR XR chest 1V portable [id number] 12/09/2022 1:05 PM FINDINGS: Lungs: No consolidation. Pleural spaces: No pleural effusion. No pneumothorax. Heart/Mediastinum: No cardiomegaly. Bones/joints: No acute findings. XR/XR chest 1V portable [id number] IMPRESSION: No acute findings.
--- NOTE | 2023-01-12 14:41 | ECG_ITS ---
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 Measurements Intervals [place] Rate: 61 P: 100 MS: 194 QRS: -58 QRSD: 170 T: 124 QT: 439 QTc: 445 Interpretive Statements ELECTRONIC ATRIAL PACEMAKER ELECTRONIC VENTRICULAR PACEMAKER ABNORMAL RHYTHM ECG Compared to ECG 12/09/2022 12:43:18 No significant changes Electronically Signed On 01-12-2023 21:27:47 HELMET COVERER by Kathe Agudelo M.D. [email or web address]'[employer] Genius/store/[id number] [email or web address]
--- NOTE | 2023-01-12 14:51 | ED_ITS ---
Documented by User: Saul Roman DO 01/19/23 17:08 HPI - Chest Pain 2 General: Chief Complaint: Chest Pain Stated Complaint: Cp, upper abd pain, fingers/toes tingling Time Seen by Provider: 01/12/23 14:41 Source: patient Mode of arrival: ambulatory History of Present Illness: 77-year-old male with known history of c oronary disease presents emergency room with complaint of chest pain that has had intermittently for the last 2 days. Began 2 days ago he had 1 episode where he took nitro which did seem to improve it. Previously had an IA and had several stents placed. No chest pain at this time. Denies any fever sweats chills cough or shortness of breath. MD complaint: chest pain Pertinent past history: coronary artery disease and prior IA Onset (ago): day(s) (2) Timing of current episode: episodic Prior episodes: Yes Onset: during rest Relieving factors: nothing Exacerbating factors: nothing Associated symptoms: Deny abdominal pain, diaphoresis, dyspnea, fever(s), leg edema, nausea, palpitations, sense of impending doom, syncope or vomiting Review of Systems 2 Const: Denies: fever(s), chills or diaphoresis Card: Reports: chest pain; Denies: palpitations or syncope Resp: Denies: dyspnea GI: Denies: abdominal pain, nausea or vomiting : Denies: dysuria, urinary frequency or urinary urgency Musc: Denies: neck pain or back pain Skin/Breast: Denies: rash PFSH ED 2 PFSH: Medical History Diaphoresis Chest pain Cardiac ischemia Hx of cardiomyopathy LVEF <40% Chronic systolic (congestive) heart failure Ischemic cardiomyopathy Abnormal nuclear cardiac imaging test Heart murmur Osteopenia Hemorrhoids, internal Cervical spine arthritis Abdominal pain Hepatomegaly History of medication noncompliance Atherosclerosis of coronary artery of nondalton heart without angina pectoris History of colon polyps Hyperuricemia Cervical disc disorder with myelopathy Elevated blood sugar Chronic neck pain Chronic gout Gastro-esophageal reflux disease without esophagitis Diverticulosis Neuropathy Patel's neuroma of left foot Blindness of left eye Unspecified osteoarthritis, unspecified site Arteriosclerotic heart disease Hearing loss of both ears Nicotine dependence, cigarettes, uncomplicated Metatarsalgia of both feet Essential (primary) hypertension Mixed hyperlipidemia Chronic kidney disease, stage 2 (mild) Cholecystectomy planned Pacemaker Surgical History Status post cholecystectomy S/P cardiac catheterization History of permanent cardiac pacemaker placement For symptomatic bradycardia, 02/25 History of ankle surgery H/O hernia repair Family History Brother CAD (coronary artery disease) Myocardial infarct Cancer Mother Myocardial infarct Father Cancer FROM LUNG CANCER Daughter Cancer Social History Smoking and tobacco/nicotine status: former use of tobacco/nicotine (Quit 5 years ago) Quit status (tobacco/nicotine): has quit using Year quit tobacco: 2017, smoked 50years Former quit date comment: 1/2- 1 packs per day Second hand smoke exposure: No Alcohol intake: current Substance/Drug Use: never Lives independently: Yes Household members: spouse Marital status: Current occupational status: retired Physical Exam 2 Const: COMMON NORMALS: no acute distress GENERAL APPEARANCE: cooperative and comfortable ORIENTATION/CONSCIOUSNESS: Yes awake, Yes oriented to person, Yes oriented to place and Yes oriented to time HENMT: COMMON NORMALS: normocephalic and atraumatic HEAD & SCALP: n ormocephalic and atraumatic Resp: COMMON NORMALS: normal respiratory effort, No retractions, No use of accessory muscles and clear to auscultation bilaterally AUSCULTATION: clear to auscultation bilaterally Cardio: COMMON NORMALS: regular rate, regular rhythm and No murmurs present (Cardio) RATE: regular rate RHYTHM: regular rhythm GI: COMMON NORMALS: Soft to palpation and No hepatosplenomegaly present A USCULTATION: Yes normoactive bowel sounds PALPATION: Yes Soft to palpation, No Tenderness to palpation present (GI), No Guarding due to palpation present (GI) and Yes No hepatosplenomegaly present Extremity: COMMON NORMALS: normal to inspection, capillary refill normal, no clubbing, cyanosis or edema, no calf tenderness and no pedal edema Neuro: SENSORIUM/ORIENTATION: Yes oriented to person, Yes oriented to place and Yes oriented to time Skin: COMMON NORMALS: no rashes or lesions noted GENERAL SKIN EXAM: no rashes or lesions noted Course 2 Vital Signs: Vital signs: Vital Signs Temperature 97.7 F 01/12/23 13:39 Pulse Rate 60 01/12/23 17:23 Respiratory Rate 18 01/12/23 17:23 Blood Pressure 145/89 01/12/23 17:23 Pulse Oximetry 97 01/12/23 17:23 Oxygen Delivery Me thod Room Air 01/12/23 15:25 MDM - Chest Pain Medical Decision Making Labs pending. Care signed out to Dr. Weeks at change of shift. See final notes for diagnosis and disposition. Lab Data 01/12/23 14:53 01/12/23 14:53 Radiology Impressions Chest X-Ray 01/12/23 14:41 IMPRESSION: No acute findings. Laboratory Results WBC 5.97 10^3/uL (3.29-11.43) 01/12/23 14:53 RBC 4.14 10^6/uL (3.85-5.65) 01/12/23 14:53 Hgb 13.80 g/dL (11.27-16.99) 01/12/23 14:53 Hct 42.7 % (37-53) 01/12/23 14:53 MCV 103.1 fl (82-101) H 01/12/23 14:53 MCH 33.3 pg (27-33) H 01/12/23 14:53 MCHC 32.3 g/dL (30-55) 01/12/23 14:53 RDW 12.0 % (12.1-15.1) L 01/12/23 14:53 Plt Count 182 10^3/cmm (157-399) 01/12/23 14:53 MPV 9.3 fL (7.4-10.4) 01/12/23 14:53 Neut % (Auto) 53.7 % 01/12/23 14:53 Lymph % (Auto) 37.7 % 01/12/23 14:53 Keith % (Auto) 7.7 % 01/12/23 14:53 Eos % (Auto) 0.0 % 01/12/23 14:53 Baso % (Auto) 0.7 % 01/12/23 14:53 Neut # (Auto) 3.21 10^3/uL (1.8-7.7) 01/12/23 14:53 Lymph # (Auto) 2.3 10^3/uL (0.8-4.8) 01/12/23 14:53 Keith # (Auto) 0.5 10^3/uL (0.2-0.9) 01/12/23 14:53 Eos # (Auto) 0.0 10^3/uL (0.0-0.8) 01/12/23 14:53 Baso # (Auto) 0.0 10^3/uL (0.0-0.1) 01/12/23 14:53 Nucleated RBC % (auto) 0 % 01/12/23 14:53 Nucleated RBCs # 0.0 /100WBC 01/12/23 14:53 Sodium 140 mmol/L (136-145) 01/12/23 14:53 Potassium 4.7 mmol/L (3.5-5.1) 01/12/23 14:53 Chloride 105 mmol/L (98-107) 01/12/23 14:53 Carbon Dioxide 25 mmol/L (22-29) 01/12/23 14:53 Anion Gap 14.7 (5-19) 01/12/23 14:53 BUN 14 mg/dL (8-23) 01/12/23 14:53 Creatinine 1.3 mg/dL (0.7-1.2) H 01/12/23 14:53 GFR Calculation Not Reportable 01/12/23 14:53 Glucose 112 mg/dL (65-115) 01/12/23 14:53 Calculated Osmolality 291 mOsm/kg (285-295) 01/12/23 14:53 Calcium 9.5 mg/dL (8.5-10.5) 01/12/23 14:53 Total Bilirubin 0.4 mg/dL (0.15-1.2) 01/12/23 14:53 AST 21 U/L (0-40) 01/12/23 14:53 ALT 24 U/L (0-41) 01/12/23 14:53 Alkaline Phosphatase 75 U/L (40-130) 01/12/23 14:53 Troponin T Baseline 8 ng/L (0-15) 01/12/23 14:53 Troponin T 120 Minute 7.06 ng/L (0-15) 01/12/23 16:35 Delta Troponin T -0.94 ABS# (0-10) L 01/12/23 16:35 Total Protein 7.2 g/dL (6.6-8.7) 01/12/23 14:53 Albumin 4.7 g/dL (3.5-5.2) 01/12/23 14:53 Globulin 2.5 g/dL (1.3-4.6) 01/12/23 14:53 Discharge Plan Discharge Patient Disposition: Home Clinical Impression: Atypical chest pain Condition: Stable Prescriptions: No Action ascorbate calcium (vitamin C) 500 mg tablet 500 mg PO DAILY cholecalciferol (vitamin D3) 25 mcg (1,000 unit) capsule 25 mcg PO DAILY cyanocobalamin (vitamin B-12) 1,000 mcg capsule 1,000 mcg PO DAILY aspirin 81 mg tablet,delayed release (DR/EC) 81 mg PO DAILY multivitamin Tablet 1 tab PO QAM cyclobenzaprine 10 mg tablet 10 mg PO TID PRN (Reason: Pain) Qty: 30 3RF Ambien 10 mg tablet 10 mg PO BEDTIME Qty: 30 2RF nitroglycerin 0.4 mg tablet, sublingual See Rx Instructions .ROUTE .COMPLEX Qty: 30 1RF Dose Instruction: DISSOLVE ONE TABLET UNDER THE TONGUE EVERY 5 MINUTES NEEDED CHEST PAIN Rx Instructions: DISSOLVE ONE TABLET UNDER THE TONGUE EVERY 5 MINUTES NEEDED CHEST PAIN Entresto 97-103 mg tablet 1 tab PO BID Qty: 180 3RF calcium carbonate [Calcium 500] 500 mg calcium (1,250 mg) Tablet 500 mg PO BID atorvastatin 40 mg tablet 40 mg PO QPM carvedilol 12.5 mg tablet 12.5 mg PO BID isosorbide mononitrate 30 mg tablet extended release 24 hr 30 mg PO DAILY amlodipine 2.5 mg tablet 2.5 mg PO DAILY clopidogrel 75 mg tablet 75 mg PO DAILY omeprazole 40 mg capsule,delayed release(DR/EC) 40 mg PO BID tamsulosin 0.4 mg capsule 0.4 mg PO DAILY ranolazine 500 mg tablet extended release 12 hr 500 mg PO BID zinc acetate 50 mg (zinc) Capsule 50 mg PO DAILY omega 0-jdt-iga-fish oil [Fish Oil] 300-1,000 mg Capsule 1 cap PO BID Mucinex 600 mg Tablet Extended Release 12hr 600 mg PO Q12H PRN (Reason: Congestion) Discharge Orders: Discharge ED (Routine); Ordered 01/12/23 Ordered By: Mathieu Weeks Referrals: Janeen Mueller MD [Physician] - Lauren Chin MD [Primary Care Provider] - Discharge Diet: Advance as tolerated Discharge Activity: Resume usual activity Patient Instructions: Opioid Safety, Pain Management Coding Level of Care Code ED Quality Coordinator for Chg Fwd Documented by User: Mathieu Weeks MD 01/12/23 17:18 HPI - Chest Pain 2 General: Chief Complaint: Chest Pain Stated Complaint: Cp, upper abd pain, fingers/toes tingling Time Seen by Provider: 01/12/23 14:41 PFSH ED 2 PFSH: Medical History Diaphoresis Chest pain Cardiac ischemia Hx of cardiomyopathy LVEF <40% Chronic systolic (congestive) heart failure Ischemic cardiomyopathy Abnormal nuclear cardiac imaging test Heart murmur Osteopenia Hemorrhoids, internal Cervical spine arthritis Abdominal pain Hepatomegaly History of medication noncompliance Atherosclerosis of coronary artery of nondalton heart without angina pectoris History of colon polyps Hyperuricemia Cervical disc disorder with myelopathy Elevated blood sugar Chronic neck pain Chronic gout Gastro-esophageal reflux disease without esophagitis Diverticulosis Neuropathy Patel's neuroma of left foot Blindness of left eye Unspecified osteoarthritis, unspecified site Arteriosclerotic heart disease Hearing loss of both ears Nicotine dependence, cigarettes, uncomplicated Metatarsalgia of both feet Essential (primary) hypertension Mixed hyperlipidemia Chronic kidney disease, stage 2 (mild) Cholecystectomy planned Pacemaker Surgical History Status post cholecystectomy S/P cardiac catheterization History of permanent cardiac pacemaker placement For symptomatic bradycardia, 02/25 History of ankle surgery H/O hernia repair Family History Brother CAD (coronary artery disease) Myocardial infarct Cancer Mother Myocardial infarct Father Cancer FROM LUNG CANCER Daughter Cancer Social History Smoking and tobacco/nicotine status: former use of tobacco/nicotine (Quit 5 years ago) Quit status (tobacco/nicotine): has quit using Year quit tobacco: 2017, smoked 50years Former quit date comment: 1/2- 1 packs per day Second hand smoke exposure: No Alcohol intake: current Substance/Drug Use: never Lives independently: Yes Household members: spouse Marital status: Current occupational status: retired Course 2 Vital Signs: Vital signs: Vital Signs Temperature 97.7 F 01/12/23 13:39 Pulse Rate 60 01/12/23 17:23 Respiratory Rate 18 01/12/23 17:23 Blood Pressure 145/89 01/12/23 17:23 Pulse Oximetry 97 01/12/23 17:23 Oxygen Delivery Me thod Room Air 01/12/23 15:25 MDM - Chest Pain Medical Records Excepted report from outgoing ER physician Dr. Roman. Repeat physical exam completed I discussed the laboratory findings with the patient as well as his presenting symptoms of chest heaviness substernal chest heaviness that radiates to the the back of his shoulders I did review his recent cardiac catheterization October of last year as well as his stress test. Given that his second cardiac enzyme is negative and his cardiac catheterization review I will discharge him with atypical chest pain and have him follow-up with his travel physical therapist. I have advised him that if his chest pain returns or worsens he may return to emergency department anytime for any reason. Lab Data I reviewed the patient's lab results. 01/12/23 14:53 01/12/23 14:53 Radiology Impressions Chest X-Ray 01/12/23 14:41 IMPRESSION: No acute findings. Laboratory Results WBC 5.97 10^3/uL (3.29-11.43) 01/12/23 14:53 RBC 4.14 10^6/uL (3.85-5.65) 01/12/23 14:53 Hgb 13.80 g/dL (11.27-16.99) 01/12/23 14:53 Hct 42.7 % (37-53) 01/12/23 14:53 MCV 103.1 fl (82-101) H 01/12/23 14:53 MCH 33.3 pg (27-33) H 01/12/23 14:53 MCHC 32.3 g/dL (30-55) 01/12/23 14:53 RDW 12.0 % (12.1-15.1) L 01/12/23 14:53 Plt Count 182 10^3/cmm (157-399) 01/12/23 14:53 MPV 9.3 fL (7.4-10.4) 01/12/23 14:53 Neut % (Auto) 53.7 % 01/12/23 14:53 Lymph % (Auto) 37.7 % 01/12/23 14:53 Keith % (Auto) 7.7 % 01/12/23 14:53 Eos % (Auto) 0.0 % 01/12/23 14:53 Baso % (Auto) 0.7 % 01/12/23 14:53 Neut # (Auto) 3.21 10^3/uL (1.8-7.7) 01/12/23 14:53 Lymph # (Auto) 2.3 10^3/uL (0.8-4.8) 01/12/23 14:53 Keith # (Auto) 0.5 10^3/uL (0.2-0.9) 01/12/23 14:53 Eos # (Auto) 0.0 10^3/uL (0.0-0.8) 01/12/23 14:53 Baso # (Auto) 0.0 10^3/uL (0.0-0.1) 01/12/23 14:53 Nucleated RBC % (auto) 0 % 01/12/23 14:53 Nucleated RBCs # 0.0 /100WBC 01/12/23 14:53 Sodium 140 mmol/L (136-145) 01/12/23 14:53 Potassium 4.7 mmol/L (3.5-5.1) 01/12/23 14:53 Chloride 105 mmol/L (98-107) 01/12/23 14:53 Carbon Dioxide 25 mmol/L (22-29) 01/12/23 14:53 Anion Gap 14.7 (5-19) 01/12/23 14:53 BUN 14 mg/dL (8-23) 01/12/23 14:53 Creatinine 1.3 mg/dL (0.7-1.2) H 01/12/23 14:53 GFR Calculation Not Reportable 01/12/23 14:53 Glucose 112 mg/dL (65-115) 01/12/23 14:53 Calculated Osmolality 291 mOsm/kg (285-295) 01/12/23 14:53 Calcium 9.5 mg/dL (8.5-10.5) 01/12/23 14:53 Total Bilirubin 0.4 mg/dL (0.15-1.2) 01/12/23 14:53 AST 21 U/L (0-40) 01/12/23 14:53 ALT 24 U/L (0-41) 01/12/23 14:53 Alkaline Phosphatase 75 U/L (40-130) 01/12/23 14:53 Troponin T Baseline 8 ng/L (0-15) 01/12/23 14:53 Troponin T 120 Minute 7.06 ng/L (0-15) 01/12/23 16:35 Delta Troponin T -0.94 ABS# (0-10) L 01/12/23 16:35 Total Protein 7.2 g/dL (6.6-8.7) 01/12/23 14:53 Albumin 4.7 g/dL (3.5-5.2) 01/12/23 14:53 Globulin 2.5 g/dL (1.3-4.6) 01/12/23 14:53 All radiology interpretation(s) finalized by discharge Discharge Plan Discharge Patient Disposition: Home Clinical Impression: Atypical chest pain Condition: Stable Prescriptions: No Action ascorbate calcium (vitamin C) 500 mg tablet 500 mg PO DAILY cholecalciferol (vitamin D3) 25 mcg (1,000 unit) capsule 25 mcg PO DAILY cyanocobalamin (vitamin B-12) 1,000 mcg capsule 1,000 mcg PO DAILY aspirin 81 mg tablet,delayed release (DR/EC) 81 mg PO DAILY multivitamin Tablet 1 tab PO QAM cyclobenzaprine 10 mg tablet 10 mg PO TID PRN (Reason: Pain) Qty: 30 3RF Ambien 10 mg tablet 10 mg PO BEDTIME Qty: 30 2RF nitroglycerin 0.4 mg tablet, sublingual See Rx Instructions .ROUTE .COMPLEX Qty: 30 1RF Dose Instruction: DISSOLVE ONE TABLET UNDER THE TONGUE EVERY 5 MINUTES NEEDED CHEST PAIN Rx Instructions: DISSOLVE ONE TABLET UNDER THE TONGUE EVERY 5 MINUTES NEEDED CHEST PAIN Entresto 97-103 mg tablet 1 tab PO BID Qty: 180 3RF calcium carbonate [Calcium 500] 500 mg calcium (1,250 mg) Tablet 500 mg PO BID atorvastatin 40 mg tablet 40 mg PO QPM carvedilol 12.5 mg tablet 12.5 mg PO BID isosorbide mononitrate 30 mg tablet extended release 24 hr 30 mg PO DAILY amlodipine 2.5 mg tablet 2.5 mg PO DAILY clopidogrel 75 mg tablet 75 mg PO DAILY omeprazole 40 mg capsule,delayed release(DR/EC) 40 mg PO BID tamsulosin 0.4 mg capsule 0.4 mg PO DAILY ranolazine 500 mg tablet extended release 12 hr 500 mg PO BID zinc acetate 50 mg (zinc) Capsule 50 mg PO DAILY omega 1-izr-qng-fish oil [Fish Oil] 300-1,000 mg Capsule 1 cap PO BID Mucinex 600 mg Tablet Extended Release 12hr 600 mg PO Q12H PRN (Reason: Congestion) Discharge Orders: Discharge ED (Routine); Ordered 01/12/23 Ordered By: Mathieu Weeks Referrals: Janeen Mueller MD [Physician] - Lauren Chin MD [Primary Care Provider] - Discharge Diet: Advance as tolerated Discharge Activity: Resume usual activity Patient Instructions: Opioid Safety, Pain Management Coding Level of Care Code ED Quality Coordinator for Lamont Galan
[2023-01-12 15:04] LABS: Basophils % 0.7 %; Hematocrit 42.7 % (37-53); Lymphocytes # 2.3 10^3/uL (0.8-4.8); Lymphocytes % 37.7 %; Mean Corpuscular HGB Conc 32.3 g/dL (30-55); Mean Corpuscular Hemoglobin 33.3 pg (27-33); Mean Corpuscular Volume 103.1 fl (82-101); Mean Platelet Volume 9.3 fL (7.4-10.4); Monocytes # 0.5 10^3/uL (0.2-0.9); Monocytes % 7.7 %; Neutrophils # 3.21 10^3/uL (1.8-7.7); Neutrophils % 53.7 %; Nucleated Red Blood Cells % 0 %; Platelet Count 182 10^3/cmm (157-399); Red Blood Count 4.14 10^6/uL (3.85-5.65); White Blood Count 5.97 10^3/uL (3.29-11.43)
[2023-01-12] MEDS: aspirin 81 mg Chew Tablet 324 MG PO (15:04)
[2023-01-12 15:19] LABS: Troponin(5th) Baseline 8 ng/L (0-15)
[2023-01-12 15:38] LABS: Alanine Aminotransferase 24 U/L (0-41); Albumin Level 4.7 g/dL (3.5-5.2); Alkaline Phosphatase 75 U/L (40-130); Anion Gap 14.7 (5-19); Aspartate Amino Transferase 21 U/L (0-40); Blood Urea Nitrogen 14 mg/dL (8-23); Calcium 9.5 mg/dL (8.5-10.5); Carbon Dioxide 25 mmol/L (22-29); Chloride 105 mmol/L (98-107); Globulin 2.5 g/dL (1.3-4.6); Glucose 112 mg/dL (65-115); Osmolality Calculated 291 mOsm/kg (285-295); Potassium 4.7 mmol/L (3.5-5.1); Sodium 140 mmol/L (136-145); Total Bilirubin 0.4 mg/dL (0.15-1.2); Total Protein 7.2 g/dL (6.6-8.7)
--- NOTE | 2023-01-12 16:41 | ECG_ITS ---
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 Measurements Intervals [place] Rate: 61 P: 173 ND: 203 QRS: -55 QRSD: 162 T: 132 QT: 444 QTc: 450 Interpretive Statements ELECTRONIC ATRIAL PACEMAKER ELECTRONIC VENTRICULAR PACEMAKER ABNORMAL RHYTHM ECG Compared to ECG 01/12/2023 13:36:27 No significant changes Electronically Signed On 01-12-2023 21:33:24 KNUCKLE BENDER by Kathe Agudelo M.D. [id number]
[2023-01-12 16:59] LABS: Troponin 5 2HR 7.06 ng/L (0-15); Troponin 5 2HR Delta -0.94 ABS# (0-10)
== END 2023-01-12 17:24 | disposition home or self-care (01) ==
PROVIDERS: Family Medicine; Emergency Provider Internal Medicine; PCP Family Medicine
DX: R07.89 Other chest pain (principal); Z79.02 Long term (current) use of antithrombotics/antiplatelets; Z79.82 Long term (current) use of aspirin; Z87.891 Personal history of nicotine dependence; Z95.0 Presence of cardiac pacemaker; I25.10 Atherosclerotic heart disease of native coronary artery without angina pectoris; I25.5 Ischemic cardiomyopathy; I13.0 Hypertensive heart and chronic kidney disease with heart failure and stage 1 through stage 4 chronic kidney disease, or unspecified chronic kidney disease; N18.2 Chronic kidney disease, stage 2 (mild); I50.22 Chronic systolic (congestive) heart failure; E78.2 Mixed hyperlipidemia
CPT/HCPCS: 36415; 71045; 80053; 84484; 85025; 93005; 99285

== ENCOUNTER → 2023-04-02 12:45 | Outpatient (BNVA) | payer MEDICARE, SELFPAY | PROVIDERS: PCP Family Medicine; Visit Provider Family Medicine | DX: R53.83 Other fatigue (principal); I50.22 Chronic systolic (congestive) heart failure; N18.2 Chronic kidney disease, stage 2 (mild); I25.110 Atherosclerotic heart disease of native coronary artery with unstable angina pectoris | CPT/HCPCS: 80053; 80061; 84443; 85025 ==

== ENCOUNTER → 2023-07-01 15:31 | Outpatient (BNVA) | payer MEDICARE, SELFPAY | PROVIDERS: PCP Family Medicine; Visit Provider Internal Medicine Cardiovascular Disease | DX: R07.9 Chest pain, unspecified (principal); Z95.0 Presence of cardiac pacemaker; I25.118 Atherosclerotic heart disease of native coronary artery with other forms of angina pectoris; E78.5 Hyperlipidemia, unspecified; I25.5 Ischemic cardiomyopathy | CPT/HCPCS: 93005; 99214 ==

== ENCOUNTER 2023-07-11 08:55 | Outpatient (CLI) | payer MEDICARE, SELFPAY ==
[2023-07-11 09:20] VITALS: BMI 34.9
--- NOTE | 2023-07-11 09:23 | NMCV_ITS ---
NM brandie perf SPECT r/s* [id number] Miky Hoffman Age: 77 Gender: M : 1945 Exam Date: 07/11/2023 09:23 Ordering Phys: Leatha Saldivar MD ([email or web address]) Technologist: ISADORA Cruz Exam Location: [facility] Indications: CORONARY ANGIOPLASTY STATUS STRESS TEST Please [facility] IMAGE PROTOCOL Rest/Stress 1 Lexiscan Day Radiopharmaceutical Dose (mCi) Administration Site Administered by Rest: Tc-99m 11.0 IV ISADORA Frederick Sestamibi Stress:Tc-99m 32.9 IV ISADORA Frederick Sestamibi Rest: 11-Jul-2023 60 Discovery 630 Stress: 11-Jul-2023 30 Discovery 630 0.4mg Lexiscan. Supine position only as patient was unable to lay prone. SPECT RESULTS Technical Quality: Excellent Raw Data Analysis: Normal Image Corrections: No attenuation or motion correction applied Summed Stress Score: 5 Summed Rest Score: 8 Summed Difference Score: 1 PERFUSION FINDINGS Moderate area of minimal to moderately decreased tracer uptake in the mid inferoseptal, apical inferior and apical septal segments. Subtle area of slight reversibility was noted in the apical inferior region. FUNCTIONAL RESULTS (calculated via Gated SPECT) Stress Image LV EF (%): 39 Stress EDV (mL):177 TID: 1.07 Stress ESV (mL):108 FUNCTIONAL FINDINGS: Segmental wall motion analysis revealing diffuse evidence of the inferior wall, septum and the apex. IMPRESSIONS 1. Myocardial p,erfusion imaging revealing moderate area of minimal to moderately decreased tracer uptake involving the inferoseptal, apical septal and apical inferior wall segments with a subtle area reversibility, suggesting myocardial scarring in the distribution of the distal left anterior descending artery/right coronary artery/with a subtle area of possible petit infarction ischemia. 2. The patient ejection fraction of 39%. 3. Wall motion abnormalities as mentioned above 4. Moderately dilated LV cavity with end-systolic volume of 108 mL Compared to the study from 10/22/2021, the LV ejection fraction has decreased from 51% to 39%. The LV volume has increased from 72 mL to [address] Leatha Saldivar MD FACC (Electronically Signed) Final Date: 14 July 2023 08:07 S
--- NOTE | 2023-07-11 09:23 | ECG_ITS ---
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 Interpretive Statements NAME OF STUDY: LEXISCAN SESTAMIBI STRESS TEST INDICATION: Chest Pain, PROCEDURE: At the baseline, the EKG revealed normal sinus rhythm with left bundle branch block pattern. The baseline heart was 67 bpm with a blood pressue of 142/93 mm of Hg Lexiscan was infused over a period of 20 seconds. A total of 0.4 milligrams of Lexiscan was infused. The stress phase was continued for a total of 5 minutes. Heart rate at the end of the stress phase was 61 bpm with a blood pressure 117/73 mm of Hg. The EKG at the peak infusion revealed no significant changes. Sestamibi was injected 20 seconds after the Lexiscan infusion. Heart rate at the end of the recovery phase was 60 bpm with a blood pressure of 114/73 mm of Hg. CONCLUSION: 1. No significant EKG changes with the LexiScan infusion 2. No LexiScan induced chest pain or cardiac arrhythmia 3. Normal blood pressure and heart rate response 4. Sestamibi/sestamibi perfusion scan pending; see separate report. Electronically Signed On 07-14-2023 9:04:02 CDT by Leatha Saldivar M.D. [id number]
[2023-07-11] MEDS: regadenoson 0.4 Mg/5 ml Syringe 0.400000000000000022 MG IVP (11:08)
[2023-07-11 11:12] VITALS: BP 114/73; PULSE 60
== END 2023-07-11 08:56 | disposition home or self-care (01) ==
LOC: CDL 08:55
PROVIDERS: PCP Family Medicine; Visit Provider Internal Medicine Cardiovascular Disease
DX: R94.39 Abnormal result of other cardiovascular function study (principal); Z98.61 Coronary angioplasty status; R07.9 Chest pain, unspecified
CPT/HCPCS: 36415; 78452; 93017; 96374; A9500; J2785

== ENCOUNTER → 2023-07-18 11:14 | Outpatient (BNVA) | payer MEDICARE, SELFPAY | PROVIDERS: PCP Family Medicine; Visit Provider Internal Medicine Cardiovascular Disease | DX: R06.09 Other forms of dyspnea (principal); I25.118 Atherosclerotic heart disease of native coronary artery with other forms of angina pectoris; E78.2 Mixed hyperlipidemia; R06.02 Shortness of breath; I48.91 Unspecified atrial fibrillation; Z79.01 Long term (current) use of anticoagulants; I25.10 Atherosclerotic heart disease of native coronary artery without angina pectoris; R94.39 Abnormal result of other cardiovascular function study; I25.5 Ischemic cardiomyopathy; Z95.0 Presence of cardiac pacemaker; Z87.891 Personal history of nicotine dependence; I13.0 Hypertensive heart and chronic kidney disease with heart failure and stage 1 through stage 4 chronic kidney disease, or unspecified chronic kidney disease; I50.22 Chronic systolic (congestive) heart failure; N18.2 Chronic kidney disease, stage 2 (mild) | CPT/HCPCS: 36415; 80048; 83880; 85025; 85610; 86850; 86900; 99214 ==

== ENCOUNTER 2023-07-30 07:13 | Outpatient (CLI) | payer MEDICARE, SELFPAY ==
[2023-07-30] VITALS (14 sets, daily range): BP systolic 106–131; BP diastolic 61–74; PULSE 60–63; RESP 13–16; TEMP 36.6; O2SAT 98–99; BMI 34.9
--- NOTE | 2023-07-30 07:30 | XACV_ITS ---
Ht: 185 cm Wt: 120 kg BSA: 2.53 m2 Gender: Male : 1945 Any Known Allergies: Other Exam Priority: Routine Procedure(s): Procedure Description: Diagnostic procedure Procedure Description: Left Heart Catheterization Procedure Description: Left ventriculography Procedure Description: Coronary Angiography Yariel CHRISTINE; Diagnostic Cath Status: Elective Diagnostic Findings * The left main is a medium to large caliber vessel with minimal intimal irregularities. * The left anterior descending artery was a medium caliber vessel with minimal intimal irregularities. It appears to be tapering off to his LV apex. It gives off multiple diagonal branches with no significant stenotic lesions. The ostium of the left anterior descending artery was found to have minimal narrowing. * The left circumflex artery is a medium caliber vessel which appears to give of a large high obtuse marginal branch, appears as an intermediate artery. The long stented segment in the proximal artery appears to be widely patent with minimal in-stent narrowing. The second obtuse marginal artery was found to have minimal intimal irregularities. No significant stenotic lesions were noted. * The right coronary artery is a large dominant vessel with a mild diffuse disease in the distal segment. The stented segment of the PDA branch was found to be widely patent. The PLV branches are found to have minimal intimal irregularities. Conclusions 1. 77-year-old white male with a history of atherosclerotic heart disease and previous PCI's presenting with increasing episodes of chest pain, fatigue and dyspnea on exertion. Myocardial perfusion imaging revealed areas of fixed defect with a small areas of reversible defect. Because of the patient's worsening symptoms, in order to further evaluate the coronary status, a cardiac catheterization was recommended. Patient underwent left heart catheterization with left and right coronary angiogram and LV angiogram today. The findings are as follows. 2. Patent stented segment of the intermedius artery with minimal in-stent narrowing. Patent stented segment of the PDA branch of the right coronary artery. Mild diffuse disease in the other vessels. LV ejection fraction around 40 to 45%. LVEDP of 11 mmHg. Diagnostic RX Recommendation: medical therapy and/or counseling LV EDP: 11 mmHg Ventriculography Ejection Fraction: 40.0 % Left Ventriculography Findings: * The LV gram was performed in the MONROE projection. The LV angiogram was of suboptimal quality. LV ejection fraction patient with around 40 to 45%. No filling defects were noted. No significant mitral regurgitation. Pressures Phase:Rest AO : 117 / 64 ( 84 ) @ 10:17:00 AM 128 / 61 ( 87 ) @ 10:28:00 AM 130 / 56 ( 86 ) @ 10:28:00 AM LV : 114 / -7 / 11 @ 10:26:00 AM 129 / 3 / 21 @ 10:28:00 AM 128 / 2 / 21 @ 10:28:00 AM Valves Phase:DefaultPhase AV : 0.0 @ 9:47:55 AM AV Mean Gradient: 0.0 @ 9:47:55 AM 0.0 @ 9:47:55 AM Clinical Evaluation EBL: 5mL-10mL Procedural Details Procedure Consent Obtained. Pre-Procedure Time Out. Identified patient by full name and date of as verbalized by the patient/guarantor. Does the consent match the physician's order: Yes. Accurate & Complete Informed Consent: Yes. Inpatient/Outpatient History & Physical on Chart: Yes. If H&P is completed, is and addenduem needed: No; If yes, is the addendum complete: N/A. Visualize and Verify Site with Patient/Guarantor: N/A. Relevant Radiology Images available: N/A. Pre-op teaching completed and patient verbalized understanding. The risks, benefits, and alternatives of sedation and/or procedure were discussed by physician. The patient agrees to continue. Procedure started. [facility] Clinical Fraility Score: 3: Managing Well. 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 Chest Pain Symptom Assessment: Typical Angina Symptoms. Cardiovascular Instability: No. Correct patient, site and procedure confirmed by cath team. PERRLA. 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 Lungs clear x 5 lobes. IV Site on Arrival: 20 gauge in the left anticubital. IV Fluids: 0.9% NaCl at KVO. 0 mL infused prior to laborer shipyard. Pre Procedural Pulses: bilateral dorsalis pedis was 2+. Pre Procedural Pulses: bilateral posterior tibial was Doppled. Pre Procedural Pulses: bilateral radial was 3+. Oxygen started at 2liters/min via nasal canula. right groin was prepped with chloroprep then draped in the usual sterile fashion. right radial was prepped with chloroprep then draped in the usual sterile fashion. Baseline sample Acquired. HR: 72 BPM. Physician arrived. Equipment: 6F - Radial. Physician scrubbed in. Immediate Pre-Procedure Time Out. Correct Patient: Yes; Correct Procedure: Yes; Correct Site: Yes; Correct Patient Position: Yes; Correct Supplies: Yes; Dried Flammable Prep: No; Blood Products Available: N/A;. Lidocaine 1% infiltrated to the right radial. Unable to obtain radial access. MD attempting to gain access in the Femoral artery. An attempt to gain access to the right radial artery was unsuccessful. Manual pressure was held as needed to stop the bleeding. Lidocaine 1% infiltrated to the right groin. Arterial access obtained with micropuncture set. A 5 equatorial guinean JL4 catheter in over wire. Multiple views taken of left coronary artery. Catheter removed over the standard wire. A 5 equatorial guinean JR4 catheter in over wire. Multiple views taken of right coronary artery. Catheter removed over the standard wire. A 5 equatorial guinean Angled Pig catheter in over wire. Cardiac Cath Pack. ACIST Manifold Kit Model BT 2000. Heparinized Saline (2 units/mL), 1000 mL bag. EDP Sample taken: LV 114/-8,11; HR: 60 BPM; SpO2: 94%. LV gram performed in [place]E @ 10 mL/second for a total of 30 mL. EDP Sample taken: LV 129/3,21; HR: 67 BPM; SpO2: 93%. Pullback taken: LV 128/2,21; AO 128/61(87); Mean: 0mmHg, Peak to Peak: 0mmHg, SEP: 8sec/min; HR: 59 BPM; SpO2: 94%. Catheter removed over the standard wire. Physician scrubbed out. A Manual Compression was successful obtaining hemostatsis at the Right Femoral artery insertion site. Sheath(s) removed and manual pressure held until hemostasis was achieved. Sterile 4x4 and Op-site applied to the puncture site. No oozing or hematoma noted. Post sheath removal instructions were given and the patient verbalized understanding. Post Procedure: Pulses reassessed and unchanged. PERRLA. 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 No VTE prophylaxis required. Medication's Wasted: Nitro = 50 mg. Medication's Wasted: Other = fentanyl 50 mcg. Total IV fluids: 50 mL. Contrast type used: Omnipaque 300 mgI/mL, 500 mL bottle. Post-op diagnosis: mild CAD, cardiomyopathy. Complications: none. Estimated blood loss: 5mL-10mL. Responsiveness - Normal response to verbal stimuli; alert and oriented, PERRLA. Airway - Unaffected, no intervention required; spontaneous ventilation. Circulation: W/N/L, pulses unchanged. Nausea/Vomiting: No. Medication's Wasted: Verapamil = 5 mg. Procedure completed. Patient transferred by bed to 1st floor. Vital chart was stopped. Access Site Site: Right Femoral artery Sheath Size: 5 Fr Hemostasis Method: Manual Compression Hemostasis Success: Successful Procedure Medications Start: 8:54 AM Stop: 8:54 AM Medication: Versed Amount: 1 mg Route: I.V. Start: 8:54 AM Stop: 8:54 AM Medication: Fentanyl Amount: 50 mcg Route: I.V. Start: 9:03 AM Stop: 9:03 AM Medication: Versed Amount: 1 mg Route: I.V. I, the attending physician, have reviewed and verified all procedure medications. Yes, all medications given per verbal order History/Risk Factors Hypertension: Yes Dyslipidemia: Yes Peripheral Arterial Disease (PAD): No Myocardial Infarction (VA): No Obesity: No Renal Disease: No Tobacco Use: Former Prior Interventions PCI: No CABG: No Valve Surgery: No Report Signatures Finalized by Dr Leatha Saldivar MD FAC on 07/30/2023 10:32 PM
[2023-07-30] MEDS: diphenhydrAMINE 50 mg Capsule PO (08:05)
[2023-07-30 08:18] LABS: Blood Urea Nitrogen 22 mg/dL (8-23); Calcium 9.2 mg/dL (8.5-10.5); Carbon Dioxide 25 mmol/L (22-29); Chloride 104 mmol/L (98-107); Creatinine Clr Calc Pharmacy 70.0152; Glucose 125 mg/dL (65-115); Osmolality Calculated 295 mOsm/kg (285-295); Sodium 140 mmol/L (136-145)
--- NOTE | 2023-07-30 08:36 | W.PM.OPSUD ---
Surgery/Procedure H&P Update DATE OF PROCEDURE: July 30, 2023 DATE H&P PERFORMED: 07/18/23 H&P UPDATE INFORMATION: I have reviewed H&P completed within last 30 days, I have examined patient prior to procedure and No changes to prior documentation PREOP DIAGNOSIS: ASHD PRIMARY INDICATION FOR PROCEDURE: Chest pain/abnormal Myocardial perfusion imaging/ASHD PLANNED PROCEDURE: Operation Date: 07/30/23 08:30 Proposed Procedures p Cardiac Catheterization 84040, I25.10, R94.39, I25.5(Left) - Leatha Saldivar MD PATIENT REASSESSED PRIOR TO SEDATION, WITH NO CHANGE NOTED: Yes PHYSICAL EXAM: alert, oriented x 3, clear to auscultation bilaterally and regular rate & rhythm AIRWAY EVAL/ANESTHESIA PLAN: normal airway, see other exam findings, ASA III, Monitored Anesthesia, Local Anesthesia, Risks, benefits & alternatives of sedation and/or procedure discussed and Patient agrees to continue as planned
--- NOTE | 2023-07-30 10:04 | PC.NURSE ---
Patient received from cath [facility] s/p [facility] with right femoral access. No sheath in place. Dressing c,d,i without s/s of bleeding or hematoma formation observed. Patient denies pain or needs. Breakfast tray provided. VS to be monitor.
--- NOTE | 2023-07-30 16:02 | PC.NURSE ---
Patient up to ambulate to bathroom. Right groin dressing remains c,d,i without s/s of bleeding or hematoma formation observed. Patient denies pain to site. Informed Dr Saldivar. Patient will discharge later today.
--- NOTE | 2023-07-30 17:08 | PC.NURSE ---
Patient discharged to home. Instructions provided regarding follow up appointments and site care instructions. Patient and spouse both verbalized complete understanding. Right groin dressing remains c,d,i without s/s of bleeding or hematoma formation observed. Patient denies pain or other needs presently. No distress observed. Patient taken by wheelchair to private vehicle. Spouse to provide transport.
== END 2023-07-30 17:10 | disposition home or self-care (01) ==
LOC: CCL 07:35 → CSU 09:53
PROVIDERS: PCP Family Medicine; Visit Provider Internal Medicine Cardiovascular Disease
DX: I25.118 Atherosclerotic heart disease of native coronary artery with other forms of angina pectoris (principal); Z87.891 Personal history of nicotine dependence; I13.0 Hypertensive heart and chronic kidney disease with heart failure and stage 1 through stage 4 chronic kidney disease, or unspecified chronic kidney disease; N18.2 Chronic kidney disease, stage 2 (mild); I50.22 Chronic systolic (congestive) heart failure; E78.2 Mixed hyperlipidemia; Z95.0 Presence of cardiac pacemaker; Z79.82 Long term (current) use of aspirin; Z79.01 Long term (current) use of anticoagulants; I48.91 Unspecified atrial fibrillation
CPT/HCPCS: 36415; 80048; 93458; 96374; 96375; 99152; 99153; C1769; C1887; C1894; J1644; J2250; J3010; J3490; J7030; Q0163; Q9967

== ENCOUNTER → 2023-10-14 08:59 | Outpatient (BNVA) | payer MEDICARE, MEDICAID, SELFPAY | PROVIDERS: PCP Family Medicine; Visit Provider Family Medicine | DX: R73.9 Hyperglycemia, unspecified (principal); N18.2 Chronic kidney disease, stage 2 (mild); I10 Essential (primary) hypertension; E78.5 Hyperlipidemia, unspecified | CPT/HCPCS: 80053; 80061; 82043; 83036; 84443; 85025; G0103 ==

== ENCOUNTER 2023-12-05 08:51 | Outpatient (CLI) | payer MEDICARE, MEDICAID, SELFPAY ==
--- NOTE | 2023-12-05 08:53 | CTR_ITS ---
PROCEDURE INFORMATION: Exam: CT Temporal Bones Without Contrast. Exam date and time: 12/05/2023 9:10 AM Age: 78 years old Clinical indication: Patient HX: Sensoneural hearing loss left ear x 25 years, HX of chronic mastoiditis; Additional info: Chronic mastoiditis, left ear TECHNIQUE: Imaging protocol: Computed tomography of the temporal bones without contrast. Radiation optimization: All CT scans at this facility use at least one of these dose optimization techniques: automated exposure control; mA and/or kV adjustment per patient size (includes targeted exams where dose is matched to clinical indication); or iterative reconstruction. COMPARISON: CT head wo con* [id number] 02/09/2022 12:38 PM RADIATION DOSE METRICS: Total DLP (mGy-cm): 308.38 FINDINGS: Right inner ear: Dehiscence of the superior semicircular canal. Right ossicles and middle ear: Normal. The middle ear ossicles are intact. Right external auditory canal: Normal. Right facial nerve canal: Normal. Right jugular foramen: No jugular dehiscence. Right carotid canal: No aberrant carotid canal. Right mastoid air cells: The right mastoid air cells are unremarkable. Left inner ear: Unremarkable. Left ossicles and middle ear: There is heterogeneous soft tissue density within the hypo tympanum and epitympanum with a small amount within the mesotympanum adjacent to the middle ear ossicles. The scutum appears intact, without discrete evidence of erosion. The tympanic membrane is not visualized, possibly thickened and adhesed to the middle ear ossicles or perforated. There is widening of the eustachian tube, without erosion. Left external auditory canal: Inflammatory soft tissue thickening of the external auditory canal. Left facial nerve canal: Intact. Left jugular foramen: No jugular dehiscence. Left carotid canal: No aberrant carotid canal. Left mastoid air cells: Large left mastoid effusion with chronic left mastoid volume loss and sclerosis of the mastoid air cells. Paranasal sinuses: Near-complete opacification of the visualized right maxillary sinus with chronic mucoperiosteal thickening. Otherwise scattered mild diffuse paranasal mucosal thickening. Bones/joints: There is no evidence of acute fracture. Soft tissues: Soft tissues are unremarkable as visualized. CT/CT temporal bone wo con* [id number] IMPRESSION: 1. Large left mastoid effusion, with chronic left mastoid volume loss and sclerosis of the mastoid air cells, as well as [id number] left middle ear fluid and soft tissue, suspicious for chronic otomastoiditis. The ossicles are intact and there is no evidence of erosion of the scutum or ossicles. 2. Thickening and suggested perforation of the left tympanic membrane. Inflammatory changes of the left external auditory canal. 3. Widening of the left eustachian tube, likely related to chronic inflammation. 4. Incidentally noted dehiscence of the right superior semicircular canal.
== END 2023-12-05 08:52 | disposition home or self-care (01) ==
LOC: RAD 08:52
PROVIDERS: PCP Family Medicine; Visit Provider Otolaryngology
DX: H70.12 Chronic mastoiditis, left ear (principal); H74.8X2 Other specified disorders of left middle ear and mastoid; H72.92 Unspecified perforation of tympanic membrane, left ear; H69.92 Unspecified Eustachian tube disorder, left ear; H83.8X1 Other specified diseases of right inner ear; H90.6 Mixed conductive and sensorineural hearing loss, bilateral; H92.12 Otorrhea, left ear
CPT/HCPCS: 70480

== ENCOUNTER → 2023-12-31 11:59 | Outpatient (BNVA) | payer MEDICARE, MEDICAID, SELFPAY | PROVIDERS: PCP Nurse Practitioner Family; Visit Provider Nurse Practitioner Family | DX: R31.9 Hematuria, unspecified (principal); N39.0 Urinary tract infection, site not specified | CPT/HCPCS: 81003; 87086 ==

== ENCOUNTER → 2024-01-28 10:24 | Outpatient (BNVA) | payer MEDICARE, MEDICAID, SELFPAY | PROVIDERS: PCP Nurse Practitioner Family; Visit Provider Nurse Practitioner Family | DX: I13.0 Hypertensive heart and chronic kidney disease with heart failure and stage 1 through stage 4 chronic kidney disease, or unspecified chronic kidney disease (principal); N18.2 Chronic kidney disease, stage 2 (mild); I50.22 Chronic systolic (congestive) heart failure; I25.10 Atherosclerotic heart disease of native coronary artery without angina pectoris; Z95.0 Presence of cardiac pacemaker; E78.5 Hyperlipidemia, unspecified; Z87.891 Personal history of nicotine dependence | CPT/HCPCS: 99214 ==

== ENCOUNTER 2024-03-02 14:45 | Emergency (ER) | payer MEDICARE, MEDICAID, SELFPAY ==
[2024-03-02] VITALS (7 sets, daily range): BP systolic 157–182; BP diastolic 88–106; PULSE 59–82; RESP 14–19; TEMP 36.9; O2SAT 96–98
--- NOTE | 2024-03-02 14:58 | CT_ITS ---
WS: [id number] CT HEAD NONCONTRAST HISTORY: Left face tingling TECHNIQUE: Contiguous axial imaging performed through the brain. Bone and soft tissue windows. Sagitt al and coronal reformats reviewed. All CT scans at [facility] use at least one of these dose optimization techniques: automated exposure control; mA and/or kV adjustment per patient size (includ es targeted exams where dose is matched to clinical indication); or iterative reconstruction. DLP: 1024.19 mGy.cm COMPARISON: 02/09/2022 No acute intracranial hemorrhage, midline shift or mass effect. Mild symmetric atrophy and small vessel disease. No prior infarct. Ventricles: Normal size with no hydrocephalus. No inferior displacement of the cerebellar tonsils. Paranasal sinuses: As visualized are clear. Mastoid air cells: Fluid distending the LEFT mastoid air cells. Mild soft tissue thickening along the internal and external auditory canals and partially encasing the inner ear ossicles on the LEFT. Calvarium and scalp: Skull is intact with no soft tissue edema or swelling. CT/CT head wo con* [id number] IMPRESSION: 1. No acute intracranial hemorrhage or edema. 2. Mild symmetric cerebral atrophy and small vessel disease. 3. LEFT mastoid effusion and chronic changes associated with the LEFT inner ea r ossicles as described on 12/05/2023.
--- NOTE | 2024-03-02 14:58 | XRR_ITS ---
PROCEDURE INFORMATION: Exam: XR Chest Exam date and time: 03/02/2024 3:02 PM Age: 78 years old Clinical indication: Pain; Chest pressure; Patient HX: Elev blood pressure; Additional info: Chest pain TECHNIQUE: Imaging protocol: Radiologic exam of the chest. Views: 1 view. COMPARISON: CR XR chest 1V portable [id number] 01/12/2023 2:45 PM FINDINGS: Lungs: Slight increased vascular markings in the lung bases, likely component of vascular crowding. No consolidation. Pleural spaces: No pleural effusion or pneumothorax. Heart/Mediastinum: Upper limits of normal cardiac size. Vasculature: Mild arteriosclerosis of the thoracic aorta. Bones/joints: Visualized osseous structures show no acute abnormality. Other findings: A dual lead permanent pacemaker is seen in the left, as noted with prior exam. XR/XR chest 1V portable [id number] IMPRESSION: Dual lead permanent pacemaker on the left. Upper limits of normal cardiac size.
--- NOTE | 2024-03-02 14:59 | ECG_ITS ---
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 Measurements Intervals [place] Rate: 67 P: 210 AK: 194 QRS: -56 QRSD: 179 T: 128 QT: 437 QTc: 461 Interpretive Statements ELECTRONIC ATRIAL PACEMAKER ELECTRONIC VENTRICULAR PACEMAKER Compared to ECG 07/01/2023 15:34:20 No significant changes Electronically Signed On 03-06-2024 23:18:42 SPLICING TECHNICIAN by Joon Gao M.D. [email or web address]
--- NOTE | 2024-03-02 15:02 | ED_ITS ---
Documented by User: Saul Roman DO 03/03/24 06:22 HPI - Neuro Symptoms/Deficit 2 General: Chief Complaint: Neuro Symptoms/Deficit Stated Complaint: high BP tingling on left side of face Time Seen by Provider: 03/02/24 14:57 History of Present Illness: 78-year-old male presents emergency room complaining of intermittent tingling in his left arm and face it has been occurring intermittently for the last 48 to 60 hours. Patient denies any chest pain or shortness of breath. He has a history of hypertension history of coronary artery disease he is on dual antiplatelet therapy and atorvastatin. No headache no visual difficulty no difficulty with speech or swallowing. No recent head trauma. He does state he occasionally has had some chest tightness associated with this as well but has none at this time. Associated symptoms: Deny chest pain Related Data Home Medications Medication Instructions Recorded Confirmed aspirin 81 mg tablet,delayed 81 mg PO DAILY 02/08/19 03/02/24 release multivitamin 1 tab PO QAM 02/08/19 03/02/24 omega 8-irr-jod-fish oil 300 1 cap PO BID 02/07/22 03/02/24 mg-1,000 mg capsule (Fish Oil) zinc acetate 50 mg (zinc) capsule 50 mg PO DAILY 02/07/22 03/02/24 cyclobenzaprine 10 mg tablet 10 mg PO TID PRN Muscle Spasm 03/02/24 03/02/24 ranolazine 500 mg tablet,extended 500 mg PO BID 03/02/24 03/02/24 release,12 hr Previous Rx's Medication Instructions Recorded nitroglycerin 0.4 mg sublingual See Rx Instructions .Route 07/16/23 tablet .COMPLEX #90 tabs sacubitril 97 mg-valsartan 103 mg 1 tab PO BID #180 tabs 11/03/23 tablet (Entresto) amlodipine 2.5 mg tablet 2.5 mg PO DAILY #90 tabs 12/30/23 atorvastatin 40 mg tablet 40 mg PO QPM #90 tabs 12/30/23 carvedilol 12.5 mg tablet 12.5 mg PO BID #180 tabs 12/30/23 clopidogrel 75 mg tablet 75 mg PO DAILY #90 tabs 12/30/23 isosorbide mononitrate 30 mg 30 mg PO DAILY #90 tabs 12/30/23 tablet,extended release 24 hr omeprazole 40 mg capsule,delayed 40 mg PO BID #180 caps 12/30/23 release tamsulosin 0.4 mg capsule 0.4 mg PO DAILY #90 caps 12/30/23 Allergies Allergy/AdvReac Type Severity Reaction Status Date / Time allopurinol Allergy Mild ADR-Dizzine Verified 02/24/24 15:59 ss gabapentin Allergy syncope Verified 02/24/24 15:59 pregabalin [From Lyrica] Allergy Unknown Verified 02/24/24 15:59 dutasteride [From Avodart] AdvReac Unknown Verified 02/24/24 15:59 Review of Systems 2 Const: Denies: fever(s) or chills Card: Denies: chest pain Resp: Denies: dyspnea GI: Denies: abdominal pain : Denies: dysuria, urinary frequency or urinary urgency Musc: Denies: neck pain or back pain Skin/Breast: Denies: rash PFSH ED 2 PFSH: Medical History Hematuria Screening PSA (prostate specific antigen) Enrolled in chronic care management Diaphoresis Chest pain Cardiac ischemia Hx of cardiomyopathy LVEF <40% Chronic systolic (congestive) heart failure Ischemic cardiomyopathy Abnormal nuclear cardiac imaging test Heart murmur Osteopenia Hemorrhoids, internal Cervical spine arthritis Abdominal pain Hepatomegaly History of medication noncompliance Atherosclerosis of coronary artery of [place] heart without angina pectoris History of colon polyps Hyperuricemia Cervical disc disorder with myelopathy Elevated blood sugar Chronic neck pain Chronic gout Gastro-esophageal reflux disease without esophagitis Diverticulosis Neuropathy Ptael's neuroma of left foot Blindness of left eye Unspecified osteoarthritis, unspecified site Arteriosclerotic heart disease Hearing loss of both ears Nicotine dependence, cigarettes, uncomplicated Metatarsalgia of both feet Essential (primary) hypertension Mixed hyperlipidemia Chronic kidney disease, stage 2 (mild) Cholecystectomy planned Pacemaker Surgical History Status post cholecystectomy S/P cardiac catheterization History of permanent cardiac pacemaker placement For symptomatic bradycardia, 02/25 History of ankle surgery H/O hernia repair Family History Brother CAD (coronary artery disease) Myocardial infarct Cancer Mother Myocardial infarct Father Cancer FROM LUNG CANCER Daughter Cancer Social History Smoking and tobacco/nicotine status: former use of tobacco/nicotine Quit status (tobacco/nicotine): has quit using Year quit tobacco: 2017, smoked 50years Former quit date comment: 1/2- 1 packs per day Second hand smoke exposure: No Alcohol intake: current Substance/Drug Use: never Lives independently: Yes Household members: spouse Marital status: Current occupational status: retired NIH stroke score 2 NIHSS: Level Of Consciousness - 1a: 0 Level Of Consciousness Questions - 1b: Both Correct Level Of Consciousness Commands - 1c: Both Correct Best Gaze - 2: Normal Visual [place]rell - 3: No Visual Loss Facial Palsy - 4: N ormal Motor Arm Right - 5: No Drift Motor Arm Left - 5: No Drift Motor Leg Right - 6: No Drift Motor Leg Left - 6: No Drift Limb Ataxia - 7: A bsent Sensory - 8: Normal Best Language - 9: No Aphasia Dysarthia - 10: Normal Extinction And Inattention - 11: 0 Score: Total Score: 0 Physical Exam 2 Const: COMMON NORMALS: no acute distress GENERAL APPEARANCE: cooperative and comfortable ORIENTATION/CONSCIOUSNESS: Yes awake, Yes oriented to person, Yes oriented to place and Yes oriented to time HENMT: COMMON NORMALS: normocephalic, atraumatic and hearing grossly normal bilaterally HEAD & SCALP: normocephalic and atraumatic Resp: COMMON NORMALS: normal respiratory effort, No retractions, No use of accessory muscles and clear to auscultation bilaterally AUSCULTATION: clear to auscultation bilaterally Cardio: COMMON NORMALS: regular rate, regular rhythm and No murmurs present (Cardio) RATE: regular rate RHYTHM: regular rhythm GI: COMMON NORMALS: Soft to palpation and No hepatosplenomegaly present A USCULTATION: Yes normoactive bowel sounds PALPATION: Yes Soft to palpation, No Tenderness to palpation present (GI), No Guarding due to palpation present (GI) and Yes No hepatosplenomegaly present Extremity: COMMON NORMALS: normal to inspection, capillary refill normal, no clubbing, cyanosis or edema, no calf tenderness and no pedal edema Neuro: SENSORIUM/ORIENTATION: Yes oriented to person, Yes oriented to place and Yes oriented to time Skin: COMMON NORMALS: no rashes or lesions noted GENERAL SKIN EXAM: no rashes or lesions noted Course 2 Vital Signs: Vital signs: Vital Signs Temperature 98.5 F 03/02/24 14:50 Pulse Rate 60 03/02/24 18:49 Respiratory Rate 14 03/02/24 18:49 Blood Pressure 161/106 03/02/24 18:49 Pulse Oximetry 97 03/02/24 18:49 MDM - Neuro Symptoms/Deficit Medical Decision Making Initial EKG reviewed as found on the chart no acute ST changes. Care signed out to Dr. Spann at change of shift. See final notes for diagnosis and disposition. Chest x-ray: No acute process. No infiltrate. No pneumothorax. This was reviewed and interpreted by myself the emergency room physician. I also reviewed the radiology report.. Borderline cardiomegaly. Pacemaker placement. CT head: No acute intracranial process. no intracranial hemorrhage, no evidence of infarct. no evidence of acute fracture.This was reviewed and interpreted by myself the ER physician. Assessment and plan: Paresthesia - Discharged home - Discussed plan with patient. Answered any questions. - Evaluation and treatment of this problem were appropriate in the emergency setting. Lab Data 03/02/24 15:32 03/02/24 15:32 Radiology Impressions Chest X-Ray 03/02/24 14:58 IMPRESSION: Dual lead permanent pacemaker on the left. Upper limits of normal cardiac size. Head CT 03/02/24 14:58 IMPRESSION: 1. No acute intracranial hemorrhage or edema. 2. Mild symmetric cerebral atrophy and small vessel disease. 3. LEFT mastoid effusion and chronic changes associated with the LEFT inner ear ossicles as described on 12/05/2023. Laboratory Results WBC 5.73 10^3/uL (3.29-11.43) 03/02/24 15:32 RBC 4.15 10^6/uL (3.85-5.65) 03/02/24 15:32 Hgb 13.50 g/dL (11.27-16.99) 03/02/24 15:32 Hct 40.7 % (37-53) 03/02/24 15:32 MCV 98.1 fl (82-101) 03/02/24 15:32 MCH 32.5 pg (27-33) 03/02/24 15:32 MCHC 33.2 g/dL (30-55) 03/02/24 15:32 RDW 12.2 % (12.1-15.1) 03/02/24 15:32 Plt Count 193 10^3/cmm (157-399) 03/02/24 15:32 MPV 9.1 fL (7.4-10.4) 03/02/24 15:32 Neut % (Auto) 59.9 % 03/02/24 15:32 Lymph % (Auto) 31.6 % 03/02/24 15:32 [place] % (Auto) 7.3 % 03/02/24 15:32 Eos % (Auto) 0.2 % 03/02/24 15:32 Baso % (Auto) 0.7 % 03/02/24 15:32 Neut # (Auto) 3.43 10^3/uL (1.8-7.7) 03/02/24 15:32 Lymph # (Auto) 1.8 10^3/uL (0.8-4.8) 03/02/24 15:32 [place] # (Auto) 0.4 10^3/uL (0.2-0.9) 03/02/24 15:32 Eos # (Auto) 0.0 10^3/uL (0.0-0.8) 03/02/24 15:32 Baso # (Auto) 0.0 10^3/uL (0.0-0.1) 03/02/24 15:32 Nucleated RBC % (auto) 0 % 03/02/24 15:32 Nucleated RBCs # 0.0 /100WBC 03/02/24 15:32 Sodium 140 mmol/L (136-145) 03/02/24 15:32 Potassium 4.0 mmol/L (3.5-5.1) 03/02/24 15:32 Chloride 102 mmol/L (98-107) 03/02/24 15:32 Carbon Dioxide 26 mmol/L (22-29) 03/02/24 15:32 Anion Gap 16.0 (5-19) 03/02/24 15:32 BUN 15 mg/dL (8-23) 03/02/24 15:32 Creatinine 1.0 mg/dL (0.7-1.2) 03/02/24 15:32 GFR Calculation Not Reportable 03/02/24 15:32 Glucose 128 mg/dL (65-115) H 03/02/24 15:32 Calculated Osmolality 292 mOsm/kg (285-295) 03/02/24 15:32 Calcium 9.6 mg/dL (8.5-10.5) 03/02/24 15:32 Total Bilirubin 0.3 mg/dL (0.15-1.2) 03/02/24 15:32 AST 23 U/L (0-40) 03/02/24 15:32 ALT 29 U/L (0-41) 03/02/24 15:32 Alkaline Phosphatase 83 U/L (40-130) 03/02/24 15:32 Troponin T Baseline 9 ng/L (0-15) 03/02/24 15:32 Troponin T 120 Minute 8.50 ng/L (0-15) 03/02/24 17:36 Delta Troponin T -0.50 ABS# (0-10) L 03/02/24 17:36 Total Protein 6.9 g/dL (6.6-8.7) 03/02/24 15:32 Albumin 4.7 g/dL (3.5-5.2) 03/02/24 15:32 Globulin 2.2 g/dL (1.3-4.6) 03/02/24 15:32 Urine Color Yellow (Yellow) 03/02/24 16:45 Urine Appearance Clear (CLEAR) 03/02/24 16:45 Urine pH 6.5 (5-7) 03/02/24 16:45 Ur Specific [place] 1.015 (1.005-1.030) 03/02/24 16:45 Urine Protein Negative (Negative) 03/02/24 16:45 Urine Glucose (UA) Negative (Normal) 03/02/24 16:45 Urine Ketones Negative (Negative) 03/02/24 16:45 Urine Blood Negative (Negative) 03/02/24 16:45 Urine Nitrate Negative (Negative) 03/02/24 16:45 Urine Bilirubin Negative (Negative) 03/02/24 16:45 Urine Urobilinogen 1.0 mg/dL (Negative) 03/02/24 16:45 Ur Leukocyte Esterase Negative (Negative) 03/02/24 16:45 Urine RBC 0-2 /hpf (0-2) 03/02/24 16:45 Urine WBC 0-5 /hpf (0-5) 03/02/24 16:45 Ur Squamous Epith Cells 0-5 /hpf (0-5) 03/02/24 16:45 Amorphous Sediment Not Reportable 03/02/24 16:45 Urine Bacteria None seen /hpf (NONE) 03/02/24 16:45 Hyaline Casts 0-4 /lpf H 03/02/24 16:45 Discharge Plan Discharge Patient Disposition: Home Clinical Impression: Paresthesia Condition: Stable Prescriptions: No Action aspirin 81 mg tablet,delayed release (DR/EC) 81 mg PO DAILY multivitamin Tablet 1 tab PO QAM amlodipine 2.5 mg tablet 2.5 mg PO DAILY Qty: 90 1RF atorvastatin 40 mg tablet 40 mg PO QPM Qty: 90 1RF carvedilol 12.5 mg tablet 12.5 mg PO BID Qty: 180 1RF clopidogrel 75 mg tablet 75 mg PO DAILY Qty: 90 1RF isosorbide mononitrate 30 mg tablet extended release 24 hr 30 mg PO DAILY Qty: 90 1RF omeprazole 40 mg capsule,delayed release(DR/EC) 40 mg PO BID Qty: 180 1RF tamsulosin 0.4 mg capsule 0.4 mg PO DAILY Qty: 90 1RF nitroglycerin 0.4 mg tablet, sublingual See Rx Instructions .ROUTE .COMPLEX Qty: 90 0RF Dose Instruction: DISSOLVE ONE TABLET UNDER THE TONGUE EVERY 5 MINUTES NEEDED CHEST PAIN Rx Instructions: DISSOLVE ONE TABLET UNDER THE TONGUE EVERY 5 MINUTES NEEDED CHEST PAIN Entresto 97-103 mg tablet 1 tab PO BID Qty: 180 3RF zinc acetate 50 mg (zinc) Capsule 50 mg PO DAILY omega 1-oyu-aby-fish oil [Fish Oil] 300-1,000 mg Capsule 1 cap PO BID cyclobenzaprine 10 mg tablet 10 mg PO TID PRN (Reason: Muscle Spasm) ranolazine 500 mg tablet extended release 12 hr 500 mg PO BID Discharge Orders: Discharge ED (Routine); Ordered 03/02/24 Ordered By: Mitali Spann Referrals: Jeniffer Real FNP [Primary Care Provider] - Patient Instructions: Paresthesia (ED), Opioid Safety, Pain Management Activity Restrictions/Additional Instructions: Thank you for choosing [facility] for your healthcare needs today. Please realize this is an emergency room and that we are providing you with a medical screening exam and this may not be complete and all inclusive of all the testing and or work up that you may need to determine your ailment or severity of your illness. You have been screened and evaluated and felt safe for discharge. Health conditions do change or evolve sometimes and as such it is important that you follow up with your Primary Doctor to be re checked, 3-5 days is a general good time frame for follow up. You are always welcome to return to the ED for re assessment if your symptoms are worsening or you have new concerns Coding Level of Care Code ED Powder Monkey for Chg Fwd Documented by User: Mitali Spann MD 03/02/24 21:24 HPI - Neuro Symptoms/Deficit 2 General: Chief Complaint: Neuro Symptoms/Deficit Stated Complaint: high BP tingling on left side of face Time Seen by Provider: 03/02/24 14:57 History of Present Illness: 78-year-old man who was checked out to e at shift change. Apparently he has been having tingling in his left arm and face. This has been off and on. No lower extremity symptoms. He has a pacemaker. He is on Plavix, aspirin and atorvastatin. Related Data Home Medications Medication Instructions Recorded Confirmed aspirin 81 mg tablet,delayed 81 mg PO DAILY 02/08/19 03/02/24 release multivitamin 1 tab PO QAM 02/08/19 03/02/24 omega 0-ika-cyr-fish oil 300 1 cap PO BID 02/07/22 03/02/24 mg-1,000 mg capsule (Fish Oil) zinc acetate 50 mg (zinc) capsule 50 mg PO DAILY 02/07/22 03/02/24 cyclobenzaprine 10 mg tablet 10 mg PO TID PRN Muscle Spasm 03/02/24 03/02/24 ranolazine 500 mg tablet,extended 500 mg PO BID 03/02/24 03/02/24 release,12 hr Previous Rx's Medication Instructions Recorded nitroglycerin 0.4 mg sublingual See Rx Instructions .Route 07/16/23 tablet .COMPLEX #90 tabs sacubitril 97 mg-valsartan 103 mg 1 tab PO BID #180 tabs 11/03/23 tablet (Entresto) amlodipine 2.5 mg tablet 2.5 mg PO DAILY #90 tabs 12/30/23 atorvastatin 40 mg tablet 40 mg PO QPM #90 tabs 12/30/23 carvedilol 12.5 mg tablet 12.5 mg PO BID #180 tabs 12/30/23 clopidogrel 75 mg tablet 75 mg PO DAILY #90 tabs 12/30/23 isosorbide mononitrate 30 mg 30 mg PO DAILY #90 tabs 12/30/23 tablet,extended release 24 hr omeprazole 40 mg capsule,delayed 40 mg PO BID #180 caps 12/30/23 release tamsulosin 0.4 mg capsule 0.4 mg PO DAILY #90 caps 12/30/23 Allergies Allergy/AdvReac Type Severity Reaction Status Date / Time allopurinol Allergy Mild ADR-Dizzine Verified 02/24/24 15:59 ss gabapentin Allergy syncope Verified 02/24/24 15:59 pregabalin [From Lyrica] Allergy Unknown Verified 02/24/24 15:59 dutasteride [From Avodart] AdvReac Unknown Verified 02/24/24 15:59 PFSH ED 2 PFSH: Medical History Hematuria Screening PSA (prostate specific antigen) Enrolled in chronic care management Diaphoresis Chest pain Cardiac ischemia Hx of cardiomyopathy LVEF <40% Chronic systolic (congestive) heart failure Ischemic cardiomyopathy Abnormal nuclear cardiac imaging test Heart murmur Osteopenia Hemorrhoids, internal Cervical spine arthritis Abdominal pain Hepatomegaly History of medication noncompliance Atherosclerosis of coronary artery of [place] heart without angina pectoris History of colon polyps Hyperuricemia Cervical disc disorder with myelopathy Elevated blood sugar Chronic neck pain Chronic gout Gastro-esophageal reflux disease without esophagitis Diverticulosis Neuropathy Patel's neuroma of left foot Blindness of left eye Unspecified osteoarthritis, unspecified site Arteriosclerotic heart disease Hearing loss of both ears Nicotine dependence, cigarettes, uncomplicated Metatarsalgia of both feet Essential (primary) hypertension Mixed hyperlipidemia Chronic kidney disease, stage 2 (mild) Cholecystectomy planned Pacemaker Surgical History Status post cholecystectomy S/P cardiac catheterization History of permanent cardiac pacemaker placement For symptomatic bradycardia, 02/25 History of ankle surgery H/O hernia repair Family History Brother CAD (coronary artery disease) Myocardial infarct Cancer Mother Myocardial infarct Father Cancer FROM LUNG CANCER Daughter Cancer Social History Smoking and tobacco/nicotine status: former use of tobacco/nicotine Quit status (tobacco/nicotine): has quit using Year quit tobacco: 2016, smoked 50years Former quit date comment: 1/2- 1 packs per day Second hand smoke exposure: No Alcohol intake: current Substance/Drug Use: never Lives independently: Yes Household members: spouse Marital status: Current occupational status: retired Course 2 Vital Signs: Vital signs: Vital Signs Temperature 98.5 F 03/02/24 14:50 Pulse Rate 60 03/02/24 18:49 Respiratory Rate 14 03/02/24 18:49 Blood Pressure 161/106 03/02/24 18:49 Pulse Oximetry 97 03/02/24 18:49 MDM - Neuro Symptoms/Deficit Medical Decision Making Chest x-ray: No acute process. No infiltrate. No pneumothorax. This was reviewed and interpreted by myself the emergency room physician. I also reviewed the radiology report.. Borderline cardiomegaly. Pacemaker placement. CT head: No acute intracranial process. no intracranial hemorrhage, no evidence of infarct. no evidence of acute fracture.This was reviewed and interpreted by myself the ER physician. Assessment and plan: Paresthesia - Discharged home - Discussed plan with patient. Answered any questions. - Evaluation and treatment of this problem were appropriate in the emergency setting. Lab Data 03/02/24 15:32 03/02/24 15:32 Radiology Impressions Chest X-Ray 03/02/24 14:58 IMPRESSION: Dual lead permanent pacemaker on the left. Upper limits of normal cardiac size. Head CT 03/02/24 14:58 IMPRESSION: 1. No acute intracranial hemorrhage or edema. 2. Mild symmetric cerebral atrophy and small vessel disease. 3. LEFT mastoid effusion and chronic changes associated with the LEFT inner ear ossicles as described on 12/05/2023. Laboratory Results WBC 5.73 10^3/uL (3.29-11.43) 03/02/24 15:32 RBC 4.15 10^6/uL (3.85-5.65) 03/02/24 15:32 Hgb 13.50 g/dL (11.27-16.99) 03/02/24 15:32 Hct 40.7 % (37-53) 03/02/24 15:32 MCV 98.1 fl (82-101) 03/02/24 15:32 MCH 32.5 pg (27-33) 03/02/24 15: MCHC 33.2 g/dL (30-55) 03/02/24 15:32 RDW 12.2 % (12.1-15.1) 03/02/24 15: Plt Count 193 10^3/cmm (157-399) 03/02/24 15: MPV 9.1 fL (7.4-10.4) 03/02/24 15:32 Neut % (Auto) 59.9 % 03/02/24 15:32 Lymph % (Auto) 31.6 % 03/02/24 15:32 [place] % (Auto) 7.3 % 03/02/24 15:32 Eos % (Auto) 0.2 % 03/02/24:32 Baso % (Auto) 0.7 % 03/02/24: Neut # (Auto) 3.43 10^3/uL (1.8-7.7) 03/02/24 15:32 Lymph # (Auto) 1.8 10^3/uL (0.8-4.8) 03/02/24 15:32 [place] # (Auto) 0.4 10^3/uL (0.2-0.9) 03/02/24 15:32 Eos # (Auto) 0.0 10^3/uL (0.0-0.8) 03/02/24: Baso # (Auto) 0.0 10^3/uL (0.0-0.1) 03/02/24: Nucleated RBC % (auto) 0 % 03/02/24: Nucleated RBCs # 0.0 /100WBC 03/02/24 15:32 Sodium 140 mmol/L (136-145) 03/02/24 15:32 Potassium 4.0 mmol/L (3.5-5.1) 03/02/24 15:32 Chloride 102 mmol/L (98-107) 03/02/24 15:32 Carbon Dioxide 26 mmol/L (22-29) 03/02/24 15:32 Anion Gap 16.0 (5-19) 03/02/24 15:32 BUN 15 mg/dL (8-23) 03/02/24 15:32 Creatinine 1.0 mg/dL (0.7-1.2) 03/02/24 15:32 GFR Calculation Not Reportable 03/02/24 15:32 Glucose 128 mg/dL (65-115) H 03/02/24 15:32 Calculated Osmolality 292 mOsm/kg (285-295) 03/02/24 15:32 Calcium 9.6 mg/dL (8.5-10.5) 03/02/24 15:32 Total Bilirubin 0.3 mg/dL (0.15-1.2) 03/02/24 15:32 AST 23 U/L (0-40) 03/02/24 15:32 ALT 29 U/L (0-41) 03/02/24 15:32 Alkaline Phosphatase 83 U/L (40-130) 03/02/24 15:32 Troponin T Baseline 9 ng/L (0-15) 03/02/24 15:32 Troponin T 120 Minute 8.50 ng/L (0-15) 03/02/24 17:36 Delta Troponin T -0.50 ABS# (0-10) L 03/02/24 17:36 Total Protein 6.9 g/dL (6.6-8.7) 03/02/24 15:32 Albumin 4.7 g/dL (3.5-5.2) 03/02/24 15:32 Globulin 2.2 g/dL (1.3-4.6) 03/02/24 15:32 Urine Color Yellow (Yellow) 03/02/24 16:45 Urine Appearance Clear (CLEAR) 03/02/24 16:45 Urine pH 6.5 (5-7) 03/02/24 16:45 Ur Specific [place] 1.015 (1.005-1.030) 03/02/24 16:45 Urine Protein Negative (Negative) 03/02/24 16:45 Urine Glucose (UA) Negative (Normal) 03/02/24 16:45 Urine Ketones Negative (Negative) 03/02/24 16:45 Urine Blood Negative (Negative) 03/02/24 16:45 Urine Nitrate Negative (Negative) 03/02/24 16:45 Urine Bilirubin Negative (Negative) 03/02/24 16:45 Urine Urobilinogen 1.0 mg/dL (Negative) 03/02/24 16:45 Ur Leukocyte Esterase Negative (Negative) 03/02/24 16:45 Urine RBC 0-2 /hpf (0-2) 03/02/24 16:45 Urine WBC 0-5 /hpf (0-5) 03/02/24 16:45 Ur Squamous Epith Cells 0-5 /hpf (0-5) 03/02/24 16:45 Amorphous Sediment Not Reportable 03/02/24 16:45 Urine Bacteria None seen /hpf (NONE) 03/02/24 16:45 Hyaline Casts 0-4 /lpf H 03/02/24 16:45 All radiology interpretation(s) finalized by discharge Discharge Plan Discharge Patient Disposition: Home Clinical Impression: Paresthesia Condition: Stable Prescriptions: No Action aspirin 81 mg tablet,delayed release (DR/EC) 81 mg PO DAILY multivitamin Tablet 1 tab PO QAM amlodipine 2.5 mg tablet 2.5 mg PO DAILY Qty: 90 1RF atorvastatin 40 mg tablet 40 mg PO QPM Qty: 90 1RF carvedilol 12.5 mg tablet 12.5 mg PO BID Qty: 180 1RF clopidogrel 75 mg tablet 75 mg PO DAILY Qty: 90 1RF isosorbide mononitrate 30 mg tablet extended release 24 hr 30 mg PO DAILY Qty: 90 1RF omeprazole 40 mg capsule,delayed release(DR/EC) 40 mg PO BID Qty: 180 1RF tamsulosin 0.4 mg capsule 0.4 mg PO DAILY Qty: 90 1RF nitroglycerin 0.4 mg tablet, sublingual See Rx Instructions .ROUTE .COMPLEX Qty: 90 0RF Dose Instruction: DISSOLVE ONE TABLET UNDER THE TONGUE EVERY 5 MINUTES NEEDED CHEST PAIN Rx Instructions: DISSOLVE ONE TABLET UNDER THE TONGUE EVERY 5 MINUTES NEEDED CHEST PAIN Entresto 97-103 mg tablet 1 tab PO BID Qty: 180 3RF zinc acetate 50 mg (zinc) Capsule 50 mg PO DAILY omega 8-yus-wds-fish oil [Fish Oil] 300-1,000 mg Capsule 1 cap PO BID cyclobenzaprine 10 mg tablet 10 mg PO TID PRN (Reason: Muscle Spasm) ranolazine 500 mg tablet extended release 12 hr 500 mg PO BID Discharge Orders: Discharge ED (Routine); Ordered 03/02/24 Ordered By: Mitali Spann Referrals: Jeniffer Real FNP [Primary Care Provider] - Patient Instructions: Paresthesia (ED), Opioid Safety, Pain Management Activity Restrictions/Additional Instructions: Thank you for choosing [facility] for your healthcare needs today. Please realize this is an emergency room and that we are providing you with a medical screening exam and this may not be complete and all inclusive of all the testing and or work up that you may need to determine your ailment or severity of your illness. You have been screened and evaluated and felt safe for discharge. Health conditions do change or evolve sometimes and as such it is important that you follow up with your Primary Doctor to be re checked, 3-5 days is a general good time frame for follow up. You are always welcome to return to the ED for re assessment if your symptoms are worsening or you have new concerns Coding Level of Care Code ED Powder Monkey for Lamont Galan
[2024-03-02 15:45] LABS: Basophils % 0.7 %; Eosinophils % 0.2 %; Hematocrit 40.7 % (37-53); Lymphocytes # 1.8 10^3/uL (0.8-4.8); Lymphocytes % 31.6 %; Mean Corpuscular HGB Conc 33.2 g/dL (30-55); Mean Corpuscular Hemoglobin 32.5 pg (27-33); Mean Corpuscular Volume 98.1 fl (82-101); Mean Platelet Volume 9.1 fL (7.4-10.4); Monocytes # 0.4 10^3/uL (0.2-0.9); Monocytes % 7.3 %; Neutrophils # 3.43 10^3/uL (1.8-7.7); Neutrophils % 59.9 %; Nucleated Red Blood Cells % 0 %; Platelet Count 193 10^3/cmm (157-399); Red Blood Count 4.15 10^6/uL (3.85-5.65); Red Cell Distribution Width 12.2 % (12.1-15.1); White Blood Count 5.73 10^3/uL (3.29-11.43)
[2024-03-02] MEDS: carvedilol 12.5 mg Tablet PO (15:59)
[2024-03-02 16:00] LABS: Troponin(5th) Baseline 9 ng/L (0-15)
[2024-03-02 16:03] LABS: Alanine Aminotransferase 29 U/L (0-41); Albumin Level 4.7 g/dL (3.5-5.2); Alkaline Phosphatase 83 U/L (40-130); Aspartate Amino Transferase 23 U/L (0-40); Blood Urea Nitrogen 15 mg/dL (8-23); Calcium 9.6 mg/dL (8.5-10.5); Carbon Dioxide 26 mmol/L (22-29); Chloride 102 mmol/L (98-107); Creatinine Clr Calc Pharmacy 82.6846; Globulin 2.2 g/dL (1.3-4.6); Glucose 128 mg/dL (65-115); Osmolality Calculated 292 mOsm/kg (285-295); Sodium 140 mmol/L (136-145); Total Bilirubin 0.3 mg/dL (0.15-1.2); Total Protein 6.9 g/dL (6.6-8.7)
--- NOTE | 2024-03-02 16:55 | ECG_ITS ---
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 Measurements Intervals [place] Rate: 61 P: 258 AK: 179 QRS: -54 QRSD: 191 T: 133 QT: 445 QTc: 451 Interpretive Statements ELECTRONIC ATRIAL PACEMAKER ELECTRONIC VENTRICULAR PACEMAKER ABNORMAL RHYTHM ECG Compared to ECG 03/02/2024 14:54:38 No significant changes Electronically Signed On 03-06-2024 23:35:55 [employer] INSPECTOR by Joon Gao M.D. [email or web address]
[2024-03-02 17:30] LABS: Bilirubin Urine Negative (Negative); Blood Urine Negative (Negative); Glucose Urine UA Negative (Normal); Ketones Urine Negative (Negative); Leukocyte Esterase Urine Negative (Negative); Nitrate Urine Negative (Negative); Protein Urine Negative (Negative); Specific Gravity, Urine 1.015 (1.005-1.030); Urine Appearance Clear (CLEAR); Urine Color Yellow (Yellow); pH Urine 6.5 (5-7)
[2024-03-02 17:33] LABS: Add Urine Microscopic? YES; Bacteria Urine None Seen /hpf; Hyaline Casts Urine 0-4 /lpf; RBC Urine 0-2 /hpf (0-2); Squamous Epithelial Cell Urine 0-5 /hpf (0-5); WBC Urine 0-5 /hpf (0-5)
== END 2024-03-02 18:50 | disposition home or self-care (01) ==
PROVIDERS: Family Medicine; Emergency Provider Emergency Medicine; PCP Nurse Practitioner Family
DX: R20.2 Paresthesia of skin (principal); Z79.82 Long term (current) use of aspirin; Z87.891 Personal history of nicotine dependence; Z95.0 Presence of cardiac pacemaker; I13.0 Hypertensive heart and chronic kidney disease with heart failure and stage 1 through stage 4 chronic kidney disease, or unspecified chronic kidney disease; N18.2 Chronic kidney disease, stage 2 (mild); I50.22 Chronic systolic (congestive) heart failure
CPT/HCPCS: 36415; 70450; 71045; 80053; 81001; 84484; 85025; 93005; 99285

== ENCOUNTER → 2024-06-09 10:01 | Outpatient (BNVA) | payer MEDICARE, MEDICAID, SELFPAY | PROVIDERS: PCP Nurse Practitioner Family; Visit Provider Nurse Practitioner Family | DX: M25.561 Pain in right knee (principal); M25.562 Pain in left knee; G89.29 Other chronic pain; M17.11 Unilateral primary osteoarthritis, right knee | CPT/HCPCS: 73562; 80053; 80061; 82607; 83036; 85025 ==

== ENCOUNTER 2024-06-14 14:45 | Outpatient (CLI) | payer MEDICARE, MEDICAID, SELFPAY ==
--- NOTE | 2024-06-14 15:15 | US_ITS ---
WS: [id number] ULTRASOUND SOFT TISSUES RIGHT cervical chain. HISTORY: R59.1 - Generalized enlarged lymph nodes COMPARISON: None available. TECHNIQUE: 2-D and color Doppler imaging is submitted. Area of concern was imaged. This corresponds to a normal submandibular gland. No cervical chain lymphadenopathy. US/US soft tissue head neck [id number] IMPRESSION: Negative ultrasound RIGHT neck.
== END 2024-06-14 14:46 | disposition home or self-care (01) ==
LOC: RAD 14:46
PROVIDERS: PCP Nurse Practitioner Family; Visit Provider Nurse Practitioner Family
DX: R59.1 Generalized enlarged lymph nodes (principal)
CPT/HCPCS: 76536

== ENCOUNTER → 2024-06-16 08:04 | Outpatient (BNVA) | payer MEDICARE, MEDICAID, SELFPAY | PROVIDERS: PCP Nurse Practitioner Family; Visit Provider Physician Assistant | DX: M25.561 Pain in right knee (principal); M25.562 Pain in left knee; G89.29 Other chronic pain; M17.0 Bilateral primary osteoarthritis of knee | CPT/HCPCS: 20610; 73560; 73565; 99203; J3301; J9999 ==

== ENCOUNTER 2024-06-16 11:59 | Outpatient (CLI) | payer MEDICARE, MEDICAID, SELFPAY | END 2024-06-16 12:00 | disposition home or self-care (01) | LOC: SPT 12:01 | PROVIDERS: PCP Nurse Practitioner Family; Visit Provider Physician Assistant | DX: Z46.89 Encounter for fitting and adjustment of other specified devices (principal); M17.12 Unilateral primary osteoarthritis, left knee | CPT/HCPCS: 97760; L1851 ==

== ENCOUNTER → 2024-09-21 08:55 | Outpatient (BNVA) | payer MEDICARE, MEDICAID, SELFPAY | PROVIDERS: PCP Nurse Practitioner Family; Visit Provider Physician Assistant | DX: M17.0 Bilateral primary osteoarthritis of knee (principal) | CPT/HCPCS: 20610; 99213; J3301; J9999 ==

== ENCOUNTER → 2024-12-01 12:01 | Outpatient (BNVA) | payer MEDICARE, MEDICAID, SELFPAY | PROVIDERS: PCP Nurse Practitioner Family; Visit Provider Nurse Practitioner Family | DX: Z12.5 Encounter for screening for malignant neoplasm of prostate (principal); I10 Essential (primary) hypertension; I25.10 Atherosclerotic heart disease of native coronary artery without angina pectoris; I50.22 Chronic systolic (congestive) heart failure; R73.03 Prediabetes | CPT/HCPCS: 80053; 80061; 81003; 83036; 84443; 85025; G0103 ==

== ENCOUNTER → 2024-12-22 11:56 | Outpatient (BNVA) | payer MEDICARE, MEDICAID, SELFPAY | PROVIDERS: PCP Nurse Practitioner Family; Visit Provider Internal Medicine Cardiovascular Disease | DX: Z45.018 Encounter for adjustment and management of other part of cardiac pacemaker (principal); N18.2 Chronic kidney disease, stage 2 (mild) | CPT/HCPCS: 80048; 93296 ==

== ENCOUNTER → 2024-12-24 10:54 | Outpatient (BNVA) | payer MEDICARE, SELFPAY | PROVIDERS: PCP Nurse Practitioner Family; Visit Provider Physician Assistant | DX: M17.12 Unilateral primary osteoarthritis, left knee (principal) | CPT/HCPCS: 20610; 99213; J3301; J9999 ==

== ENCOUNTER → 2025-01-10 10:17 | Outpatient (BNVA) | payer MEDICARE, MEDICAID, SELFPAY | PROVIDERS: PCP Nurse Practitioner Family; Visit Provider Internal Medicine Cardiovascular Disease | DX: I25.118 Atherosclerotic heart disease of native coronary artery with other forms of angina pectoris (principal); I10 Essential (primary) hypertension; I25.5 Ischemic cardiomyopathy; E78.2 Mixed hyperlipidemia; Z98.890 Other specified postprocedural states; Z95.0 Presence of cardiac pacemaker; Z87.891 Personal history of nicotine dependence | CPT/HCPCS: 99214 ==

== ENCOUNTER → 2025-01-31 10:08 | Outpatient (BNVA) | payer MEDICARE, MEDICAID, SELFPAY | PROVIDERS: PCP Nurse Practitioner Family; Visit Provider Nurse Practitioner Family | DX: R79.89 Other specified abnormal findings of blood chemistry (principal) | CPT/HCPCS: 80048 ==